=== PATIENT | female | born 1955 | race Caucasian/White ===

== ENCOUNTER → 2016-11-27 | Outpatient (CLI) | payer MEDICARE, BC ==
--- NOTE | 2016-11-27 10:28 | WWHP ---
DATE OF SERVICE: 11/27/2016 CHIEF COMPLAINT: The patient is here for her routine gynecologic exam and mammogram. HPI: This is a 61-year-old G1, P1 with an LMP of 2006. She states it has been about 6 years since her last pelvic exam. She states she does have occasional urinary incontinence. She has noticed when gets into a very deep sleep or if she dreams about urinating, she can have some nighttime incontinence. She has also noticed occasional incontinence during the day, sometimes when she coughs and occasionally she has the sensation of urgency just before leaking. PAST MEDICAL HISTORY: Seasonal allergies with chronic sinus problems, history of chronic hypertension that improved after weight loss and also history of sleep apnea, which does require a CPAP machine. MEDICATIONS: 1. Multivitamin daily. 2. Vitamin D3 one daily. 3. Vitamin B12 daily. Allergies to CODEINE which caused muscle spasms and visual changes. PAST SURGICAL HISTORY: Gastric bypass 2014, lap band surgery prior to gastric band surgery, which caused hiatal hernia problems, knee replacement surgery in the past, section, a benign chest wall tumor removed in 2000 and cholecystectomy. PAST OB HISTORY: One section. 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 SOCIAL HISTORY: She previously socially smoked cigarettes up until about age 32 when she quit. She has about 3 alcoholic drinks per year and denies drug use. She is single but has been with a sexual partner on and off for 30 years and this has been her only partner during that time. They do not live together. 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 FAMILY HISTORY: Grandmother had gastric cancer. Grandfather had throat cancer. Father and brother had SD's, grandson has diabetes. REVIEW OF SYSTEMS: She has lost about 80 pounds since her gastric bypass surgery in 2014. She denies respiratory, cardiac, or GI problems. PHYSICAL EXAM: Blood pressure 118/74, height 5 feet 0 inches, weight 185 pounds, temperature 97.3, pulse 72. This a well-developed, heavyset white female who is alert and oriented x3 in no acute distress. HEENT is within normal limits. NECK: Supple without mass or thyromegaly. CHEST AND LUNGS: Clear to auscultation. HEART: Regular rate and rhythm. Breasts are without mass or discharge. Axillary exam is negative for adenopathy. BACK: Negative for CVA tenderness. ABDOMEN: Soft, nontender, without palpable masses. PELVIC EXAM: Normal external genitalia with mild atrophy. Cervix and vagina appear normal with minimal atrophy. There is no evidence of prolapse. There is no evidence of cystocele with cough and Valsalva. There is no significant urethral mobility and no urinary leakage was demonstrated. The uterus is midposition, nongravid size and nontender. There are no palpable adnexal masses or tenderness. Rectovaginal exam is negative for mass or tenderness and is negative for occult blood. EXTREMITIES: Nontender. IMPRESSION: 1. A 61-year-old menopausal female with normal gynecologic exam. 2. Mild urinary incontinence, probable mixed incontinence without any significant physical findings at this time. PLAN: 1. Pap smear was performed. 2. Self breast examination was discussed. 3. Mammogram will be done today. 4. We have discussed Kegel exercises and I recommend that she do this on a regular basis with sets of 20 three or more times per day. I have also recommended timed voids to see if this helps with her leakage problems. If she continues to have problems, consider referral to a urologist for further evaluation. 5. She will return in one year.
--- NOTE | 2016-11-28 09:03 | MM ---
Reason for exam: screening (asymptomatic). Last mammogram was performed 2 years and 1 month ago. History: Patient is postmenopausal. Physical Findings: A clinical breast exam by your physician is recommended on an annual basis and results should be correlated with mammographic findings. MG 3D Screening Mammo W/Cad Bilateral CC and MLO view(s) were taken. Prior study comparison: October 12, 2014, bilateral MG screening mammo w CAD. September 08, 2013, bilateral digital screening mammo w/CAD. There are scattered fibroglandular densities. There is no discrete abnormality. No significant changes when compared with prior studies. ASSESSMENT: Negative, BI-RAD 1 RECOMMENDATION: Routine screening mammogram of both breasts in 1 year.
== END | disposition home or self-care (01) ==
LOC: WWCWWP 08:29
PROVIDERS: ATTEND Obstetrics & Gynecology
DX: Z12.31 Encounter for screening mammogram for malignant neoplasm of breast (principal)
CPT/HCPCS: 77063; G0202

== ENCOUNTER → 2017-12-25 | Outpatient (CLI) | payer MEDICARE ==
--- NOTE | 2017-12-25 10:46 | WWHP ---
[facility] - HISTORY AND PHYSICAL DATE OF SERVICE: 12/25/2017. CHIEF COMPLAINT: The patient is here for her routine gynecologic exam and mammogram. HPI: This is a 62-year-old G1, P1 with an LMP of 2006. The patient is without gynecologic complaints. PAST MEDICAL HISTORY: Seasonal allergies with chronic sinus problems, history of chronic hypertension, improved with weight loss and history of sleep apnea which does require a CPAP machine. MEDICATIONS: 1. Multivitamin daily. 2. Vitamin D3 daily. 3. Vitamin B12 daily. 4. She does take prescription medication for gastric reflux and she does not know the name of this, but takes it once daily. ALLERGIES: Allergies to CODEINE. PAST SURGICAL HISTORY: Gastric bypass 2014, lap band surgery prior to the gastric bypass surgery which caused hiatal hernia problems, knee replacement surgery in the past, in the past, benign chest wall tumor removed in 2000 and previous cholecystectomy. 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 SOCIAL HISTORY: She quit smoking at age 32 and has about 2 alcohol containing drinks per year. She denies drug use. She has been with her sexual partner on and off for about 30 years and this has been her only partner during that time. They do not live together. 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 FAMILY HISTORY: Grandmother had gastric cancer. Grandfather had throat cancer. Father and brother had LA and grandson had diabetes. REVIEW OF SYSTEMS: She has gained about 15 pounds over the last year and this was after losing 80 pounds following her gastric bypass surgery in 2014. She denies respiratory, cardiac or GI problems. PHYSICAL EXAM: Blood pressure 126/86, height 5 feet 0 inches, weight 200 pounds, BMI 39, temperature 96.3, pulse 71. This is a well-developed, heavyset white female, who is alert and oriented x3, in no acute distress. HEENT is within normal limits. NECK: Supple without mass or thyromegaly. CHEST AND LUNGS: Clear to auscultation. HEART: Regular rate and rhythm. Breasts are without mass or discharge. Axillary exam is negative for adenopathy. BACK: Negative for CVA tenderness. ABDOMEN: Soft, nontender, without palpable masses. PELVIC EXAM: External genitalia reveals mild atrophy without lesions. Cervix and vagina reveals mild atrophy without lesions. There is no evidence of prolapse. The uterus is mid position, nongravid size and nontender. There are no palpable adnexal masses or tenderness. Rectovaginal exam is negative for mass or tenderness and is negative for occult blood. EXTREMITIES: Nontender. IMPRESSION: A 62-year-old menopausal female with normal gynecologic exam. PLAN: 1. Pap smear was deferred since she had a normal one last year. 2. Self breast examination was discussed. 3. Mammogram will be done today. 4. Osteoporosis prevention was discussed. I have recommended bone density screening. She would like to do this next year at the time of her annual exam. 5. She will return in one year. MMODL / IJN: [id number] /
--- NOTE | 2017-12-26 13:12 | MM ---
Reason for exam: screening (asymptomatic). Last mammogram was performed 1 year and 1 month ago. History: Patient is postmenopausal. Physical Findings: A clinical breast exam by your physician is recommended on an annual basis and results should be correlated with mammographic findings. MG 3D Screening Mammo W/Cad Bilateral CC and MLO view(s) were taken. Prior study comparison: November 27, 2016, bilateral MG 3d screening mammo w/cad. October 12, 2014, bilateral MG screening mammo w CAD. There are scattered fibroglandular densities. Finding: There are typically benign round calcifications in both breasts. Asymmetric breast tissue right axilla, stable. There is no discrete abnormality. ASSESSMENT: Benign, BI-RAD 2 RECOMMENDATION: Routine screening mammogram of both breasts in 1 year.
== END | disposition home or self-care (01) ==
LOC: WWCWWP 09:08
PROVIDERS: ATTEND Obstetrics & Gynecology
DX: Z12.31 Encounter for screening mammogram for malignant neoplasm of breast (principal)
CPT/HCPCS: 77063; 77067

== ENCOUNTER 2019-05-05 08:25 | Inpatient (IN) | payer MEDICARE ==
[2019-05-05] MEDS ORDERED: HEPARIN SODIUM,PORCINE 5,000 UNIT/ML 1 ML VIAL IV STA (08:40)
[2019-05-05] MEDS ORDERED: ASPIRIN 81 MG PO STA (08:40)
[2019-05-05] MEDS ORDERED: NITROGLYCERIN SL TABS 0.4 MG TAB SUBLINGUAL STA (08:40)
[2019-05-05] MEDS ORDERED: ATORVASTATIN 80 MG TAB PO STA (08:41)
--- NOTE | 2019-05-05 08:45 | ED ---
Chest Pain HPI - General Chief Complaint: Chest Pain Stated Complaint: Chest Pain Time Seen by Provider: 05/05/19 08:30 Source: patient Mode of arrival: wheelchair - History of Present Illness Initial Comments: This is a 64-year-old female with no personal history of heart disease a former smoker many years ago states she has sudden onset around 8 AM this morning of severe retrosternal chest discomfort with some numbness to her left arm. She states it was 8/10 in severity associated with some nausea no vomiting slight shortness of breath no palpitations no dizziness lightheadedness fevers chills or other symptoms reported. MD Complaint: chest pain - Related Data Home Medications Medication Instructions Recorded Confirmed Omeprazole 20 mg PO DAILY 05/05/19 05/05/19 Allergies Allergy/AdvReac Type Severity Reaction Status Date / Time codeine Allergy went into Verified 05/05/19 09:00 corticate position, unable to see colors Review of Systems ROS Statement: Those systems with pertinent positive or pertinent negative responses have been documented in the HPI. ROS Other: All systems not noted in ROS Statement are negative. EKG Findings - EKG Results: EKG: interpreted by GUSTABO, sinus rhythm (Sinus rhythm with evidence of hyperacute T waves and ST elevation in leads V2 V3 V4. The rate was 85. Interval 148 QRS duration 84 QT since QTC 380/452 evidence of LVH. No old EKG available at this time for comparison.) Past Medical History Past Medical History: Osteoarthritis (OA), Sleep Apnea/CPAP/BIPAP Additional Past Medical History / Comment(s): HX DIVERTICULITIS, HIATAL HERNIA, History of Any Multi-Drug Resistant Organisms: None Reported Past Surgical History: Section, Cholecystectomy, Joint Replacement Additional Past Surgical History / Comment(s): LAP BAND, LEFT KNEE Past Anesthesia/Blood Transfusion Reactions: No Reported Reaction Past Psychological History: No Psychological Hx Reported Smoking Status: Former smoker Past Alcohol Use History: None Reported Past Drug Use History: None Reported - Past Family History Mother Family Medical History: No Reported History General Exam - General Exam Comments Initial Comments: This is a well-developed well-nourished awake alert oriented 3 female General appearance: alert, anxious, in distress Head exam: Present: atraumatic, normocephalic, normal inspection Eye exam: Present: normal appearance, PERRL, EOMI. Absent: scleral icterus, conjunctival injection, periorbital swelling ENT exam: Present: normal exam, mucous membranes moist Neck exam: Present: normal inspection. Absent: tenderness, meningismus, lymphadenopathy Respiratory exam: Present: normal lung sounds bilaterally. Absent: respiratory distress, wheezes, rales, rhonchi, stridor Cardiovascular Exam: Present: regular rate, normal rhythm, normal heart sounds. Absent: systolic murmur, diastolic murmur, rubs, gallop, clicks GI/Abdominal exam: Present: soft, normal bowel sounds. Absent: distended, tenderness, guarding, rebound, rigid Extremities exam: Present: normal inspection, full ROM, normal capillary refill. Absent: tenderness, pedal edema, joint swelling, calf tenderness Back exam: Present: normal inspection Neurological exam: Present: alert, oriented X3, CN II-XII intact Psychiatric exam: Present: normal affect, normal mood Skin exam: Present: warm, dry, intact, normal color. Absent: rash Course Vital Signs 05/05/19 05/05/19 08:31 08:48 Temperature 98.0 F Pulse Rate 102 H 76 Respiratory 20 18 Rate Blood Pressure 155/71 149/84 O2 Sat by Pulse 100 99 Oximetry - Reevaluation(s) Reevaluation #1: 05/05/19 08:50 A STEMI alert was immediately called due to the findings on the EKG. Patient was prepped and taken to the [facility]. Dr. Sanchez will be performing the cardiac cath. Chest Pain MDM - MDM Patient did receive the initial treatment to prep her for [facility]. Her pain was still 8/10 severity. I did discuss the case with Dr. Brasher. Patient was admitted to the [facility]. Critical Care Time Critical Care Time: Yes Critical Care Time: 31 minutes of critical care time which includes initial presentation with history physical. Labs and x-rays ordered x-ray was halted this patient was unaware the [facility]. This also included discussion with staff as well as with Dr. Brasher. Reviewing the old charting that was available. Documentation the above and some initial orders Disposition Clinical Impression: ST elevation myocardial infarction (STEMI), Chest pain, Acute coronary syndrome Disposition: ADMITTED IP TO THIS [facility] Condition: Critical Referrals: Derian Brasher MD [Primary Care Provider] - 1-2 days
[2019-05-05 08:59] LABS: Basophils % (A) 1 %; Eosinophils # (A) 0.1 k/uL (0-0.7); Eosinophils % (A) 2 %; HCT 40.7 % (34.0-46.0); HGB 14.1 gm/dL (11.4-16.0); Lymphocytes # (A) 1.9 k/uL (1.0-4.8); Lymphocytes % (A) 32 %; MCH 31.5 pg (25.0-35.0); MCHC 34.7 g/dL (31.0-37.0); MCV 90.6 fL (80.0-100.0); Mean Platelet Volume 7.6; Monocytes # (A) 0.4 k/uL (0-1.0); Monocytes % (A) 6 %; Neutrophils # (A) 3.2 k/uL (1.3-7.7); Neutrophils % (A) 55 %; Platelet Count 248 k/uL (150-450); RBC 4.49 m/uL (3.80-5.40); RDW 14.1 % (11.5-15.5); WBC 5.9 k/uL (3.8-10.6)
[2019-05-05 09:04] LABS: ALT 21 U/L (9-52); AST 24 U/L (14-36); African American GFR (CKD) >90 (>60 ml/min/1.73 sqM); Albumin 4.7 g/dL (3.5-5.0); Alkaline Phosphatase 75 U/L (38-126); Anion Gap 11 mmol/L; Blood Urea Nitrogen 15 mg/dL (7-17); Calcium 9.2 mg/dL (8.4-10.2); Carbon Dioxide 23 mmol/L (22-30); Chloride 110 mmol/L (98-107); Glucose 105 mg/dL (74-99); Partial Thromboplastin Time 26.2 sec (22.0-30.0); Potassium 3.7 mmol/L (3.5-5.1); Sodium 144 mmol/L (137-145); Total Bilirubin 0.8 mg/dL (0.2-1.3); Total Protein 8.4 g/dL (6.3-8.2)
--- NOTE | 2019-05-05 09:06 | P.CRDCN ---
History of Present Illness Consult date: 05/05/19 Requesting physician: Derian Brasher Reason for Consult (text): Anterior STEMI Chief complaint: Chest pressure History of present illness: This is a pleasant 64-year-old female with history of hypertension, she also has history of prior gastric sleeve procedure, nondiabetic, no hyperlipidemia, prior history of smoking. Presented to the emergency room this morning with symptoms of midsternal chest discomfort which she states started around 8 AM while she was at work. Initial EKG performed in the emergency room showed a normal sinus rhythm with ST elevation in the anterior leads suggesting acute anterior wall ST elevation myocardial infarction. Patient was given aspirin, bolus of IV heparin as well as Lipitor, taken directly to the cardiac catheterization lab. The procedure itself was explained to the patient in detail. Blood pressure 155/70, heart rate 102, respirations 20, 100% on room air. She was afebrile. No laboratory data available. At the time of my examination, patient states that most of the symptoms had resolved Past Medical History Past Medical History: Osteoarthritis (OA), Sleep Apnea/CPAP/BIPAP Additional Past Medical History / Comment(s): HX DIVERTICULITIS, HIATAL HERNIA, History of Any Multi-Drug Resistant Organisms: None Reported Past Surgical History: Section, Cholecystectomy, Joint Replacement Additional Past Surgical History / Comment(s): LAP BAND, LEFT KNEE Past Anesthesia/Blood Transfusion Reactions: No Reported Reaction Past Psychological History: No Psychological Hx Reported Smoking Status: Former smoker Past Alcohol Use History: None Reported Past Drug Use History: None Reported - Past Family History Mother Family Medical History: No Reported History Medications and Allergies Home Medications Medication Instructions Recorded Confirmed Type L.acidoph,Paracasei, B.lactis 1 tab PO DAILY 08/29/15 10/07/16 History [Probiotic] Losartan Potassium 100 mg PO QAM 08/29/15 10/07/16 History Cyclobenzaprine [Flexeril] 5 mg PO TID #30 tablet 10/07/16 Rx Calcium Carbonate [Calcium] 600 mg PO DAILY 10/08/16 10/08/16 History Cholecalciferol [Vitamin D3] 2,000 unit PO DAILY 10/08/16 10/08/16 History Cyanocobalamin [Vitamin B-12] 500 mcg PO DAILY 10/08/16 10/08/16 History Multivitamins, Thera [Multivitamin 1 tab PO DAILY 10/08/16 10/08/16 History (formulary)] Allergies Allergy/AdvReac Type Severity Reaction Status Date / Time codeine Allergy went into Verified 05/05/19 09:00 corticate position, unable to see colors Physical Exam Vitals: Vital Signs Temp Pulse Resp BP Pulse Ox 05/05/19 08:48 76 18 149/84 99 05/05/19 08:31 98.0 F 102 H 20 155/71 100 Intake and Output 05/04/19 05/05/19 05/05/19 22:59 06:59 14:59 Other: Weight 92.986 kg PHYSICAL EXAMINATION: GENERAL: 64-year-old female, in no acute distress at the time of my examination HEENT: Head is atraumatic, normocephalic. Pupils equal, round. Sclera anicteric. Conjunctiva are clear. Mucous membranes of the mouth are moist. Neck is supple. There is no elevated jugular venous pressure. HEART EXAMINATION: [Heart S1, S2 normal. No murmur or gallop heard.] CHEST EXAMINATION:[ Lungs are clear to auscultation and precussion. No chest wall tenderness is noted on palpation or with deep breathing.] ABDOMEN: [ Soft, nontender. Bowel sounds are heard. No organomegaly noted]. EXTREMITIES:[ 2+ peripheral pulses with no evidence of peripheral edema and no calf tenderness noted]. NEUROLOGIC [patient is awake, alert and oriented ?-3.] . Results 05/05/19 08:43 CBC 05/05/19 Range/Units 08:43 WBC 5.9 (3.8-10.6) k/uL RBC 4.49 (3.80-5.40) m/uL Hgb 14.1 (11.4-16.0) gm/dL Hct 40.7 (34.0-46.0) % Plt Count 248 (150-450) k/uL Intake and Output 05/04/19 05/05/19 05/05/19 22:59 06:59 14:59 Other: Weight 92.986 kg Patient Weight 05/06/19 06:59 Weight 92.986 kg 05/05/19 08:43 EKG Interpretations (text) EKG shows anterior ST elevation myocardial infarction Assessment and Plan Plan: Assessment and plan #[address] elevation MO #2 hypertension #3 history of gastric sleeve surgery Plan Patient was given aspirin, bolus of IV heparin, Lipitor, taken directly to the cardiac catheterization lab. Further recommendations will be based on the findings and the patient's clinical course. DNP note has been reviewed, I agree with a documented findings and plan of care. Patient was seen and examined.
[2019-05-05] MEDS ORDERED: MIDAZOLAM (PF) 2 MG/2 ML VIAL IV ONE (09:07)
[2019-05-05] MEDS ORDERED: SODIUM CHLORIDE 0.9% 1,000 ML IV ONE (09:08)
[2019-05-05] MEDS ORDERED: LIDOCAINE 1% INJ 10MG/ML (20 ML MDV) SQ ONE (09:11)
[2019-05-05] MEDS ORDERED: fentaNYL (PF) 50 MCG/ML 2 ML AMP IV ONE (09:11)
[2019-05-05 09:15] LABS: Creatine Kinase 87 U/L (30-135)
[2019-05-05] MEDS ORDERED: BIVALIRUDIN 250 MG in SODIUM CHLORIDE 0.9% 50 ML IV ONE (09:23)
[2019-05-05] MEDS ORDERED: BIVALIRUDIN BOLUS 250 MG/50 ML IV ONE (09:23)
[2019-05-05] MEDS ORDERED: CLOPIDOGREL 75 MG TAB PO ONE (09:26)
[2019-05-05 09:28] LABS: Troponin I <0.012 ng/mL (0.000-0.034)
[2019-05-05] MEDS: NITROGLYCERIN 1000MCG/10ML SYRINGE INTRACORON ONE ×2 (09:36→09:46)
[2019-05-05] MEDS ORDERED: IOPAMIDOL-370 125ML BTL INJ ONE (09:47)
[2019-05-05] MEDS ORDERED: IOPAMIDOL-370 100ML BTL INJ ONE (09:48)
[2019-05-05] MEDS ORDERED: NITROGLYCERIN SL TABS 0.4 MG TAB SUBLINGUAL PRN (09:53)
[2019-05-05] MEDS ORDERED: ZOLPIDEM 5 MG TAB PO PRN (09:53)
[2019-05-05] MEDS ORDERED: MAG HYDROX/AL HYDROX/SIMETH 30 ML CUP PO PRN (09:53)
[2019-05-05] MEDS ORDERED: RX INFO: IV CONTRAST WAS GIVEN 1 EACH MISC MISCELLANE PRN (09:53)
[2019-05-05] MEDS ORDERED: ATROPINE SULFATE 0.1 MG/ML 10ML SYRINGE IV PRN (09:53)
[2019-05-05] MEDS ORDERED: SODIUM CHLORIDE 0.9% 1,000 ML IV SCH (10:00)
[2019-05-05 10:34] LABS: Glucose,Whole Blood 99 mg/dL (75-99)
[2019-05-05 11:06] VITALS: BMI 40.6
--- NOTE | 2019-05-05 11:07 | CC ---
CARDIAC CATHETERIZATION REPORT CARDIAC CATHETERIZATION AND PERCUTANEOUS CORONARY INTERVENTION: DATE OF SERVICE: May 05, 2019 PERFORMING PHYSICIAN: Spenser Mensah MD. PROCEDURE PERFORMED: 1. Selective right and left coronary angiogram. 2. Successful stenting of the distal LAD using 2.0 x 30 mm Brain drug-eluting stent with an excellent angiographic result and reduction of stenosis from 100% to 0%. 3. Successful stenting of the mid LAD using 2.25 x 18 mm Xience MARTHA with excellent angiographic results and reduction of stenosis from 100% to 0%. INDICATION: This is a 64-year-old female patient with hypertension and dyslipidemia who presented to the emergency room with chest discomfort and was found to be in acute anterior ST- elevation myocardial infarction. An emergent heart catheterization was advised. APPROACH: Right common femoral artery. COMPLICATION: None. LEVEL OF SEDATION: Moderate with sedation length of 39 minutes. Door to balloon was 78 minutes. PROCEDURE DESCRIPTION: After obtaining an informed consent, the patient was brought to the cardiac lab[facility]. The right common femoral artery was cannulated using micropuncture technique, the micropuncture wire passed easily then I placed a 6-Frisian sheath in the right common femoral artery. After that, I did selective right and left coronary angiogram. Selective right coronary angiogram was performed using JR4 catheter and selective left coronary angiogram was performed using JL3.5 guide. After that I did intervene on the LAD, please see a separate paragraph for that. SELECTIVE CORONARY ANGIOGRAM: 1. Right coronary artery is a large caliber vessel, dominant vessel. The RCA appeared to be angiographically normal. It distally bifurcates into PDA and PLV branches both appear to be angiographically normal. 2. The left main is a large caliber vessel and seems to be angiographically normal. It bifurcates into left circumflex and left anterior descending artery. 3. The left circumflex is a large caliber vessel. It is a nondominant vessel. The circumflex in the proximal portion appeared to be normal and gives rise into a large OM branch which seems to be normal and the circumflex distally appeared to be angiographically normal. 4. The LAD: The proximal LAD gives rise into a large diagonal branch which seems to be angiographically normal. The mid LAD is 100% occluded on the long segment. PCI OF THE LAD: Anticoagulation was initiated using Angiomax. Subsequently I did engage the left main using JL3.5 guide. A run-through wire was used to wire the LAD and crossed the acute total occlusion. I did after that balloon angioplasty using 2.0 x 15 mm balloon before I deployed in the distal LAD 2.0 x 30 mm [place] drug-eluting stent where the stent was positioned under fluoroscopy guidance and deployed under 12 atmospheres for 20 seconds. In the mid LAD, I deployed 2.25 x 18 mm Xience MARTHA where the stent again was positioned under fluoroscopy guidance and deployed under 12 atmospheres for 20 seconds. The area of overlap between the 2 stents was dilated using the stent balloon. The final angiogram showed good results. The procedure was completed without any complication. CONCLUSION: 1. Acute anterior ST-elevation myocardial infarction. 2. Acute total occlusion of the mid LAD on the long segment extending from the mid to distal. 3. Successful stenting of both the mid and distal LAD using 2 drug-eluting stents with excellent angiographic results and reduction of stenosis from 100% to 0%. POSTPROCEDURE MANAGEMENT: 1. Dual antiplatelet therapy. 2. Risk factor modifications. 3. Follow up with the patient. MMODL / IJN: [id number] /
[2019-05-05] MEDS ORDERED: hydrALAZINE HCL 20 MG/ML 1 ML VIAL IVP PRN (12:59)
--- NOTE | 2019-05-05 18:25 | P.HPIM ---
History of Present Illness H&P Date: 05/05/19 Chief Complaint: Acute STEMI, acute chest pain, hypertension, hyperglycemia, hyperlipidemia 64-year-old female mildly overweight 1 of my office patient of known for a few years with past medical history of hypertension hyperglycemia hyperlipidemia with. 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 Patient was giving aspirin heparin sta rted on Lipitor and was directly to the matlab developer was seen by Dr. Mensah angiogram was performed showed acute stenosis of the LAD patient ended up having 2 stent placement and angioplasty successfully a was admitted to the ICU afterward for the above problem. Review of Systems CONSTITUTIONAL: Well-developed no acute respiratory distress. EYES: No icterus sclerae, no conjunctivitis. EARS, NOSE, MOUTH, THROAT, and FACE: No sore throat, lymphadenopathy, carotid bruits or deformity. RESPIRATORY: Shortness of breath no cough or wheezes. CARDIOVASCULAR: Positive chest pain, PND, orthopnea and angina. GASTROINTESTINAL: No Abd pain, Nausea or vomiting, no Diarrhea or constipation, No GI Bleed, no distention or masses. GENITOURINARY: Negative for Hematuria or UTI, no kidney stones. INTEGUMENT/BREAST: Negative for any muscular injury with mild osteoarthritis.. HEMATOLOGIC/LYMPHATIC: Negative for bleed or purpura. MUSCULOSKELTAL: Negative for Myalgia or arthralgia. NEURLOGICAL: No LOC, Sz or syncope, blurred vision dizziness or abnormality.. BEHAVIORAL/PSYCH: Negative. ENDOCRINE: Negative. Past Medical History Past Medical History: Osteoarthritis (OA), Sleep Apnea/CPAP/BIPAP Additional Past Medical History / Comment(s): HX DIVERTICULITIS, HIATAL HERNIA, History of Any Multi-Drug Resistant Organisms: None Reported Past Surgical History: Section, Cholecystectomy, Joint Replacement Additional Past Surgical History / Comment(s): LAP BAND, LEFT KNEE Past Anesthesia/Blood Transfusion Reactions: No Reported Reaction Past Psychological History: No Psychological Hx Reported Smoking Status: Former smoker Past Alcohol Use History: None Reported Past Drug Use History: None Reported - Past Family History Mother Family Medical History: No Reported History Medications and Allergies Home Medications Medication Instructions Recorded Confirmed Type Omeprazole 20 mg PO DAILY 05/05/19 05/05/19 History Allergies Allergy/AdvReac Type Severity Reaction Status Date / Time codeine Allergy went into Verified 05/05/19 09:00 corticate position, unable to see colors Physical Exam Vitals: Vital Signs Temp Pulse Resp BP BP BP Pulse Ox 05/05/19 11:15 72 12 95 05/05/19 11:00 70 14 97 05/05/19 10:45 80 19 97 05/05/19 10:30 64 10 L 139/86 98 05/05/19 10:16 97.6 F 75 11 L 139/80 97 05/05/19 10:15 97.6 F 10 L 151/61 150/60 98 05/05/19 08:48 76 18 149/84 99 05/05/19 08:31 98.0 F 102 H 20 155/71 100 Intake and Output 05/05/19 05/05/19 05/05/19 06:59 14:59 22:59 Intake Total 523.5 225 Output Total 850 0 Balance -326.5 225 Intake: IV 523.5 225 Sodium Chloride 0.9% 1, 375 225 000 ml @ 75 mls/hr IV . [id number] [facility] Rx#:[id number] pressure bag 15 Output: Urine 850 0 Other: Voiding Method Bedpan Weight 92.986 kg ABP, PAP, CO, CI - Last 8 Hours Arterial Blood Pressure 157/66 Arterial Blood Pressure 157/66 Arterial Blood Pressure 169/71 Arterial Blood Pressure 158/64 General Appearance: Alert, cooperative, no distress, appears stated age. On the overweight Neck HEENT: Supple, no lymphadenopathy, no thyroid enlargement, no carotid bruits. Lungs: Clear to auscultation without crackles or wheezes no rhonchi, no deformity. Chest Wall: Chest wall normal expansion with deep inspiration no tenderness and no deformity was found on exam, no costochondral pain or discomfort. Heart: Regular rate and rhythm, S1, S2 positive this 3 , no murmur, rub or gallop. Back: Symmetric, no curvature, ROM normal, no CVA tenderness. Abdomen: Soft, non-tender, bowel sounds active all four quadrants, no masses, no organomegaly. Extremities: Extremities normal, atraumatic, no cyanosis or edema. Pulses: 2+ and symmetric. Skin: Skin color, texture, tugor normal, no rashes or lesions. Neurologic: Alert oriented x3 cranial nerves II through XII intact, no motor deficit, no abnormal balance or gait. Results CBC & Chem 7: 05/05/19 08:43 05/05/19 08:43 Labs: Abnormal Lab Results - Last 24 Hours (Table) 05/05/19 Range/Units 08:43 Chloride 110 H (98-107) mmol/L Glucose 105 H (74-99) mg/dL Total Protein 8.4 H (6.3-8.2) g/dL Thrombosis Risk Factor Assmnt - DVT/VTE Prophylaxis DVT/VTE Prophylaxis: Pharmacologic Prophylaxis ordered, Mechanical Prophylaxis ordered - Choose All That Apply Each Factor Represents 1 point: Medical pt on bed rest, Obesity (BMI >25) Each Risk Factor Represents 2 Points: Age 61-74 years Other congenital or acquired thrombophilia - If yes, enter type in comment: No Thrombosis Risk Factor Assessment Total Risk Factor Score: 4 Thrombosis Risk Factor Assessment Level: Moderate Risk Assessment and Plan Plan: 1 acute STEMI: Patient went to the matlab developer had angioplasty and stent placement into area of the LAD will continue secondary prevention for now, CK with troponin will be watch continue anticoagulation for now continue to watch for any arrhythmia. 2 hypertension: Patient be started on metoprolol and lisinopril has not been taking any medication lately. 3 Hyperlipidemia: Patient be started on high dose of atorvastatin 80 mg daily per [employer] protocol. 4 severe GERD: Has been on omeprazole 20 mg a day. 5 hyperglycemia: Continue diet control can benefit from being on smaller dose of metformin 500 mg twice a day if needed. 6 GI prophylaxis: Continue PPI. 7 DVT prophylaxis: Patient will be on anticoagulation and knee-high JAROCHO hose. CODE STATUS: Full code. Admit patient to inpatient status for more than 2 nights.
[2019-05-05] MEDS: METOPROLOL TARTRATE 25 MG TAB PO SCH (21:05)
[2019-05-06 05:25] LABS: Basophils % (A) 0 %; Eosinophils # (A) 0.1 k/uL (0-0.7); Eosinophils % (A) 2 %; HCT 38.2 % (34.0-46.0); HGB 12.7 gm/dL (11.4-16.0); Lymphocytes # (A) 1.4 k/uL (1.0-4.8); Lymphocytes % (A) 20 %; MCH 30.7 pg (25.0-35.0); MCHC 33.4 g/dL (31.0-37.0); MCV 92.1 fL (80.0-100.0); Mean Platelet Volume 7.5; Monocytes # (A) 0.4 k/uL (0-1.0); Monocytes % (A) 5 %; Neutrophils # (A) 5.2 k/uL (1.3-7.7); Neutrophils % (A) 71 %; Platelet Count 221 k/uL (150-450); RBC 4.14 m/uL (3.80-5.40); RDW 14.2 % (11.5-15.5); WBC 7.2 k/uL (3.8-10.6)
[2019-05-06 05:37] LABS: African American GFR (CKD) >90 (>60 ml/min/1.73 sqM); Anion Gap 7 mmol/L; Blood Urea Nitrogen 14 mg/dL (7-17); Calcium 8.6 mg/dL (8.4-10.2); Carbon Dioxide 21 mmol/L (22-30); Chloride 114 mmol/L (98-107); Glucose 93 mg/dL (74-99); Potassium 3.8 mmol/L (3.5-5.1); Sodium 142 mmol/L (137-145)
[2019-05-06] MEDS ORDERED: Potassium Replacement Protocol 1 EACH MISC MISCELLANE PRN (06:48)
[2019-05-06] MEDS ORDERED: POTASSIUM CHLORIDE ER 20 MEQ TAB.ER PO SCH (07:00)
[2019-05-06] MEDS: METOPROLOL TARTRATE 25 MG TAB PO SCH ×2 (09:18→21:50)
[2019-05-06] MEDS: LISINOPRIL 2.5 MG TAB PO SCH (09:18)
[2019-05-06] MEDS: CLOPIDOGREL 75 MG TAB PO SCH (09:18)
[2019-05-06] MEDS: ASPIRIN 325 MG TAB PO SCH (09:18)
--- NOTE | 2019-05-06 13:32 | P.PN ---
Subjective Progress Note Date: 05/06/19 Principal diagnosis: Acute STEMI, acute chest pain, hypertension, hyperglycemia, hyperlipidemia 64-year-old female mildly overweight 1 of my office patient of known for a few years with past medical history of hypertension hyperglycemia hyperlipidemia with. 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 Patient was giving aspirin heparin st arted on Lipitor and was directly to the veterinary laboratory diagnostician was seen by Dr. Mensah angiogram was performed showed acute stenosis of the LAD patient ended up having 2 stent placement and angioplasty successfully a was admitted to the ICU afterward for the above problem. 05/06: Patient is doing very well no chest pain decreased shortness of breath, continue complaining of increased heartburn but able to tolerate her medication well mild lightheadedness with some of her Tim and beta carl. She'll be clear for discharge home hopefully tomorrow. Objective - Vital Signs Vital signs: Vital Signs Temp 98.4 F 05/06/19 08:00 Pulse 64 05/06/19 11:00 Resp 21 05/06/19 11:00 BP 120/78 05/06/19 11:00 Pulse Ox 94 L 05/06/19 11:00 Intake & Output 05/05/19 05/06/19 05/06/19 18:59 06:59 18:59 Intake Total 898.5 330 50 Output Total 1150 400 Balance -251.5 -70 50 Weight 92.986 kg 94.3 kg 94.3 kg Intake: IV 898.5 90 50 Sodium Chloride 0.9% 1, 750 90 50 000 ml @ 75 mls/hr IV . [id number] [facility] Rx#:[id number] pressure bag 15 Oral 240 Output: Urine 1050 400 Stool 100 Other: Voiding Method Bedpan Bedside Commode Bedside Commode # Voids 1 1 # Bowel Movements 1 1 ABP, PAP, CO, CI - Last Documented Arterial Blood Pressure 168/73 - Constitutional Constitutional Comment(s): Review of Systems CONSTITUTIONAL: Well-developed no acute respiratory distress. EYES: No icterus sclerae, no conjunctivitis. EARS, NOSE, MOUTH, THROAT, and FACE: No sore throat, lymphadenopathy, carotid bruits or deformity. RESPIRATORY: Shortness of breath no cough or wheezes. CARDIOVASCULAR: Positive chest pain, PND, orthopnea and angina. GASTROINTESTINAL: No Abd pain, Nausea or vomiting, no Diarrhea or constipation, No GI Bleed, no distention or masses. GENITOURINARY: Negative for Hematuria or UTI, no kidney stones. INTEGUMENT/BREAST: Negative for any muscular injury with mild osteoarthritis.. HEMATOLOGIC/LYMPHATIC: Negative for bleed or purpura. MUSCULOSKELTAL: Negative for Myalgia or arthralgia. NEURLOGICAL: No LOC, Sz or syncope, blurred vision dizziness or abnormality.. BEHAVIORAL/PSYCH: Negative. ENDOCRINE: Negative. Physical Exam General Appearance: Alert, cooperative, no distress, appears stated age. On the overweight Neck HEENT: Supple, no lymphadenopathy, no thyroid enlargement, no carotid bruits. Lungs: Clear to auscultation without crackles or wheezes no rhonchi, no deformity. Chest Wall: Chest wall normal expansion with deep inspiration no tenderness and no deformity was found on exam, no costochondral pain or discomfort. Heart: Regular rate and rhythm, S1, S2 positive this 3 , no murmur, rub or gall op. Back: Symmetric, no curvature, ROM normal, no CVA tenderness. Abdomen: Soft, non-tender, bowel sounds active all four quadrants, no masses, no organomegaly. Extremities: Extremities normal, atraumatic, no cyanosis or edema. Pulses: 2+ and symmetric. Skin: Skin color, texture, tugor normal, no rashes or lesions. Neurologic: Alert oriented x3 cranial nerves II through XII intact, no motor deficit, no abnormal balance or gait. - Labs CBC & Chem 7: 05/06/19 05:09 05/06/19 05:09 Labs: Abnormal Lab Results - Last 24 Hours (Table) 05/06/19 Range/Units 05:09 Chloride 114 H (98-107) mmol/L Carbon Dioxide 21 L (22-30) mmol/L Assessment and Plan Plan: 1 acute STEMI: Patient went to the veterinary laboratory diagnostician had angioplasty and stent placement into area of the LAD will continue secondary prevention for now, CK with troponin will be watch continue anticoagulation for now continue to watch for any arrhythmia. 2 hypertension: Patient be started on metoprolol and lisinopril has not been taking any medication lately. 3 Hyperlipidemia: Patient be started on high dose of atorvastatin 80 mg daily per [place] [employer] protocol. 4 severe GERD: Has been on omeprazole 20 mg a day. 5 hyperglycemia: Continue diet control can benefit from being on smaller dose of metformin 500 mg twice a day if needed. 6 GI prophylaxis: Continue PPI. Patient is very stable and titrate activity today finalize medication and prepare for home tomorrow.
[2019-05-06] MEDS: PANTOPRAZOLE 40 MG TABLET PO SCH (13:38)
--- NOTE | 2019-05-06 17:06 | P.PN ---
Subjective Progress Note Date: 05/06/19 This is a 64-year-old female who is admitted yesterday with chest pain and evidence of anterior wall myocardial infarction. Patient had stent placement of the LAD. Patient is feeling better. No chest pains. No groin pain. The groin is soft. No arrhythmias since yesterday. Lungs are clear and heart is regular. We'll increase her activity gradually. Transferred to telemetry unit tomorrow Objective - Vital Signs Vital signs: Vital Signs Temp 98.2 F 05/06/19 12:00 Pulse 70 05/06/19 17:00 Resp 12 05/06/19 17:00 BP 146/79 05/06/19 17:00 Pulse Ox 95 05/06/19 17:00 Intake & Output 05/05/19 05/06/19 05/06/19 18:59 06:59 18:59 Intake Total 898.5 330 90 Output Total 1150 400 Balance -251.5 -70 90 Weight 92.986 kg 94.3 kg 94.3 kg Intake: IV 898.5 90 90 Sodium Chloride 0.9% 1, 750 90 90 000 ml @ 75 mls/hr IV . [id number] [facility] Rx#:[id number] pressure bag 15 Oral 240 Output: Urine 1050 400 Stool 100 Other: Voiding Method Bedpan Bedside Commode Bedside Commode # Voids 1 1 # Bowel Movements 1 1 ABP, PAP, CO, CI - Last Documented Arterial Blood Pressure 168/73 - Exam GENERAL EXAM: Patient is alert and oriented and doesn't appear to be in any acute distress HEENT: Normocephalic. Normal reaction of pupils, equal size, normal range of extraocular motion. No erythema or exudates in the throat. NECK: No masses, no nuchal rigidity. CHEST: No chest wall deformity. LUNGS: Equal air entry with no crackles or wheeze. HEART: S1 and S2 normal with no audible mumurs or gallops. Regular rhythm, femorals equal on both sides.. ABDOMEN: No hepatosplenomegaly, normal bowel sounds, no guarding or rigidity. SKIN: No rashes CENTRAL NERVOUS SYSTEM: No focal deficits. EXTREMITIES: No cyanosis, clubbing or edema. PUNCTURE SITE: Soft without any hematoma - Labs CBC & Chem 7: 05/06/19 05:09 05/06/19 05:09 Labs: Abnormal Lab Results - Last 24 Hours (Table) 05/06/19 Range/Units 05:09 Chloride 114 H (98-107) mmol/L Carbon Dioxide 21 L (22-30) mmol/L Assessment and Plan (1) ST elevation myocardial infarction (STEMI) Current Visit: Yes Status: Acute Code(s): I21.3 - ST ELEVATION (STEMI) MYOCARDIAL INFARCTION OF [facility] SITE SNOMED Code(s): 40685679 Plan: Patient is clinically stable. Increase activity as tolerated. Get an echocardiogram. Transfer to telemetry unit.
[2019-05-06] MEDS ORDERED: ATORVASTATIN 80 MG TAB PO SCH (21:00)
[2019-05-07] MEDS: PANTOPRAZOLE 40 MG TABLET PO SCH (06:56)
[2019-05-07] MEDS: LISINOPRIL 2.5 MG TAB PO SCH (08:57)
[2019-05-07] MEDS: CLOPIDOGREL 75 MG TAB PO SCH (08:57)
[2019-05-07] MEDS: ASPIRIN 325 MG TAB PO SCH (08:57)
[2019-05-07] MEDS: METOPROLOL TARTRATE 25 MG TAB PO SCH (08:57)
--- NOTE | 2019-05-07 09:20 | ECHOF ---
Referral Reason:Chest pain and cardiomyopathy MEASUREMENTS -------- HEIGHT: 152.4 cm WEIGHT: 93.9 kg BP: 104/50 IVSd: 1.2 cm (0.6 - 1.1) LVIDd: 3.2 cm (3.9 - 5.3) LVPWd: 1.3 cm (0.6 - 1.1) IVSs: 1.6 cm LVIDs: 1.9 cm LVPWs: 1.8 cm LAESV Index (A-L): 23.54 ml/m Ao Diam: 3.3 cm (2.0 - 3.7) AV Cusp: 1.7 cm (1.5 - 2.6) LA Diam: 2.2 cm (2.7 - 3.8) MV EXCURSION: 8.677 mm (> 18.000) MV EF SLOPE: 21 mm/s (70 - 150) EPSS: 0.9 cm MV E Rolando: 1.06 m/s MV DecT: 134 ms MV A Rolando: 1.28 m/s MV E/A Ratio: 0.83 AV maxP.81 mmHg AV meanP.32 mmHg AR PHT: 244 ms RAP: 5.00 mmHg RVSP: 34.31 mmHg FINDINGS -------- Sinus rhythm. This was a technically good study. The left ventricular size is normal. There is mild concentric left ventricular hypertrophy. Overa ll left ventricular systolic function is low-normal with, an EF between 50 - 55 %. Apical anterior LV wall motion is hypokinetic. Apical septum LV wall motion is hypokinetic. The right ventricle is normal in size. Normal LA size by volume 22+/-6 ml/m2. The right atrial size is normal. Interatrial and interventricular septum intact. There is mild aortic valve sclerosis. There is mild aortic regurgitation. Peak/mean gradient acro ss the Aortic Valve is 15.81mmHg / 9.32mmHg. Moderate mitral annular calcification present. Mild mitral regurgitation is present. Mild tricuspid regurgitation present. There is no evidence of pulmonary hypertension. The right v entricular systolic pressure, as measured by Doppler, is 34.31mmHg. There is no pulmonic regurgitation present. The aortic root size is normal. IVC Not well visulized. There is no pericardial effusion. CONCLUSIONS -------- 1. Sinus rhythm. 2. This was a technically good study. 3. The left ventricular size is normal. 4. There is mild concentric left ventricular hypertrophy. 5. Overall left ventricular systolic function is low-normal with, an EF between 50 - 55 %. 6. Apical anterior LV wall motion is hypokinetic. 7. Apical septum LV wall motion is hypokinetic. 8. Normal LA size by volume 22+/-6 ml/m2. 9. There is mild aortic valve sclerosis. 10. There is mild aortic regurgitation. 11. Peak/mean gradient across the Aortic Valve is 15.81mmHg / 9.32mmHg. 12. Moderate mitral annular calcification present. 13. Mild mitral regurgitation is present. 14. Mild tricuspid regurgitation present. 15. There is no evidence of pulmonary hypertension. 16. There is no pulmonic regurgitation present. 17. The aortic root size is normal. 18. IVC Not well visulized. 19. There is no pericardial effusion. LANDSCAPE ARCHITECT: Negar Loyola RDCS
--- NOTE | 2019-05-07 09:26 | P.PN ---
Subjective Progress Note Date: 05/07/19 This is a 64-year-old female who is admitted yesterday with chest pain and evidence of anterior wall myocardial infarction. Patient had stent placement of the LAD. Patient is feeling better. No chest pains. No groin pain. The groin is soft. No arrhythmias since yesterday. Lungs are clear and heart is regular. We'll increase her activity gradually. Transferred to telemetry unit tomorrow. 05/07/2019: This patient is admitted to the hospital with anterior wall myocardial infarction. Had stent placement of the mid LAD and distal LAD. Appears mildly nauseated but feeling better than yesterday. Vital signs are stable. Echocardiogram showed an ejection fraction about 50% with hypokinesis of the anteroapical segments. No significant valvular abnormalities noted. Mild gradient across the aortic valve. Heart is regular. Lungs are clear. Patient to be transferred to stepdown unit. Possible discharge tomorrow Objective - Vital Signs Vital signs: Vital Signs Temp 98.2 F 05/06/19 12:00 Pulse 79 05/07/19 08:00 Resp 21 05/07/19 08:00 BP 136/65 05/07/19 08:00 Pulse Ox 94 L 05/07/19 08:00 Intake & Output 05/06/19 05/07/19 05/07/19 18:59 06:59 18:59 Intake Total 90 40 Output Total 200 200 Balance 90 -160 -200 Weight 94.3 kg Intake: IV 90 40 Sodium Chloride 0.9% 1, 90 40 000 ml @ 75 mls/hr IV . [id number] [facility] Rx#:[id number] Output: Urine 200 200 Other: Voiding Method Bedside Commode # Voids 1 1 1 # Bowel Movements 1 1 ABP, PAP, CO, CI - Last Documented Arterial Blood Pressure 168/73 - Exam GENERAL EXAM: Patient is alert and oriented and doesn't appear to be in any acute distress HEENT: Normocephalic. Normal reaction of pupils, equal size, normal range of extraocular motion. No erythema or exudates in the throat. NECK: No masses, no nuchal rigidity. CHEST: No chest wall deformity. LUNGS: Equal air entry with no crackles or wheeze. HEART: S1 and S2 normal with no audible mumurs or gallops. Regular rhythm, femorals equal on both sides.. ABDOMEN: No hepatosplenomegaly, normal bowel sounds, no guarding or rigidity. SKIN: No rashes CENTRAL NERVOUS SYSTEM: No focal deficits. EXTREMITIES: No cyanosis, clubbing or edema. PUNCTURE SITE: Soft without any hematoma - Labs CBC & Chem 7: 05/06/19 05:09 05/06/19 05:09 Assessment and Plan (1) ST elevation myocardial infarction (STEMI) Current Visit: Yes Status: Acute Code(s): I21.3 - ST ELEVATION (STEMI) MYOCARDIAL INFARCTION OF [facility] SITE SNOMED Code(s): 01117826 Plan: Patient is clinically stable. No arrhythmias noted. Echo showed an ejection fraction of 50%. Increase activity. Possible discharge in 24 hours.
[2019-05-07 12:04] VITALS: BP 124/57
--- NOTE | 2019-05-07 12:58 | P.DS ---
Providers Date of admission: 05/05/19 09:17 Attending physician: Derian Brasher Consults: 05/05/19 09:53 Consult Physician Routine Consulting Provider: [facility] Consult Reason/Comments: Post Interventional patient Do you want consulting provider notified?: Already Contacted Primary care physician: Derian Brasher [facility] Course: Principal diagnosis: Acute STEMI, acute chest pain, hypertension, hyperglycemia, hyperlipidemia 64-year-old female mildly overweight 1 of my office patient of known for a few years with past medical history of hypertension hyperglycemia hyperlipidemia with. 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 Patient was giving aspirin heparin started on Lipitor and was directly to the medical laboratory technicians was seen by Dr. Mensah angiogram was performed showed acute stenosis of the LAD patient ended up having 2 stent placement and angioplasty successfully a was admitted to the ICU afterward for the above problem. 05/06: Patient is doing very well no chest pain decreased shortness of breath, continue complaining of increased heartburn but able to tolerate her medication well mild lightheadedness with some of her Tim and beta carl. She'll be clear for discharge home hopefully tomorrow. 05/07: Patient is doing very well very stable no arrhythmia and no major abnormality very stable hemodynamically. Patient be discharged today. Review of Systems CONSTITUTIONAL: Well-developed no acute respiratory distress. EYES: No icterus sclerae, no conjunctivitis. EARS, NOSE, MOUTH, THROAT, and FACE: No sore throat, lymphadenopathy, carotid bruits or deformity. RESPIRATORY: Shortness of breath no cough or wheezes. CARDIOVASCULAR: Positive chest pain, PND, orthopnea and angina. GASTROINTESTINAL: No Abd pain, Nausea or vomiting, no Diarrhea or constipation, No GI Bleed, no distention or masses. GENITOURINARY: Negative for Hematuria or UTI, no kidney stones. INTEGUMENT/BREAST: Negative for any muscular injury with mild osteoarthritis.. HEMATOLOGIC/LYMPHATIC: Negative for bleed or purpura. MUSCULOSKELTAL: Negative for Myalgia or arthralgia. NEURLOGICAL: No LOC, Sz or syncope, blurred vision dizziness or abnormality.. BEHAVIORAL/PSYCH: Negative. ENDOCRINE: Negative. Physical Exam General Appearance: Alert, cooperative, no distress, appears stated age. On the overweight Neck HEENT: Supple, no lymphadenopathy, no thyroid enlargement, no carotid bruits. Lungs: Clear to auscultation without crackles or wheezes no rhonchi, no deformity. Chest Wall: Chest wall normal expansion with deep inspiration no tenderness and no deformity was found on exam, no costochondral pain or discomfort. Heart: Regular rate and rhythm, S1, S2 positive this 3 , no murmur, rub or gallop. Back: Symmetric, no curvature, ROM normal, no CVA tenderness. Abdomen: Soft, non-tender, bowel sounds active all four quadrants, no masses, no organomegaly. Extremities: Extremities normal, atraumatic, no cyanosis or edema. Pulses: 2+ and symmetric. Skin: Skin color, texture, tugor normal, no rashes or lesions. Neurologic: Alert oriented x3 cranial nerves II through XII intact, no motor deficit, no abnormal balance or gait. Assessment and Plan Plan: 1 acute STEMI: Patient went to the medical laboratory technicians had angioplasty and stent placement into area of the LAD will continue secondary prevention for now, CK with troponin will be watch continue anticoagulation for now continue to watch for any arrhythmia. 2 hypertension: Patient be started on metoprolol and lisinopril has not been ta tricia any medication lately. 3 Hyperlipidemia: Patient be started on high dose of atorvastatin 80 mg daily per [employer] protocol. 4 severe GERD: Has been on omeprazole 20 mg a day. 5 hyperglycemia: Continue diet control can benefit from being on smaller dose of metformin 500 mg twice a day if needed. Patient has done very well no further symptoms secondary prevention and me dication was done patient be discharged home today to follow up in the office showed previous time and he will be seeing cardiology in the next 3-5 days. Patient Condition at Discharge: Critical Plan - Discharge Summary Discharge Rx Participant: Yes New Discharge Prescriptions: New Aspirin 325 mg PO DAILY tab Atorvastatin [Lipitor] 80 mg PO HS #30 tab Metoprolol Tartrate [Lopressor] 25 mg PO BID #60 tab Mag Hydrox/Al Hydrox/Simeth [Maalox] 30 ml PO Q4HR PRN cup PRN Reason: Heartburn Nitroglycerin Sl Tabs [Nitrostat] 0.4 mg SUBLINGUAL Q5M PRN #25 tab PRN Reason: Chest Pain Clopidogrel [Plavix] 75 mg PO DAILY #30 tab Pantoprazole [Protonix] 40 mg PO AC-BRKFST #30 tablet. Lisinopril [Zestril] 2.5 mg PO DAILY #30 tab Discontinued Omeprazole 20 mg PO DAILY Discharge Medication List Aspirin 325 mg PO DAILY tab 05/07/19 [Rx] Atorvastatin [Lipitor] 80 mg PO HS #30 tab 05/07/19 [Rx] Clopidogrel [Plavix] 75 mg PO DAILY #30 tab 05/07/19 [Rx] Lisinopril [Zestril] 2.5 mg PO DAILY #30 tab 05/07/19 [Rx] Mag Hydrox/Al Hydrox/Simeth [Maalox] 30 ml PO Q4HR PRN cup 05/07/19 [Rx] Metoprolol Tartrate [Lopressor] 25 mg PO BID #60 tab 05/07/19 [Rx] Nitroglycerin Sl Tabs [Nitrostat] 0.4 mg SUBLINGUAL Q5M PRN #25 tab 05/07/19 [Rx] Pantoprazole [Protonix] 40 mg PO AC-BRKFST #30 tablet. 05/07/19 [Rx] Follow up Appointment(s)/Referral(s): Spenser Mensah MD [STAFF PHYSICIAN] - 1 Week Derian Brasher MD [Primary Care Provider] - 1-2 days Discharge Disposition: HOME SELF-CARE
[2019-05-07 13:16] VITALS: PULSE 73; RESP 23; TEMP 98.6
== END 2019-05-07 15:03 | disposition home or self-care (01) | DRG 247 ==
LOC: EC 08:25 → 2SICU 09:17
PROVIDERS: ADMIT Internal Medicine Geriatric Medicine; ATTEND Internal Medicine Geriatric Medicine
PROC: 027035Z Dilation of Coronary Artery, One Artery with Two Drug-eluting Intraluminal Devices, Percutaneous Approach (ICD-10-PCS; principal; 2019-05-05 10:20)
PROC: B2111ZZ Fluoroscopy of Multiple Coronary Arteries using Low Osmolar Contrast (ICD-10-PCS; 2019-05-05 10:20)
DX: I21.09 ST elevation (STEMI) myocardial infarction involving other coronary artery of anterior wall (principal); Z68.41 Body mass index [BMI] 40.0-44.9, adult; E66.3 Overweight; I10 Essential (primary) hypertension; I25.10 Atherosclerotic heart disease of native coronary artery without angina pectoris; E78.5 Hyperlipidemia, unspecified; R73.9 Hyperglycemia, unspecified; K21.9 Gastro-esophageal reflux disease without esophagitis; G47.30 Sleep apnea, unspecified; M19.90 Unspecified osteoarthritis, unspecified site; K44.9 Diaphragmatic hernia without obstruction or gangrene; Z79.899 Other long term (current) drug therapy; Z90.49 Acquired absence of other specified parts of digestive tract; Z87.19 Personal history of other diseases of the digestive system; Z87.891 Personal history of nicotine dependence; Z98.891 History of uterine scar from previous surgery; Z96.652 Presence of left artificial knee joint; Z98.84 Bariatric surgery status; Z88.5 Allergy status to narcotic agent; Z99.89 Dependence on other enabling machines and devices
CPT/HCPCS: 36415; 80048; 80053; 82550; 82553; 84484; 85025; 85610; 85730; 93005; 93306; 93454; 96374; 99291; C1874

== ENCOUNTER → 2021-01-02 | Outpatient (CLI) | payer MEDICARE, OTHER ==
--- NOTE | 2021-01-02 17:08 | BD ---
EXAMINATION TYPE: Axial Bone Density DATE OF EXAM: 01/02/2021 COMPARISON: NONE CLINICAL HISTORY: Postmenopausal screening Height: 4 FT 10 IN Weight: 237 FRAX RISK QUESTIONS: Alcohol (3 or more units per day): NO Family History (Parent hip fracture): NO Glucocorticoids (More than 3mos): NO (Ex: prednisone, prednisolone, methylprednisolone, dexamethasone, and hydrocortisone). History of Fracture in Adulthood: NO Secondary Osteoporosis: 1. Type 1 Diabetes: NO 2. Hyperthyroidism: NO 3. Menopause before 45: NO 4. Malnutrition: NO 5. Chronic liver disease: NO Rheumatoid Arthritis: YES Current Tobacco Use: NO RISK FACTORS HISTORY OF: Family History of Osteoporosis: NO Active: YES Diet low in dairy products/other sources of calcium: NO Postmenopausal woman: AGE 47-50 Take estrogen and/or progesterone medications: NONE Lost more than 2 inches in height since high school: YES MEDICATIONS: Additional Medications: HEART MEDS ,BLOOD PRESSURE , BABY ASPIRIN, CHOLESTEROL MEDS, Additional History: EXAM MEASUREMENTS: Bone mineral densitometry was performed using the [employer] System. Bone mineral density as measured about the Lumbar spine is: ----- L1-L4(G/cm2): 1.240 T Score Values are as follows: ----- L2: 0.8 ----- L3: 0.4 ----- L4: 0.0 ----- L1-L4: 0.5 BASELINE Bone mineral density about the R hip (g/cm2): 0.788 Bone mineral density about the L hip (g/cm2): 0.770 T Score values are as follows: -----R Neck: -1.8 -----L Neck: -1.9 -----R Total: -0.5 -----L Total: -1.2 BASELINE IMPRESSION: Osteopenia (T Score between -2.5 and -1). There is slightly increased risk of fracture and the patient may be considered for treatment. Re-Screen 2-5 years. NOTE: T-SCORE=SD OF THE YOUNG ADULT MEAN.
--- NOTE | 2021-01-04 09:37 | MM ---
Reason for exam: screening (asymptomatic). Last mammogram was performed 3 years ago. History: Patient is postmenopausal. Physical Findings: A clinical breast exam by your physician is recommended on an annual basis and results should be correlated with mammographic findings. MG 3D Screening Mammo W/Cad Bilateral CC and MLO view(s) were taken. Prior study comparison: December 25, 2017, bilateral MG 3d screening mammo w/cad. November 27, 2016, bilateral MG 3d screening mammo w/cad. There are scattered fibroglandular densities. Stable posterior upper outer quadrant right global asymmetry. No significant changes when compared with prior studies. ASSESSMENT: Negative, BI-RAD 1 RECOMMENDATION: Routine screening mammogram of both breasts in 1 year.
== END | disposition home or self-care (01) ==
LOC: RADMAMWWP 13:47
PROVIDERS: ATTEND Internal Medicine Geriatric Medicine
DX: Z12.31 Encounter for screening mammogram for malignant neoplasm of breast (principal); M85.80 Other specified disorders of bone density and structure, unspecified site; M81.0 Age-related osteoporosis without current pathological fracture
CPT/HCPCS: 77063; 77067; 77080

== ENCOUNTER 2021-05-06 15:33 | Emergency (ER) | payer MEDICARE, OTHER ==
[2021-05-06 15:41] VITALS: BP 154/77; PULSE 91; RESP 18; TEMP 97.9
[2021-05-06] MEDS ORDERED: OXYMETAZOLINE 0.05% NASL SPRAY 1 SPRAY BOTTLE NASAL STA (16:14)
[2021-05-06] MEDS ORDERED: TRANEXAMIC ACID 1,000 MG/10 ML VIAL IRRIGATION ONE (16:59)
--- NOTE | 2021-05-06 18:21 | ED ---
ENT HPI - General Chief complaint: ENT Stated complaint: Bloody nose Time Seen by Provider: 05/06/21 16:01 Source: patient, RN notes reviewed Mode of arrival: ambulatory Limitations: no limitations - History of Present Illness Initial comments: Patient is a 66-year-old female that presents emergency, complaining of a left- sided nosebleed. She notes that she does take blood thinners and is concerned. Her son notes that he is on blood thinners in his had blood the nose is in the past with a headache cauterize it. She was in no apparent distress or pain while sitting up in bed during exam and review. She denied any other symptoms or complaints. She was a well-appearing well-hydrated 66-year-old female. She denied chest pain first breath headache nausea vomiting diarrhea constipation fever fatigue chills. - Related Data Previous Rx's Medication Instructions Recorded Aspirin 325 mg PO DAILY tab 05/07/19 Atorvastatin [Lipitor] 80 mg PO HS #30 tab 05/07/19 Clopidogrel [Plavix] 75 mg PO DAILY #30 tab 05/07/19 Mag Hydrox/Al Hydrox/Simeth 30 ml PO Q4HR PRN cup 05/07/19 [Maalox] Metoprolol Tartrate [Lopressor] 25 mg PO BID #60 tab 05/07/19 Nitroglycerin Sl Tabs [Nitrostat] 0.4 mg SUBLINGUAL Q5M PRN #25 tab 05/07/19 Pantoprazole [Protonix] 40 mg PO AC-BRKFST #30 tablet. 05/07/19 lisinopriL [Zestril] 2.5 mg PO DAILY #30 tab 05/07/19 Allergies Allergy/AdvReac Type Severity Reaction Status Date / Time codeine Allergy went into Verified 05/06/21 15:40 corticate position, unable to see colors Review of Systems ROS Statement: Those systems with pertinent positive or pertinent negative responses have been documented in the HPI. ROS Other: All systems not noted in ROS Statement are negative. Past Medical History Past Medical History: Osteoarthritis (OA), Sleep Apnea/CPAP/BIPAP Additional Past Medical History / Comment(s): HX DIVERTICULITIS, HIATAL HERNIA, History of Any Multi-Drug Resistant Organisms: None Reported Past Surgical History: Section, Cholecystectomy, Joint Replacement Additional Past Surgical History / Comment(s): LAP BAND, LEFT KNEE Past Anesthesia/Blood Transfusion Reactions: No Reported Reaction Past Psychological History: No Psychological Hx Reported Smoking Status: Former smoker Past Alcohol Use History: None Reported Past Drug Use History: None Reported - Past Family History Mother Family Medical History: No Reported History General Exam Limitations: no limitations General appearance: alert, in no apparent distress, obese Head exam: Present: atraumatic, normocephalic, normal inspection Eye exam: Present: normal appearance, PERRL, EOMI. Absent: scleral icterus, conjunctival injection, periorbital swelling ENT exam: Present: normal exam, mucous membranes moist, other (Blood inside the left nasal cavity. No septal hematoma.) Neck exam: Present: normal inspection Respiratory exam: Present: normal lung sounds bilaterally. Absent: respiratory distress, wheezes, rales, rhonchi, stridor Cardiovascular Exam: Present: regular rate, normal rhythm, normal heart sounds. Absent: systolic murmur, diastolic murmur, rubs, gallop, clicks Extremities exam: Present: normal inspection, full ROM, normal capillary refill. Absent: tenderness, pedal edema, joint swelling, calf tenderness Neurological exam: Present: alert, oriented X3 Psychiatric exam: Present: normal affect, normal mood Skin exam: Present: warm, dry, intact, normal color. Absent: rash Course Vital Signs 05/06/21 15:35 Temperature 97.9 F Pulse Rate 91 Respiratory 18 Rate Blood Pressure 154/77 O2 Sat by Pulse 98 Oximetry Medical Decision Making - Medical Decision Making 66-year-old female with left-sided nosebleed. Oxymetazoline sprayed ordered and attempted. Patient noted that she was still having bloody nose. Tranexamic acid 500 mg soaked on a sponge was inserted in the bilateral nostrils. Upon reevaluation states that she does was better and does not feel the blood she did not fill. Patient discharge home with follow up primary care Case discussed with Dr. Moon Disposition Clinical Impression: Epistaxis Disposition: HOME SELF-CARE Condition: Stable Additional Instructions: Please return to the Emergency Department if symptoms worsen or any other concerns. Follow-up with primary care in the next show days. Do not blow your nose for the next several hours. Ifbleeding and can use the oxymetazoline spray. Is patient prescribed a controlled substance at d/c from ED?: No Referrals: Derian Brasher MD [Primary Care Provider] - 1-2 days Time of Disposition: 18:20
== END 2021-05-06 18:25 | disposition home or self-care (01) ==
LOC: EC 15:33
DX: R04.0 Epistaxis (principal); G47.30 Sleep apnea, unspecified; M19.90 Unspecified osteoarthritis, unspecified site; Z87.891 Personal history of nicotine dependence; Z79.82 Long term (current) use of aspirin
CPT/HCPCS: 99283

== ENCOUNTER → 2022-11-05 | Outpatient (CLI) | payer MEDICARE ==
[2022-11-05 18:17] LABS: HCT 40.9 % (37.2-46.3); HGB 13.1 g/dL (12.0-15.0); MCH 30.3 pg (27.0-32.0); MCV 94.7 fL (80.0-97.0); Mean Platelet Volume 10.2 fL (9.5-12.2); NRBC Per 100 WBC 0 /100 WBCS (0.0-0.0); Platelet Count 220 X 10*3/uL (140-440); RBC 4.32 X 10*6/uL (4.10-5.20); RDW 13.5 % (11.5-14.5); WBC 6.88 X 10*3/uL (4.50-10.00)
[2022-11-05 18:37] LABS: African American GFR (CKD) 80.5 (60.0-200.0); Anion Gap 11.4 mmol/L (10.00-18.00); Blood Urea Nitrogen 13.9 mg/dL (9.0-27.0); Carbon Dioxide 22.2 mmol/L (20.0-27.5); Non-African American GFR(CKD) 69.4 (60.0-200.0); Potassium 4.1 mmol/L (3.5-5.5)
== END | disposition home or self-care (01) ==
LOC: LABPAT 11:41
PROVIDERS: ATTEND Internal Medicine Interventional Cardiology
DX: Z01.812 Encounter for preprocedural laboratory examination (principal); I25.10 Atherosclerotic heart disease of native coronary artery without angina pectoris
CPT/HCPCS: 36415; 80051; 82565; 84520; 85027

== ENCOUNTER 2022-12-04 09:07 | Day surgery (SDC) | payer MEDICARE ==
[2022-11-30 15:18] VITALS: BMI 49.1
[~2022-12-04 09:07] MED LIST: ALPRAZolam 0.25 MG TAB PO PRN; ALPRAZolam 0.5 MG TAB PO PRN; ASPIRIN 325 MG TAB PO ONE; ATORVASTATIN 80 MG TAB PO ONE; HEPARIN SODIUM,PORCINE 10,000 UNIT in SODIUM CHLORIDE 0.9% 1,000 ML IRRIGATION PRN; HEPARIN SODIUM,PORCINE 2,500 UNIT in SODIUM CHLORIDE 0.9% 250 ML IRRIGATION PRN; NITROGLYCERIN SL TABS 0.4 MG TAB SUBLINGUAL PRN; SODIUM CHLORIDE 0.9% 1,000 ML in EMPTY BAG 1 BAG IV SCH
[2022-12-04] MEDS ORDERED: SODIUM CHLORIDE 0.9% 1,000 ML IV ONE (09:19)
[2022-12-04 09:38] VITALS: RESP 16; TEMP 97.3
[2022-12-04] MEDS ORDERED: HEPARIN SODIUM 1,000 UN/ML (10ML VL) ONE (10:02)
[2022-12-04] MEDS ORDERED: VERAPAMIL 2.5 MG/ML 2 ML AMP ONE (10:02)
[2022-12-04] MEDS ORDERED: MIDAZOLAM 2 MG/2 ML VIAL IV ONE (10:26)
[2022-12-04] MEDS ORDERED: LIDOCAINE 1% INJ 10MG/ML (5 ML VIAL-PF) SQ ONE (10:32)
[2022-12-04] MEDS ORDERED: VERAPAMIL SYRINGE (5 MG/10 ML) INTRAARTER ONE (10:33)
[2022-12-04] MEDS ORDERED: HEPARIN SODIUM 1,000 UN/ML (10ML VL) IV ONE (10:45)
[2022-12-04] MEDS ORDERED: IOPAMIDOL-370 125ML BTL INJ ONE (10:49)
[2022-12-04] MEDS ORDERED: RX INFO: IV CONTRAST WAS GIVEN 1 EACH MISC MISCELLANE PRN (10:52)
--- NOTE | 2022-12-04 10:57 | P.PCN ---
Date of Procedure: 12/04/22 Operative Findings: CARDIAC CATHETERIZATION PERFORMING PHYSICIAN: Spenser Mensah MD, RPVI PROCEDURE PERFORMED: 1. Selective right and left coronary angiogram INDICATION: Chest discomfort in the 67-year-old female patient was known to have CAD and prior stenting of the LAD. She underwent myocardial perfusion imaging stress test and that showed an anterior ischemia COMPLICATION: None APPROACH: Right radial artery LEVEL OF SEDATION: Moderate with a sedation length of 20 minutes PROCEDURE DESCRIPTION: After obtaining an informed consent, the patient was brought to cardiac manager cath lab. Local anesthesia was performed using lidocaine subcutaneously. The right radial artery was cannulated using Seldinger technique, the guidewire passed easily, following that we advanced a 5-Gibraltarian sheath dilator assembly, the wire and dilator were removed and sheath was flushed. Following that, 2 mg of verapamil along with 5000 unit heparin were given. Selective right and left coronary angiogram using a 6-Gibraltarian JR4 and JL 3.5 catheters. The procedure was completed there was no complication. SELECTIVE CORONARY ANGIOGRAM: The right coronary artery: Large caliber vessel and a dominant vessel. Its angiographically normal Left main: Angiographically normal. Bifurcates into LCx and LAD The left circumflex: Large caliber vessel and nondominant vessel. Its angiographically normal. Gives rises into into an OM which appears to be angiographically normal The left anterior descending artery: Large caliber vessel. The LAD proximally is normal and gives rises into a large diagonal branch which appeared to be angiographically normal did the mid LAD stented and the stent is patent. The distal LAD appears to be angiographically normal CONCLUSION: 1. Patent stent in the mid left anterior descending artery POSTPROCEDURE MANAGEMENT: Medical treatment and follow-up with the patient
[2022-12-04] MEDS ORDERED: SODIUM CHLORIDE 0.9% 1,000 ML IV SCH (11:00)
[2022-12-04] MEDS ORDERED: ACETAMINOPHEN TAB 500 MG TAB PO ONE (11:29)
[2022-12-04 13:30] VITALS: BP 131/68; PULSE 67
== END 2022-12-04 15:15 | disposition home or self-care (01) ==
LOC: CATHCVL 09:07
PROVIDERS: ATTEND Internal Medicine Interventional Cardiology
DX: I25.10 Atherosclerotic heart disease of native coronary artery without angina pectoris (principal); Z95.5 Presence of coronary angioplasty implant and graft; Z79.899 Other long term (current) drug therapy; Z79.02 Long term (current) use of antithrombotics/antiplatelets; I10 Essential (primary) hypertension; E78.5 Hyperlipidemia, unspecified; I35.1 Nonrheumatic aortic (valve) insufficiency; R04.0 Epistaxis; I77.819 Aortic ectasia, unspecified site; E66.3 Overweight
CPT/HCPCS: 93454; C1769; C1894; J2250; J2001; J1644; Q9967

== ENCOUNTER 2023-02-10 01:08 | Observation (INO) | payer MEDICARE ==
[2023-02-10] MEDS ORDERED: ASPIRIN 81 MG PO STA (01:29)
[2023-02-10] MEDS ORDERED: NITROGLYCERIN SL TABS 0.4 MG TAB SUBLINGUAL STA (01:29)
--- NOTE | 2023-02-10 02:18 | XR ---
EXAMINATION TYPE: XR chest 2V DATE OF EXAM: 02/10/2023 COMPARISON: NONE HISTORY: Chest TECHNIQUE: 2 views FINDINGS: There is coarse interstitial density in the lower lung santacruz. There is some mild atelectas is. Heart size is normal. Thoracic aorta is intact. There is mild thoracic dextroscoliosis. There are chest leads. There is a slight thoracic kyphotic deformity with anterior wedging of mid thoracic osmar tebra. IMPRESSION: Fibrotic changes and subsegmental atelectasis at the lung bases. No heart failure seen.
[2023-02-10 02:19] LABS: Basophils # (A) 0.1 k/uL (0-0.2); Basophils % (A) 1 %; Eosinophils # (A) 0.2 k/uL (0-0.7); Eosinophils % (A) 3 %; HCT 39.9 % (34.0-46.0); Lymphocytes # (A) 1.9 k/uL (1.0-4.8); Lymphocytes % (A) 30 %; MCH 31.5 pg (25.0-35.0); MCHC 35.1 g/dL (31.0-37.0); MCV 89.7 fL (80.0-100.0); Monocytes # (A) 0.3 k/uL (0-1.0); Monocytes % (A) 5 %; Neutrophils # (A) 3.7 k/uL (1.3-7.7); Neutrophils % (A) 58 %; Platelet Count 226 k/uL (150-450); RBC 4.45 m/uL (3.80-5.40); RDW 14.3 % (11.5-15.5); WBC 6.3 k/uL (3.8-10.6)
[2023-02-10 02:24] LABS: Albumin 4.1 g/dL (3.5-5.0); Calcium 8.4 mg/dL (8.4-10.2); Potassium 3.7 mmol/L (3.5-5.1); Total Bilirubin 0.7 mg/dL (0.2-1.3)
--- NOTE | 2023-02-10 02:41 | ED ---
General Adult HPI - General Chief complaint: Chest Pain Stated complaint: Cheat Pain,SOB Time Seen by Provider: 02/10/23 01:16 Source: patient, RN notes reviewed, old records reviewed Mode of arrival: wheelchair - History of Present Illness Initial comments: Patient is a 68 year old female with past medical history remarkable for CAD with recent cardiac stenting 2 months ago, CHF noncompliant with diuretics, who presents to the emergency department complaining of chest pain. States it was similar to chest pain she expenses when she had her OK. Described it as sudden onset while watching TV at approximately 11 PM last night. I evaluated the patient at approximately 1:16 AM. Patient states that it was left-sided in nature with some radiation towards her left neck. States she had some diaphoresis with it as well as mild nausea. Pain is improved at this time approximate 7 out of 10 versus 10 out of 10 earlier. She did not take her nitroglycerin tablets. She eventually decided to come emergency department for evaluation. States she feels much improved. Does endorse worsening orthopnea and she is now sleeping in a recliner at home, as well as some mild worsening lower extremity pitting edema. Denies any nonproductive cough. She endorses chronic exertional dyspnea. His noncompliant with diuretics at home. Presents for further evaluation at this time. Patient follows with Dr. Mensah. - Related Data Home Medications Medication Instructions Recorded Confirmed Losartan [Cozaar] 12.5 mg PO DAILY 11/13/22 12/04/22 Metoprolol Tartrate [Lopressor] 50 mg PO BID 11/13/22 12/04/22 Pantoprazole [Protonix] 40 mg PO DAILY 11/13/22 12/04/22 Rosuvastatin [Crestor] 20 mg PO DAILY 11/13/22 12/04/22 Previous Rx's Medication Instructions Recorded Clopidogrel [Plavix] 75 mg PO DAILY #30 tab 05/07/19 Nitroglycerin Sl Tabs [Nitrostat] 0.4 mg SUBLINGUAL Q5M PRN #25 tab 05/07/19 Allergies Allergy/AdvReac Type Severity Reaction Status Date / Time codeine Allergy went into Verified 02/10/23 01:21 corticate position, unable to see colors Review of Systems ROS Statement: Those systems with pertinent positive or pertinent negative responses have been documented in the HPI. Review of Systems: CONST: Denies fever EYES: Denies blurry vision ENT: Denies nasal congestion C/V: Endorses chest pain RESP: Endorses chronic shortness of breath GI: Denies abdominal pain : Denies dysuria SKIN: Denies rash. MSK: Denies joint pain. NEURO: Denies headache ROS Other: All systems not noted in ROS Statement are negative. Past Medical History Past Medical History: GERD/Reflux, Hearing Disorder / Deafness, Hypertension, Myocardial Infarction ([place]), Osteoarthritis ([place]), Sleep Apnea/CPAP/BIPAP Additional Past Medical History / Comment(s): SEE DR MENSAH'S H&P. RECENT FLU - END OF OCT 2022. HX DIVERTICULITIS, HIATAL HERNIA,USES CPAP SOMETIMES, HARD OF HEARING. 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 Past Anesthesia/Blood Transfusion Reactions: No Reported Reaction Date of Last Stent Placement:: 2018 Past Psychological History: No Psychological Hx Reported Smoking Status: Former smoker Past Alcohol Use History: None Reported Past Drug Use History: None Reported - Past Family History Mother Family Medical History: No Reported History General Exam - General Exam Comments Initial Comments: General: Appears in no acute distress. HEAD: Normal with no signs of head trauma. EYES: PERRLA, EOMI, conjunctiva normal, no discharge. ENT: Hearing grossly intact, normal oropharynx. RESPIRATORY: Clear breath sounds bilaterally. No wheezes, rales, or rhonchi. C/V: Regular rate and rhythm. S1 and S2 auscultated, bilateral symmetrical pitting edema, peripheral pulses 2+ and intact throughout ABD: Abd is soft, nontender, nondistended EXT: Normal range of motion, no obvious deformity SKIN: No rashes or lesions observed on exposed skin. NEURO: Alert and oriented 4. Course Vital Signs 02/10/23 02/10/23 02/10/23 01:18 01:19 01:20 Temperature 97.7 F Pulse Rate 105 H 107 H 103 H Respiratory 22 19 16 Rate Blood Pressure 186/68 O2 Sat by Pulse 96 91 L Oximetry 02/10/23 02/10/23 02/10/23 01:30 01:40 02:00 Temperature Pulse Rate 101 H 105 H 107 H Respiratory 12 11 L 20 Rate Blood Pressure 115/105 133/87 O2 Sat by Pulse 97 95 Oximetry 02/10/23 02/10/23 02:10 02:20 Temperature Pulse Rate 96 93 Respiratory 23 20 Rate Blood Pressure 144/74 144/74 O2 Sat by Pulse 96 95 Oximetry Medical Decision Making - Medical Decision Making Was pt. sent in by a medical professional or institution (, YESSI, PROGRAM OR PROJECT ADMINISTRATOR, urgent care, hospital, or jail...) When possible be specific @ -No Did you speak to anyone other than the patient for history (EMS, parent, family, police, friend...)? What history was obtained from this source @ -No Did you review nursing and triage notes (agree or disagree)? Why? @ -I reviewed and agree with nursing and triage notes Were old charts reviewed (outside hosp., previous admission, EMS record, old E KG, old radiological studies, urgent care reports/EKG's, jail records)? Report findings @ -old charts and tracings were reviewed from November 2022 when patient had a cardiac cath. Differential Diagnosis (chest pain, altered mental status, abdominal pain women, abdominal pain men, vaginal bleeding, weakness, fever, dyspnea, syncope, headache, dizziness, GI bleed, back pain, seizure, CVA, palpatations, mental health, musculoskeletal)? @ -Differential Chest Pain: Stable Angina, Unstable Angina, STEMI, NSTEMI Aortic Dissection, Pneumothorax, Musculoskeletal, Esophageal Spasm GERD, Cholecystitis, Pancreatitis, Zoster, this is not meant to be an all-inclusive list. EKG interpreted by me (3pts min.). @ -As above X-rays interpreted by me (1pt min.). @ -Chest x-ray reveals no obvious congestive heart failure. Possible mild pulmonary vascular congestion versus fibrotic changes. CT interpreted by me (1pt min.). @ -None done U/S interpreted by me (1pt. min.). @ -None done What testing was considered but not performed or refused? (CT, X-rays, U/S, labs)? Why? @ -None What meds were considered but not given or refused? Why? @ -None Did you discuss the management of the patient with other professionals (professionals i.e. Dr., PA, PROGRAM OR PROJECT ADMINISTRATOR, lab, RT, psych nurse, social media content specialist, supervisor molding, teacher, correctional officer sergeant, case hardener)? Give summary @ -Discussed with CALE reich of [facility] who accepted the admission. Was smoking cessation discussed for >3mins.? @ -No Was critical care preformed (if so, how long)? @ -No Were there social determinants of health that impacted care today? How? (Homelessness, low income, unemployed, alcoholism, drug addiction, transp ortation, low edu. Level, literacy, decrease access to med. care, group home, rehab)? @ -No Was there de-escalation of care discussed even if they declined (Discuss DNR or withdrawal of care, Hospice)? DNR status @ -No What co-morbidities impacted this encounter? (DM, HTN, Smoking, COPD, CAD, Cancer, CVA, ARF, Chemo, Hep., AIDS, mental health diagnosis, sleep apnea, morbid obesity)? @ -CAD with recent cardiac stent in the last 3 months Was patient admitted / discharged? Hospital course, mention meds given and route, prescriptions, significant lab abnormalities, going to OR and other pe rtinent info. @ -Based on the patient's presentation and physical exam, I'm concerned for acute cardiopulmonary etiology for her current symptoms. We will obtain cardiac labs as well as screening BNP. She was in agreement this plan. She does have a history of CHF and is not compliant with her diuretic and seems to be having some mild symptoms are more chronic. The chest pain could be attributed to acute ACS as well. She'll be given 324 mg of aspirin. We will attempt sub lingual nitro tablets. She was in agreement with this plan. Vital signs are within acceptable limits. Patient's pain completely resolved after one nitroglycerin tablet. EKG shows no signs of acute ischemia. Chest x-ray shows possible very mild CHF versus fibrotic changes. Labs are remarkable for an undetectable troponin. BNP is within normal limits. On reevaluation, patient remains pain-free. She was placed on Nitropaste. We discussed her workup. Heart score is 4-5, moderate. Recommend cardiac observation she was in agreement this plan. Cardiology consulted. I spoke with the admitting team, CALE reich of [facility] who covers for Dr. Brasher. They accepted the admission. Patient admitted in stable condition. Undiagnosed new problem with uncertain prognosis? @ -No Drug Therapy requiring intensive monitoring for toxicity (Heparin, Nitro, Insulin, Cardizem)? @ -No Were any procedures done? @ -No Diagnosis/symptom? @ -Chest pain Acute, or Chronic, or Acute on Chronic? @ -Acute Uncomplicated (without systemic symptoms) or Complicated (systemic symptoms)? @ -Uncomplicated Side effects of treatment? @ -No Exacerbation, Progression, or Severe Exacerbation? @ -No Poses a threat to life or bodily function? How? (Chest pain, [place], [place], pneumonia, PE, COPD, DKA, ARF, appy, cholecystitis, CVA, Diverticulitis, Homicidal, Suicidal, threat to staff... and all critical care pts) @ -Potentially, depending on etiology could result in significant morbidity and mortality. - Lab Data Result diagrams: 02/10/23 01:59 02/10/23 01:59 Lab Results 02/10/23 02/10/23 02/10/23 Range/Units 01:59 01:59 01:59 WBC 6.3 (3.8-10.6) k/uL RBC 4.45 (3.80-5.40) m/uL Hgb 14.0 (11.4-16.0) gm/dL Hct 39.9 (34.0-46.0) % MCV 89.7 (80.0-100.0) fL MCH 31.5 (25.0-35.0) pg MCHC 35.1 (31.0-37.0) g/dL RDW 14.3 (11.5-15.5) % Plt Count 226 (150-450) k/uL MPV 8.0 Neutrophils % 58 % Lymphocytes % 30 % Monocytes % 5 % Eosinophils % 3 % Basophils % 1 % Neutrophils # 3.7 (1.3-7.7) k/uL Lymphocytes # 1.9 (1.0-4.8) k/uL Monocytes # 0.3 (0-1.0) k/uL Eosinophils # 0.2 (0-0.7) k/uL Basophils # 0.1 (0-0.2) k/uL PT 11.8 (9.0-12.0) sec INR 1.1 (<1.2) APTT 24.5 (22.0-30.0) sec Sodium 143 (137-145) mmol/L Potassium 3.7 (3.5-5.1) mmol/L Chloride 110 H (98-107) mmol/L Carbon Dioxide 26 (22-30) mmol/L Anion Gap 7 mmol/L BUN 14 (7-17) mg/dL Creatinine 0.96 (0.52-1.04) mg/dL Est GFR (CKD-EPI)AfAm 71 (>60 ml/min/1.73 sqM) Est GFR (CKD-EPI)NonAf 62 (>60 ml/min/1.73 sqM) Glucose 131 H (74-99) mg/dL Calcium 8.4 (8.4-10.2) mg/dL Magnesium 2.0 (1.6-2.3) mg/dL Total Bilirubin 0.7 (0.2-1.3) mg/dL AST 48 H (14-36) U/L ALT 46 H (4-34) U/L Alkaline Phosphatase 62 (38-126) U/L Troponin I (0.000-0.034) ng/mL NT-Pro-B Natriuret Pep pg/mL Total Protein 8.0 (6.3-8.2) g/dL Albumin 4.1 (3.5-5.0) g/dL 02/10/23 02/10/23 Range/Units 01:59 01:59 WBC (3.8-10.6) k/uL RBC (3.80-5.40) m/uL Hgb (11.4-16.0) gm/dL Hct (34.0-46.0) % MCV (80.0-100.0) fL MCH (25.0-35.0) pg MCHC (31.0-37.0) g/dL RDW (11.5-15.5) % Plt Count (150-450) k/uL MPV Neutrophils % % Lymphocytes % % Monocytes % % Eosinophils % % Basophils % % Neutrophils # (1.3-7.7) k/uL Lymphocytes # (1.0-4.8) k/uL Monocytes # (0-1.0) k/uL Eosinophils # (0-0.7) k/uL Basophils # (0-0.2) k/uL PT (9.0-12.0) sec INR (<1.2) APTT (22.0-30.0) sec Sodium (137-145) mmol/L Potassium (3.5-5.1) mmol/L Chloride (98-107) mmol/L Carbon Dioxide (22-30) mmol/L Anion Gap mmol/L BUN (7-17) mg/dL Creatinine (0.52-1.04) mg/dL Est GFR (CKD-EPI)AfAm (>60 ml/min/1.73 sqM) Est GFR (CKD-EPI)NonAf (>60 ml/min/1.73 sqM) Glucose (74-99) mg/dL Calcium (8.4-10.2) mg/dL Magnesium (1.6-2.3) mg/dL Total Bilirubin (0.2-1.3) mg/dL AST (14-36) U/L ALT (4-34) U/L Alkaline Phosphatase (38-126) U/L Troponin I <0.012 (0.000-0.034) ng/mL NT-Pro-B Natriuret Pep 139 pg/mL Total Protein (6.3-8.2) g/dL Albumin (3.5-5.0) g/dL - EKG Data -: EKG Interpreted by Me EKG Comments: 12-lead Electrocardiogram Interpretation Note EKG was reviewed and interpreted by myself. 12-lead ECG performed at 0116 is interpreted by me as revealing sinus tachycardia at a rate of 103 beats per minute. [place] is normal. [place] interval is 162 ms, QRS duration is 94 ms, QTc is 406 ms. There were no ST or T wave abnormalities to suggest myocardial ischemia or injury. R wave progression across the precordium was satisfactory. By my interpretation this EKG is non-diagnostic for acute ischemia. No recent EKG for comparison. There are tracings from 12/04/2022 that appear similar. No acute change. Disposition Clinical Impression: Chest pain Disposition: ADMITTED IP TO THIS HOSP Condition: Stable Referrals: Derian Brasher MD [Primary Care Provider] - 1-2 days Time of Disposition: 03:15
[2023-02-10 02:45] LABS: INR 1.1 (<1.2); Partial Thromboplastin Time 24.5 sec (22.0-30.0); Prothrombin Time 11.8 sec (9.0-12.0)
[2023-02-10] MEDS ORDERED: NALOXONE 0.4 MG/ML 1 ML VIAL IV PRN (03:21)
[2023-02-10] MEDS ORDERED: NITROGLYCERIN OINT 1 INCH/GM PACKET TOPICAL STA (03:21)
[2023-02-10 03:43] VITALS: RESP 18
[2023-02-10] MEDS ORDERED: HEPARIN SODIUM,PORCINE/PF 5,000 UNIT/0.5 ML SYRINGE SQ SCH (08:00)
[2023-02-10 08:29] VITALS: BP 99/55; PULSE 91; TEMP 97.9
--- NOTE | 2023-02-10 10:44 | P.CRDCN ---
History of Present Illness Consult date: 02/10/23 Chief complaint: Chest pain History of present illness: The patient is a pleasant 68-year-old female patient with a past medical history significant for CAD with prior stenting of the LAD was performed in 2018 and heart catheterization in November 2022 showing patent stent in the LAD as well as hypertension and dyslipidemia presented to the hospital complaining of chest discomfort. She was in her usual state of health when she was sitting at home watching TV and she started experiencing discomfort in the middle of the chest. The discomfort was abdominal kind of discomfort was no radiation and no associated symptoms. It did not radiate to her arms or neck or shoulders or back. Lasted for about 15 minutes and disappeared after that. She decided to come to the hospital where she underwent further investigation including cardiac enzymes came in to be unremarkable and EKG showing sinus mechanism was no significant ST or T-wave abnormalities with currently she is chest pain-free. Her vitals are stable. The rest of the workup came in to be unremarkable. On examination she has a stable vital signs with regular rhythm and clear breathing sounds bilaterally and no carotid bruit or lower extremity edema Assessment Episode of chest discomfort which has resolved CAD with prior stenting of the LAD Multiple risk factors including hypertension and dyslipidemia Plan Acute coronary event was ruled out Recent heart catheterization showed patent stent in the LAD Getting the patient up and around and if she is asymptomatic she potentially can be discharged home. I will follow-up with the patient Past Medical History Past Medical History: GERD/Reflux, Hearing Disorder / Deafness, Hypertension, Myocardial Infarction ([place]), Osteoarthritis (OA), Sleep Apnea/CPAP/BIPAP Additional Past Medical History / Comment(s): SEE DR ALVARENGA'S H&P. RECENT FLU - END OF OCT 2022. HX DIVERTICULITIS, HIATAL HERNIA,USES CPAP SOMETIMES, HARD OF HEARING. 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 Past Anesthesia/Blood Transfusion Reactions: No Reported Reaction Date of Last Stent Placement:: 2018 Past Psychological History: No Psychological Hx Reported Smoking Status: Former smoker Past Alcohol Use History: None Reported Additional Past Alcohol Use History / Comment(s): Light smoker as teen only. Past Drug Use History: None Reported - Past Family History Mother Family Medical History: No Reported History Medications and Allergies Home Medications Medication Instructions Recorded Confirmed Type Clopidogrel [Plavix] 75 mg PO DAILY #30 tab 05/07/19 12/04/22 Rx Nitroglycerin Sl Tabs [Nitrostat] 0.4 mg SUBLINGUAL Q5M PRN #25 tab 05/07/19 11/30/22 Rx Losartan [Cozaar] 12.5 mg PO DAILY 11/13/22 12/04/22 History Metoprolol Tartrate [Lopressor] 50 mg PO BID 11/13/22 12/04/22 History Pantoprazole [Protonix] 40 mg PO DAILY 11/13/22 12/04/22 History Rosuvastatin [Crestor] 20 mg PO DAILY 11/13/22 12/04/22 History Allergies Allergy/AdvReac Type Severity Reaction Status Date / Time codeine Allergy went into Verified 02/10/23 01:21 corticate position, unable to see colors Physical Exam Vitals: Vital Signs Temp Pulse Pulse Resp BP BP Pulse Ox 02/10/23 10:29 96 02/10/23 07:00 97.9 F 91 18 99/55 100 02/10/23 04:43 97.4 F L 76 107/65 96 02/10/23 03:58 75 18 106/63 96 02/10/23 03:40 80 18 94 L 02/10/23 02:20 93 20 144/74 95 02/10/23 02:10 96 23 144/74 96 02/10/23 02:00 107 H 20 133/87 95 02/10/23 01:40 105 H 11 L 115/105 02/10/23 01:30 101 H 12 97 02/10/23 01:20 103 H 16 02/10/23 01:19 97.7 F 107 H 19 186/68 91 L 02/10/23 01:18 105 H 22 96 Intake and Output 02/09/23 02/10/23 02/10/23 22:59 06:59 14:59 Other: # Voids 0 Weight 113.398 kg Results 02/10/23 01:59 02/10/23 01:59 Cardiac Enzymes 02/10/23 02/10/23 02/10/23 Range/Units 01:59 01:59 05:43 AST 48 H (14-36) U/L Troponin I <0.012 <0.012 (0.000-0.034) ng/mL Coagulation 02/10/23 Range/Units 01:59 PT 11.8 (9.0-12.0) sec APTT 24.5 (22.0-30.0) sec CBC 02/10/23 Range/Units 01:59 WBC 6.3 (3.8-10.6) k/uL RBC 4.45 (3.80-5.40) m/uL Hgb 14.0 (11.4-16.0) gm/dL Hct 39.9 (34.0-46.0) % Plt Count 226 (150-450) k/uL Comprehensive Metabolic Panel 02/10/23 Range/Units 01:59 Sodium 143 (137-145) mmol/L Potassium 3.7 (3.5-5.1) mmol/L Chloride 110 H (98-107) mmol/L Carbon Dioxide 26 (22-30) mmol/L BUN 14 (7-17) mg/dL Creatinine 0.96 (0.52-1.04) mg/dL Glucose 131 H (74-99) mg/dL Calcium 8.4 (8.4-10.2) mg/dL AST 48 H (14-36) U/L ALT 46 H (4-34) U/L Alkaline Phosphatase 62 (38-126) U/L Total Protein 8.0 (6.3-8.2) g/dL Albumin 4.1 (3.5-5.0) g/dL Current Medications Generic Name Dose Route Start Last Admin Trade Name Freq PRN Reason Stop Dose Admin Heparin Sodium (Porcine) 5,000 unit 02/10/23 08:00 Heparin Sodium,Porcine/Pf 5,000 Unit/0.5 Ml Syringe SQ Q8HR HANSA Naloxone HCl 0.2 mg 02/10/23 03:21 Naloxone 0.4 Mg/Ml 1 Ml Vial IV Q2M PRN Opioid Reversal Intake and Output 02/09/23 02/10/23 02/10/23 22:59 06:59 14:59 Other: # Voids 0 Weight 113.398 kg 02/10/23 01:59 02/10/23 01:59
--- NOTE | 2023-02-10 13:09 | P.HPIM ---
History of Present Illness H&P Date: 02/10/23 History of present illness; Patient is a 68 year old female with past medical history significant for coronary artery disease with recent cardiac stenting 2 months ago, CHF noncompliant with diuretics, who presented to the emergency department complaining of chest pain. Patient was apparently watching TV when she started having this chest pain, she said it was similar to her previous episodes of chest pain when she had the [place]. Patient states that it was left- sided in nature with some radiation towards her left neck. States she had some diaphoresis with it as well as mild nausea. Patient was worked up in the ER, initial lab work was normal, initial EKG done did not show any acute segment changes. Patient was admitted for further evaluation and treatment REVIEW OF SYSTEMS: CONSTITUTIONAL: No fever, no malaise, no fatigue. HEENT: No recent visual problems or hearing problems. Denied any sore throat. CARDIOVASCULAR: As mentioned in HPI PULMONARY: No shortness of breath, no cough, no hemoptysis. GASTROINTESTINAL: No diarrhea, no nausea, no vomiting, no abdominal pain. NEUROLOGICAL: No headaches, no weakness, no numbness. HEMATOLOGICAL: Denies any bleeding or petechiae. GENITOURINARY: Denies any burning micturition, frequency, or urgency. MUSCULOSKELETAL/RHEUMATOLOGICAL: Denies any joint pain, swelling, or any muscle pain. ENDOCRINE: Denies any polyuria or polydipsia. The rest of the 14-point review of systems is negative. PHYSICAL EXAMINATION: GENERAL: The patient is alert and oriented x3, not in any acute distress. Well developed, well nourished. HEENT: Pupils are round and equally reacting to light. EOMI. No scleral icterus. No conjunctival pallor. Normocephalic, atraumatic. No pharyngeal erythema. No thyromegaly. CARDIOVASCULAR: S1 and S2 present. No murmurs, rubs, or gallops. PULMONARY: Chest is clear to auscultation, no wheezing or crackles. ABDOMEN: Soft, nontender, nondistended, normoactive bowel sounds. No palpable or ganomegaly. MUSCULOSKELETAL: No joint swelling or deformity. EXTREMITIES: No cyanosis, clubbing, or pedal edema. NEUROLOGICAL: Gross neurological examination did not reveal any focal deficits. SKIN: No rashes. Assessment and plan Chest pain History of coronary artery disease with recent stent in LAD Plan; Monitor vital signs Monitor CBC Monitor CMP Trend troponin resume home meds Consult cardiology DVT prophylaxis: Past Medical History Past Medical History: GERD/Reflux, Hearing Disorder / Deafness, Hypertension, Myocardial Infarction ([place]), Osteoarthritis ([place]), Sleep Apnea/CPAP/BIPAP Additional Past Medical History / Comment(s): SEE DR ALVARENGA'S H&P. RECENT FLU - END OF OCT 2022. HX DIVERTICULITIS, HIATAL HERNIA,USES CPAP SOMETIMES, HARD OF HEARING. 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 Past Anesthesia/Blood Transfusion Reactions: No Reported Reaction Date of Last Stent Placement:: 2018 Past Psychological History: No Psychological Hx Reported Smoking Status: Former smoker Past Alcohol Use History: None Reported Additional Past Alcohol Use History / Comment(s): Light smoker as teen only. Past Drug Use History: None Reported - Past Family History Mother Family Medical History: No Reported History Medications and Allergies Home Medications Medication Instructions Recorded Confirmed Type Clopidogrel [Plavix] 75 mg PO DAILY #30 tab 05/07/19 02/10/23 Rx Losartan [Cozaar] 12.5 mg PO DAILY 11/13/22 02/10/23 History Pantoprazole [Protonix] 40 mg PO DAILY 11/13/22 02/10/23 History Rosuvastatin [Crestor] 20 mg PO DAILY 11/13/22 02/10/23 History Nitroglycerin Sl Tabs [Nitrostat] 0.4 mg SL Q5M PRN 02/10/23 02/10/23 History Allergies Allergy/AdvReac Type Severity Reaction Status Date / Time codeine Allergy went into Verified 02/10/23 01:21 corticate position, unable to see colors Physical Exam Vitals: Vital Signs Temp Pulse Pulse Resp BP BP Pulse Ox 02/10/23 10:29 96 02/10/23 07:00 97.9 F 91 18 99/55 100 02/10/23 04:43 97.4 F L 76 107/65 96 02/10/23 03:58 75 18 106/63 96 02/10/23 03:40 80 18 94 L 02/10/23 02:20 93 20 144/74 95 02/10/23 02:10 96 23 144/74 96 02/10/23 02:00 107 H 20 133/87 95 02/10/23 01:40 105 H 11 L 115/105 02/10/23 01:30 101 H 12 97 02/10/23 01:20 103 H 16 02/10/23 01:19 97.7 F 107 H 19 186/68 91 L 02/10/23 01:18 105 H 22 96 Intake and Output 02/09/23 02/10/23 02/10/23 22:59 06:59 14:59 Other: # Voids 0 Weight 113.398 kg Results CBC & Chem 7: 02/10/23 01:59 02/10/23 01:59 Labs: Abnormal Lab Results - Last 24 Hours (Table) 02/10/23 Range/Units 01:59 Chloride 110 H (98-107) mmol/L Glucose 131 H (74-99) mg/dL AST 48 H (14-36) U/L ALT 46 H (4-34) U/L Thrombosis Risk Factor Assmnt - Choose All That Apply Each Factor Represents 1 point: Obesity (BMI >25) Each Risk Factor Represents 2 Points: Age 61-74 years Thrombosis Risk Factor Assessment Total Risk Factor Score: 3 Thrombosis Risk Factor Assessment Level: Moderate Risk
--- NOTE | 2023-02-10 13:11 | P.DS ---
Providers Date of admission: 02/10/23 03:23 Attending physician: Lukasz Guillaume Consults: 02/10/23 03:21 Consult Physician Routine Consulting Provider: [facility] Consult Reason/Comments: chest pain, history of recent CAD and stent Do you want consulting provider notified?: Yes Primary care physician: [facility] Course: Discharge diagnoses; Chest pain History of coronary artery disease with recent stent in [facility] Hospital course; Patient is a 68 year old female with past medical history significant for coronary artery disease with recent cardiac stenting 2 months ago, CHF noncompliant with diuretics, who presented to the emergency department complaining of chest pain. Patient was apparently watching TV when she started having this chest pain, she said it was similar to her previous episodes of chest pain when she had the SC. Patient states that it was left-sided in nature with some radiation towards her left neck. States she had some alfonzo phoresis with it as well as mild nausea. Patient was worked up in the ER, initial lab work was normal, initial EKG done did not show any acute segment changes. Patient was admitted for further evaluation and treatment Cardiology evaluated the patient, recommended chest pain is not cardiac in nature, troponins were flat. Patient was cleared by cardiology for discharge PHYSICAL EXAMINATION: GENERAL: The patient is alert and oriented x3, not in any acute distress. Well developed, well nourished. HEENT: Pupils are round and equally reacting to light. EOMI. No scleral icterus. No conjunctival pallor. Normocephalic, atraumatic. No pharyngeal erythema. No thyromegaly. CARDIOVASCULAR: S1 and S2 present. No murmurs, rubs, or gallops. PULMONARY: Chest is clear to auscultation, no wheezing or crackles. ABDOMEN: Soft, nontender, nondistended, normoactive bowel sounds. No palpable organomegaly. MUSCULOSKELETAL: No joint swelling or deformity. EXTREMITIES: No cyanosis, clubbing, or pedal edema. NEUROLOGICAL: Gross neurological examination did not reveal any focal deficits. SKIN: No rashes. Patient Condition at Discharge: Stable Plan - Discharge Summary New Discharge Prescriptions: Continue Clopidogrel [Plavix] 75 mg PO DAILY #30 tab Pantoprazole [Protonix] 40 mg PO DAILY Rosuvastatin [Crestor] 20 mg PO DAILY Losartan [Cozaar] 12.5 mg PO DAILY No Action Nitroglycerin Sl Tabs [Nitrostat] 0.4 mg SL Q5M PRN PRN Reason: Chest Pain Discharge Medication List Clopidogrel [Plavix] 75 mg PO DAILY #30 tab 05/07/19 [Rx] Losartan [Cozaar] 12.5 mg PO DAILY 11/13/22 [History] Pantoprazole [Protonix] 40 mg PO DAILY 11/13/22 [History] Rosuvastatin [Crestor] 20 mg PO DAILY 11/13/22 [History] Nitroglycerin Sl Tabs [Nitrostat] 0.4 mg SL Q5M PRN 02/10/23 [History] Follow up Appointment(s)/Referral(s): Spenser Mensah MD [STAFF PHYSICIAN] - 1 Week Derian Brasher MD [Primary Care Provider] - 1-2 days Patient Instructions/Handouts: Chest Pain (DC) Discharge Disposition: HOME SELF-CARE
== END 2023-02-10 11:50 | disposition home or self-care (01) ==
LOC: EC 01:08 → 6NMEDSUR 03:23
PROVIDERS: ADMIT Hospitalist; ATTEND Hospitalist
DX: R07.9 Chest pain, unspecified (principal); I25.10 Atherosclerotic heart disease of native coronary artery without angina pectoris; Z95.5 Presence of coronary angioplasty implant and graft; I11.0 Hypertensive heart disease with heart failure; I50.9 Heart failure, unspecified; E78.5 Hyperlipidemia, unspecified; T50.2X6A Underdosing of carbonic-anhydrase inhibitors, benzothiadiazides and other diuretics, initial encounter; K21.9 Gastro-esophageal reflux disease without esophagitis; H91.90 Unspecified hearing loss, unspecified ear; I25.2 Old myocardial infarction; M19.90 Unspecified osteoarthritis, unspecified site; G47.30 Sleep apnea, unspecified; Z87.19 Personal history of other diseases of the digestive system; Z98.84 Bariatric surgery status; Z98.891 History of uterine scar from previous surgery; Z90.49 Acquired absence of other specified parts of digestive tract; Z96.652 Presence of left artificial knee joint; Z87.891 Personal history of nicotine dependence; Z98.890 Other specified postprocedural states; Z79.02 Long term (current) use of antithrombotics/antiplatelets; Z79.899 Other long term (current) drug therapy; Z88.5 Allergy status to narcotic agent
CPT/HCPCS: 99285; 36415; 94760; 93005; 83880; 80053; 83735; 84484; 85025; 85610; 85730; 71046; G0378

== ENCOUNTER 2023-07-26 15:52 | Inpatient (IN) | payer MEDICARE, OTHER ==
--- NOTE | 2023-07-26 16:29 | ED ---
General Adult HPI - General Chief complaint: Arrhythmia/Palpitations Stated complaint: high heart rate Time Seen by Provider: 07/26/23 16:00 Source: patient, RN notes reviewed, old records reviewed Mode of arrival: ambulatory Limitations: no limitations - History of Present Illness Initial comments: This is a [age] female who was sent in by Dr. Mensah. Patient has coronary artery disease and has had a heart attack 4 years ago with stent placement. Patient states she's not been feeling well and last few months and spent on and off with shortness of breath. Patient states when she saw scapula he thought her heart rate was too bad so he sent her into the emergency department. Dr. Mensah called me prior to the patient's arrival I immediately. Patient was in an atrial tachycardia and that he wanted the patient placed on Cardizem. Patient denies a ny chest pain. - Related Data Home Medications Medication Instructions Recorded Confirmed Pantoprazole [Protonix] 40 mg PO DAILY 11/13/22 07/26/23 Rosuvastatin [Crestor] 20 mg PO DAILY 11/13/22 07/26/23 Nitroglycerin Sl Tabs [Nitrostat] 0.4 mg SL Q5M PRN 02/10/23 07/26/23 Furosemide [Lasix] 20 mg PO DIRECTED 07/26/23 07/26/23 Metoprolol Succinate [Metoprolol 25 mg PO DAILY 07/26/23 07/26/23 Succinate ER] dilTIAZem HCL [dilTIAZem HCL 24Hr 120 mg PO DIRECTED 07/26/23 07/26/23 ER (Xr)] Previous Rx's Medication Instructions Recorded Clopidogrel [Plavix] 75 mg PO DAILY #30 tab 05/07/19 Allergies Allergy/AdvReac Type Severity Reaction Status Date / Time codeine Allergy went into Verified 07/26/23 15:57 corticate position, unable to see colors Review of Systems ROS Statement: Those systems with pertinent positive or pertinent negative responses have been documented in the HPI. ROS Other: All systems not noted in ROS Statement are negative. Past Medical History Past Medical History: Atrial Fibrillation, GERD/Reflux, Hearing Disorder / Deafness, Hypertension, Myocardial Infarction ([place]), Osteoarthritis (OA), Sleep Apnea/CPAP/BIPAP Additional Past Medical History / Comment(s): SEE DR MENSAH'S H&P. RECENT FLU - END OF OCT 2022. HX DIVERTICULITIS, HIATAL HERNIA,USES CPAP SOMETIMES, HARD OF HEARING. 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 Past Anesthesia/Blood Transfusion Reactions: No Reported Reaction Date of Last Stent Placement:: 2018 Past Psychological History: No Psychological Hx Reported Smoking Status: Former smoker Past Alcohol Use History: None Reported Past Drug Use History: None Reported - Past Family History Mother Family Medical History: No Reported History General Exam - General Exam Comments Initial Comments: GENERAL: Patient is well-developed and well-nourished. Patient is nontoxic and well- hydrated and is in mild distress. ENT: Neck is soft and supple. No significant lymphadenopathy is noted. Oropharynx is clear. Moist mucous membranes. Neck has full range of motion without eliciting any pain. EYES: The sclera were anicteric and conjunctiva were pink and moist. Extraocular movements were intact and pupils were equal round and reactive to light. Eyel ids were unremarkable. PULMONARY: Unlabored respirations. Good breath sounds bilaterally. No audible rales rhonchi or wheezing was noted. CARDIOVASCULAR: Recent heart rate is 150 bpm ABDOMEN: Soft and nontender with normal bowel sounds. SKIN: Skin is clear with no lesions or rashes and otherwise unremarkable. NEUROLOGIC: Patient is alert and oriented x3. Cranial nerves II through XII are grossly intact. Motor and sensory are also intact. Normal speech, volume and content. Symmetrical smile. MUSCULOSKELETAL: Normal extremities with adequate strength and full range of motion. LYMPHATICS: No significant lymphadenopathy is noted PSYCHIATRIC: Normal psychiatric evaluation. 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 EKG shows atrial tachycardia at 153 bpm MT interval 218 QRS is 98 QT interval 310 QTC is 397. Patient's EKG shows no ST segment elevation or depression. Was pt. sent in by a medical professional or institution (, [facility], [facility], urgent care, hospital, or penitentiary...) When possible be specific @ -Dr. Mensah sent the patient in Did you speak to anyone other than the patient for history (EMS, parent, family, police, friend...)? What history was obtained from this source @ -I spoke with Dr. Mensah about the patient's condition prior to arrival Did you review nursing and triage notes (agree or disagree)? Why? @ -[I reviewed and agree with nursing and triage notes] Were old charts reviewed (outside hosp., previous admission, EMS record, old EKG, old radiological studies, urgent care reports/EKG's, penitentiary records)? Report findings @ -I reviewed prior labs prior charts prior radiological studies in this patient Differential Diagnosis (chest pain, altered mental status, abdominal pain women, abdominal pain men, vaginal bleeding, weakness, fever, dyspnea, syncope, headache, dizziness, GI bleed, back pain, seizure, CVA, palpatations, mental health, musculoskeletal)? @ -Differential Palpitations Ventricular arrhythmias, atrial arrhythmias, myocardial infarction, anemia, thyrotoxicosis, electrolyte imbalance, hypokalemia, pulmonary embolism, pulmonary disease, drugs, alcohol, anxiety, stress.... This is not meant to be an all-inclusive list. EKG interpreted by me (3pts min.). @ -[As above] X-rays interpreted by me (1pt min.). @ -Chest x-ray showed no acute abnormality probable left lower lobe atelectasis CT interpreted by me (1pt min.). @ -[None done] U/S interpreted by me (1pt. min.). @ -[None done] What testing was considered but not performed or refused? (CT, X-rays, U/S, labs)? Why? @ -[None] What meds were considered but not given or refused? Why? @ -[None] Did you discuss the management of the patient with other professionals (professionals i.e. , [facility], [facility], lab, RT, psych nurse, social work nurse, general accounting manager, teacher, worldwide chief creative officer, clinical case manager)? Give summary @ -I spoke with the [facility] see agreed to admit the patient Was smoking cessation discussed for >3mins.? @ -[No] Was critical care preformed (if so, how long)? @ -35 Minutes Were there social determinants of health that impacted care today? How? (Homelessness, low income, unemployed, alcoholism, drug addiction, transportation, low edu. Level, literacy, decrease access to med. care, long-term, rehab)? @ -[No] Was there de-escalation of care discussed even if they declined (Discuss DNR or withdrawal of care, Hospice)? DNR status @ -[No] What co-morbidities impacted this encounter? (DM, HTN, Smoking, COPD, CAD, Cancer, CVA, ARF, Chemo, Hep., AIDS, mental health diagnosis, sleep apnea, morbid obesity)? @ -[None] Was patient admitted / discharged? Hospital course, mention meds given and route, prescriptions, significant lab abnormalities, going to OR and other pertinent info. @ -Patient came in with a heart rate of 150 beats a minute and I started the patient Cardizem after Cardizem bolus. Patient had a Cardizem bumped up to 7.5 I spoke with [facility] see agreed to admit the patient to the patient I consult cardiology Undiagnosed new problem with uncertain prognosis? @ -[No] Drug Therapy requiring intensive monitoring for toxicity (Heparin, Nitro, Insulin, Cardizem)? @ -[No] Were any procedures done? @ -[No] Diagnosis/symptom? @ -Atrial tachycardia Acute, or Chronic, or Acute on Chronic? @ -Acute Uncomplicated (without systemic symptoms) or Complicated (systemic symptoms)? @ -Complicated Side effects of treatment? @ -[No] Exacerbation, Progression, or Severe Exacerbation? @ -[No] Poses a threat to life or bodily function? How? (Chest pain, USA, ID, pneumonia, PE, COPD, DKA, ARF, appy, cholecystitis, CVA, Diverticulitis, Homicidal, Suicidal, threat to staff... and all critical care pts) @ -Yes this can lead to poor perfusion and end organ dysfunction - Lab Data Result diagrams: 07/26/23 16:22 07/26/23 16:22 Lab Results 07/26/23 07/26/23 07/26/23 Range/Units 16:22 16:22 16:22 WBC 6.5 (3.8-10.6) k/uL RBC 4.02 (3.80-5.40) m/uL Hgb 12.2 (11.4-16.0) gm/dL Hct 37.3 (34.0-46.0) % MCV 92.6 (80.0-100.0) fL MCH 30.4 (25.0-35.0) pg MCHC 32.9 (31.0-37.0) g/dL RDW 14.9 (11.5-15.5) % Plt Count 228 (150-450) k/uL MPV 8.2 Neutrophils % 67 % Lymphocytes % 22 % Monocytes % 7 % Eosinophils % 2 % Basophils % 0 % Neutrophils # 4.4 (1.3-7.7) k/uL Lymphocytes # 1.4 (1.0-4.8) k/uL Monocytes # 0.4 (0-1.0) k/uL Eosinophils # 0.1 (0-0.7) k/uL Basophils # 0.0 (0-0.2) k/uL PT 12.1 H (9.0-12.0) sec INR 1.2 H (<1.2) APTT 24.6 (22.0-30.0) sec Sodium 144 (137-145) mmol/L Potassium 4.0 (3.5-5.1) mmol/L Chloride 109 H (98-107) mmol/L Carbon Dioxide 27 (22-30) mmol/L Anion Gap 8 mmol/L BUN 13 (7-17) mg/dL Creatinine 0.89 (0.52-1.04) mg/dL Est GFR (CKD-EPI)AfAm 78 (>60 ml/min/1.73 sqM) Est GFR (CKD-EPI)NonAf 68 (>60 ml/min/1.73 sqM) Glucose 124 H (74-99) mg/dL Calcium 8.5 (8.4-10.2) mg/dL Magnesium 2.0 (1.6-2.3) mg/dL Total Bilirubin 0.6 (0.2-1.3) mg/dL AST 71 H (14-36) U/L ALT 50 H (4-34) U/L Alkaline Phosphatase 62 (38-126) U/L Troponin I (0.000-0.034) ng/mL NT-Pro-B Natriuret Pep 952 pg/mL Total Protein 7.9 (6.3-8.2) g/dL Albumin 4.0 (3.5-5.0) g/dL TSH (0.465-4.680) mIU/L 07/26/23 07/26/23 Range/Units 16:22 16:31 WBC (3.8-10.6) k/uL RBC (3.80-5.40) m/uL Hgb (11.4-16.0) gm/dL Hct (34.0-46.0) % MCV (80.0-100.0) fL MCH (25.0-35.0) pg MCHC (31.0-37.0) g/dL RDW (11.5-15.5) % Plt Count (150-450) k/uL MPV Neutrophils % % Lymphocytes % % Monocytes % % Eosinophils % % Basophils % % Neutrophils # (1.3-7.7) k/uL Lymphocytes # (1.0-4.8) k/uL Monocytes # (0-1.0) k/uL Eosinophils # (0-0.7) k/uL Basophils # (0-0.2) k/uL PT (9.0-12.0) sec INR (<1.2) APTT (22.0-30.0) sec Sodium (137-145) mmol/L Potassium (3.5-5.1) mmol/L Chloride (98-107) mmol/L Carbon Dioxide (22-30) mmol/L Anion Gap mmol/L BUN (7-17) mg/dL Creatinine (0.52-1.04) mg/dL Est GFR (CKD-EPI)AfAm (>60 ml/min/1.73 sqM) Est GFR (CKD-EPI)NonAf (>60 ml/min/1.73 sqM) Glucose (74-99) mg/dL Calcium (8.4-10.2) mg/dL Magnesium (1.6-2.3) mg/dL Total Bilirubin (0.2-1.3) mg/dL AST (14-36) U/L ALT (4-34) U/L Alkaline Phosphatase (38-126) U/L Troponin I <0.012 (0.000-0.034) ng/mL NT-Pro-B Natriuret Pep pg/mL Total Protein (6.3-8.2) g/dL Albumin (3.5-5.0) g/dL TSH 1.030 (0.465-4.680) mIU/L Disposition Clinical Impression: Atrial tachycardia Disposition: ADMITTED IP TO THIS HOSP Referrals: Derian Brasher MD [Primary Care Provider] - 1-2 days Time of Disposition: 18:40
[2023-07-26] MEDS ORDERED: DILTIAZEM DRIP BOLUS FROM BAG 1 MG SOLN IV ONE (16:38)
[2023-07-26 16:54] LABS: Basophils % (A) 0 %; Eosinophils # (A) 0.1 k/uL (0-0.7); Eosinophils % (A) 2 %; HCT 37.3 % (34.0-46.0); HGB 12.2 gm/dL (11.4-16.0); Lymphocytes # (A) 1.4 k/uL (1.0-4.8); Lymphocytes % (A) 22 %; MCH 30.4 pg (25.0-35.0); MCHC 32.9 g/dL (31.0-37.0); MCV 92.6 fL (80.0-100.0); Mean Platelet Volume 8.2; Monocytes # (A) 0.4 k/uL (0-1.0); Monocytes % (A) 7 %; Neutrophils # (A) 4.4 k/uL (1.3-7.7); Neutrophils % (A) 67 %; Platelet Count 228 k/uL (150-450); RBC 4.02 m/uL (3.80-5.40); RDW 14.9 % (11.5-15.5); WBC 6.5 k/uL (3.8-10.6)
[2023-07-26] MEDS: DILTIAZEM 125 MG in SODIUM CHLORIDE 0.9% 100 ML IV SCH (17:00)
[2023-07-26 17:04] LABS: ALT 50 U/L (4-34); AST 71 U/L (14-36); African American GFR (CKD) 78 (>60 ml/min/1.73 sqM); Alkaline Phosphatase 62 U/L (38-126); Anion Gap 8 mmol/L; Blood Urea Nitrogen 13 mg/dL (7-17); Calcium 8.5 mg/dL (8.4-10.2); Carbon Dioxide 27 mmol/L (22-30); Chloride 109 mmol/L (98-107); Glucose 124 mg/dL (74-99); INR 1.2 (<1.2); Non-African American GFR(CKD) 68 (>60 ml/min/1.73 sqM); Partial Thromboplastin Time 24.6 sec (22.0-30.0); Prothrombin Time 12.1 sec (9.0-12.0); Sodium 144 mmol/L (137-145); Total Bilirubin 0.6 mg/dL (0.2-1.3); Total Protein 7.9 g/dL (6.3-8.2)
[2023-07-26 17:14] LABS: NT-Pro-B-Type Natriuretic Pept 952 pg/mL
--- NOTE | 2023-07-26 17:14 | XR ---
EXAMINATION TYPE: XR chest 2V DATE OF EXAM: 07/26/2023 COMPARISON: 02/10/2023 INDICATION: Difficulty breathing and heart palpitation and tachycardia TECHNIQUE: Single frontal view of the chest is obtained. FINDINGS: The heart size is normal. The pulmonary vasculature is normal. Subtle infiltrate at the right base. Correlate for atelectasis or pneumonia. Some mild atelectatic pl ate atelectasis may be at the left mid lung and left base. IMPRESSION: 1. Suggestion of a right lower lobe infiltrate. Correlate for atelectasis. Pneumonia could be conside red. 2. Mild platelike atelectasis may be at the left base.
[2023-07-26] MEDS ORDERED: SODIUM CHLORIDE 0.9% 1,000 ML IV ONE (18:40)
[2023-07-27] MEDS: ACETAMINOPHEN TAB 500 MG TAB PO PRN ×2 (03:56→19:58)
[2023-07-27] MEDS: DILTIAZEM 125 MG in SODIUM CHLORIDE 0.9% 100 ML IV SCH (04:45)
[2023-07-27] MEDS: PANTOPRAZOLE 40 MG TABLET PO SCH (06:29)
[2023-07-27] MEDS ORDERED: NITROGLYCERIN SL TABS 0.4 MG TAB SUBLINGUAL PRN (08:57)
[2023-07-27] MEDS ORDERED: NALOXONE 0.4 MG/ML 1 ML VIAL IV PRN (08:58)
[2023-07-27] MEDS ORDERED: ONDANSETRON 4 MG/2 ML VIAL IVP PRN (08:58)
[2023-07-27] MEDS ORDERED: CLOPIDOGREL 75 MG TAB PO SCH (09:00)
[2023-07-27] MEDS: METOPROLOL SUCCINATE (ER) 25 MG TAB.ER.24H PO SCH (09:00)
[2023-07-27] MEDS: ATORVASTATIN 40 MG TAB PO SCH (09:01)
--- NOTE | 2023-07-27 10:34 | P.CRDCN ---
History of Present Illness History of present illness: HISTORY OF PRESENTING ILLNESS Patient is a pleasant 68-year-old female with history of CAD status post stenting of the LAD in 2019 as well as more recent heart catheterization November 2022 with patent LAD stent, hypertension, hyperlipidemia, sleep apnea noncompliant with CPAP, obesity who presents secondary to the palpitations. She was seen in cardiology office with Dr. Mensah yesterday and noted to be tachycardic with heart rates of 150 and therefore transferred to ER. She was found to be in SVT and after giving Cardizem noted to be atrial flutter with 2-1 conduction. She was started on Cardizem drip and uptitrated to 10 with heart rates better controlled 90s to low 100s. She admits she feels much better after heart rates better controlled. She admits this has been going on intermittently over the last few months. She denies any history of stroke or TIA. She has been on Plavix since her stenting as she previously had issues with nosebleeds, aspirin. She is noncompliant with her CPAP. She denies any chest pain or pressure. REVIEW OF SYSTEMS At the time of my exam: CONSTITUTIONAL: Denies fever or chills. CARDIOVASCULAR: Denies chest pain, shortness of breath, orthopnea, PND +palpitations. RESPIRATORY: Denies cough. GASTROINTESTINAL: Denies abdominal pain, diarrhea, constipation, nausea or vomiting. MUSCULOSKELETAL: Denies myalgias. NEUROLOGIC: Denies numbness, tingling or weakness. ENDOCRINE: Denies fatigue, weight change, polydipsia or polyurina. GENITOURINARY: Denies burning, hematuria or urgency with micturation. HEMATOLOGIC: Denies history of anemia or bleeding. PHYSICAL EXAMINATION Vital signs reviewed. CONSTITUTIONAL: No apparent distress. HEENT: Head is normocephalic. Pupils are equal, round. Sclerae anicteric. Mucous membranes of the mouth are moist. No JVD. No carotid bruit. CHEST EXAMINATION: Lungs are clear to auscultation. No chest wall tenderness is noted on palpation or with deep breathing. HEART EXAMINATION: Irregular rate and rhythm. S1, S2 heard. No murmurs, gallops or rub. ABDOMEN: Soft, nontender. Positive bowel sounds. EXTREMITIES: 2+ peripheral pulses, no lower extremity edema and no calf tenderness. NEUROLOGIC EXAMINATION: Patient is awake, alert and oriented x3. ASSESSMENT 1. Typical atrial flutter with RVR 2. CAD with prior history PCI LAD 2018 3. Hypertension 4. Sleep apnea noncompliant with CPAP 5. Previous history of nosebleeds on aspirin PLAN Patient's heart rates better controlled however still in atrial flutter and still feels some degree of palpitations and fatigue. Therefore discussed rhythm control and we will make arrangements for ELISHA/cardioversion. We will increase Cardizem from 120 up to 180 daily with the metoprolol. Call in anticoagulation with Eliquis 5mg bid. Patient cardioverted and in normal sinus rhythm, patient may be discharged home later today on increased dose of Cardizem and Eliquis. Stop Plavix going home. Past Medical History Past Medical History: Atrial Fibrillation, GERD/Reflux, Hearing Disorder / Deafness, Hypertension, Myocardial Infarction ([place]), Osteoarthritis (OA), Sleep Apnea/CPAP/BIPAP Additional Past Medical History / Comment(s): SEE DR MENSAH'S H&P. RECENT FLU - END OF OCT 2022. HX DIVERTICULITIS, HIATAL HERNIA,USES CPAP SOMETIMES, HARD OF HEARING. 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 Past Anesthesia/Blood Transfusion Reactions: No Reported Reaction Date of Last Stent Placement:: 2021 Past Psychological History: No Psychological Hx Reported Smoking Status: Former smoker Past Alcohol Use History: None Reported Additional Past Alcohol Use History / Comment(s): Light smoker as teen only. Past Drug Use History: None Reported - Past Family History Mother Family Medical History: No Reported History Medications and Allergies Home Medications Medication Instructions Recorded Confirmed Type Clopidogrel [Plavix] 75 mg PO DAILY #30 tab 05/07/19 07/26/23 Rx Pantoprazole [Protonix] 40 mg PO DAILY 11/13/22 07/26/23 History Rosuvastatin [Crestor] 20 mg PO DAILY 11/13/22 07/26/23 History Nitroglycerin Sl Tabs [Nitrostat] 0.4 mg SL Q5M PRN 02/10/23 07/26/23 History Furosemide [Lasix] 20 mg PO DIRECTED 07/26/23 07/26/23 History Metoprolol Succinate [Metoprolol 25 mg PO DAILY 07/26/23 07/26/23 History Succinate ER] dilTIAZem HCL [dilTIAZem HCL 24Hr 120 mg PO DIRECTED 07/26/23 07/26/23 History ER (Xr)] Allergies Allergy/AdvReac Type Severity Reaction Status Date / Time codeine Allergy went into Verified 07/26/23 15:57 corticate position, unable to see colors Physical Exam Vitals: Vital Signs Temp Pulse Pulse Resp BP BP Pulse Ox 07/27/23 09:15 95 07/27/23 08:00 98.3 F 100 20 100/56 97 07/27/23 04:00 97.7 F 99 18 136/78 98 07/27/23 02:00 105 H 18 07/27/23 00:00 98.1 F 105 H 18 102/66 98 07/26/23 21:36 98.4 F 130 H 19 125/78 96 07/26/23 20:38 152 H 16 127/56 98 07/26/23 19:12 149 H 16 126/85 99 07/26/23 18:00 150 H 20 140/83 95 07/26/23 17:04 150 H 20 121/73 98 07/26/23 16:45 152 H 07/26/23 15:57 152 H 20 110/88 98 07/26/23 15:53 97.8 F 155 H 20 154/73 95 Intake and Output 07/26/23 07/27/23 07/27/23 22:59 06:59 14:59 Intake Total 27.00 80.5 Balance 27.00 80.5 Intake: Intake, IV Titration 27.00 80.5 Amount Diltiazem 125 mg In 27.00 80.5 Sodium Chloride 0.9% 100 ml @ 5 MG/HR 5 mls/hr IV .Q24H [facility] Rx#:[id number] Other: Voiding Method External Catheter # Voids 2 1 Weight 118.388 kg Results 07/26/23 16:22 07/26/23 16:22 Cardiac Enzymes 07/26/23 07/26/23 Range/Units 16:22 16:22 AST 71 H (14-36) U/L Troponin I <0.012 (0.000-0.034) ng/mL Coagulation 07/26/23 Range/Units 16:22 PT 12.1 H (9.0-12.0) sec APTT 24.6 (22.0-30.0) sec CBC 07/26/23 Range/Units 16:22 WBC 6.5 (3.8-10.6) k/uL RBC 4.02 (3.80-5.40) m/uL Hgb 12.2 (11.4-16.0) gm/dL Hct 37.3 (34.0-46.0) % Plt Count 228 (150-450) k/uL Comprehensive Metabolic Panel 07/26/23 Range/Units 16:22 Sodium 144 (137-145) mmol/L Potassium 4.0 (3.5-5.1) mmol/L Chloride 109 H (98-107) mmol/L Carbon Dioxide 27 (22-30) mmol/L BUN 13 (7-17) mg/dL Creatinine 0.89 (0.52-1.04) mg/dL Glucose 124 H (74-99) mg/dL Calcium 8.5 (8.4-10.2) mg/dL AST 71 H (14-36) U/L ALT 50 H (4-34) U/L Alkaline Phosphatase 62 (38-126) U/L Total Protein 7.9 (6.3-8.2) g/dL Albumin 4.0 (3.5-5.0) g/dL Current Medications Generic Name Dose Route Start Last Admin Trade Name Freq PRN Reason Stop Dose Admin Acetaminophen 500 mg 07/27/23 03:47 07/27/23 03:56 Acetaminophen Tab 500 Mg Tab PO 500 mg Q6HR PRN Administration Fever and/ or Pain Apixaban 5 mg 07/27/23 10:45 Apixaban 5 Mg Tab PO BID [facility] Protocol Atorvastatin Calcium 40 mg 07/27/23 09:00 07/27/23 09:01 Atorvastatin 40 Mg Tab PO 40 mg DAILY HANSA Administration Diltiazem HCl 125 mg/ Sodium 125 mls @ 5 mls/hr 07/26/23 16:45 07/27/23 04:45 Chloride IV 10 mg/hr .Q24H HANSA 10 mls/hr Administration 5 MG/HR Metoprolol Succinate 25 mg 07/27/23 09:00 07/27/23 09:00 Metoprolol Succinate (Er) 25 Mg Tab.Er.24h PO 25 mg DAILY HANSA Administration Naloxone HCl 0.2 mg 07/27/23 08:58 Naloxone 0.4 Mg/Ml 1 Ml Vial IV Q2M PRN Opioid Reversal Nitroglycerin 0.4 mg 07/27/23 08:57 Nitroglycerin Sl Tabs 0.4 Mg Tab SUBLINGUAL Q5M PRN Chest Pain Ondansetron HCl 4 mg 07/27/23 08:58 Ondansetron 4 Mg/2 Ml Vial IVP Q8HR PRN Nausea And Vomiting Pantoprazole Sodium 40 mg 07/27/23 07:30 07/27/23 06:29 Pantoprazole 40 Mg Tablet PO 40 mg [id number] HANSA Administration Intake and Output 07/26/23 07/27/23 07/27/23 22:59 06:59 14:59 Intake Total 27.00 80.5 Balance 27.00 80.5 Intake: Intake, IV Titration 27.00 80.5 Amount Diltiazem 125 mg In 27.00 80.5 Sodium Chloride 0.9% 100 ml @ 5 MG/HR 5 mls/hr IV .Q24H [facility] Rx#:[id number] Other: Voiding Method External Catheter # Voids 2 1 Weight 118.388 kg 07/26/23 16:22 07/26/23 16:22
[2023-07-27] MEDS: DILTIAZEM CD 180 MG CAP.ER.24H PO SCH (10:50)
[2023-07-27] MEDS: APIXABAN 5 MG TAB PO SCH ×2 (10:51→19:59)
--- NOTE | 2023-07-27 12:19 | P.HPIM ---
History of Present Illness H&P Date: 07/27/23 Chief Complaint: Tachycardia * 68-year-old lady with past medical history significant for coronary artery disease,, hypertension, sleep apnea present to the emergency department from outpatient office secondary to patient noted to have tachycardia. * Patient was noted to have atrial flutter with 2-1 conduction and was initiated on Cardizem drip * Consultation obtained from cardiology and patient admitted to medical floor * Patient states she remained asymptomatic denies dizziness, chest pain, shortness of breath. REVIEW OF SYSTEMS: CONSTITUTIONAL: No fever, no malaise, no fatigue. HEENT: No recent visual problems or hearing problems. Denied any sore throat. CARDIOVASCULAR: No chest pain, orthopnea, PND, no palpitations, no syncope. PULMONARY: No shortness of breath, no cough, no hemoptysis. GASTROINTESTINAL: No diarrhea, no nausea, no vomiting, no abdominal pain. NEUROLOGICAL: No headaches, no weakness, no numbness. HEMATOLOGICAL: Denies any bleeding or petechiae. GENITOURINARY: Denies any burning micturition, frequency, or urgency. MUSCULOSKELETAL/RHEUMATOLOGICAL: Denies any joint pain, swelling, or any muscle pain. ENDOCRINE: Denies any polyuria or polydipsia. The rest of the 14-point review of systems is negative. PHYSICAL EXAMINATION: GENERAL: The patient is alert and oriented x3, not in any acute distress. Well developed, well nourished. HEENT: Pupils are round and equally reacting to light. EOMI. No scleral icterus. No conjunctival pallor. Normocephalic, atraumatic. No pharyngeal erythema. No thyromegaly. CARDIOVASCULAR: Irregular rhythm, tachycardia PULMONARY: Chest is clear to auscultation, no wheezing or crackles. ABDOMEN: Soft, nontender, nondistended, normoactive bowel sounds. No palpable organomegaly. MUSCULOSKELETAL: No joint swelling or deformity. EXTREMITIES: No cyanosis, clubbing, or pedal edema. NEUROLOGICAL: Gross neurological examination did not reveal any focal deficits. SKIN: No rashes. Past Medical History Past Medical History: Atrial Fibrillation, GERD/Reflux, Hearing Disorder / Deafness, Hypertension, Myocardial Infarction (PR), Osteoarthritis (OA), Sleep Apnea/CPAP/BIPAP Additional Past Medical History / Comment(s): SEE DR ALVARENGA'S H&P. RECENT FLU - END OF OCT 2022. HX DIVERTICULITIS, HIATAL HERNIA,USES CPAP SOMETIMES, HARD OF HEARING. 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 Past Anesthesia/Blood Transfusion Reactions: No Reported Reaction Date of Last Stent Placement:: 2021 Past Psychological History: No Psychological Hx Reported Smoking Status: Former smoker Past Alcohol Use History: None Reported Additional Past Alcohol Use History / Comment(s): Light smoker as teen only. Past Drug Use History: None Reported - Past Family History Mother Family Medical History: No Reported History Medications and Allergies Home Medications Medication Instructions Recorded Confirmed Type Clopidogrel [Plavix] 75 mg PO DAILY #30 tab 05/07/19 07/26/23 Rx Pantoprazole [Protonix] 40 mg PO DAILY 11/13/22 07/26/23 History Rosuvastatin [Crestor] 20 mg PO DAILY 11/13/22 07/26/23 History Nitroglycerin Sl Tabs [Nitrostat] 0.4 mg SL Q5M PRN 02/10/23 07/26/23 History Furosemide [Lasix] 20 mg PO DIRECTED 07/26/23 07/26/23 History Metoprolol Succinate [Metoprolol 25 mg PO DAILY 07/26/23 07/26/23 History Succinate ER] dilTIAZem HCL [dilTIAZem HCL 24Hr 120 mg PO DIRECTED 07/26/23 07/26/23 History ER (Xr)] Apixaban [Eliquis] 5 mg PO DAILY #60 tablet 07/27/23 Rx Allergies Allergy/AdvReac Type Severity Reaction Status Date / Time codeine Allergy went into Verified 07/26/23 15:57 corticate position, unable to see colors Physical Exam Vitals: Vital Signs Temp Pulse Pulse Resp BP BP Pulse Ox 07/27/23 11:38 97.5 F L 98 20 114/74 98 07/27/23 09:15 95 07/27/23 08:00 98.3 F 100 20 100/56 97 07/27/23 04:00 97.7 F 99 18 136/78 98 07/27/23 02:00 105 H 18 07/27/23 00:00 98.1 F 105 H 18 102/66 98 07/26/23 21:36 98.4 F 130 H 19 125/78 96 07/26/23 20:38 152 H 16 127/56 98 07/26/23 19:12 149 H 16 126/85 99 07/26/23 18:00 150 H 20 140/83 95 07/26/23 17:04 150 H 20 121/73 98 07/26/23 16:45 152 H 07/26/23 15:57 152 H 20 110/88 98 07/26/23 15:53 97.8 F 155 H 20 154/73 95 Intake and Output 07/26/23 07/27/23 07/27/23 22:59 06:59 14:59 Intake Total 27.00 80.5 68.833 Balance 27.00 80.5 68.833 Intake: Intake, IV Titration 27.00 80.5 68.833 Amount Diltiazem 125 mg In 27.00 80.5 68.833 Sodium Chloride 0.9% 100 ml @ 5 MG/HR 5 mls/hr IV .Q24H [facility] Rx#:[id number] Other: Voiding Method External Catheter Toilet # Voids 2 1 Weight 118.388 kg Results CBC & Chem 7: 07/26/23 16:22 07/26/23 16:22 Labs: Abnormal Lab Results - Last 24 Hours (Table) 07/26/23 07/26/23 Range/Units 16:22 16:22 PT 12.1 H (9.0-12.0) sec INR 1.2 H (<1.2) Chloride 109 H (98-107) mmol/L Glucose 124 H (74-99) mg/dL AST 71 H (14-36) U/L ALT 50 H (4-34) U/L Assessment and Plan Assessment: Assessment and plan New onset atrial flutter with rapid monitor response History of coronary artery disease History of sleep apnea with obesity Hypertension * Consult obtained from cardiology, patient started on Eliquis, scheduled for ELISHA cardioversion * Patient started on IV Cardizem drip with plan to transition to oral Cardizem * Home medications reviewed and reconciled * Optimize electrolytes potassium and magnesium basic metabolic panel reviewed * CODE STATUS is full code
[2023-07-27] MEDS ORDERED: IV FLUID CONTINUATION 1,000 ML IV ONE ×2 (12:52)
[2023-07-27] MEDS ORDERED: BENZOCAINE SPRAY 1 CAN TOPICAL ONE (13:17)
[2023-07-27] MEDS ORDERED: PROPOFOL 10 MG/ML 20 ML VIAL IV ONE (13:20)
[2023-07-27] MEDS ORDERED: LIDOCAINE 2% INJ 20 MG/ML (2 ML VIAL) ONE (13:20)
[2023-07-27] MEDS ORDERED: SODIUM CHLORIDE 0.9% 1,000 ML IV ONE (14:04)
--- NOTE | 2023-07-27 20:06 | P.TEE ---
Description of Procedure(s): Procedure performed: Transesophageal Echocardiogram with color flow doppler, pulsed wave doppler and continuous wave doppler, synchronized cardioversion Moderate conscious sedation: Moderate conscious sedation was supplied by anesthesia, see separate report. Complications: none Indications: Atrial flutter with RVR PROCEDURE: After the risks, benefits and alternatives of the above mentioned procedure was explained in detail with the patient, informed consent was obtained. Patient was brought to the lab in a fasting state. Patient was given sedation by anesthesia, see separate report. The throat was sprayed with Hurricane to anesthetize the throat. A lubricated Omni probe was then introduced into the esophagus and stomach and multiple views were obtained. 2D echo with color flow doppler, pulsed wave doppler and continuous wave doppler was utilized. Agitated saline bubbles were injected to assess for any intra- atrial shunt. The probe was then removed. There was no thrombus noted and therefore patient underwent synchronized cardioversion x 1 with 200J with resultant sinus rhythm. Patient tolerated the procedure well. Patient was transferred to the post procedure area in stable and satisfactory condition. FINDINGS: 1. The aortic valve is tricuspid with trace aortic insufficiency. 2. The mitral valve appears be normal with trace to mild mitral regurgitation. 3. Tricuspid valve with mild tricuspid regurgitation. 4. The interatrial septum is intact. No evidence of PFO. 5. Left atrial appendage is free of clot. 6. Left ventricular ejection fraction 55%
[2023-07-28] MEDS: PANTOPRAZOLE 40 MG TABLET PO SCH (06:17)
[2023-07-28 08:29] VITALS: RESP 20
[2023-07-28] MEDS: ATORVASTATIN 40 MG TAB PO SCH (08:32)
[2023-07-28] MEDS: DILTIAZEM CD 180 MG CAP.ER.24H PO SCH (08:32)
[2023-07-28] MEDS: METOPROLOL SUCCINATE (ER) 25 MG TAB.ER.24H PO SCH (08:32)
[2023-07-28] MEDS: APIXABAN 5 MG TAB PO SCH (08:32)
--- NOTE | 2023-07-28 09:27 | P.PN ---
Subjective HISTORY OF PRESENTING ILLNESS Patient is a pleasant 68-year-old female with history of CAD status post stenting of the LAD in 2018 as well as more recent heart catheterization November 2022 with patent LAD stent, hypertension, hyperlipidemia, sleep apnea noncompliant with CPAP, obesity who presents secondary to the palpitations. She was seen in cardiology office with Dr. Mensah yesterday and noted to be tachycardic with heart rates of 150 and therefore transferred to ER. She was found to be in SVT and after giving Cardizem noted to be atrial flutter with 2-1 conduction. She was started on Cardizem drip and uptitrated to 10 with heart rates better controlled 90s to low 100s. She admits she feels much better after heart rates better controlled. She admits this has been going on intermittently over the last few months. She denies any history of stroke or TIA. She has been on Plavix since her stenting as she previously had issues with nosebleeds, aspirin. She is noncompliant with her CPAP. She denies any chest pain or pressure. 07/28 Patient seen and examined. Patient underwent ELISHA cardioversion yesterday and back in sinus rhythm. Denies any significant complaints. Shortness breath has improved. Tolerating Eliquis. PHYSICAL EXAMINATION Vital signs reviewed. CONSTITUTIONAL: No apparent distress. HEENT: Head is normocephalic. Pupils are equal, round. Sclerae anicteric. Mucous membranes of the mouth are moist. No JVD. No carotid bruit. CHEST EXAMINATION: Lungs are clear to auscultation. No chest wall tenderness is noted on palpation or with deep breathing. HEART EXAMINATION: Irregular rate and rhythm. S1, S2 heard. No murmurs, gallops or rub. ABDOMEN: Soft, nontender. Positive bowel sounds. EXTREMITIES: 2+ peripheral pulses, no lower extremity edema and no calf tenderness. NEUROLOGIC EXAMINATION: Patient is awake, alert and oriented x3. ASSESSMENT 1. Typical atrial flutter with RVR, s/p CV 2. CAD with prior history PCI LAD 2018 3. Hypertension 4. Sleep apnea noncompliant with CPAP 5. Previous history of nosebleeds on aspirin PLAN Continue increased Cardizem 180 daily with the metoprolol. Continue Eliquis 5mg bid. Stop Plavix going home. Sinus rhythm and appears stable for discharge home with outpatient follow-up in 1 week. Objective - Vital Signs Vital signs: Vital Signs Temp 97.8 F 07/28/23 08:28 Pulse 73 07/28/23 08:28 Resp 20 07/28/23 08:28 BP 125/62 07/28/23 08:28 Pulse Ox 94 L 07/28/23 08:28 FiO2 Intake & Output 07/27/23 07/28/23 07/28/23 18:59 06:59 18:59 Intake Total 458.833 780 Balance 458.833 780 Intake: IV 150 Intake, IV Titration 308.833 240 Amount Diltiazem 125 mg In 68.833 Sodium Chloride 0.9% 100 ml @ 5 MG/HR 5 mls/hr IV .Q24H [facility] Rx#:[id number] Sodium Chloride 0.9% 1, 240 000 ml @ 0 mls/hr IV .[facility] Rx#:[id number] Sodium Chloride 0.9% 1, 240 000 ml @ 75 mls/hr IV . [id number] [facility] Rx#:[id number] Oral 540 Other: Voiding Method Toilet Toilet # Voids 2 2 - Labs CBC & Chem 7: 07/26/23 16:22 07/26/23 16:22
--- NOTE | 2023-07-28 11:32 | P.DS ---
Providers Date of admission: 07/26/23 18:42 Expected date of discharge: 07/28/23 Attending physician: Lukasz Guillaume Consults: 07/26/23 18:40 Consult Physician Urgent Consulting Provider: [facility] Consult Reason/Comments: Atrial tachycardia Do you want consulting provider notified?: Yes Primary care physician: [facility] Course: * 68-year-old lady with past medical history significant for coronary artery disease,, hypertension, sleep apnea present to the emergency department from outpatient office secondary to patient noted to have tachycardia. * Patient was noted to have atrial flutter with 2-1 conduction and was initiated on Cardizem drip * Consultation obtained from cardiology and patient admitted to medical floor * Patient states she remained asymptomatic denies dizziness, chest pain, shortness of breath. * Patient was admitted to medical floor and seen by cardiology. Cardizem drip was weaned off and patient was transitioned to oral Cardizem. IV heparin was discontinued and patient started on Eliquis PHYSICAL EXAMINATION: GENERAL: The patient is alert and oriented x3, not in any acute distress. Well developed, well nourished. HEENT: Pupils are round and equally reacting to light. EOMI. No scleral icterus. No conjunctival pallor. Normocephalic, atraumatic. No pharyngeal erythema. No thyromegaly. CARDIOVASCULAR: S1 and S2 present. No murmurs, rubs, or gallops. PULMONARY: Chest is clear to auscultation, no wheezing or crackles. ABDOMEN: Soft, nontender, nondistended, normoactive bowel sounds. No palpable or ganomegaly. MUSCULOSKELETAL: No joint swelling or deformity. EXTREMITIES: No cyanosis, clubbing, or pedal edema. NEUROLOGICAL: Gross neurological examination did not reveal any focal deficits. SKIN: No rashes. Assessment: Assessment and plan New onset atrial flutter with rapid monitor response History of coronary artery disease History of sleep apnea with obesity Hypertension Consult obtained from cardiology, patient started on Eliquis, status post ELISHA cardioversion Discharge on oral Cardizem 180 mg daily, Eliquis prescription provided 5 mg twice a day Plavix discontinued upon discharge Outpatient follow-up with cardiology discharge within normal sinus rhythm Patient Condition at Discharge: Fair Plan - Discharge Summary New Discharge Prescriptions: New Apixaban [Eliquis] 5 mg PO DAILY #60 tablet Diltiazem Cd [Cardizem CD] 180 mg PO DAILY 30 Days #30 cap Continue Clopidogrel [Plavix] 75 mg PO DAILY #30 tab Pantoprazole [Protonix] 40 mg PO DAILY Rosuvastatin [Crestor] 20 mg PO DAILY Metoprolol Succinate [Metoprolol Succinate ER] 25 mg PO DAILY Nitroglycerin Sl Tabs [Nitrostat] 0.4 mg SL Q5M PRN PRN Reason: Chest Pain Furosemide [Lasix] 20 mg PO DIRECTED Discontinued dilTIAZem HCL [dilTIAZem HCL 24Hr ER (Xr)] 120 mg PO DIRECTED Discharge Medication List Clopidogrel [Plavix] 75 mg PO DAILY #30 tab 05/07/19 [Rx] Pantoprazole [Protonix] 40 mg PO DAILY 11/13/22 [History] Rosuvastatin [Crestor] 20 mg PO DAILY 11/13/22 [History] Nitroglycerin Sl Tabs [Nitrostat] 0.4 mg SL Q5M PRN 02/10/23 [History] Furosemide [Lasix] 20 mg PO DIRECTED 07/26/23 [History] Metoprolol Succinate [Metoprolol Succinate ER] 25 mg PO DAILY 07/26/23 [History] Apixaban [Eliquis] 5 mg PO DAILY #60 tablet 07/27/23 [Rx] Diltiazem Cd [Cardizem CD] 180 mg PO DAILY 30 Days #30 cap 07/28/23 [Rx] Follow up Appointment(s)/Referral(s): Derian Brasher MD [Primary Care Provider] - 1-2 days
[2023-07-28 11:45] VITALS: BP 107/61; PULSE 80; TEMP 98
[2023-07-28 12:09] LABS: Basophils % (A) 0 %; Eosinophils # (A) 0.1 k/uL (0-0.7); Eosinophils % (A) 2 %; HCT 33.9 % (34.0-46.0); HGB 11.4 gm/dL (11.4-16.0); Lymphocytes # (A) 1.3 k/uL (1.0-4.8); Lymphocytes % (A) 21 %; MCH 30.6 pg (25.0-35.0); MCHC 33.6 g/dL (31.0-37.0); MCV 91.1 fL (80.0-100.0); Monocytes # (A) 0.4 k/uL (0-1.0); Monocytes % (A) 7 %; Neutrophils # (A) 4.3 k/uL (1.3-7.7); Neutrophils % (A) 68 %; Platelet Count 205 k/uL (150-450); RBC 3.72 m/uL (3.80-5.40); RDW 15.3 % (11.5-15.5); WBC 6.3 k/uL (3.8-10.6)
[2023-07-28 13:05] LABS: African American GFR (CKD) >90 (>60 ml/min/1.73 sqM); Anion Gap 9 mmol/L; Blood Urea Nitrogen 14 mg/dL (7-17); Calcium 8.6 mg/dL (8.4-10.2); Carbon Dioxide 20 mmol/L (22-30); Chloride 114 mmol/L (98-107); Glucose 107 mg/dL (74-99); Magnesium 2.1 mg/dL (1.6-2.3); Non-African American GFR(CKD) >90 (>60 ml/min/1.73 sqM); Potassium 4.6 mmol/L (3.5-5.1); Sodium 143 mmol/L (137-145)
== END 2023-07-28 15:50 | disposition home or self-care (01) | DRG 309 ==
LOC: EC 15:52 → 3SCARD 18:42
PROVIDERS: ADMIT Hospitalist; ATTEND Hospitalist
PROC: B246ZZ4 Ultrasonography of Right and Left Heart, Transesophageal (ICD-10-PCS; 2023-07-27)
PROC: 5A2204Z Restoration of Cardiac Rhythm, Single (ICD-10-PCS; principal; 2023-07-27 14:00)
DX: I48.3 Typical atrial flutter (principal); Z68.43 Body mass index [BMI] 50.0-59.9, adult; I25.10 Atherosclerotic heart disease of native coronary artery without angina pectoris; I47.1 Supraventricular tachycardia; E66.9 Obesity, unspecified; I25.2 Old myocardial infarction; I10 Essential (primary) hypertension; E78.5 Hyperlipidemia, unspecified; H91.90 Unspecified hearing loss, unspecified ear; G47.30 Sleep apnea, unspecified; M19.90 Unspecified osteoarthritis, unspecified site; F41.9 Anxiety disorder, unspecified; I48.91 Unspecified atrial fibrillation; Z79.01 Long term (current) use of anticoagulants; Z79.02 Long term (current) use of antithrombotics/antiplatelets; Z91.199 Patient's noncompliance with other medical treatment and regimen due to unspecified reason; Z79.899 Other long term (current) drug therapy; Z95.5 Presence of coronary angioplasty implant and graft; Z96.652 Presence of left artificial knee joint; Z88.5 Allergy status to narcotic agent; Z98.84 Bariatric surgery status; Z90.49 Acquired absence of other specified parts of digestive tract
CPT/HCPCS: 36415; 71046; 80048; 80053; 83735; 83880; 84443; 84484; 85025; 85610; 85730; 92960; 93005; 93312; 93320; 93325; 94760; 96361; 96365; 99291

== ENCOUNTER → 2023-08-06 | Outpatient (CLI) | payer MEDICARE, OTHER ==
--- NOTE | 2023-08-06 12:40 | US ---
EXAMINATION TYPE: US abdomen complete DATE OF EXAM: 08/06/2023 COMPARISON: NONE CLINICAL INDICATION: Female, 68 years old with history of R10.9 UNSPECIFIED ABDOMINAL PAIN; Abdomen p ain TECHNIQUE: Multiple sonographic images of the abdomen are obtained. FINDINGS: EXAM MEASUREMENTS: Liver Length: 19.2 cm CBD: 0.5 cm Spleen: 16.1 cm Right Kidney: 9.9 x 5.3 x 5.7 cm Left Kidney: 11.1 x 5.2 x 5.5 cm Difficult and limited study due to patient body habitus Pancreas: obscured by overlying midline bowel gas Liver: limited visualization, scanned intercostally, attenuating, increased echogenicity Gallbladder: surgically absent Evidence for sonographic Jeffrey's sign: no CBD: visualized portions wnl, limited by overlying bowel gas Spleen: enlarged Right Kidney: wnl Left Kidney: wnl Upper IVC: wnl Abd Aorta: mid portion appears wnl, proximal and distal portions obscured by overlying midline bowel gas IMPRESSION: 1 hepatomegaly. 2. Visualized abdomen is otherwise unremarkable. There is limitation due to bowel gas.
== END | disposition home or self-care (01) ==
LOC: RADUSWWP 07:34
PROVIDERS: ATTEND Internal Medicine Geriatric Medicine
DX: R16.0 Hepatomegaly, not elsewhere classified (principal); R14.3 Flatulence
CPT/HCPCS: 76700

== ENCOUNTER 2024-02-07 15:37 | Inpatient (IN) | payer MEDICARE, OTHER ==
--- NOTE | 2024-02-07 16:22 | ED ---
General Adult HPI - General Chief complaint: Arrhythmia/Palpitations Stated complaint: SOB-sent by Dr Oakley Seen by Provider: 02/07/24 15:37 Source: patient, RN notes reviewed, old records reviewed Mode of arrival: wheelchair Limitations: no limitations - History of Present Illness Initial comments: 69-year-old female presents for evaluation of tachycardia and dyspnea. Patient is anticoagulated on Eliquis. She was sent from the rail transit operator office, Dr. Sanchez for tacky dysrhythmia and concern for CHF. Patient has had similar episode in the past requiring cardioversion. She denies central chest pain but does report exertional dyspnea. She denies any recent medication changes. Denies fever. Denies abdominal pain nausea vomiting. - Related Data Home Medications Medication Instructions Recorded Confirmed Pantoprazole [Protonix] 40 mg PO DAILY 11/13/22 07/26/23 Rosuvastatin [Crestor] 20 mg PO DAILY 11/13/22 07/26/23 Nitroglycerin Sl Tabs [Nitrostat] 0.4 mg SL Q5M PRN 02/10/23 07/26/23 Furosemide [Lasix] 20 mg PO DIRECTED 07/26/23 07/26/23 Metoprolol Succinate [Metoprolol 25 mg PO DAILY 07/26/23 07/26/23 Succinate ER] Previous Rx's Medication Instructions Recorded Apixaban [Eliquis] 5 mg PO BID 30 Days #60 tab 07/28/23 Diltiazem Cd [Cardizem CD] 180 mg PO DAILY 30 Days #30 cap 07/28/23 Allergies Allergy/AdvReac Type Severity Reaction Status Date / Time codeine Allergy went into Verified 02/07/24 17:42 corticate position, unable to see colors Review of Systems ROS Statement: Those systems with pertinent positive or pertinent negative responses have been documented in the HPI. ROS Other: All systems not noted in ROS Statement are negative. Past Medical History Past Medical History: Atrial Fibrillation, GERD/Reflux, Hearing Disorder / Deafness, Hypertension, Myocardial Infarction ([place]), Osteoarthritis ([place]), Sleep Apnea/CPAP/BIPAP Additional Past Medical History / Comment(s): SEE DR MENSAH'S H&P. RECENT FLU - END OF OCT 2022. HX DIVERTICULITIS, HIATAL HERNIA,USES CPAP SOMETIMES, HARD OF HEARING. 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 Past Anesthesia/Blood Transfusion Reactions: No Reported Reaction Date of Last Stent Placement:: 2021 Past Psychological History: No Psychological Hx Reported Smoking Status: Former smoker Past Alcohol Use History: None Reported Past Drug Use History: None Reported - Past Family History Mother Family Medical History: No Reported History General Exam General appearance: alert Head exam: Present: atraumatic, normocephalic Eye exam: Present: normal appearance, PERRL ENT exam: Present: normal exam Neck exam: Present: normal inspection. Absent: tenderness, meningismus Respiratory exam: Present: respiratory distress (Mild tachypnea), rales, decreased breath sounds Cardiovascular Exam: Present: normal rhythm, tachycardia GI/Abdominal exam: Present: soft. Absent: distended, tenderness Extremities exam: Present: pedal edema, calf tenderness Neurological exam: Present: alert, oriented X3, CN II-XII intact. Absent: motor sensory deficit Psychiatric exam: Present: normal affect, normal mood Skin exam: Present: warm, dry, intact. Absent: cyanosis, diaphoretic Course Vital Signs 02/07/24 02/07/24 02/07/24 15:50 16:00 16:54 Temperature 97.7 F Pulse Rate 139 H 129 H Pulse Rate [ 140 H Prompt Care Rn ] Respiratory 20 22 Rate Blood Pressure 124/79 142/74 O2 Sat by Pulse 97 96 Oximetry Medical Decision Making - Medical Decision Making Was pt. sent in by a medical professional or institution (, PA, ELECTRIC TRACK SWITCH MAINTAINER, urgent care, hospital, or assisted...) When possible be specific @Sent over from Dr. Mensah's office Did you speak to anyone other than the patient for history (EMS, parent, family, police, friend...)? What history was obtained from this source @ -No Did you review nursing and triage notes (agree or disagree)? Why? @ -I reviewed and agree with nursing and triage notes Were old charts reviewed (outside hosp., previous admission, EMS record, old EKG, old radiological studies, urgent care reports/EKG's, assisted records)? Report findings @ -No old charts were reviewed Differential Diagnosis (chest pain, altered mental status, abdominal pain women, abdominal pain men, vaginal bleeding, weakness, fever, dyspnea, syncope, headache, dizziness, GI bleed, back pain, seizure, CVA, palpatations, mental health, musculoskeletal)? @Differential Palpitations Ventricular arrhythmias, atrial arrhythmias, myocardial infarction, anemia, thyrotoxicosis, electrolyte imbalance, hypokalemia, pulmonary embolism, pulmonary disease, drugs, alcohol, anxiety, stress.... This is not meant to be an all-inclusive list. EKG interpreted by me (3pts min.). @ -Narrow complex tachycardia without definitive P wave, regular, rate of 139, QRS duration 100, QTc [address] segment elevation. X-rays interpreted by me (1pt min.). @ -Chest x-ray with increased pulmonary vascular congestion CT interpreted by me (1pt min.). @ -None done U/S interpreted by me (1pt. min.). @ -None done What testing was considered but not performed or refused? (CT, X-rays, U/S, labs)? Why? @ -None What meds were considered but not given or refused? Why? @ -None Did you discuss the management of the patient with other professionals (professionals i.e. , PA, ELECTRIC TRACK SWITCH MAINTAINER, lab, RT, psych nurse, web content & social media manager, tube cutter, teacher, accounting officer, correctional case manager)? Give summary @ -Sent in by Dr. Mensah, Case discussed with Dr. Brasher Was smoking cessation discussed for >3mins.? @ -No Was critical care preformed (if so, how long)? @Yes, 35 minutes Were there social determinants of health that impacted care today? How? (Homele ssness, low income, unemployed, alcoholism, drug addiction, transportation, low edu. Level, literacy, decrease access to med. care, usp, rehab)? @ -No Was there de-escalation of care discussed even if they declined (Discuss DNR or withdrawal of care, Hospice)? DNR status @ -No What co-morbidities impacted this encounter? (DM, HTN, Smoking, COPD, CAD, Cancer, CVA, ARF, Chemo, Hep., AIDS, mental health diagnosis, sleep apnea, morbid obesity)? @ -Atrial fibrillation Was patient admitted / discharged? Hospital course, mention meds given and route, prescriptions, significant lab abnormalities, going to OR and other pertinent info. @69-year-old female presenting with dyspnea, tachycardia. Patient is in a narrow complex tachycardia possible atrial flutter with 2 :1 conduction. Chest x-ray concerning for CHF. Patient was started on Cardizem at the request of Dr. Sanchez who had sent the patient from his office. She has required cardioversion with similar tacky dysrhythmia in the past. She is also given Lasix in the emergency department. Admitted to Dr. Brasher Undiagnosed new problem with uncertain prognosis? @ -No Drug Therapy requiring intensive monitoring for toxicity (Heparin, Nitro, Insulin, Cardizem)? @ -No Were any procedures done? @ -No Diagnosis/symptom? @ -Atrial flutter, CHF Acute, or Chronic, or Acute on Chronic? @ -Acute Uncomplicated (without systemic symptoms) or Complicated (systemic symptoms)? @ -Default Side effects of treatment? @ -No Exacerbation, Progression, or Severe Exacerbation? @ -No Poses a threat to life or bodily function? How? (Chest pain, [place], [place], pneumonia, PE, COPD, DKA, ARF, appy, cholecystitis, CVA, Diverticulitis, Homicidal, Suici cordelia, threat to staff... and all critical care pts) @ -[Yes, CHF, hypoxia, respiratory failure, tachydysrhythmia - Lab Data Result diagrams: 02/07/24 16:35 02/07/24 16:35 Lab Results 02/07/24 02/07/24 02/07/24 Range/Units 16:35 16:35 16:35 WBC 7.6 (3.8-10.6) k/uL RBC 3.48 L (3.80-5.40) m/uL Hgb 8.5 L (11.4-16.0) gm/dL Hct 28.1 L (34.0-46.0) % MCV 80.8 (80.0-100.0) fL MCH 24.5 L (25.0-35.0) pg MCHC 30.4 L (31.0-37.0) g/dL RDW 16.6 H (11.5-15.5) % Plt Count 276 (150-450) k/uL MPV 8.0 Neutrophils % 69 % Lymphocytes % 19 % Monocytes % 8 % Eosinophils % 1 % Basophils % 0 % Neutrophils # 5.2 (1.3-7.7) k/uL Lymphocytes # 1.4 (1.0-4.8) k/uL Monocytes # 0.6 (0-1.0) k/uL Eosinophils # 0.1 (0-0.7) k/uL Basophils # 0.0 (0-0.2) k/uL Hypochromasia Marked Poikilocytosis Moderate Anisocytosis Slight Microcytosis Slight PT 13.9 H (10.0-12.5) sec INR 1.3 H (<1.2) APTT 25.6 (22.0-30.0) sec Sodium 143 (137-145) mmol/L Potassium 3.6 (3.5-5.1) mmol/L Chloride 108 H (98-107) mmol/L Carbon Dioxide 25 (22-30) mmol/L Anion Gap 10 mmol/L BUN 15 (7-17) mg/dL Creatinine 0.81 (0.52-1.04) mg/dL Est GFR (CKD-EPI)AfAm 88 (>60 ml/min/1.73 sqM) Est GFR (CKD-EPI)NonAf 76 (>60 ml/min/1.73 sqM) Glucose 113 H (74-99) mg/dL Calcium 8.2 L (8.4-10.2) mg/dL Magnesium 1.9 (1.6-2.3) mg/dL Total Bilirubin 0.6 (0.2-1.3) mg/dL AST 50 H (14-36) U/L ALT 29 (4-34) U/L Alkaline Phosphatase 74 (38-126) U/L Troponin I (0.000-0.034) ng/mL NT-Pro-B Natriuret Pep 950 pg/mL Total Protein 7.8 (6.3-8.2) g/dL Albumin 3.9 (3.5-5.0) g/dL 02/07/24 Range/Units 16:35 WBC (3.8-10.6) k/uL RBC (3.80-5.40) m/uL Hgb (11.4-16.0) gm/dL Hct (34.0-46.0) % MCV (80.0-100.0) fL MCH (25.0-35.0) pg MCHC (31.0-37.0) g/dL RDW (11.5-15.5) % Plt Count (150-450) k/uL MPV Neutrophils % % Lymphocytes % % Monocytes % % Eosinophils % % Basophils % % Neutrophils # (1.3-7.7) k/uL Lymphocytes # (1.0-4.8) k/uL Monocytes # (0-1.0) k/uL Eosinophils # (0-0.7) k/uL Basophils # (0-0.2) k/uL Hypochromasia Poikilocytosis Anisocytosis Microcytosis PT (10.0-12.5) sec INR (<1.2) APTT (22.0-30.0) sec Sodium (137-145) mmol/L Potassium (3.5-5.1) mmol/L Chloride (98-107) mmol/L Carbon Dioxide (22-30) mmol/L Anion Gap mmol/L BUN (7-17) mg/dL Creatinine (0.52-1.04) mg/dL Est GFR (CKD-EPI)AfAm (>60 ml/min/1.73 sqM) Est GFR (CKD-EPI)NonAf (>60 ml/min/1.73 sqM) Glucose (74-99) mg/dL Calcium (8.4-10.2) mg/dL Magnesium (1.6-2.3) mg/dL Total Bilirubin (0.2-1.3) mg/dL AST (14-36) U/L ALT (4-34) U/L Alkaline Phosphatase (38-126) U/L Troponin I <0.012 (0.000-0.034) ng/mL NT-Pro-B Natriuret Pep pg/mL Total Protein (6.3-8.2) g/dL Albumin (3.5-5.0) g/dL Critical Care Time Critical Care Time: Yes Total Critical Care Time: 35 Disposition Clinical Impression: Atrial tachycardia, CHF (congestive heart failure) Disposition: ADMITTED IP TO THIS [facility] Condition: Stable Is patient prescribed a controlled substance at d/c from ED?: No Referrals: Derian Brasher MD [Primary Care Provider] - 1-2 days Time of Disposition: 17:47
[2024-02-07] MEDS: DILTIAZEM DRIP BOLUS FROM BAG 1 MG SOLN IV ONE (16:36)
[2024-02-07] MEDS: DILTIAZEM 125 MG in SODIUM CHLORIDE 0.9% 100 ML IV SCH (16:36)
[2024-02-07 16:49] LABS: Anisocytosis Slight; Basophils % (A) 0 %; Eosinophils # (A) 0.1 k/uL (0-0.7); Eosinophils % (A) 1 %; HCT 28.1 % (34.0-46.0); HGB 8.5 gm/dL (11.4-16.0); Hypochromasia Marked; Lymphocytes # (A) 1.4 k/uL (1.0-4.8); Lymphocytes % (A) 19 %; MCH 24.5 pg (25.0-35.0); MCHC 30.4 g/dL (31.0-37.0); MCV 80.8 fL (80.0-100.0); Microcytosis Slight; Monocytes # (A) 0.6 k/uL (0-1.0); Monocytes % (A) 8 %; Neutrophils # (A) 5.2 k/uL (1.3-7.7); Neutrophils % (A) 69 %; Platelet Count 276 k/uL (150-450); Poikilocytosis Moderate; RBC 3.48 m/uL (3.80-5.40); RDW 16.6 % (11.5-15.5); WBC 7.6 k/uL (3.8-10.6)
[2024-02-07 16:59] LABS: INR 1.3 (<1.2); Partial Thromboplastin Time 25.6 sec (22.0-30.0); Prothrombin Time 13.9 sec (10.0-12.5)
[2024-02-07 17:05] LABS: ALT 29 U/L (4-34); AST 50 U/L (14-36); African American GFR (CKD) 88 (>60 ml/min/1.73 sqM); Albumin 3.9 g/dL (3.5-5.0); Alkaline Phosphatase 74 U/L (38-126); Anion Gap 10 mmol/L; Blood Urea Nitrogen 15 mg/dL (7-17); Calcium 8.2 mg/dL (8.4-10.2); Carbon Dioxide 25 mmol/L (22-30); Chloride 108 mmol/L (98-107); Glucose 113 mg/dL (74-99); Magnesium 1.9 mg/dL (1.6-2.3); Non-African American GFR(CKD) 76 (>60 ml/min/1.73 sqM); Potassium 3.6 mmol/L (3.5-5.1); Sodium 143 mmol/L (137-145); Total Bilirubin 0.6 mg/dL (0.2-1.3); Total Protein 7.8 g/dL (6.3-8.2)
--- NOTE | 2024-02-07 17:07 | XR ---
EXAMINATION TYPE: XR chest 2V DATE OF EXAM: 02/07/2024 COMPARISON: 07/26/2023 HISTORY: Dysrhythmia TECHNIQUE: Frontal and lateral views of the chest are obtained. FINDINGS: There is mild pulmonary vascular congestion and mild interstitial edema. There are small bilateral pl eural effusions. Findings are most consistent with CHF. There is no pneumothorax. Heart size is diffi cult to assess given the technique. The osseous structures are intact. IMPRESSION: Acute cardiac pulmonary disease most consistent with CHF.
[2024-02-07 17:12] LABS: NT-Pro-B-Type Natriuretic Pept 950 pg/mL
[2024-02-07] MEDS: FUROSEMIDE 10 MG/ML 4 ML VIAL IV STA (17:29)
[2024-02-07] MEDS ORDERED: NALOXONE 0.4 MG/ML 1 ML VIAL IV PRN (17:40)
[2024-02-07] MEDS ORDERED: ACETAMINOPHEN TAB 325 MG TAB PO PRN (17:40)
[2024-02-07] MEDS: APIXABAN 5 MG TAB PO SCH (20:54)
[2024-02-07] MEDS: FUROSEMIDE 10 MG/ML 4 ML VIAL IV SCH (22:19)
[2024-02-07] MEDS ORDERED: NITROGLYCERIN SL TABS 0.4 MG TAB SUBLINGUAL PRN (23:17)
[2024-02-08 08:13] LABS: Anisocytosis Slight; HCT 30.5 % (34.0-46.0); HGB 9.3 gm/dL (11.4-16.0); Hypochromasia Marked; MCH 25.2 pg (25.0-35.0); MCHC 30.5 g/dL (31.0-37.0); MCV 82.8 fL (80.0-100.0); Mean Platelet Volume 8.4; Platelet Count 270 k/uL (150-450); Poikilocytosis Moderate; RBC 3.68 m/uL (3.80-5.40); RDW 16.8 % (11.5-15.5); WBC 6.6 k/uL (3.8-10.6)
[2024-02-08 08:28] LABS: ALT 29 U/L (4-34); AST 45 U/L (14-36); African American GFR (CKD) 88 (>60 ml/min/1.73 sqM); Albumin 4.2 g/dL (3.5-5.0); Alkaline Phosphatase 84 U/L (38-126); Anion Gap 11 mmol/L; Blood Urea Nitrogen 15 mg/dL (7-17); Calcium 8.6 mg/dL (8.4-10.2); Carbon Dioxide 27 mmol/L (22-30); Chloride 106 mmol/L (98-107); Glucose 117 mg/dL (74-99); Non-African American GFR(CKD) 76 (>60 ml/min/1.73 sqM); Potassium 3.3 mmol/L (3.5-5.1); Sodium 144 mmol/L (137-145); Total Bilirubin 0.7 mg/dL (0.2-1.3); Total Protein 8.6 g/dL (6.3-8.2)
--- NOTE | 2024-02-08 10:02 | P.HPIM ---
History of Present Illness H&P Date: 02/07/24 HISTORY OF PRESENT ILLNESS: 69-year-old morbidly obese female known to my office patient for long time with history of CAD post PCI and stent placement of the LAD back in 2019 who had recurrent chest pain late last year had another heart cath in 2022 shows patent stent of the LAD at the time. Also patient has hypertension, hyperlipidemia, hyperglycemia, chronic kidney disease, chronic edema, who also had bariatric surgery post gastric sleeve and known history of obstructive sleep apnea. Patient was seen in the office recently for worsening dyspnea and shortness of breath found to have mild tachycardia upon with responded to previous echocardiogram showing significant pulmonary hypertension and mild abnormal arrhythmia with irregularity with pulse rate was running in the 80s and 19 times irregular. Patient has been treated for A-fib still on anticoagulation with Eliquis as well metoprolol. She was hospitalized last time in July 2023 for A-fib with RVR had transesophageal echocardiogram and going for cardioversion. Patient was seen cardiology today and found to have significant tachycardia with pulse rate running in the 120s to 140 beats per minutes causing patient to be quite symptomatic with worsening dyspnea and shortness of breath. The EKG apparently at the time shows A-fib/a flutter with 2-1. Patient was sent to the emergency department to be started on Cardizem drip she will be seeing cardiology as an inpatient and probably going for cardioversion. The patient might require to have ablation therapy as well. She was seen in the emergency department and again found to be quite tachycardic at the time her EKG shows sinus tachycardia with no P waves almost look like a flutter at this time with pulse rate of 140 beats per minutes. Laboratory value showed mild anemia worsening than before with hemoglobin of 8.5 kidney function is stable glucose 113 mildly abnormal liver function test proBNP was 950 with troponin less than 0.012. So after starting patient on Cardizem drip she will be admitted to the hospital. REVIEW OF SYSTEMS: CONSTITUTIONAL: Morbidly obese in mild respiratory distress. EYES: No icterus sclerae, no conjunctivitis. EARS, NOSE, MOUTH, THROAT, and FACE: No sore throat, lymphadenopathy, carotid bruits or deformity. RESPIRATORY: Mild shortness of breath cough and wheezes. CARDIOVASCULAR: Positive PND orthopnea palpitation but no angina. GASTROINTESTINAL: No Abd pain, Nausea or vomiting, no Diarrhea or constipation, No GI Bleed, no distention or masses. GENITOURINARY: Negative for Hematuria or UTI, no kidney stones. INTEGUMENT/BREAST: Positive chronic edema and generalized arthralgia. HEMATOLOGIC/LYMPHATIC: Negative for bleed or purpura. MUSCULOSKELTAL: Negative for Myalgia or arthralgia. NEURLOGICAL: No LOC, Sz or syncope, blurred vision dizziness or abnormality.. BEHAVIORAL/PSYCH: Negative. ENDOCRINE: Negative. PHYSICAL EXAMINATION: General Appearance: Alert, cooperative, mild distress. Neck HEENT: Supple, no lymphadenopathy, no thyroid enlargement, no carotid bruits. Lungs: Clear to auscultation without crackles positive mild rhonchi with slight expiratory wheezes. Chest Wall: Normal expansion expansion with deep inspiration no tenderness and no deformity was found on exam, no costochondral pain or discomfort. Heart: Irregular rate and rhythm, S1, S2 positive tachycardia positive S3 with systolic murmur. Back: Symmetric, no curvature, ROM normal, no CVA tenderness. Abdomen: Soft, non-tender, bowel sounds active all four quadrants, no masses, no organomegaly. Extremities: Extremities normal, atraumatic, positive chronic stasis dermatitis with 1+ edema. Pulses: 2+ and symmetric. Skin: Skin color, texture, tugor normal, no rashes or lesions. Neurologic: Alert oriented x3 cranial nerves II through XII intact, no motor deficit, no abnormal balance or gait. ASSESSMENT AND PLAN: _A-fib/a flutter with tachycardia: Patient will be admitted to the hospital continue Cardizem drip try to bring the pulse rate down patient will be seeing cardiology and probably going for cardioversion. She is to remain on anticoagulation at this point. _Atherosclerotic heart disease post angioplasty and stent placement of the LAD with 3 years ago that was still patent.Still doing good on medical management remain on rosuvastatin, metoprolol, Eliquis and furosemide. _Chronic anemia: With hemoglobin today of 8.5 was 11.4 [place] the time before was 10. Had a chronic anemia probably worsening with anticoagulation and with her hiatal hernia she is remain on proton pump inhibitor, will watch for any gastrointestinal bleed, _Obstructive sleep apnea: Remain on CPAP on regular basis. _History of hyperlipidemia: Continue rosuvastatin 20 mg a day. _Congestive heart failure: Mostly diastolic dysfunction, will continue diuretics. _Valvular heart disease: Mostly mitral regurgitation which is mild along with trace of aortic insufficiency and again still on medical management no intervention required. _Large hiatal hernia post gastric sleeve: Remain on pantoprazole 40 mg daily. _Morbid obesity: Post lap band and gastric sleeve eventually with body mass index still above 4th percentile. _Anticoagulation: Still on Eliquis 5 mg twice a day. _Hypertension: Remain on diltiazem CD1 80 mg daily and metoprolol succinate 25 mg a day. _History of Alex: Aggravated with morbid obesity and borderline diabetes, with marginal liver function testing finding consistent with ALEX on ultrasound and liver function test. Continue weight loss program continue to watch liver enzymes on more regular basis. _Hyperglycemia: With last A1c was around 6.0 not on any medication currently. _GI prophylaxis: Remain on pantoprazole. _DVT prophylaxis: Remain on Eliquis 5 mg twice a day. CODE STATUS: Full code. Admit patient to the inpatient service for more than 2 night stay. Past Medical History Past Medical History: Atrial Fibrillation, GERD/Reflux, Hearing Disorder / Deafness, Hypertension, Myocardial Infarction ([place]), Osteoarthritis ([place]), Sleep Apnea/CPAP/BIPAP Additional Past Medical History / Comment(s): SEE DR ALVARENGA'S H&P. RECENT FLU - END OF OCT 2022. HX DIVERTICULITIS, HIATAL HERNIA,USES CPAP SOMETIMES, HARD OF HEARING. 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 Past Anesthesia/Blood Transfusion Reactions: No Reported Reaction Date of Last Stent Placement:: 2021 Past Psychological History: No Psychological Hx Reported Smoking Status: Former smoker Past Alcohol Use History: None Reported Past Drug Use History: None Reported - Past Family History Mother Family Medical History: No Reported History Medications and Allergies Home Medications Medication Instructions Recorded Confirmed Type Pantoprazole [Protonix] 40 mg PO DAILY 11/13/22 02/07/24 History Rosuvastatin [Crestor] 20 mg PO DAILY 11/13/22 02/07/24 History Nitroglycerin Sl Tabs [Nitrostat] 0.4 mg SL Q5M PRN 03/26/23 03/22/24 History Furosemide [Lasix] 20 mg PO DAILY 07/26/23 02/07/24 History Metoprolol Succinate [Metoprolol 25 mg PO DAILY 07/26/23 02/07/24 History Succinate ER] Apixaban [Eliquis] 5 mg PO BID 30 Days #60 tab 07/28/23 02/07/24 Rx Diltiazem Cd [Cardizem CD] 180 mg PO DAILY 30 Days #30 cap 07/28/23 02/07/24 Rx Baclofen [Lioresal] 10 mg PO DAILY 02/07/24 02/07/24 History Allergies Allergy/AdvReac Type Severity Reaction Status Date / Time codeine Allergy went into Verified 02/07/24 17:42 corticate position, unable to see colors Physical Exam Vitals: Vital Signs Temp Pulse Pulse Resp BP Pulse Ox 02/07/24 20:55 138 H 18 103/67 97 02/07/24 19:41 140 H 18 121/75 97 02/07/24 18:47 138 H 20 135/84 97 02/07/24 16:54 129 H 22 142/74 96 02/07/24 16:00 140 H 02/07/24 15:50 97.7 F 139 H 20 124/79 97 Intake and Output 02/07/24 02/07/24 02/08/24 14:59 22:59 06:59 Other: Weight 122.924 kg Results CBC & Chem 7: 02/07/24 16:35 02/07/24 16:35 Labs: Abnormal Lab Results - Last 24 Hours (Table) 02/07/24 02/07/24 02/07/24 Range/Units 16:35 16:35 16:35 RBC 3.48 L (3.80-5.40) m/uL Hgb 8.5 L (11.4-16.0) gm/dL Hct 28.1 L (34.0-46.0) % MCH 24.5 L (25.0-35.0) pg MCHC 30.4 L (31.0-37.0) g/dL RDW 16.6 H (11.5-15.5) % PT 13.9 H (10.0-12.5) sec INR 1.3 H (<1.2) Chloride 108 H (98-107) mmol/L Glucose 113 H (74-99) mg/dL Calcium 8.2 L (8.4-10.2) mg/dL AST 50 H (14-36) U/L
[2024-02-08] MEDS: PANTOPRAZOLE 40 MG TABLET PO SCH (10:37)
[2024-02-08] MEDS: BACLOFEN 10 MG TAB PO SCH (10:37)
[2024-02-08] MEDS: ATORVASTATIN 40 MG TAB PO SCH (10:37)
[2024-02-08] MEDS: METOPROLOL SUCCINATE (ER) 25 MG TAB.ER.24H PO SCH (11:34)
--- NOTE | 2024-02-08 12:20 | P.PN ---
Subjective Progress Note Date: 02/08/24 HISTORY OF PRESENT ILLNESS: 69-year-old morbidly obese female known to my office patient for long time with history of CAD post PCI and stent placement of the LAD back in 2019 who had recurrent chest pain late last year had another heart cath in 2022 shows patent stent of the LAD at the time. Also patient has hypertension, hyperlipidemia, hyperglycemia, chronic kidney disease, chronic edema, who also had bariatric surgery post gastric sleeve and known history of obstructive sleep apnea. Patient was seen in the office recently for worsening dyspnea and shortness of breath found to have mild tachycardia upon with responded to previous echocardiogram showing significant pulmonary hypertension and mild abnormal arrhythmia with irregularity with pulse rate was running in the 80s and 19 times irregular. Patient has been treated for A-fib still on anticoagulation with Eliquis as well metoprolol. She was hospitalized last time in July 2023 for A-fib with RVR had transesophageal echocardiogram and going for cardioversion. Patient was seen cardiology today and found to have significant tachycardia with pulse rate running in the 120s to 140 beats per minutes causing patient to be quite symptomatic with worsening dyspnea and shortness of breath. The EKG apparently at the time shows A-fib/a flutter with 2-1. Patient was sent to the emergency department to be started on Cardizem drip she will be seeing cardiology as an inpatient and probably going for cardioversion. The patient might require to have ablation therapy as well. She was seen in the emergency department and again found to be quite tachycardic at the time her EKG shows sinus tachycardia with no P waves almost look like a flutter at this time with pulse rate of 140 beats per minutes. Laboratory value showed mild anemia worsening than before with hemoglobin of 8.5 kidney function is stable glucose 113 mildly abnormal liver function test proBNP was 950 with troponin less than 0.012. So after starting patient on Cardizem drip she will be admitted to the hospital. 02/08/2024: Patient was admitted last night kept in the ER on hold for admission pulse rate continue to be high Cardizem orally was hold initially was started back again today with a pulse rate being up titrate Cardizem drip up to 10 mg an hour. Cardiology be seen patient again this morning she is remain on anticoagulation is decided to do cardioversion today she might need to go for transesophageal echocardiogram the patient is still mildly dyspneic and symptomatic otherwise feeling good. REVIEW OF SYSTEMS: CONSTITUTIONAL: Morbidly obese in mild respiratory distress. EYES: No icterus sclerae, no conjunctivitis. EARS, NOSE, MOUTH, THROAT, and FACE: No sore throat, lymphadenopathy, carotid bruits or deformity. RESPIRATORY: Mild shortness of breath cough and wheezes. CARDIOVASCULAR: Positive PND orthopnea palpitation but no angina. GASTROINTESTINAL: No Abd pain, Nausea or vomiting, no Diarrhea or constipation, No GI Bleed, no distention or masses. GENITOURINARY: Negative for Hematuria or UTI, no kidney stones. INTEGUMENT/BREAST: Positive chronic edema and generalized arthralgia. HEMATOLOGIC/LYMPHATIC: Negative for bleed or purpura. MUSCULOSKELTAL: Negative for Myalgia or arthralgia. NEURLOGICAL: No LOC, Sz or syncope, blurred vision dizziness or abnormality.. BEHAVIORAL/PSYCH: Negative. ENDOCRINE: Negative. PHYSICAL EXAMINATION: General Appearance: Alert, cooperative, mild distress. Neck HEENT: Supple, no lymphadenopathy, no thyroid enlargement, no carotid bruits. Lungs: Clear to auscultation without crackles positive mild rhonchi with slight expiratory wheezes. Chest Wall: Normal expansion expansion with deep inspiration no tenderness and no deformity was found on exam, no costochondral pain or discomfort. Heart: Irregular rate and rhythm, S1, S2 positive tachycardia positive S3 with systolic murmur. Back: Symmetric, no curvature, ROM normal, no CVA tenderness. Abdomen: Soft, non-tender, bowel sounds active all four quadrants, no masses, no organomegaly. Extremities: Extremities normal, atraumatic, positive chronic stasis dermatitis with 1+ edema. Pulses: 2+ and symmetric. Skin: Skin color, texture, tugor normal, no rashes or lesions. Neurologic: Alert oriented x3 cranial nerves II through XII intact, no motor deficit, no abnormal balance or gait. ASSESSMENT AND PLAN: _A-fib/a flutter with tachycardia: Patient will be admitted to the hospital continue Cardizem drip try to bring the pulse rate down patient will be seeing cardiology and probably going for cardioversion. She is to remain on anticoagulation at this point. _Atherosclerotic heart disease post angioplasty and stent placement of the LAD with 3 years ago that was still patent.Still doing good on medical management remain on rosuvastatin, metoprolol, Eliquis and furosemide. _Chronic anemia: With hemoglobin today of 8.5 was 11.4 [place] the time before was 10. Had a chronic anemia probably worsening with anticoagulation and with her hiatal hernia she is remain on proton pump inhibitor, will watch for any gastrointestinal bleed, _Obstructive sleep apnea: She claims she is not using her CPAP more than half the time and that probably one of the aggravation for A-fib a flutter with tachycardia. _History of hyperlipidemia: Continue rosuvastatin 20 mg a day. _Congestive heart failure: Mostly diastolic dysfunction, will continue diuretics. _Valvular heart disease: Mostly mitral regurgitation which is mild along with trace of aortic insufficiency and again still on medical management no intervention required. _Large hiatal hernia post gastric sleeve: Remain on pantoprazole 40 mg daily. _Morbid obesity: Post lap band and gastric sleeve eventually with body mass index still above 4th percentile. _Anticoagulation: Still on Eliquis 5 mg twice a day. _Hypertension: Remain on diltiazem CD1 80 mg daily and metoprolol succinate 25 mg a day. _History of Alex: Aggravated with morbid obesity and borderline diabetes, with marginal liver function testing finding consistent with ALEX on ultrasound and liver function test. Continue weight loss program continue to watch liver enzymes on more regular basis. _Hyperglycemia: With last A1c was around 6.0 not on any medication currently. Objective - Vital Signs Vital signs: Vital Signs Temp 97.7 F 02/07/24 15:50 Pulse 138 H 02/08/24 08:00 Resp 18 02/08/24 08:00 BP 122/77 02/08/24 07:30 Pulse Ox 96 02/08/24 08:00 FiO2 Intake & Output 02/07/24 02/08/24 02/08/24 18:59 06:59 18:59 Weight 122.924 kg - Labs CBC & Chem 7: 02/08/24 07:42 02/08/24 07:42 Labs: Abnormal Lab Results - Last 24 Hours (Table) 02/07/24 02/07/24 02/07/24 Range/Units 16:35 16:35 16:35 RBC 3.48 L (3.80-5.40) m/uL Hgb 8.5 L (11.4-16.0) gm/dL Hct 28.1 L (34.0-46.0) % MCH 24.5 L (25.0-35.0) pg MCHC 30.4 L (31.0-37.0) g/dL RDW 16.6 H (11.5-15.5) % PT 13.9 H (10.0-12.5) sec INR 1.3 H (<1.2) Potassium (3.5-5.1) mmol/L Chloride 108 H (98-107) mmol/L Glucose 113 H (74-99) mg/dL Calcium 8.2 L (8.4-10.2) mg/dL AST 50 H (14-36) U/L Total Protein (6.3-8.2) g/dL 02/08/24 02/08/24 Range/Units 07:42 07:42 RBC 3.68 L (3.80-5.40) m/uL Hgb 9.3 L (11.4-16.0) gm/dL Hct 30.5 L (34.0-46.0) % MCH (25.0-35.0) pg MCHC 30.5 L (31.0-37.0) g/dL RDW 16.8 H (11.5-15.5) % PT (10.0-12.5) sec INR (<1.2) Potassium 3.3 L (3.5-5.1) mmol/L Chloride (98-107) mmol/L Glucose 117 H (74-99) mg/dL Calcium (8.4-10.2) mg/dL AST 45 H (14-36) U/L Total Protein 8.6 H (6.3-8.2) g/dL
--- NOTE | 2024-02-08 12:46 | P.CRDCN ---
History of Present Illness History of present illness: HISTORY OF PRESENT ILLNESS: This is a 69-year-old female with a past medical history significant for hypertension, hyperlipidemia, coronary artery disease with previous stenting of the LAD in 2019, valvular heart disease, paroxysmal atrial fibrillation/flutter, and dilated thoracic aorta. Patient follows in the office with Dr. Mensah. We have been asked to see the patient in consultation for narrow complex tachycardia, CHF. Patient examined at the bedside. Patient was seen in the office yesterday by Dr. Mensah. Patient has been complaining of shortness of breath with exertion for the past few months which has become severe enough over the past few days to interfere with her daily activities. She apparently has gained 20 pounds since she was last seen in the office at the end of 2022. Patient reports she has been compliant with her medications and has not missed any doses of her Eliquis and also with a low-sodium diet. An EKG was performed in the cardiology office revealing atrial tachycardia versus AVNRT with a heart rate of 140. The patient was directed to come to the emergency room for further evaluation. The patient was started on IV Cardizem. She remains in atrial flutter with a heart rate in the 140s. DIAGNOSTICS: - EKG reveals atrial flutter with RVR - Chest xray acute cardiac pulmonary disease most consistent with CHF - Laboratory data: WBC 6.6. Hemoglobin 9.3. Platelet count 270. Sodium 144. Potassium 3.3. BUN 15. Creatinine 0.81. Troponin negative x 1. proBNP 950. - Current home cardiac medications include Eliquis 5 mg twice a day, metoprolol succinate 25 mg daily, Cardizem CD 180 mg daily, Lasix 20 mg daily, rosuvastatin 40 mg daily. - Most recent echocardiogram obtained in July 2022 revealing ejection fraction 55%, mild MR, mild TR -Patient underwent ELISHA and cardioversion on 07/27/[address] Mcintosh. ELISHA revealed aortic valve is tricuspid with trace aortic insufficiency, mitral valve appears to be normal with trace to mild mitral regurgitation, tricuspid valve with mild tricuspid regurgitation, the intra-atrial septum is intact. No evidence of PFO. Left atrial appendage is free of clot. Left ventricular ejection fraction 55% - Cardiac catheterization history: November 2022 revealing patent stent in the mid LAD REVIEW OF SYSTEMS: At the time of my exam: CONSTITUTIONAL: Denies fever or chills. HEENT: Denies blurred vision, vision changes, or eye pain. Denies hemoptysis CARDIOVASCULAR: Denies chest pain. Denies orthopnea. Denies PND. Denies palpitations RESPIRATORY: Denies shortness of breath. GASTROINTESTINAL: Denies abdominal pain. Denies nausea or vomiting. HEMATOLOGIC: Denies bleeding disorders. GENITOURINARY: Denies any blood in urine. SKIN: Denies pruitis. Denies rash. PHYSICAL EXAM: VITAL SIGNS: Reviewed. GENERAL: Well-developed in no acute distress. HEENT: Head is normocephalic. Pupils are equal, round. Sclerae anicteric. Mucous membranes of the mouth are moist. Neck supple. No JVD or thyromegaly LUNGS: Respirations even and unlabored. Lungs essentially clear to auscultation bilaterally, diminished. HEART: Tachycardic regular rate and rhythm. S1 and S2 heard. Systolic murmur noted ABDOMEN: Soft. Nondistended. Nontender. EXTREMITIES: Normal range of motion. No clubbing or cyanosis. Peripheral pulses intact. Trace bilateral lower extremity edema NEUROLOGIC: Awake and alert. Oriented x 3. ASSESSMENT: Typical atrial flutter with RVR Acute on chronic heart failure with preserved EF Coronary artery disease with previous stenting of the LAD Valvular heart disease Hypertension Hyperlipidemia Paroxysmal atrial fibrillation/flutter, on Eliquis outpatient History of SVT History of ELISHA/cardioversion, 07/2023 Morbid obesity: BMI 52.9 Sleep apnea, with history of noncompliance with CPAP PLAN: 2D echo has been ordered. Await results. Continue anticoagulation with Eliquis Resume home cardiac medications Continue IV Lasix 40 mg every 12 hours Daily weights, accurate intake and output, and monitoring of kidney function Continue IV Cardizem Patient to undergo cardioversion today with Dr. Mcintosh. Patient reports she has been taking her Eliquis as scheduled and has not missed any doses. Patient will not require ELISHA. Further recommendations pending patient course Nurse practitioner note has been reviewed by physician. Signing provider agrees with the documented findings, assessment, and plan of care documented by [employer] as a scribe. Past Medical History Past Medical History: Atrial Fibrillation, GERD/Reflux, Hearing Disorder / Deafness, Hypertension, Myocardial Infarction (AL), Osteoarthritis (OA), Sleep Apnea/CPAP/BIPAP Additional Past Medical History / Comment(s): SEE DR MENSAH'S H&P. RECENT FLU - END OF OCT 2022. HX DIVERTICULITIS, HIATAL HERNIA,USES CPAP SOMETIMES, HARD OF HEARING. 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 Past Anesthesia/Blood Transfusion Reactions: No Reported Reaction Date of Last Stent Placement:: 2021 Past Psychological History: No Psychological Hx Reported Smoking Status: Former smoker Past Alcohol Use History: None Reported Past Drug Use History: None Reported - Past Family History Mother Family Medical History: No Reported History Medications and Allergies Home Medications Medication Instructions Recorded Confirmed Type Pantoprazole [Protonix] 40 mg PO DAILY 11/13/22 02/07/24 History Rosuvastatin [Crestor] 20 mg PO DAILY 11/13/22 02/07/24 History Nitroglycerin Sl Tabs [Nitrostat] 0.4 mg SL Q5M PRN 02/10/23 02/07/24 History Furosemide [Lasix] 20 mg PO DAILY 07/26/23 02/07/24 History Metoprolol Succinate [Metoprolol 25 mg PO DAILY 07/26/23 02/07/24 History Succinate ER] Apixaban [Eliquis] 5 mg PO BID 30 Days #60 tab 07/28/23 02/07/24 Rx Diltiazem Cd [Cardizem CD] 180 mg PO DAILY 30 Days #30 cap 07/28/23 02/07/24 Rx Baclofen [Lioresal] 10 mg PO DAILY 02/07/24 02/07/24 History Allergies Allergy/AdvReac Type Severity Reaction Status Date / Time codeine Allergy went into Verified 02/07/24 17:42 corticate position, unable to see colors Physical Exam Vitals: Vital Signs Temp Pulse Pulse Resp BP Pulse Ox 02/08/24 08:00 138 H 18 96 02/08/24 07:30 142 H 122/77 02/08/24 07:16 138 H 18 122/77 96 02/08/24 06:00 140 H 22 124/79 96 02/08/24 04:00 137 H 21 119/73 94 L 02/08/24 03:00 138 H 20 120/77 96 02/08/24 02:00 138 H 20 122/71 96 02/08/24 00:00 140 H 20 123/86 96 02/07/24 23:00 140 H 20 118/76 93 L 02/07/24 20:55 138 H 18 103/67 97 02/07/24 19:41 140 H 18 121/75 97 02/07/24 18:47 138 H 20 135/84 97 02/07/24 16:54 129 H 22 142/74 96 02/07/24 16:00 140 H 02/07/24 15:50 97.7 F 139 H 20 124/79 97 Intake and Output 02/07/24 02/08/24 02/08/24 22:59 06:59 14:59 Other: Weight 122.924 kg Results 02/08/24 07:42 02/08/24 07:42 Cardiac Enzymes 02/07/24 02/07/24 02/08/24 Range/Units 16:35 16:35 07:42 AST 50 H 45 H (14-36) U/L Troponin I <0.012 (0.000-0.034) ng/mL Coagulation 02/07/24 Range/Units 16:35 PT 13.9 H (10.0-12.5) sec APTT 25.6 (22.0-30.0) sec CBC 02/07/24 02/08/24 Range/Units 16:35 07:42 WBC 7.6 6.6 (3.8-10.6) k/uL RBC 3.48 L 3.68 L (3.80-5.40) m/uL Hgb 8.5 L 9.3 L (11.4-16.0) gm/dL Hct 28.1 L 30.5 L (34.0-46.0) % Plt Count 276 270 (150-450) k/uL Comprehensive Metabolic Panel 02/07/24 02/08/24 Range/Units 16:35 07:42 Sodium 143 144 (137-145) mmol/L Potassium 3.6 3.3 L (3.5-5.1) mmol/L Chloride 108 H 106 (98-107) mmol/L Carbon Dioxide 25 27 (22-30) mmol/L BUN 15 15 (7-17) mg/dL Creatinine 0.81 0.81 (0.52-1.04) mg/dL Glucose 113 H 117 H (74-99) mg/dL Calcium 8.2 L 8.6 (8.4-10.2) mg/dL AST 50 H 45 H (14-36) U/L ALT 29 29 (4-34) U/L Alkaline Phosphatase 74 84 (38-126) U/L Total Protein 7.8 8.6 H (6.3-8.2) g/dL Albumin 3.9 4.2 (3.5-5.0) g/dL Current Medications Generic Name Dose Route Start Last Admin Trade Name Freq PRN Reason Stop Dose Admin Acetaminophen 650 mg 02/07/24 17:40 Acetaminophen Tab 325 Mg Tab PO Q6HR PRN Mild Pain or Fever > 100.5 Apixaban 5 mg 02/07/24 21:00 02/07/24 20:54 Apixaban 5 Mg Tab PO 5 mg BID HANSA Administration Protocol Atorvastatin Calcium 40 mg 02/08/24 09:00 Atorvastatin 40 Mg Tab PO DAILY HANSA Baclofen 10 mg 02/08/24 09:00 Baclofen 10 Mg Tab PO DAILY HANSA Furosemide 40 mg 02/07/24 21:00 02/07/24 22:19 Furosemide 10 Mg/Ml 4 Ml Vial IV Not Given Q12HR [facility] Diltiazem HCl 125 mg/ Sodium 125 mls @ 5 mls/hr 02/07/24 16:15 02/07/24 16:36 Chloride IV 5 mg/hr .Q24H HANSA 5 mls/hr Administration 5 MG/HR Metoprolol Succinate 25 mg 02/08/24 09:00 Metoprolol Succinate (Er) 25 Mg Tab.Er.24h PO DAILY HANSA Naloxone HCl 0.2 mg 02/07/24 17:40 Naloxone 0.4 Mg/Ml 1 Ml Vial IV Q2M PRN Opioid Reversal Nitroglycerin 0.4 mg 02/07/24 23:17 Nitroglycerin Sl Tabs 0.4 Mg Tab SUBLINGUAL Q5M PRN Chest Pain Pantoprazole Sodium 40 mg 02/08/24 09:00 Pantoprazole 40 Mg Tablet PO DAILY HANSA Intake and Output 02/07/24 02/08/24 02/08/24 22:59 06:59 14:59 Other: Weight 122.924 kg 02/08/24 07:42 02/08/24 07:42
[2024-02-08] MEDS: SODIUM CHLORIDE 0.9% 1,000 ML IV SCH (13:53)
[2024-02-08] MEDS ORDERED: LIDOCAINE 1% INJ 10MG/ML (20 ML MDV) ONE (14:18)
[2024-02-08] MEDS ORDERED: PROPOFOL 10 MG/ML 20 ML VIAL IV ONE (14:18)
[2024-02-08] MEDS: SODIUM CHLORIDE 0.9% 1,000 ML IV ONE (14:20)
[2024-02-08 14:22] LABS: % Iron Saturation 4.01 (12.00-45.00); Ferritin 9.5 ng/mL (10.0-291.0); Iron 22 UG/DL (50-170); Total Iron Binding Capacity 549 UG/DL (228-460)
--- NOTE | 2024-02-08 14:28 | P.PCN ---
Description of Procedure: Procedure performed: Synchronized cardioversion Moderate conscious sedation: Moderate conscious sedation was supplied by anesthesia, see separate report. Complications: none Indications: Atrial flutter History: Patient has had heart failure symptoms with atrial flutter with 2-1 conduction and heart rates 140s. She has not missed any doses of her anticoagulation in the last 30 days. Therefore recommended to undergo cardioversion. PROCEDURE: After the risks, benefits and alternatives of the above mentioned procedure was explained in detail with the patient, informed consent was obtained. Procedure was performed in the ER. Patient was given sedation by anesthesia, see separate report. Patient underwent synchronized cardioversion x 1 with 200J with resultant sinus rhythm. Patient tolerated the procedure well. Patient was transferred to the post procedure area in stable and satisfactory condition.
[2024-02-08 16:45] VITALS: RESP 16; TEMP 97.8
[2024-02-09 04:11] VITALS: BP 104/47
[2024-02-09] MEDS: DILTIAZEM CD 180 MG CAP.ER.24H PO SCH (08:14)
[2024-02-09] MEDS ORDERED: FUROSEMIDE 20 MG TAB PO SCH (09:00)
--- NOTE | 2024-02-09 09:53 | P.DS ---
Providers Date of admission: 02/07/24 17:40 Attending physician: Derian Brasher Consults: 02/07/24 17:40 Consult Physician Routine Consulting Provider: Spenser Mensah Consult Reason/Comments: Narrow complex tachycardia, CHF Do you want consulting provider notified?: Already Contacted Primary care physician: Derian Brasher [facility] Course: HISTORY OF PRESENT ILLNESS: 69-year-old morbidly obese female known to my office patient for long time with history of CAD post PCI and stent placement of the LAD back in 2019 who had recurrent chest pain late last year had another heart cath in 2022 shows patent stent of the LAD at the time. Also patient has hypertension, hyperlipidemia, hyperglycemia, chronic kidney disease, chronic edema, who also had bariatric surgery post gastric sleeve and known history of obstructive sleep apnea. Patient was seen in the office recently for worsening dyspnea and shortness of breath found to have mild tachycardia upon with responded to previous echoc ardiogram showing significant pulmonary hypertension and mild abnormal arrhythmia with irregularity with pulse rate was running in the 80s and 19 times irregular. Patient has been treated for A-fib still on anticoagulation with Eliquis as well metoprolol. She was hospitalized last time in July 2023 for A-fib with RVR had transesophageal echocardiogram and going for cardioversion. Patient was seen cardiology today and found to have significant tachycardia with pulse rate running in the 120s to 140 beats per minutes causing patient to be quite symptomatic with worsening dyspnea and shortness of breath. The EKG apparently at the time shows A-fib/a flutter with 2-1. Patient was sent to the emergency department to be started on Cardizem drip she will be seeing cardiology as an inpatient and probably going for cardioversion. The patient might require to have ablation therapy as well. She was seen in the emergency department and again found to be quite tachycardic at the time her EKG shows sinus tachycardia with no P waves almost look like a flutter at this time with pulse rate of 140 beats per minutes. Laboratory value showed mild anemia worsening than before with hemoglobin of 8.5 kidney function is stable glucose 113 mildly abnormal liver function test proBNP was 950 with troponin less than 0.012. So after starting patient on Cardizem drip she will be admitted to the hospital. 02/08/2024: Patient was admitted last night kept in the ER on hold for admission pulse rate continue to be high Cardizem orally was hold initially was started back again today with a pulse rate being up titrate Cardizem drip up to 10 mg an hour. Cardiology be seen patient again this morning she is remain on anticoagulation is decided to do cardioversion today she might need to go for transesophageal echocardiogram the patient is still mildly dyspneic and symptomatic otherwise feeling good. 02/05/2024: Patient was cardioverted yesterday successfully and has been remain on sinus rhythm since. Long talk about the necessity of using CPAP and more regular basis, patient will be back on her meds for shortness of breath is much better today preferred to go home to follow-up with cardiology and our service as an outpatient next 48 hours. REVIEW OF SYSTEMS: CONSTITUTIONAL: Morbidly obese in mild respiratory distress. EYES: No icterus sclerae, no conjunctivitis. EARS, NOSE, MOUTH, THROAT, and FACE: No sore throat, lymphadenopathy, carotid bruits or deformity. RESPIRATORY: Mild shortness of breath cough and wheezes. CARDIOVASCULAR: Positive PND orthopnea palpitation but no angina. GASTROINTESTINAL: No Abd pain, Nausea or vomiting, no Diarrhea or constipation, No GI Bleed, no distention or masses. GENITOURINARY: Negative for Hematuria or UTI, no kidney stones. INTEGUMENT/BREAST: Positive chronic edema and generalized arthralgia. HEMATOLOGIC/LYMPHATIC: Negative for bleed or purpura. MUSCULOSKELTAL: Negative for Myalgia or arthralgia. NEURLOGICAL: No LOC, Sz or syncope, blurred vision dizziness or abnormality.. BEHAVIORAL/PSYCH: Negative. ENDOCRINE: Negative. PHYSICAL EXAMINATION: General Appearance: Alert, cooperative, mild distress. Neck HEENT: Supple, no lymphadenopathy, no thyroid enlargement, no carotid bruits. Lungs: Clear to auscultation without crackles positive mild rhonchi with slight expiratory wheezes. Chest Wall: Normal expansion expansion with deep inspiration no tenderness and no deformity was found on exam, no costochondral pain or discomfort. Heart: Irregular rate and rhythm, S1, S2 positive tachycardia positive S3 with systolic murmur. Back: Symmetric, no curvature, ROM normal, no CVA tenderness. Abdomen: Soft, non-tender, bowel sounds active all four quadrants, no masses, no organomegaly. Extremities: Extremities normal, atraumatic, positive chronic stasis dermatitis with 1+ edema. Pulses: 2+ and symmetric. Skin: Skin color, texture, tugor normal, no rashes or lesions. Neurologic: Alert oriented x3 cranial nerves II through XII intact, no motor deficit, no abnormal balance or gait. ASSESSMENT AND PLAN: _A-fib/a flutter with tachycardia: Had cardioversion yesterday successfully still on anticoagulation doing well. _Severe dyspnea and shortness of breath: Secondary to COPD/diastolic heart failure and A-fib/a flutter with noncompliance to CPAP can explain all the symptoms. _Atherosclerotic heart disease post angioplasty and stent placement of the LAD with 3 years ago that was still patent.Still doing good on medical management remain on rosuvastatin, metoprolol, Eliquis and furosemide. _Chronic anemia: With hemoglobin today of 8.5 was 11.4 [place] the time before was 10. Had a chronic anemia probably worsening with anticoagulation and with her hiatal hernia she is remain on proton pump inhibitor, will watch for any gastrointestinal bleed, _Obstructive sleep apnea: She claims she is not using her CPAP more than half the time and that probably one of the aggravation for A-fib a flutter with tachycardia. _History of hyperlipidemia: Continue rosuvastatin 20 mg a day. _Congestive heart failure: Mostly diastolic dysfunction, will continue diuretics. _Valvular heart disease: Mostly mitral regurgitation which is mild along with trace of aortic insufficiency and again still on medical management no intervention required. _Large hiatal hernia post gastric sleeve: Remain on pantoprazole 40 mg daily. _Morbid obesity: Post lap band and gastric sleeve eventually with body mass index still above 4th percentile. _Anticoagulation: Still on Eliquis 5 mg twice a day. _Hypertension: Remain on diltiazem CD1 80 mg daily and metoprolol succinate 25 mg a day. _History of Alex: Aggravated with morbid obesity and borderline diabetes, with marginal liver function testing finding consistent with AELX on ultrasound and liver function test. Continue weight loss program continue to watch liver enzymes on more regular basis. _Hyperglycemia: With last A1c was around 6.0 not on any medication currently. Planning: Since patient is doing much better after cardioversion she will be discharged home today to follow as an outpatient next 48 hours. Hospital course: Patient was admitted with severe shortness of breath dyspnea found to be in A-fib and a flutter with recurrent tachycardia. Was on Cardizem drip initially and Cardizem orally her pulse rate finally dropped down and responded well to cardioversion. She is doing better so far long talk about the necessity of using CPAP and more regular basis patient be discharged home today to follow as an outpatient by cardiology and our service in the next 48 hours. Patient Condition at Discharge: Stable Plan - Discharge Summary Discharge Rx Participant: No New Discharge Prescriptions: Continue Pantoprazole [Protonix] 40 mg PO DAILY Rosuvastatin [Crestor] 20 mg PO DAILY Metoprolol Succinate [Metoprolol Succinate ER] 25 mg PO DAILY Apixaban [Eliquis] 5 mg PO BID 30 Days #60 tab Nitroglycerin Sl Tabs [Nitrostat] 0.4 mg SL Q5M PRN PRN Reason: Chest Pain Furosemide [Lasix] 20 mg PO DAILY Diltiazem Cd [Cardizem CD] 180 mg PO DAILY 30 Days #30 cap Baclofen [Lioresal] 10 mg PO DAILY Discharge Medication List Pantoprazole [Protonix] 40 mg PO DAILY 11/13/22 [History] Rosuvastatin [Crestor] 20 mg PO DAILY 11/13/22 [History] Nitroglycerin Sl Tabs [Nitrostat] 0.4 mg SL Q5M PRN 02/10/23 [History] Furosemide [Lasix] 20 mg PO DAILY 07/26/23 [History] Metoprolol Succinate [Metoprolol Succinate ER] 25 mg PO DAILY 07/26/23 [History] Apixaban [Eliquis] 5 mg PO BID 30 Days #60 tab 07/28/23 [Rx] Diltiazem Cd [Cardizem CD] 180 mg PO DAILY 30 Days #30 cap 07/28/23 [Rx] Baclofen [Lioresal] 10 mg PO DAILY 02/07/24 [History] Follow up Appointment(s)/Referral(s): Spenser Mensah MD [STAFF PHYSICIAN] - 1 Week Derian Brasher MD [Primary Care Provider] - 1-2 days Discharge Disposition: HOME SELF-CARE
[2024-02-09 11:10] VITALS: PULSE 95
--- NOTE | 2024-02-09 12:10 | P.PN ---
Subjective Progress Note Date: 02/09/24 HISTORY OF PRESENT ILLNESS: 69-year-old morbidly obese female known to my office patient for long time with history of CAD post PCI and stent placement of the LAD back in 2019 who had recurrent chest pain late last year had another heart cath in 2022 shows patent stent of the LAD at the time. Also patient has hypertension, hyperlipidemia, hyperglycemia, chronic kidney disease, chronic edema, who also had bariatric surgery post gastric sleeve and known history of obstructive sleep apnea. Patient was seen in the office recently for worsening dyspnea and shortness of breath found to have mild tachycardia upon with responded to previous echocardiogram showing significant pulmonary hypertension and mild abnormal arrhythmia with irregularity with pulse rate was running in the 80s and 19 times irregular. Patient has been treated for A-fib still on anticoagulation with Eliquis as well metoprolol. She was hospitalized last time in July 2023 for A-fib with RVR had transesophageal echocardiogram and going for cardioversion. Patient was seen cardiology today and found to have significant tachycardia with pulse rate running in the 120s to 140 beats per minutes causing patient to be quite symptomatic with worsening dyspnea and shortness of breath. The EKG apparently at the time shows A-fib/a flutter with 2-1. Patient was sent to the emergency department to be started on Cardizem drip she will be seeing cardiology as an inpatient and probably going for cardioversion. The patient might require to have ablation therapy as well. She was seen in the emergency department and again found to be quite tachycardic at the time her EKG shows sinus tachycardia with no P waves almost look like a flutter at this time with pulse rate of 140 beats per minutes. Laboratory value showed mild anemia worsening than before with hemoglobin of 8.5 kidney function is stable glucose 113 mildly abnormal liver function test proBNP was 950 with troponin less than 0.012. So after starting patient on Cardizem drip she will be admitted to the hospital. 02/08/2024: Patient was admitted last night kept in the ER on hold for admission pulse rate continue to be high Cardizem orally was hold initially was started back again today with a pulse rate being up titrate Cardizem drip up to 10 mg an hour. Cardiology be seen patient again this morning she is remain on anticoagulation is decided to do cardioversion today she might need to go for transesophageal echocardiogram the patient is still mildly dyspneic and symptomatic otherwise feeling good. 02/05/2024: Patient was cardioverted yesterday successfully and has been remain on sinus rhythm since. Long talk about the necessity of using CPAP and more regular basis, patient will be back on her meds for shortness of breath is much better today preferred to go home to follow-up with cardiology and our service as an outpatient next 48 hours. REVIEW OF SYSTEMS: CONSTITUTIONAL: Morbidly obese in mild respiratory distress. EYES: No icterus sclerae, no conjunctivitis. EARS, NOSE, MOUTH, THROAT, and FACE: No sore throat, lymphadenopathy, carotid bruits or deformity. RESPIRATORY: Mild shortness of breath cough and wheezes. CARDIOVASCULAR: Positive PND orthopnea palpitation but no angina. GASTROINTESTINAL: No Abd pain, Nausea or vomiting, no Diarrhea or constipation, No GI Bleed, no distention or masses. GENITOURINARY: Negative for Hematuria or UTI, no kidney stones. INTEGUMENT/BREAST: Positive chronic edema and generalized arthralgia. HEMATOLOGIC/LYMPHATIC: Negative for bleed or purpura. MUSCULOSKELTAL: Negative for Myalgia or arthralgia. NEURLOGICAL: No LOC, Sz or syncope, blurred vision dizziness or abnormality.. BEHAVIORAL/PSYCH: Negative. ENDOCRINE: Negative. PHYSICAL EXAMINATION: General Appearance: Alert, cooperative, mild distress. Neck HEENT: Supple, no lymphadenopathy, no thyroid enlargement, no carotid bruits. Lungs: Clear to auscultation without crackles positive mild rhonchi with slight expiratory wheezes. Chest Wall: Normal expansion expansion with deep inspiration no tenderness and no deformity was found on exam, no costochondral pain or discomfort. Heart: Irregular rate and rhythm, S1, S2 positive tachycardia positive S3 with systolic murmur. Back: Symmetric, no curvature, ROM normal, no CVA tenderness. Abdomen: Soft, non-tender, bowel sounds active all four quadrants, no masses, no organomegaly. Extremities: Extremities normal, atraumatic, positive chronic stasis dermatitis with 1+ edema. Pulses: 2+ and symmetric. Skin: Skin color, texture, tugor normal, no rashes or lesions. Neurologic: Alert oriented x3 cranial nerves II through XII intact, no motor deficit, no abnormal balance or gait. ASSESSMENT AND PLAN: _A-fib/a flutter with tachycardia: Had cardioversion yesterday successfully still on anticoagulation doing well. _Severe dyspnea and shortness of breath: Secondary to COPD/diastolic heart failure and A-fib/a flutter with noncompliance to CPAP can explain all the symptoms. _Atherosclerotic heart disease post angioplasty and stent placement of the LAD with 3 years ago that was still patent.Still doing good on medical management remain on rosuvastatin, metoprolol, Eliquis and furosemide. _Chronic anemia: With hemoglobin today of 8.5 was 11.4 [place] the time before was 10. Had a chronic anemia probably worsening with anticoagulation and with her hiatal hernia she is remain on proton pump inhibitor, will watch for any gastrointestinal bleed, _Obstructive sleep apnea: She claims she is not using her CPAP more than half the time and that probably one of the aggravation for A-fib a flutter with tachycardia. _History of hyperlipidemia: Continue rosuvastatin 20 mg a day. _Congestive heart failure: Mostly diastolic dysfunction, will continue diuretics. _Valvular heart disease: Mostly mitral regurgitation which is mild along with trace of aortic insufficiency and again still on medical management no intervention required. _Large hiatal hernia post gastric sleeve: Remain on pantoprazole 40 mg daily. _Morbid obesity: Post lap band and gastric sleeve eventually with body mass index still above 4th percentile. _Anticoagulation: Still on Eliquis 5 mg twice a day. _Hypertension: Remain on diltiazem CD1 80 mg daily and metoprolol succinate 25 mg a day. _History of Alex: Aggravated with morbid obesity and borderline diabetes, with marginal liver function testing finding consistent with ALEX on ultrasound and liver function test. Continue weight loss program continue to watch liver enzymes on more regular basis. _Hyperglycemia: With last A1c was around 6.0 not on any medication currently. Planning: Since patient is doing much better after cardioversion she will be discharged home today to follow as an outpatient next 48 hours. Objective - Vital Signs Vital signs: Vital Signs Temp 97.8 F 02/08/24 15:30 Pulse 88 02/09/24 03:52 Resp 16 02/09/24 03:52 BP 104/47 02/09/24 03:52 Pulse Ox 96 02/09/24 03:52 FiO2 Intake & Output 02/08/24 02/09/24 02/09/24 18:59 06:59 18:59 Intake Total 581.166 221 Output Total 3200 Balance 581.166 -2979 Weight 118 kg 116.9 kg Intake: IV 100 Intake, IV Titration 121.166 Amount Diltiazem 125 mg In 121.166 Sodium Chloride 0.9% 100 ml @ 5 MG/HR 5 mls/hr IV .Q24H [facility] Rx#:[id number] Oral 360 221 Output: Urine 3200 Other: # Voids 1 - Labs CBC & Chem 7: 02/08/24 07:42 02/08/24 07:42 Labs: Abnormal Lab Results - Last 24 Hours (Table) 02/08/24 02/08/24 Range/Units 07:42 07:42 RBC 3.68 L (3.80-5.40) m/uL Hgb 9.3 L (11.4-16.0) gm/dL Hct 30.5 L (34.0-46.0) % MCHC 30.5 L (31.0-37.0) g/dL RDW 16.8 H (11.5-15.5) % Potassium 3.3 L (3.5-5.1) mmol/L Glucose 117 H (74-99) mg/dL Iron 22 L (50-170) UG/DL TIBC 549 H (228-460) UG/DL % Saturation 4.01 L (12.00-45.00) Transferrin 392.0 H (204.0-354.0) mg/dL Ferritin 9.5 L (10.0-291.0) ng/mL AST 45 H (14-36) U/L Total Protein 8.6 H (6.3-8.2) g/dL
--- NOTE | 2024-02-09 13:05 | P.PN ---
Subjective Progress Note Date: 02/09/24 HISTORY OF PRESENT ILLNESS: This is a 69-year-old female with a past medical history significant for hy pertension, hyperlipidemia, coronary artery disease with previous stenting of the LAD in 2019, valvular heart disease, paroxysmal atrial fibrillation/flutter, and dilated thoracic aorta. Patient follows in the office with Dr. Mensah. We have been asked to see the patient in consultation for narrow complex tachycardia, CHF. Patient examined at the bedside. Patient was seen in the office yesterday by Dr. Mensah. Patient has been complaining of shortness of breath with exertion for the past few months which has become severe enough over the past few days to interfere with her daily activities. She apparently has gained 20 pounds since she was last seen in the office at the end of 2022. Patient reports she has been compliant with her medications and has not missed any doses of her Eliquis and also with a low-sodium diet. An EKG was performed in the cardiology office revealing atrial tachycardia versus AVNRT with a heart rate of 140. The patient was directed to come to the emergency room for further evaluation. The patient was started on IV Cardizem. She remains in atrial flutter with a heart rate in the 140s. DIAGNOSTICS: - EKG reveals atrial flutter with RVR - Chest xray acute cardiac pulmonary disease most consistent with CHF - Laboratory data: WBC 6.6. Hemoglobin 9.3. Platelet count 270. Sodium 144. Potassium 3.3. BUN 15. Creatinine 0.81. Troponin negative x 1. proBNP 950. - Current home cardiac medications include Eliquis 5 mg twice a day, metoprolol succinate 25 mg daily, Cardizem CD 180 mg daily, Lasix 20 mg daily, rosuvastatin 40 mg daily. - Most recent echocardiogram obtained in July 2022 revealing ejection fraction 55%, mild MR, mild TR -Patient underwent ELISHA and cardioversion on 07/27/[address] Mcintosh. ELISHA revealed aortic valve is tricuspid with trace aortic insufficiency, mitral valve appears to be normal with trace to mild mitral regurgitation, tricuspid valve with mild tricuspid regurgitation, the intra-atrial septum is intact. No ev idence of PFO. Left atrial appendage is free of clot. Left ventricular ejection fraction 55% - Cardiac catheterization history: November 2022 revealing patent stent in the mid LAD 02/09/24 S/P cardioversion yetsterday, she remains in sinus rhythm. No chest pain or pressure. No shortness of breath. She is feeling better overall. ECHO taken, report pending. PHYSICAL EXAM: VITAL SIGNS: Reviewed. GENERAL: Well-developed in no acute distress. HEENT: Head is normocephalic. Pupils are equal, round. Sclerae anicteric. Mucous membranes of the mouth are moist. Neck supple. No JVD or thyromegaly LUNGS: Respirations even and unlabored. Lungs essentially clear to auscultation bilaterally, diminished. HEART: Tachycardic regular rate and rhythm. S1 and S2 heard. Systolic murmur noted ABDOMEN: Soft. Nondistended. Nontender. EXTREMITIES: Normal range of motion. No clubbing or cyanosis. Peripheral pulses intact. +1 bilateral lower extremity edema NEUROLOGIC: Awake and alert. Oriented x 3. ASSESSMENT: Typical atrial flutter with RVR Acute on chronic heart failure with preserved EF Coronary artery disease with previous stenting of the LAD Valvular heart disease Hypertension Hyperlipidemia Paroxysmal atrial fibrillation/flutter, on Eliquis outpatient History of SVT History of ELISHA/cardioversion, 07/2023 Morbid obesity: BMI 52.9 Sleep apnea, with history of noncompliance with CPAP PLAN: 2D echo taken, report pending. Continue anticoagulation with Eliquis. Continue with current regimen, but increase lasix to 40mg daily. OK to discharge home from cardiology standpoint. Follow up in clinic in [address] Mensah. Nurse practitioner note has been reviewed by physician. Signing provider agrees with the documented findings, assessment, and plan of care documented by PRODUCTION ENGINE REPAIRER as a scribe. Objective - Vital Signs Vital signs: Vital Signs Temp 97.8 F 02/08/24 15:30 Pulse 95 02/09/24 08:05 Resp 16 02/09/24 03:52 BP 104/47 02/09/24 03:52 Pulse Ox 96 02/09/24 03:52 FiO2 Intake & Output 02/08/24 02/09/24 02/09/24 18:59 06:59 18:59 Intake Total 581.166 221 Output Total 3200 400 Balance 221.913 -2731 -400 Weight 118 kg 116.9 kg Intake: IV 100 Intake, IV Titration 121.166 Amount Diltiazem 125 mg In 121.166 Sodium Chloride 0.9% 100 ml @ 5 MG/HR 5 mls/hr IV .Q24H [facility] Rx#:[id number] Oral 360 221 Output: Urine 3200 400 Other: # Voids 1 - Labs CBC & Chem 7: 02/08/24 07:42 02/08/24 07:42 Labs: Abnormal Lab Results - Last 24 Hours (Table) 02/08/24 Range/Units 07:42 Iron 22 L (50-170) UG/DL TIBC 549 H (228-460) UG/DL % Saturation 4.01 L (12.00-45.00) Transferrin 392.0 H (204.0-354.0) mg/dL Ferritin 9.5 L (10.0-291.0) ng/mL
--- NOTE | 2024-02-09 15:02 | CA ---
Transthoracic Echo Report Name: Rae Ortega Age: 69 Gender: F : 1955 Exam Date: 02/09/2024 10:09 Exam Location: [facility] Ht (in): 60 Wt (lb): 271 Ordering Physician: Roe Patel MD Attending/Referring Phys: Passenger Screener Nikky Locke RDCS Procedure CPT: Indications: chf Cardiac Hx: Technical Quality: Contrast 1: Definity Total Dose (mL): 2 Contrast 2: Total Dose (mL): MEASUREMENTS (Male / Female) Normal Values 2D ECHO LV Diastolic Diameter PLAX 5.1 cm 4.2 - 5.9 / 3.9 - 5.3 cm LV Systolic Diameter PLAX 3.8 cm IVS Diastolic Thickness 1.2 cm 0.6 - 1.0 / 0.6 - 0.9 cm LVPW Diastolic Thickness 1.4 cm 0.6 - 1.0 / 0.6 - 0.9 cm LV Relative Wall Thickness 0.5 Aortic Root Diameter 3.7 cm LA Systolic Diameter LX 3.5 cm 3.0 - 4.0 / 2.7 - 3.8 cm DOPPLER AV Peak Velocity 191.4 cm/s AV Peak Gradient 14.6 mmHg AV Mean Velocity 141.6 cm/s AV Mean Gradient 8.7 mmHg AV Velocity Time Integral 37.9 cm LVOT Peak Velocity 128.6 cm/s LVOT Peak Gradient 6.6 mmHg LVOT Velocity Time Integral 24.9 cm Mitral E Point Velocity 143.3 cm/s Mitral A Point Velocity 102.8 cm/s Mitral E to A Ratio 1.4 MV Deceleration Time 258.5 ms MV E' Velocity 11.1 cm/s Mitral E to MV E' Ratio 13.0 TR Peak Velocity 288.9 cm/s TR Peak Gradient 33.4 mmHg PV Peak Velocity 126.6 cm/s PV Peak Gradient 6.4 mmHg FINDINGS Left Ventricle Left ventricular ejection fraction is estimated at 50-55%. No obvious regional wall motion abnormalities. Right Ventricle Right ventricular systolic pressure estimated at 38.41mmhg. Right Atrium Normal right atrial size. Left Atrium Left atrial size at the upper limits of normal. Mitral Valve Trace mitral regurgitation. Aortic Valve Trace aortic regurgitation. Tricuspid Valve Mild tricuspid regurgitation. Pulmonic Valve Pulmonic valve not well visualized. Pericardium No pericardial effusion. Aorta Normal size aortic root. CONCLUSIONS Previous echo recorded on 05/07/2019. Left ventricular ejection fraction 50-55% RVSP 38 Trace mitral regurgitation Mild tricuspid regurgitation Previewed by: Dr. Manas Mcintosh DO (Electronically Signed) Final Date: 09 February 2024 15:01
== END 2024-02-09 15:41 | disposition home or self-care (01) | DRG 308 ==
LOC: EC 15:37 → 3SCARD 17:40
PROVIDERS: ADMIT Internal Medicine Geriatric Medicine; ATTEND Internal Medicine Geriatric Medicine
PROC: 5A2204Z Restoration of Cardiac Rhythm, Single (ICD-10-PCS; principal; 2024-02-08 11:59)
DX: I48.3 Typical atrial flutter (principal); I50.33 Acute on chronic diastolic (congestive) heart failure; I13.0 Hypertensive heart and chronic kidney disease with heart failure and stage 1 through stage 4 chronic kidney disease, or unspecified chronic kidney disease; Z68.43 Body mass index [BMI] 50.0-59.9, adult; I27.20 Pulmonary hypertension, unspecified; D63.1 Anemia in chronic kidney disease; K75.81 Nonalcoholic steatohepatitis (NASH); E66.01 Morbid (severe) obesity due to excess calories; I48.0 Paroxysmal atrial fibrillation; J44.9 Chronic obstructive pulmonary disease, unspecified; N18.9 Chronic kidney disease, unspecified; I08.1 Rheumatic disorders of both mitral and tricuspid valves; R73.03 Prediabetes; E78.5 Hyperlipidemia, unspecified; I25.10 Atherosclerotic heart disease of native coronary artery without angina pectoris; E87.6 Hypokalemia; F41.9 Anxiety disorder, unspecified; G47.33 Obstructive sleep apnea (adult) (pediatric); H91.90 Unspecified hearing loss, unspecified ear; I25.2 Old myocardial infarction; K44.9 Diaphragmatic hernia without obstruction or gangrene; R73.9 Hyperglycemia, unspecified; K21.9 Gastro-esophageal reflux disease without esophagitis; M19.90 Unspecified osteoarthritis, unspecified site; Z91.199 Patient's noncompliance with other medical treatment and regimen due to unspecified reason; Z79.01 Long term (current) use of anticoagulants; Z79.899 Other long term (current) drug therapy; Z95.5 Presence of coronary angioplasty implant and graft; Z96.652 Presence of left artificial knee joint; Z87.891 Personal history of nicotine dependence; Z98.84 Bariatric surgery status; Z88.5 Allergy status to narcotic agent
CPT/HCPCS: 36415; 71046; 80053; 82607; 82728; 82746; 83540; 83550; 83735; 83880; 84484; 85025; 85027; 85610; 85730; 92960; 93005; 93306; 96365; 96366; 96375; 96376; 99291

== ENCOUNTER 2024-06-01 13:15 | Inpatient (IN) | payer MEDICARE ==
--- NOTE | 2024-06-01 13:55 | ED ---
SOB HPI - General Source: patient, RN notes reviewed, old records reviewed Mode of arrival: wheelchair Limitations: no limitations <Darrell Trent - Last Filed: 06/01/24 13:54> - General Source: patient, RN notes reviewed Limitations: no limitations <Jad Donovan - Last Filed: 06/01/24 19:24> - General Chief Complaint: Shortness of Breath Stated Complaint: SOB - History of Present Illness Initial Comments: QN 69 female to ER with shortness of breath history of smoking, patient has persistent shortness of breath here in the emergency room without fever no chest pain (Darrell Trent) Patient is a 69-year-old female presenting to the emergency department with concerns with dyspnea. Symptoms have progressed over the past few days. Rare cough. Nonproductive. No fever. No chest pain. Patient has some leg edema which is chronic and unchanged. No calf pain (Jad Donovan) - Related Data Home Medications Medication Instructions Recorded Confirmed Pantoprazole [Protonix] 40 mg PO DAILY@0611/13/22 06/01/24 Rosuvastatin [Crestor] 20 mg PO DAILY@0911/13/22 06/01/24 Nitroglycerin Sl Tabs [Nitrostat] 0.4 mg SL Q5M PRN 02/10/23 06/01/24 Albuterol Inhaler [Ventolin Hfa 2 puff INHALATION RT-Q4H PRN 06/01/24 06/01/24 Inhaler] Apixaban [Eliquis] 5 mg PO BID@0900,2100 06/01/24 06/01/24 Diltiazem Cd [Cardizem CD] 180 mg PO DAILY@0900 06/01/24 06/01/24 Ferrous Sulfate [Feosol] 325 mg PO DAILY 06/01/24 06/01/24 Furosemide [Lasix] 40 mg PO DAILY@0630 06/01/24 06/01/24 Metoprolol Succinate (ER) [Toprol 100 mg PO DAILY@0900 06/01/24 06/01/24 XL] Multivitamins, Thera [Multivitamin 1 tab PO DAILY 06/01/24 06/01/24 (formulary)] Simethicone [Gas-X] 125 - 250 mg PO PC-TID PRN 06/01/24 06/01/24 Allergies Allergy/AdvReac Type Severity Reaction Status Date / Time codeine Allergy went into Verified 06/01/24 17:29 corticate position, unable to see colors Review of Systems ROS Other: All systems not noted in ROS Statement are negative. <Darrell Trent - Last Filed: 06/01/24 13:54> ROS Other: All systems not noted in ROS Statement are negative. Constitutional: Denies: fever Eyes: Denies: eye pain ENT: Denies: throat pain Respiratory: Reports: as per HPI, dyspnea Cardiovascular: Reports: dyspnea on exertion, edema Gastrointestinal: Reports: abdominal pain <Jad Donovan - Last Filed: 06/01/24 19:24> ROS Statement: Those systems with pertinent positive or pertinent negative responses have been documented in the HPI. Past Medical History Past Medical History: Atrial Fibrillation, GERD/Reflux, Hearing Disorder / Deafness, Hypertension, Myocardial Infarction (MD), Osteoarthritis (OA), Sleep Apnea/CPAP/BIPAP Additional Past Medical History / Comment(s): SEE DR ALVARENGA'S H&P. RECENT FLU - END OF OCT 2022. HX DIVERTICULITIS, HIATAL HERNIA,USES CPAP SOMETIMES, HARD OF HEARING. 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 Cardioversion. Past Anesthesia/Blood Transfusion Reactions: No Reported Reaction Date of Last Stent Placement:: 2021 Past Psychological History: No Psychological Hx Reported Smoking Status: Former smoker Past Alcohol Use History: None Reported Past Drug Use History: None Reported - Past Family History Mother Family Medical History: No Reported History <Darrell Trent - Last Filed: 06/01/24 13:54> General Exam Limitations: no limitations General appearance: alert, in no apparent distress, obese Head exam: Present: atraumatic, normocephalic, normal inspection Eye exam: Present: normal appearance, PERRL, EOMI. Absent: scleral icterus, conjunctival injection, periorbital swelling ENT exam: Present: normal exam, mucous membranes moist Neck exam: Present: normal inspection. Absent: tenderness, meningismus, lymphadenopathy Respiratory exam: Present: normal lung sounds bilaterally. Absent: respiratory distress, wheezes, rales, rhonchi, stridor Cardiovascular Exam: Present: regular rate, normal rhythm, normal heart sounds. Absent: systolic murmur, diastolic murmur, rubs, gallop, clicks GI/Abdominal exam: Present: soft, normal bowel sounds. Absent: distended, tenderness, guarding, rebound, rigid Extremities exam: Present: normal inspection, full ROM, normal capillary refill. Absent: tenderness, pedal edema, joint swelling, calf tenderness Back exam: Present: normal inspection Neurological exam: Present: alert, oriented X3, CN II-XII intact Psychiatric exam: Present: normal affect, normal mood Skin exam: Present: warm, dry, intact, normal color. Absent: rash <Darrell Trent - Last Filed: 06/01/24 13:54> Limitations: no limitations General appearance: alert Head exam: Present: atraumatic, normocephalic Eye exam: Present: normal appearance Neck exam: Present: normal inspection Respiratory exam: Present: normal lung sounds bilaterally Cardiovascular Exam: Present: regular rate, normal rhythm GI/Abdominal exam: Present: soft, tenderness (Moderate tenderness lower abdomen, suprapubic) Extremities exam: Present: pedal edema. Absent: calf tenderness Back exam: Present: normal inspection Neurological exam: Present: alert Psychiatric exam: Present: normal affect, normal mood Skin exam: Present: normal color <Jad Donovan - Last Filed: 06/01/24 19:24> Course <Darrell Trent - Last Filed: 06/01/24 13:54> Vital Signs 06/01/24 13:39 Temperature 97.6 F Pulse Rate 89 Respiratory 24 Rate Blood Pressure 121/77 O2 Sat by Pulse 98 Oximetry - Reevaluation(s) Reevaluation #1: 06/01/24 13:54 QN completed by myself Dr. Trent (Darrell Trent) Medical Decision Making - Lab Data Result diagrams: 06/01/24 17:10 06/01/24 17:10 <Jad Donovan - Last Filed: 06/01/24 19:24> - Medical Decision Making EKG interpreted by myself shows sinus rhythm with a rate of 86. Normal intervals. Normal axis. Normal QRS. Nonspecific ST-T. Was pt. sent in by a medical professional or institution (YESSI Carrion, WHEEL INSPECTOR, urgent care, hospital, or long term...) When possible be specific @ -No Did you speak to anyone other than the patient for history (EMS, parent, family, police, friend...)? What history was obtained from this source @ -Patient does have friend present who helps provide additional history of symptoms. Did you review nursing and triage notes (agree or disagree)? Why? @ -I reviewed and agree with nursing and triage notes Were old charts reviewed (outside hosp., previous admission, EMS record, old EKG, old radiological studies, urgent care reports/EKG's, long term records)? Report findings @ -No old charts were reviewed Differential Diagnosis (chest pain, altered mental status, abdominal pain women, abdominal pain men, vaginal bleeding, weakness, fever, dyspnea, syncope, he adache, dizziness, GI bleed, back pain, seizure, CVA, palpatations, mental health, musculoskeletal)? @ -Differential Dyspnea: Coronary syndrome, arrhythmia, tamponade, asthma, COPD, pulmonary embolism, pneumonia, pneumothorax, pulmonary effusion, anaphylaxis, diabetic ketoacidosis, flailed chest, pulmonary contusion, diaphragmatic rupture, anemia, neuromuscular, this is not meant to be an all-inclusive list. EKG interpreted by me (3pts min.). @ -As above X-rays interpreted by me (1pt min.). @ -Chest x-ray shows possible infiltrate or CHF CT interpreted by me (1pt min.). @ -None done U/S interpreted by me (1pt. min.). @ -None done What testing was considered but not performed or refused? (CT, X-rays, U/S, labs)? Why? @ -CT scans ordered however patient has refused at this time. Will be consider this family blood transfusion. Patient states she feels too short of breath at this time What meds were considered but not given or refused? Why? @ -None Did you discuss the management of the patient with other professionals (professionals i.e. YESSI Carrion, WHEEL INSPECTOR, lab, RT, psych nurse, social work professor, contract analyst, teacher, public health service officer, case monitor)? Give summary @ -Case discussed with Dr. Fajardo who agrees with transfusion and will admit his patient. He would like patient admitted to the ICU. Case also discussed with Dr. Yoo who will consult for critical care. Both are aware of CT scan pending Was smoking cessation discussed for >3mins.? @ -No Was critical care preformed (if so, how long)? @ -32 minutes critical care time Were there social determinants of health that impacted care today? How? (Homelessness, low income, unemployed, alcoholism, drug addiction, transportation, low edu. Level, literacy, decrease access to med. care, care home, rehab)? @ -No Was there de-escalation of care discussed even if they declined (Discuss DNR or withdrawal of care, Hospice)? DNR status @ -No What co-morbidities impacted this encounter? (DM, HTN, Smoking, COPD, CAD, Cancer, CVA, ARF, Chemo, Hep., AIDS, mental health diagnosis, sleep apnea, morbid obesity)? @ -None Was patient admitted / discharged? Hospital course, mention meds given and route, prescriptions, significant lab abnormalities, going to OR and other pertinent info. @ -Patient presents with dyspnea and has anemia, Hemoccult positive. Patient will be admitted with blood transfusion. Consult will be placed for GI. Undiagnosed new problem with uncertain prognosis? @ -No Drug Therapy requiring intensive monitoring for toxicity (Heparin, Nitro, Insulin, Cardizem)? @ -Blood transfusion Were any procedures done? @ -No Diagnosis/symptom? @ -Anemia, dyspnea Acute, or Chronic, or Acute on Chronic? @ -Acute, acute Uncomplicated (without systemic symptoms) or Complicated (systemic symptoms)? @ -Complicated with inability to get CT scans done at this time Side effects of treatment? @ -No Exacerbation, Progression, or Severe Exacerbation? @ -No Poses a threat to life or bodily function? How? (Chest pain, USA, MD, pneumonia, PE, COPD, DKA, ARF, appy, cholecystitis, CVA, Diverticulitis, Homicidal, Suicidal, threat to staff... and all critical care pts) @ -Threat to all organ functions by hypoperfusion (Jad Doonvan) - Lab Data Lab Results 06/01/24 06/01/24 06/01/24 Range/Units 17:10 17:10 17:10 WBC 9.9 (3.8-10.6) k/uL RBC 2.19 L (3.80-5.40) m/uL Hgb 4.8 L* (11.4-16.0) gm/dL Hct 17.5 L* (34.0-46.0) % MCV 80.1 (80.0-100.0) fL MCH 22.0 L (25.0-35.0) pg MCHC 27.4 L (31.0-37.0) g/dL RDW 19.6 H (11.5-15.5) % Plt Count 362 (150-450) k/uL MPV 9.2 Neutrophils % 79 % Lymphocytes % 13 % Monocytes % 5 % Eosinophils % 0 % Basophils % 0 % Neutrophils # 7.9 H (1.3-7.7) k/uL Lymphocytes # 1.3 (1.0-4.8) k/uL Monocytes # 0.5 (0-1.0) k/uL Eosinophils # 0.0 (0-0.7) k/uL Basophils # 0.0 (0-0.2) k/uL Hypochromasia Marked Poikilocytosis Moderate Anisocytosis Slight Microcytosis Slight PT 14.0 H (10.0-12.5) sec INR 1.3 H (<1.2) APTT 23.7 (22.0-30.0) sec D-Dimer 1.04 H (<0.60) mg/L FEU Sodium 141 (137-145) mmol/L Potassium 4.1 (3.5-5.1) mmol/L Chloride 108 H (98-107) mmol/L Carbon Dioxide 24 (22-30) mmol/L Anion Gap 9 mmol/L BUN 27 H (7-17) mg/dL Creatinine 0.92 (0.52-1.04) mg/dL Est GFR (CKD-EPI)AfAm 75 (>60 ml/min/1.73 sqM) Est GFR (CKD-EPI)NonAf 65 (>60 ml/min/1.73 sqM) Glucose 148 H (74-99) mg/dL Plasma Lactic Acid Angel (0.7-2.0) mmol/L Calcium 8.5 (8.4-10.2) mg/dL Magnesium 2.2 (1.6-2.3) mg/dL Total Bilirubin 0.7 (0.2-1.3) mg/dL AST 39 H (14-36) U/L ALT 22 (4-34) U/L Alkaline Phosphatase 62 (38-126) U/L Troponin I (0.000-0.034) ng/mL NT-Pro-B Natriuret Pep 613 pg/mL Total Protein 7.2 (6.3-8.2) g/dL Albumin 3.6 (3.5-5.0) g/dL Stool Occult Blood (Negative) Blood Type Blood Type Confirm Blood Type Recheck Bld Type Recheck Status Antibody Screen Crossmatch Spec Expiration Date 06/01/24 06/01/24 06/01/24 Range/Units 17:10 17:10 17:50 WBC (3.8-10.6) k/uL RBC (3.80-5.40) m/uL Hgb (11.4-16.0) gm/dL Hct (34.0-46.0) % MCV (80.0-100.0) fL MCH (25.0-35.0) pg MCHC (31.0-37.0) g/dL RDW (11.5-15.5) % Plt Count (150-450) k/uL MPV Neutrophils % % Lymphocytes % % Monocytes % % Eosinophils % % Basophils % % Neutrophils # (1.3-7.7) k/uL Lymphocytes # (1.0-4.8) k/uL Monocytes # (0-1.0) k/uL Eosinophils # (0-0.7) k/uL Basophils # (0-0.2) k/uL Hypochromasia Poikilocytosis Anisocytosis Microcytosis PT (10.0-12.5) sec INR (<1.2) APTT (22.0-30.0) sec D-Dimer (<0.60) mg/L FEU Sodium (137-145) mmol/L Potassium (3.5-5.1) mmol/L Chloride (98-107) mmol/L Carbon Dioxide (22-30) mmol/L Anion Gap mmol/L BUN (7-17) mg/dL Creatinine (0.52-1.04) mg/dL Est GFR (CKD-EPI)AfAm (>60 ml/min/1.73 sqM) Est GFR (CKD-EPI)NonAf (>60 ml/min/1.73 sqM) Glucose (74-99) mg/dL Plasma Lactic Acid Angel 2.3 H* (0.7-2.0) mmol/L Calcium (8.4-10.2) mg/dL Magnesium (1.6-2.3) mg/dL Total Bilirubin (0.2-1.3) mg/dL AST (14-36) U/L ALT (4-34) U/L Alkaline Phosphatase (38-126) U/L Troponin I <0.012 (0.000-0.034) ng/mL NT-Pro-B Natriuret Pep pg/mL Total Protein (6.3-8.2) g/dL Albumin (3.5-5.0) g/dL Stool Occult Blood (Negative) Blood Type A Negative Blood Type Confirm Blood Type Recheck No Previous Record Bld Type Recheck Status CABO Indicated Antibody Screen NEGATIVE Crossmatch See Detail Spec Expiration Date 06/04/2024 - 234906/01/24 06/01/24 Range/Units 17:56 18:00 WBC (3.8-10.6) k/uL RBC (3.80-5.40) m/uL Hgb (11.4-16.0) gm/dL Hct (34.0-46.0) % MCV (80.0-100.0) fL MCH (25.0-35.0) pg MCHC (31.0-37.0) g/dL RDW (11.5-15.5) % Plt Count (150-450) k/uL MPV Neutrophils % % Lymphocytes % % Monocytes % % Eosinophils % % Basophils % % Neutrophils # (1.3-7.7) k/uL Lymphocytes # (1.0-4.8) k/uL Monocytes # (0-1.0) k/uL Eosinophils # (0-0.7) k/uL Basophils # (0-0.2) k/uL Hypochromasia Poikilocytosis Anisocytosis Microcytosis PT (10.0-12.5) sec INR (<1.2) APTT (22.0-30.0) sec D-Dimer (<0.60) mg/L FEU Sodium (137-145) mmol/L Potassium (3.5-5.1) mmol/L Chloride (98-107) mmol/L Carbon Dioxide (22-30) mmol/L Anion Gap mmol/L BUN (7-17) mg/dL Creatinine (0.52-1.04) mg/dL Est GFR (CKD-EPI)AfAm (>60 ml/min/1.73 sqM) Est GFR (CKD-EPI)NonAf (>60 ml/min/1.73 sqM) Glucose (74-99) mg/dL Plasma Lactic Acid Angel (0.7-2.0) mmol/L Calcium (8.4-10.2) mg/dL Magnesium (1.6-2.3) mg/dL Total Bilirubin (0.2-1.3) mg/dL AST (14-36) U/L ALT (4-34) U/L Alkaline Phosphatase (38-126) U/L Troponin I (0.000-0.034) ng/mL NT-Pro-B Natriuret Pep pg/mL Total Protein (6.3-8.2) g/dL Albumin (3.5-5.0) g/dL Stool Occult Blood Positive H (Negative) Blood Type Blood Type Confirm A Negative Blood Type Recheck Bld Type Recheck Status Antibody Screen Crossmatch Spec Expiration Date Critical Care Time Critical Care Time: Yes <Jad Donovan - Last Filed: 06/01/24 19:24> Disposition <Darrell Trent - Last Filed: 06/01/24 13:54> Is patient prescribed a controlled substance at d/c from ED?: No Time of Disposition: 19:24 <Jad Donovan - Last Filed: 06/01/24 19:24> Clinical Impression: Anemia, Dyspnea Disposition: ADMITTED IP TO THIS HOSP Condition: Serious Referrals: Derian Brasher MD [Primary Care Provider] - 1-2 days
--- NOTE | 2024-06-01 16:35 | XR ---
EXAMINATION TYPE: XR chest 2V DATE OF EXAM: 06/01/2024 COMPARISON: 02/07/2024 HISTORY: 69 year-old female shortness of breath TECHNIQUE: PA and lateral views FINDINGS: Dextro convex scoliosis along the upper thoracic spine. Heart is enlarged. Increasing small left pleu ral effusion with patchy left greater than right bibasilar opacity. IMPRESSION: Cardiomegaly with small left pleural effusion and patchy bibasilar opacities, left greater than right . Consider sequela of CHF versus underlying infiltrate.
[2024-06-01 17:25] LABS: Anisocytosis Slight; Basophils % (A) 0 %; Eosinophils % (A) 0 %; Hypochromasia Marked; Lymphocytes # (A) 1.3 k/uL (1.0-4.8); Lymphocytes % (A) 13 %; MCHC 27.4 g/dL (31.0-37.0); MCV 80.1 fL (80.0-100.0); Mean Platelet Volume 9.2; Microcytosis Slight; Monocytes # (A) 0.5 k/uL (0-1.0); Monocytes % (A) 5 %; Neutrophils # (A) 7.9 k/uL (1.3-7.7); Neutrophils % (A) 79 %; Platelet Count 362 k/uL (150-450); Poikilocytosis Moderate; RBC 2.19 m/uL (3.80-5.40); RDW 19.6 % (11.5-15.5); WBC 9.9 k/uL (3.8-10.6)
[2024-06-01 17:36] LABS: HCT 17.5 % (34.0-46.0); HGB 4.8 gm/dL (11.4-16.0)
[2024-06-01 17:41] LABS: ALT 22 U/L (4-34); AST 39 U/L (14-36); African American GFR (CKD) 75 (>60 ml/min/1.73 sqM); Albumin 3.6 g/dL (3.5-5.0); Alkaline Phosphatase 62 U/L (38-126); Anion Gap 9 mmol/L; Blood Urea Nitrogen 27 mg/dL (7-17); Calcium 8.5 mg/dL (8.4-10.2); Carbon Dioxide 24 mmol/L (22-30); Chloride 108 mmol/L (98-107); Glucose 148 mg/dL (74-99); Magnesium 2.2 mg/dL (1.6-2.3); Non-African American GFR(CKD) 65 (>60 ml/min/1.73 sqM); Potassium 4.1 mmol/L (3.5-5.1); Sodium 141 mmol/L (137-145); Total Bilirubin 0.7 mg/dL (0.2-1.3); Total Protein 7.2 g/dL (6.3-8.2)
[2024-06-01 17:47] LABS: INR 1.3 (<1.2); Partial Thromboplastin Time 23.7 sec (22.0-30.0)
[2024-06-01 17:49] LABS: NT-Pro-B-Type Natriuretic Pept 613 pg/mL
[2024-06-01] MEDS: PANTOPRAZOLE 40 MG/10 ML VIAL IVP STA (18:32)
[2024-06-01] MEDS ORDERED: ACETAMINOPHEN TAB 325 MG TAB PO PRN (19:25)
[2024-06-01] MEDS ORDERED: NALOXONE 0.4 MG/ML 1 ML VIAL IV PRN (19:25)
[2024-06-01] MEDS ORDERED: IPRATROPIUM-ALBUTEROL 3 ML NEB INHALATION PRN (19:25)
[2024-06-01] MEDS ORDERED: ALBUTEROL NEBULIZED 2.5 MG/3 ML INHALATION PRN (19:27)
[2024-06-01] MEDS: FUROSEMIDE 10 MG/ML 4 ML VIAL IV STA (22:07)
--- NOTE | 2024-06-01 22:11 | P.HPIM ---
History of Present Illness H&P Date: 06/01/24 HISTORY OF PRESENT ILLNESS: 69-year-old morbidly obese female one of my office patient for many years with active medical history of CAD post PCI and stent placement of the LAD, history of A-fib with RVR, history of PAD, COPD, morbid obesity, hypertension, hyperlipidemia, hyperglycemia, chronic edema, chronic kidney disease, obstructive sleep apnea. Using her CPAP on a regular basis also known to have history of bariatric surgery post gastric sleeve without significant weight loss. She was hospitalized last 8 weeks ago for severe dyspnea and shortness of breath found to have severe A-fib with RVR ended up having cardioversion to give her pulse rate down and had felt slightly bit better for shortness of time only. Continue to feel with worsening shortness of breath with minimal exertion since she left the hospital last time was seen cardiology, pulmonary and then our office. She presented to the hospital today at [facility] accompanied with her sister for severe worsening shortness of breath last few days not able to sleep or lay down flat in bed spending most of her time in recliner with severe dyspnea was seen and evaluated at the time her pulse ox Was running between 93 and 97, blood pressure was slightly below normal temperature. Surprisingly found to have hemoglobin of 4.8 dropped down in the last few weeks almost 5 g with hematocrit 17.5 platelet count 362 with normal white blood cell. Patient is on anticoagulation for A-fib with RVR first lactic acid was 2.3 and repeat lactic acid down to 1.8 troponin was negative Hemoccult was positive creatinine was 0.92 GFR 65 blood sugar was 148 proBNP was 613 only. Initiate protocol for blood transfusion and admission to the ICU with gastroenterology or general surgery backup for gastrointestinal bleed. Anticoagulation will be held and patient be seen pulmonary and cardiology as well. REVIEW OF SYSTEMS: CONSTITUTIONAL: Morbidly obese in mild respiratory distress. EYES: No icterus sclerae, no conjunctivitis. EARS, NOSE, MOUTH, THROAT, and FACE: No sore throat, lymphadenopathy, carotid bruits or deformity. RESPIRATORY: Mild shortness of breath cough and wheezes. CARDIOVASCULAR: Positive PND orthopnea palpitation but no angina. GASTROINTESTINAL: Slight abdominal bloating sensation with change in bowel habits black stool. GENITOURINARY: Negative for Hematuria or UTI, no kidney stones. Decreased urine output. INTEGUMENT/BREAST: Positive chronic edema and generalized arthralgia. HEMATOLOGIC/LYMPHATIC: Significant anemia and gastrointestinal bleed. MUSCULOSKELTAL: Negative for Myalgia or arthralgia. NEURLOGICAL: No LOC, Sz or syncope, blurred vision dizziness or abnormality.. BEHAVIORAL/PSYCH: Negative. ENDOCRINE: Negative. PHYSICAL EXAMINATION: General Appearance: Alert, obese cooperative mild distress. Neck HEENT: Supple, no lymphadenopathy, no thyroid enlargement, no carotid bruits. Lungs: Clear to auscultation without crackles positive mild rhonchi with slight expiratory wheezes. Chest Wall: Normal expansion expansion with deep inspiration no tenderness and no deformity was found on exam, no costochondral pain or discomfort. Heart: Irregular rate and rhythm, S1, S2 positive tachycardia positive S3 with systolic murmur. Back: Symmetric, no curvature, ROM normal, no CVA tenderness. Abdomen: Soft, positive bowel sound positive slight discomfort and irritation in the midepigastric and lower abdominal region area no rebound or rigidity. Extremities: Extremities normal, atraumatic, positive chronic stasis dermatitis with 1+ edema. Pulses: 2+ and symmetric. Skin: Skin color, texture, tugor normal, no rashes or lesions. Neurologic: Alert oriented x3 cranial nerves II through XII intact, no motor deficit, no abnormal balance or gait. ASSESSMENT AND PLAN: _Severe active gastrointestinal bleed with tarry stool and hemoglobin down to 4.8, 2 unit of blood transfusion be done repeat CBC following transfusion and continue to repeat in the morning, GI prophylaxis and off anticoagulation for now. _Acute blood loss anemia: With hemoglobin down to 4.8 transfusion will be initiated referral for gastroenterology and general surgery. _Active gastritis pantoprazole 40 mg IV twice a day be done patient probably will need to go for an EGD in the next 24 hours. _Severe dyspnea and shortness of breath: Most likely secondary to active severe anemia and gastrointestinal bleed, treat underlying disease continue oxygen continue supportive care. _Subacute on chronic respiratory failure: Mostly secondary to A-fib, cardiomyopathy, chronic asthma and atherosclerotic heart disease. _Atherosclerotic heart disease post angioplasty and stent placement of the LAD with 3 years ago that was still patent.Still doing good on medical management remain on rosuvastatin, metoprolol, furosemide will hold Eliquis. _A-fib/a flutter with tachycardia: Was hospitalized recently and had cardioversion remain on medical management responding well to Metoprolol and diltiazem. _Obstructive sleep apnea: Remain on CPAP on regular basis. _History of hyperlipidemia: Continue rosuvastatin 20 mg a day. _Congestive heart failure: Mostly diastolic dysfunction, will continue diuretics. _Valvular heart disease: Mostly mitral regurgitation which is mild along with trace of aortic insufficiency and again still on medical management no intervention required. _Large hiatal hernia post gastric sleeve: Remain on pantoprazole 40 mg daily. _Morbid obesity: Post lap band and gastric sleeve eventually with body mass index still above 4th percentile. _Anticoagulation: Was to continue Eliquis which will be held for now till the bleed stopped successfully. _Hypertension: Remain on diltiazem CD 180 mg daily and metoprolol succinate 25 mg a day. _History of chronic fatty liver: Aggravated with morbid obesity and borderline diabetes, with marginal liver function testing finding consistent with ALEX on ultrasound and liver function test. Continue weight loss program continue to watch liver enzymes on more regular basis. Eventually will benefit from adding SGLT2 product. _GI prophylaxis: Remain on pantoprazole. _DVT prophylaxis: Off Eliquis till the bleeding stopped. CODE STATUS: Full code. Admit patient to the inpatient service for more than 2 night stay. Past Medical History Past Medical History: Atrial Fibrillation, GERD/Reflux, Hearing Disorder / Deafness, Hypertension, Myocardial Infarction ([place]), Osteoarthritis (OA), Sleep Apnea/CPAP/BIPAP Additional Past Medical History / Comment(s): SEE DR ALVARENGA'S H&P. RECENT FLU - END OF OCT 2022. HX DIVERTICULITIS, HIATAL HERNIA,USES CPAP SOMETIMES, HARD OF HEARING. 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 Cardioversion. Past Anesthesia/Blood Transfusion Reactions: No Reported Reaction Date of Last Stent Placement:: 2021 Past Psychological History: No Psychological Hx Reported Smoking Status: Former smoker Past Alcohol Use History: None Reported Past Drug Use History: None Reported - Past Family History Mother Family Medical History: No Reported History Medications and Allergies Home Medications Medication Instructions Recorded Confirmed Type Pantoprazole [Protonix] 40 mg PO DAILY@0630 11/13/22 06/01/24 History Rosuvastatin [Crestor] 20 mg PO DAILY@0900 11/13/22 06/01/24 History Nitroglycerin Sl Tabs [Nitrostat] 0.4 mg SL Q5M PRN 02/10/23 06/01/24 History Albuterol Inhaler [Ventolin Hfa 2 puff INHALATION RT-Q4H PRN 06/01/24 06/01/24 History Inhaler] Apixaban [Eliquis] 5 mg PO BID@0900,2100 06/01/24 06/01/24 History Diltiazem Cd [Cardizem CD] 180 mg PO DAILY@0900 06/01/24 06/01/24 History Ferrous Sulfate [Feosol] 325 mg PO DAILY 06/01/24 06/01/24 History Furosemide [Lasix] 40 mg PO DAILY@0630 06/01/24 06/01/24 History Metoprolol Succinate (ER) [Toprol 100 mg PO DAILY@0900 06/01/24 06/01/24 History XL] Multivitamins, Thera [Multivitamin 1 tab PO DAILY 06/01/24 06/01/24 History (formulary)] Simethicone [Gas-X] 125 - 250 mg PO PC-TID PRN 06/01/24 06/01/24 History Allergies Allergy/AdvReac Type Severity Reaction Status Date / Time codeine Allergy went into Verified 06/01/24 17:29 corticate position, unable to see colors Physical Exam Vitals: Vital Signs Temp Pulse Resp BP Pulse Ox 06/01/24 21:42 76 18 110/52 97 06/01/24 20:45 97.3 F L 81 14 102/59 97 06/01/24 20:22 98.9 F 80 18 112/67 06/01/24 20:02 98.6 F 82 18 92/46 96 06/01/24 19:52 98.3 F 80 18 108/66 93 L 06/01/24 19:21 75 18 107/65 99 06/01/24 13:39 97.6 F 89 24 121/77 98 Intake and Output 06/01/24 06/01/24 06/01/24 06:59 14:59 22:59 Intake Total 310 Balance 310 Intake: Blood Product 310 Rc As-1 Unit 310 [id number] Other: Weight 117.934 kg Results CBC & Chem 7: 06/01/24 17:10 06/01/24 17:10 Labs: Abnormal Lab Results - Last 24 Hours (Table) 06/01/24 06/01/24 06/01/24 Range/Units 17:10 17:10 17:10 RBC 2.19 L (3.80-5.40) m/uL Hgb 4.8 L* (11.4-16.0) gm/dL Hct 17.5 L* (34.0-46.0) % MCH 22.0 L (25.0-35.0) pg MCHC 27.4 L (31.0-37.0) g/dL RDW 19.6 H (11.5-15.5) % Neutrophils # 7.9 H (1.3-7.7) k/uL PT 14.0 H (10.0-12.5) sec INR 1.3 H (<1.2) D-Dimer 1.04 H (<0.60) mg/L FEU Chloride 108 H (98-107) mmol/L BUN 27 H (7-17) mg/dL Glucose 148 H (74-99) mg/dL Plasma Lactic Acid Angel (0.7-2.0) mmol/L AST 39 H (14-36) U/L Stool Occult Blood (Negative) Crossmatch 06/01/24 06/01/24 06/01/24 Range/Units 17:10 17:50 17:56 RBC (3.80-5.40) m/uL Hgb (11.4-16.0) gm/dL Hct (34.0-46.0) % MCH (25.0-35.0) pg MCHC (31.0-37.0) g/dL RDW (11.5-15.5) % Neutrophils # (1.3-7.7) k/uL PT (10.0-12.5) sec INR (<1.2) D-Dimer (<0.60) mg/L FEU Chloride (98-107) mmol/L BUN (7-17) mg/dL Glucose (74-99) mg/dL Plasma Lactic Acid Angel 2.3 H* (0.7-2.0) mmol/L AST (14-36) U/L Stool Occult Blood Positive H (Negative) Crossmatch See Detail
--- NOTE | 2024-06-02 03:21 | P.CNPUL ---
History of Present Illness Consult date: 06/02/24 Requesting physician: Jad Donovan Reason for consult: other (ICU management) Chief complaint: Exertional dyspnea, generalized weakness, near syncope History of present illness: Patient is a 69-year-old white female with past medical history significant for hypertension, hyperlipidemia, CAD with previous PCI/stents, atrial fibrillation with previous cardioversions and is chronically anticoagulated on Eliquis, heart failure, obstructive sleep apnea with home CPAP, morbid obesity, previous denny atric surgery, among other things. Patient was most recently hospitalized January,, she was in atrial flutter/atrial fibrillation with rapid ventricular rate. She did have a synchronized cardioversion. She takes Eliquis for anticoagulation. Over the last month she has noted dark tarry stools, however, she felt related to her iron supplementation. Denies NSAID use. Denies any david blood loss. No nausea or vomiting. No abdominal pain. More recently, over the last 2 weeks, she has noted significant worsening in exertional dyspnea. Even with minimal ambulation to the restroom. She is also had associated generalized weakness. She states she has been dizzy and has almost passed out several times. Denies falling or completely losing consciousness. On arrival to [facility] emergency department, yesterday afternoon, she was noted to be severely anemic with a hemoglobin of 4.8 g/dL. Her stool occult blood was positive. She is currently still in the emergency department, room 2. She is sitting up in the recliner in no acute distress. She cannot remember when she had her last EGD/colonoscopy. She does have a remote history of previous gastric sleeve. She is receiving her second unit of PRBCs. Blood pressure is stable with the last reading of 121/56 mmHg. Current heart rhythm appears to be normal sinus on bedside monitor with a rate of 86 bpm. She denies any chest pain, heart palpitations. She does endorse some increased lower extremity swelling. She states that she has been compliant with her home Lasix doses, however, stopped taking her Aldactone. She feels this was causing some muscle cramps. She is currently on room air, no apparent respiratory distress. She did receive a dose of Lasix earlier. Chest x-ray demonstrates cardiomegaly with small left pleural effusion patchy bibasilar opacities left greater than right. Most consistent with CHF. There is also significant scoliosis. She denies any infectious-like symptoms such as cough, sputum production, fever, chest pain. NT proBNP only 613. CBC that was drawn on arrival has a WBC count of 9.9, hemoglobin 4.8, hematocrit 17.5, platelets 362. BMP taken on arrival: Sodium 141, potassium 4.1, chloride 108, serum bicarb 24, BUN 27, creatinine 0.92, glucose 148. Lactic acid was 2.3 and down to 1.8. LFTs unremarkable. Afebrile. Hemodynamics currently stable. Review of Systems REVIEW OF SYSTEMS: CONSTITUTIONAL: Denies any recent significant weight loss or weight gain. EYES: Denies change in vision. EARS, NOSE, MOUTH, THROAT: Denies headaches, denies sore throat. CARDIOVASCULAR: Denies chest pain, palpitations or syncopal episodes. Does report some lightheadedness on standing, denies any syncopal events. Also endorses some worsening lower extremity swelling. Admits orthopnea. Denies any PND. RESPIRATORY: See HPI GASTROINTESTINAL: Denies change in appetite, abdominal pain, nausea and vomiting. Admits dark tarry/pasty stools GENITOURINARY: Denies hematuria, denies infections. MUSKULOSKELETAL: Denies pain, denies swelling. INTEGUMENTARY: Denies rash, denies eczema. NEUROLOGICAL: Denies recent memory loss, no recent seizure activity. PSYCHIATRIC: Denies anxiety, denies depression. HEMATOLOGIC/LYMPHATIC: Denies anemia, denies enlarged lymph node Past Medical History Past Medical History: Atrial Fibrillation, GERD/Reflux, Hearing Disorder / Deafness, Hypertension, Myocardial Infarction ([place]), Osteoarthritis (OA), Sleep Apnea/CPAP/BIPAP Additional Past Medical History / Comment(s): SEE DR ALVARENGA'S H&P. RECENT FLU - END OF OCT 2022. HX DIVERTICULITIS, HIATAL HERNIA,USES CPAP SOMETIMES, HARD OF HEARING. 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 Cardioversion. Past Anesthesia/Blood Transfusion Reactions: No Reported Reaction Date of Last Stent Placement:: 2021 Past Psychological History: No Psychological Hx Reported Smoking Status: Former smoker Past Alcohol Use History: None Reported Past Drug Use History: None Reported - Past Family History Mother Family Medical History: No Reported History Medications and Allergies Home Medications Medication Instructions Recorded Confirmed Type Pantoprazole [Protonix] 40 mg PO DAILY@0630 11/13/22 06/01/24 History Rosuvastatin [Crestor] 20 mg PO DAILY@0900 11/13/22 06/01/24 History Nitroglycerin Sl Tabs [Nitrostat] 0.4 mg SL Q5M PRN 02/10/23 06/01/24 History Albuterol Inhaler [Ventolin Hfa 2 puff INHALATION RT-Q4H PRN 06/01/24 06/01/24 History Inhaler] Apixaban [Eliquis] 5 mg PO BID@0900,2100 06/01/24 06/01/24 History Diltiazem Cd [Cardizem CD] 180 mg PO DAILY@0900 06/01/24 06/01/24 History Ferrous Sulfate [Feosol] 325 mg PO DAILY 06/01/24 06/01/24 History Furosemide [Lasix] 40 mg PO DAILY@0606/01/24 06/01/24 History Metoprolol Succinate (ER) [Toprol 100 mg PO DAILY@0906/01/24 06/01/24 History XL] Multivitamins, Thera [Multivitamin 1 tab PO DAILY 06/01/24 06/01/24 History (formulary)] Simethicone [Gas-X] 125 - 250 mg PO PC-TID PRN 06/01/24 06/01/24 History Allergies Allergy/AdvReac Type Severity Reaction Status Date / Time codeine Allergy went into Verified 06/01/24 17:29 corticate position, unable to see colors Physical Exam Vitals: Vital Signs Temp Pulse Resp BP Pulse Ox 06/02/24 02:31 74 18 112/50 94 L 06/02/24 00:46 97.9 F 74 18 121/56 96 06/01/24 23:36 98.2 F 74 18 125/53 96 06/01/24 23:16 98.3 F 75 18 125/46 94 L 06/01/24 23:10 78 18 125/53 94 L 06/01/24 23:06 98.8 F 82 20 125/53 06/01/24 21:42 76 18 110/52 97 06/01/24 20:45 97.3 F L 81 14 102/59 97 06/01/24 20:22 98.9 F 80 18 112/67 06/01/24 20:02 98.6 F 82 18 92/46 96 06/01/24 19:52 98.3 F 80 18 108/66 93 L 06/01/24 19:21 75 18 107/65 99 06/01/24 13:39 97.6 F 89 24 121/77 98 Intake and Output 06/01/24 06/01/24 06/02/24 14:59 22:59 06:59 Intake Total 310 310 Balance 310 310 Intake: Blood Product 310 310 Rc As-1 Unit 310 [id number] Rc As-1 Unit 310 [id number] Other: Weight 117.934 kg GENERAL EXAM: Alert, morbidly obese 69-year-old white female, sitting up in the recliner, comfortable in no apparent distress. HEAD: Normocephalic and atraumatic EYES: Normal reaction of pupils, equal size. NOSE: Clear with pink turbinates. THROAT: No erythema or exudates. NECK: No masses, no JVD. CHEST: No chest wall deformity. LUNGS: Equal air entry with no crackles, wheeze, rhonchi or dullness. No conversational dyspnea or accessory muscle use.. CVS: S1 and S2 normal with no audible murmur, regular rhythm. No extra heart sounds ABDOMEN: Obese abdomen, active bowel sounds, no hepatosplenomegaly, no guarding or rigidity. SPINE: Thoracic level scoliosis noted SKIN: No rashes. Generalized pallor. CENTRAL NERVOUS SYSTEM: No focal deficits, tone is normal in all 4 extremities. EXTREMITIES: There bilateral lower extremity 2-3+ pitting edema. Peripheral pulses are 2+ and intact. Results - Laboratory Findings CBC and BMP: 06/01/24 17:10 06/01/24 17:10 PT/INR, D-dimer PT 14.0 sec (10.0-12.5) H 06/01/24 17:10 INR 1.3 (<1.2) H 06/01/24 17:10 D-Dimer 1.04 mg/L FEU (<0.60) H 06/01/24 17:10 Abnormal lab findings: Abnormal Labs 06/01/24 06/01/24 06/01/24 17:10 17:10 17:10 RBC 2.19 L Hgb 4.8 L* Hct 17.5 L* MCH 22.0 L MCHC 27.4 L RDW 19.6 H Neutrophils # 7.9 H PT 14.0 H INR 1.3 H D-Dimer 1.04 H Chloride 108 H BUN 27 H Glucose 148 H Plasma Lactic Acid Angel AST 39 H Stool Occult Blood Crossmatch 06/01/24 06/01/24 06/01/24 17:10 17:50 17:56 RBC Hgb Hct MCH MCHC RDW Neutrophils # PT INR D-Dimer Chloride BUN Glucose Plasma Lactic Acid Angel 2.3 H* AST Stool Occult Blood Positive H Crossmatch See Detail - Diagnostic Findings Chest x-ray: image reviewed Assessment and Plan Assessment: Symptomatic anemia, rule/out GI bleed, hemoglobin was noted to be 4.8 g/dL on arrival. Stool occult blood positive. Patient is status post 1 unit PRBC transfusion and has 1 additional unit of PRBCs transfusing at the moment. Acute on chronic diastolic CHF exacerbation, most recent echocardiogram 02/07/2024 estimates a preserved left ventricular ejection fraction of 50 to 55%, along with, trace/mild mitral and tricuspid regurgitation. Acute dyspnea, likely multifactorial, secondary to a combination of above. Chest x-ray demonstrates cardiomegaly with small left pleural effusion patchy bibasilar opacities left greater than right. Most consistent with CHF. NT proBNP only 613. Patient denies any infectious-like symptoms. Elevated D-dimer, pulmonary embolism is felt to be unlikely at this time History of hypertension History of hyperlipidemia History of coronary artery disease with previous PCI/stents to LAD History of paroxysmal atrial flutter/atrial fibrillation with previous cardioversion. Chronically anticoagulated on Eliquis. Morbid obesity, with a BMI of 52.5 kg/m Obstructive sleep apnea with home CPAP machine Remote history of gastric sleeve Plan: Patient's medications, labs, chest x-ray reviewed Currently on room air Patient is receiving her second unit of PRBCs currently. Patient is a received a dose of Lasix tonight, and this will be followed by Lasix 40 mg daily. Recheck H&H Monitor for active bleeding Gastroenterology consultation for possible EGD/colonoscopy Eliquis is on hold Add Protonix 40 mg twice daily Previous recommendations noted for CT of the abdomen and pelvis, however, patient has refused further imaging. Patient is going to be admitted to the intensive care unit for monitoring of active bleeding. If hemoglobin improves post PRBC transfusions and patient remains hemodynamically stable, patient may be downgraded later today. We will continue to follow, and further recommendations are forthcoming. I have personally seen and examined the patient, performed the documentation and the assessment and plan as written. Number of minutes spent on the visit:20 Time with Patient: Greater than 30
[2024-06-02 04:17] LABS: Anisocytosis Slight; HCT 22.7 % (34.0-46.0); Hypochromasia Marked; MCH 24.7 pg (25.0-35.0); MCHC 29.7 g/dL (31.0-37.0); MCV 83.2 fL (80.0-100.0); Microcytosis Slight; Platelet Count 308 k/uL (150-450); Poikilocytosis Marked; RBC 2.73 m/uL (3.80-5.40); RDW 19.5 % (11.5-15.5); WBC 11.3 k/uL (3.8-10.6)
[2024-06-02 04:24] LABS: HGB 6.7 gm/dL (11.4-16.0)
[2024-06-02 05:28] LABS: ALT 21 U/L (4-34); AST 34 U/L (14-36); African American GFR (CKD) 69 (>60 ml/min/1.73 sqM); Albumin 3.5 g/dL (3.5-5.0); Alkaline Phosphatase 59 U/L (38-126); Anion Gap 11 mmol/L; Blood Urea Nitrogen 26 mg/dL (7-17); Calcium 8.5 mg/dL (8.4-10.2); Carbon Dioxide 24 mmol/L (22-30); Chloride 110 mmol/L (98-107); Glucose 149 mg/dL (74-99); Non-African American GFR(CKD) 60 (>60 ml/min/1.73 sqM); Sodium 145 mmol/L (137-145); Total Bilirubin 1.7 mg/dL (0.2-1.3)
[2024-06-02] MEDS: FUROSEMIDE 40 MG TAB PO SCH (06:30)
[2024-06-02 06:46] LABS: Anisocytosis Slight; Basophils # (A) 0.1 k/uL (0-0.2); Basophils % (A) 1 %; Eosinophils # (A) 0.1 k/uL (0-0.7); Eosinophils % (A) 1 %; HCT 22.1 % (34.0-46.0); Hypochromasia Marked; Lymphocytes # (A) 1.5 k/uL (1.0-4.8); Lymphocytes % (A) 14 %; MCH 25.5 pg (25.0-35.0); MCHC 30.3 g/dL (31.0-37.0); MCV 84.1 fL (80.0-100.0); Mean Platelet Volume 7.9; Microcytosis Slight; Monocytes # (A) 0.8 k/uL (0-1.0); Monocytes % (A) 8 %; Neutrophils # (A) 7.5 k/uL (1.3-7.7); Neutrophils % (A) 74 %; Platelet Count 285 k/uL (150-450); Poikilocytosis Marked; RBC 2.63 m/uL (3.80-5.40); RDW 19.7 % (11.5-15.5); WBC 10.2 k/uL (3.8-10.6)
[2024-06-02 07:16] LABS: HGB 6.7 gm/dL (11.4-16.0)
[2024-06-02] MEDS ORDERED: PANTOPRAZOLE 40 MG/10 ML VIAL IV SCH (09:00)
[2024-06-02] MEDS: ATORVASTATIN 40 MG TAB PO SCH (09:33)
[2024-06-02] MEDS: METOPROLOL SUCCINATE (ER) 100 MG TAB.ER.24H PO SCH (09:33)
[2024-06-02] MEDS: MULTIVITAMINS, THERA 1 EACH TAB PO SCH (09:33)
[2024-06-02] MEDS: DILTIAZEM CD 180 MG CAP.ER.24H PO SCH (09:33)
[2024-06-02] MEDS: FERROUS SULFATE 325 MG TAB PO SCH (09:33)
[2024-06-02] MEDS: PANTOPRAZOLE 40 MG/10 ML VIAL IV SCH (10:36)
--- NOTE | 2024-06-02 10:36 | P.CONS ---
History of Present Illness - Reason for Consult Consult date: 06/02/24 Possible GI hemorrhage Requesting physician: Jad Donovan - Chief Complaint Shortness of breath - History of Present Illness This a pleasant 69-year-old female with a past medical history including coronary artery disease status post stents, atrial fibrillation on Eliquis last taken 06/01/2020 4 in the morning, morbid obesity with a history of gastric sleeve, chronic kidney disease, and obstructive sleep apnea who presented to the emergency department with complaints of shortness of breath. She states that she has been having shortness of breath that has progressively gotten worse over the last week. Blood work on initial exam in the emergency department showed the patient with a hemoglobin of 4.8, she was given 2 units of blood with repeat hemoglobin is 6.7 today. Gastroenterology was consulted for possible GI hemorrhage. Patient denies any bright red blood in her stool, states that it has been dark but she does take iron. However she does state that she stopped taking her iron about a week ago. Last dose of Eliquis was yesterday morning which she takes for atrial fibrillation. She denies using any NSAIDs. Denies any history of GI bleed in the past. No peptic ulcer disease, does have a history of mild esophagitis. Underwent upper endoscopy with Dr. Mathias in 2014 with findings of antral gastritis and esophagitis. She states last colonoscopy was also done by Dr. Mathias, no report available she states that possibly 10 years ago. She denies any abdominal pain states she does have some nausea but no vomiting. Had a bowel movement today, which she states was dark but not black. Review of Systems REVIEW OF SYSTEMS: CARDIOPULMONARY: No chest pain. Positive shortness of breath. Gastrointestinal: Abdominal pain. Nausea with no vomiting. No hematemesis, coffee-ground emesis. No rectal bleeding, patient reports dark stool. GENITOURINARY: No dysuria or hematuria. MUSCULOSKELETAL: Reports normal range of motion., Joint pain. SKIN: No rashes. No jaundice. ENDOCRINE: No chills, fevers. No excessive weight gain or loss. No polydipsia or polyuria. PSYCHIATRIC: Unremarkable. NEUROLOGY: No change in mental status. Denies dizziness, headache. ENT: Vision unremarkable. CONSTITUTIONAL: No recent weight loss. No fever, chills, night sweats. Past Medical History Past Medical History: Atrial Fibrillation, GERD/Reflux, Hearing Disorder / Deafness, Hypertension, Myocardial Infarction ([place]), Osteoarthritis (OA), Sleep Apnea/CPAP/BIPAP Additional Past Medical History / Comment(s): SEE DR ALVARENGA'S H&P. RECENT FLU - END OF OCT 2022. HX DIVERTICULITIS, HIATAL HERNIA,USES CPAP SOMETIMES, HARD OF HEARING. 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 Cardioversion. Past Anesthesia/Blood Transfusion Reactions: No Reported Reaction Date of Last Stent Placement:: 2021 Past Psychological History: No Psychological Hx Reported Smoking Status: Former smoker Past Alcohol Use History: None Reported Past Drug Use History: None Reported - Past Family History Mother Family Medical History: No Reported History Medications and Allergies Home Medications Medication Instructions Recorded Confirmed Type Pantoprazole [Protonix] 40 mg PO DAILY@0611/13/22 06/01/24 History Rosuvastatin [Crestor] 20 mg PO DAILY@0911/13/22 06/01/24 History Nitroglycerin Sl Tabs [Nitrostat] 0.4 mg SL Q5M PRN 02/10/23 06/01/24 History Albuterol Inhaler [Ventolin Hfa 2 puff INHALATION RT-Q4H PRN 06/01/24 06/01/24 History Inhaler] Apixaban [Eliquis] 5 mg PO BID@0900,2100 06/01/24 06/01/24 History Diltiazem Cd [Cardizem CD] 180 mg PO DAILY@0906/01/24 06/01/24 History Ferrous Sulfate [Feosol] 325 mg PO DAILY 06/01/24 06/01/24 History Furosemide [Lasix] 40 mg PO DAILY@0606/01/24 06/01/24 History Metoprolol Succinate (ER) [Toprol 100 mg PO DAILY@0906/01/24 06/01/24 History XL] Multivitamins, Thera [Multivitamin 1 tab PO DAILY 06/01/24 06/01/24 History (formulary)] Simethicone [Gas-X] 125 - 250 mg PO PC-TID PRN 06/01/24 06/01/24 History Allergies Allergy/AdvReac Type Severity Reaction Status Date / Time codeine Allergy went into Verified 06/01/24 17:29 corticate position, unable to see colors Physical Exam Vitals: Vital Signs Temp Pulse Resp BP Pulse Ox 06/02/24 08:06 97.6 F 80 18 120/61 96 06/02/24 07:51 97.8 F 78 18 104/54 95 06/02/24 06:28 79 18 112/52 94 L 06/02/24 02:31 74 18 112/50 94 L 06/02/24 00:46 97.9 F 74 18 121/56 96 06/01/24 23:36 98.2 F 74 18 125/53 96 06/01/24 23:16 98.3 F 75 18 125/46 94 L 06/01/24 23:10 78 18 125/53 94 L 06/01/24 23:06 98.8 F 82 20 125/53 06/01/24 21:42 76 18 110/52 97 06/01/24 20:45 97.3 F L 81 14 102/59 97 06/01/24 20:22 98.9 F 80 18 112/67 06/01/24 20:02 98.6 F 82 18 92/46 96 06/01/24 19:52 98.3 F 80 18 108/66 93 L 06/01/24 19:21 75 18 107/65 99 06/01/24 13:39 97.6 F 89 24 121/77 98 Intake and Output 06/01/24 06/02/24 06/02/24 22:59 06:59 14:59 Intake Total 310 310 0 Balance 310 310 0 Intake: Blood Product 310 310 0 Rc As-1 Unit 310 [id number] Rc As-1 Unit 310 [id number] Rc As-1 Unit 0 [id number] General appearance: The patient is alert, oriented, appears in no acute distress. HET: Head is normocephalic and atraumatic. Conjunctiva pink. Sclera anicteric. Neck: Supple without lymphadenopathy. Trachea midline. Heart: Regular. Lungs: Equal expansion, normal respiratory effort. Abdomen: Soft, morbidly obese, epigastric tenderness, distended. Skin: No rashes. No jaundice. Extremities: Normal skin color and turgor. No pedal edema. Neurological: No focal deficits. Alert and oriented x3. Results CBC & Chem 7: 06/02/24 06:10 06/02/24 03:37 Labs: Abnormal Lab Results - Last 24 Hours (Table) 06/01/24 06/01/24 06/01/24 Range/Units 17:10 17:10 17:10 WBC (3.8-10.6) k/uL RBC 2.19 L (3.80-5.40) m/uL Hgb 4.8 L* (11.4-16.0) gm/dL Hct 17.5 L* (34.0-46.0) % MCH 22.0 L (25.0-35.0) pg MCHC 27.4 L (31.0-37.0) g/dL RDW 19.6 H (11.5-15.5) % Neutrophils # 7.9 H (1.3-7.7) k/uL PT 14.0 H (10.0-12.5) sec INR 1.3 H (<1.2) D-Dimer 1.04 H (<0.60) mg/L FEU Chloride 108 H (98-107) mmol/L BUN 27 H (7-17) mg/dL Glucose 148 H (74-99) mg/dL Plasma Lactic Acid Angel (0.7-2.0) mmol/L Total Bilirubin (0.2-1.3) mg/dL AST 39 H (14-36) U/L Stool Occult Blood (Negative) Crossmatch 06/01/24 06/01/24 06/01/24 Range/Units 17:10 17:50 17:56 WBC (3.8-10.6) k/uL RBC (3.80-5.40) m/uL Hgb (11.4-16.0) gm/dL Hct (34.0-46.0) % MCH (25.0-35.0) pg MCHC (31.0-37.0) g/dL RDW (11.5-15.5) % Neutrophils # (1.3-7.7) k/uL PT (10.0-12.5) sec INR (<1.2) D-Dimer (<0.60) mg/L FEU Chloride (98-107) mmol/L BUN (7-17) mg/dL Glucose (74-99) mg/dL Plasma Lactic Acid Angel 2.3 H* (0.7-2.0) mmol/L Total Bilirubin (0.2-1.3) mg/dL AST (14-36) U/L Stool Occult Blood Positive H (Negative) Crossmatch See Detail 06/02/24 06/02/24 06/02/24 Range/Units 03:37 03:37 06:10 WBC 11.3 H (3.8-10.6) k/uL RBC 2.73 L 2.63 L (3.80-5.40) m/uL Hgb 6.7 L* D 6.7 L* (11.4-16.0) gm/dL Hct 22.7 L 22.1 L (34.0-46.0) % MCH 24.7 L (25.0-35.0) pg MCHC 29.7 L 30.3 L (31.0-37.0) g/dL RDW 19.5 H 19.7 H (11.5-15.5) % Neutrophils # (1.3-7.7) k/uL PT (10.0-12.5) sec INR (<1.2) D-Dimer (<0.60) mg/L FEU Chloride 110 H (98-107) mmol/L BUN 26 H (7-17) mg/dL Glucose 149 H (74-99) mg/dL Plasma Lactic Acid Angel (0.7-2.0) mmol/L Total Bilirubin 1.7 H (0.2-1.3) mg/dL AST (14-36) U/L Stool Occult Blood (Negative) Crossmatch Assessment and Plan (1) Anemia Narrative/Plan: 69-year-old female presenting with shortness of breath found to have severe anemia with a hemoglobin of 4.8 platelet count 362,000 INR 1.3 anticoagulation for atrial fibrillation. No previous history of GI bleed does have a positive occult stool with concerns of possible source of anemia from GI tract. Anemia is normocytic normochromic anemia. Need to consider source from possible GI bleed. Discussed with patient and will proceed with upper and lower endoscopy, possible small bowel capsule endoscopy. Continue to monitor CBC, patient will receive 2 more units of blood. Current Visit: Yes Status: Acute Code(s): D64.9 - ANEMIA, UNSPECIFIED SNOMED Code(s): 172859514 (2) Coronary artery disease Current Visit: Yes Status: Acute Code(s): I25.10 - ATHSCL HEART DISEASE OF [place] CORONARY ARTERY W/O ANG PCTRS SNOMED Code(s): 80604191 (3) Chronic anticoagulation Narrative/Plan: Hold anticoagulation Current Visit: Yes Status: Acute Code(s): Z79.01 - PRINT BUYER (CURRENT) USE OF ANTICOAGULANTS SNOMED Code(s): 138534028 (4) Atrial fibrillation Current Visit: Yes Status: Acute Code(s): I48.91 - UNSPECIFIED ATRIAL FIBRILLATION SNOMED Code(s): 22143956 (5) Chronic kidney disease Current Visit: Yes Status: Acute Code(s): N18.9 - CHRONIC KIDNEY DISEASE, UNSPECIFIED SNOMED Code(s): 389298843 (6) Morbid obesity Current Visit: Yes Status: Acute Code(s): E66.01 - MORBID (SEVERE) OBESITY DUE TO EXCESS CALORIES SNOMED Code(s): 619007345 Plan: 1. Continue symptomatic and supportive care 2. Hold Eliquis 3. Patient can have clear liquid diet, n.p.o. after midnight 4. Daily CBC, transfuse for hemoglobin less than 7 5. Agree with blood transfusion 6. Protonix 40 mg twice daily 7. Plan for bowel prep this evening 8. Patient scheduled for EGD and colonoscopy with possible small bowel capsule endoscopy tomorrow 9. CT abdomen pelvis and CT chest currently pending Thank you for this consultation, we will continue to follow. Dr. Priyanka Lira I agree with the dictator's note, documented as a scribe by Mae Strauss.
--- NOTE | 2024-06-02 12:12 | P.PN ---
Subjective Progress Note Date: 06/02/24 HISTORY OF PRESENT ILLNESS: 69-year-old morbidly obese female one of my office patient for many years with active medical history of CAD post PCI and stent placement of the LAD, history of A-fib with RVR, history of PAD, COPD, morbid obesity, hypertension, hyperlipidemia, hyperglycemia, chronic edema, chronic kidney disease, obstructive sleep apnea. Using her CPAP on a regular basis also known to have history of bariatric surgery post gastric sleeve without significant weight loss. She was hospitalized last 8 weeks ago for severe dyspnea and shortness of breath found to have severe A-fib with RVR ended up having cardioversion to give her pulse rate down and had felt slightly bit better for shortness of time only. Continue to feel with worsening shortness of breath with minimal exertion since she left the hospital last time was seen cardiology, pulmonary and then our office. She presented to the hospital today at [facility] accompanied with her sister for severe worsening shortness of breath over the last few days not able to sleep or lay down flat in bed spending most of her time in recliner with severe dyspnea was seen and evaluated at the time her pulse ox Was running between 93 and 97, blood pressure was slightly below normal temperature. Surpri singly found to have hemoglobin of 4.8 dropped down in the last few weeks almost 5 g with hematocrit 17.5 platelet count 362 with normal white blood cell. Patient is on anticoagulation for A-fib with RVR first lactic acid was 2.3 and repeat lactic acid down to 1.8, troponin was negative, Hemoccult was positive, creatinine was 0.92, GFR 65, blood sugar was 148, proBNP was 613 only. Initiate protocol for blood transfusion and admission to the ICU with gastroenterology or general surgery backup for gastrointestinal bleed. Anticoagulation will be held and patient be seen pulmonary and cardiology as well. 06/02/24: Patient is receiving her third unit of PRBCs, currently waiting for bed to become available in the ICU. Following 2nd unit hemoglobin was 6.7, hematocrit was 22.1, platelet count was 285, white blood cell 10.2, BUN 26, creatinine 0.98, blood glucose 149. Repeat labs pending completion of 3rd and 4th units. CT abdomen and CTA chest pending. GI recommending EGD and colonoscopy tomorrow with possible small bowel capsule endoscopy, will be made NPO at ri dnight, okay for clears today. Pulmonary has evaluated the patient, recommendations pending GI evaluation. Vital signs are stable. Patient is feeling slightly better following blood transfusion, still with some shortness of breath. REVIEW OF SYSTEMS: CONSTITUTIONAL: Morbidly obese in mild respiratory distress with exertion. EYES: No icterus sclerae, no conjunctivitis. EARS, NOSE, MOUTH, THROAT, and FACE: No sore throat, lymphadenopathy, carotid bruits or deformity. RESPIRATORY: Mild shortness of breath. CARDIOVASCULAR: Positive PND, orthopnea, palpitation, but no angina. GASTROINTESTINAL: Slight abdominal bloating sensation with change in bowel habits black stool. GENITOURINARY: Negative for Hematuria or UTI, no kidney stones. Decreased urine output. INTEGUMENT/BREAST: Positive chronic edema and generalized arthralgia. HEMATOLOGIC/LYMPHATIC: Significant anemia and gastrointestinal bleed. MUSCULOSKELTAL: Negative for Myalgia or arthralgia. NEURLOGICAL: No LOC, Sz or syncope, blurred vision dizziness or abnormality.. BEHAVIORAL/PSYCH: Negative. ENDOCRINE: Negative. PHYSICAL EXAMINATION: General Appearance: Alert, obese cooperative mild distress. Neck HEENT: Supple, no lymphadenopathy, no thyroid enlargement, no carotid bruits. Lungs: Clear to auscultation without crackles, rhonchi, or wheezes. Chest Wall: Normal expansion with deep inspiration, no tenderness and no deformity was found on exam, no costochondral pain or discomfort. Heart: Irregular rate and rhythm, S1, S2 positive tachycardia positive S3 with systolic murmur. Back: Symmetric, no curvature, ROM normal, no CVA tenderness. Abdomen: Soft, positive bowel sounds, slight discomfort in the midepigastric and lower abdominal region area no rebound or rigidity. Extremities: Extremities normal, atraumatic, positive chronic stasis dermatitis with +2 edema. Pulses: 2+ and symmetric. Skin: Skin color, texture, tugor normal, no rashes or lesions. Neurologic: Alert oriented x3 cranial nerves II through XII intact, no motor deficit, no abnormal balance or gait. ASSESSMENT AND PLAN: _Severe active gastrointestinal bleed with tarry stool and hemoglobin down to 4.8, following 2 units of blood hemoglobin increased to 6.7, additional 2 units ordered with repeat CBC to follow. Pantoprazole 40mg IV twice a day was started for GI prophylaxis, anticoagulation for now. CT Abdomen/pelvis pending. _Acute blood loss anemia: On admission hemoglobin as 4.8, blood currently transfusing, initiated referral for gastroenterology. _Active gastritis: pantoprazole 40 mg IV twice a day be done patient probably will need to go for an EGD in the next 24 hours. _Severe dyspnea and shortness of breath: Most likely secondary to active severe anemia and gastrointestinal bleed, improved following transfusion of 2 units PRBC, treat underlying disease. Oxygen saturation 96% on room air. Pulmonary requested CTA chest for possible PE, pt was on Eliquis already. _Subacute on chronic respiratory failure: Mostly secondary to A-fib, cardiomyopathy, chronic asthma and atherosclerotic heart disease. _Atherosclerotic heart disease post angioplasty and stent placement of the LAD with 3 years ago that was still patent. Still doing good on medical management remain on rosuvastatin, metoprolol, furosemide. Holding Eliquis. _A-fib/a flutter with tachycardia: Was hospitalized recently and had cardioversion. Currently in sinus rhythm. Remain on medical management, responding well to Metoprolol and diltiazem. _Obstructive sleep apnea: Remain on CPAP on regular basis. _History of hyperlipidemia: Continue rosuvastatin 20 mg a day. _Congestive heart failure: Mostly diastolic dysfunction, will continue diuretics. Was given additional dose of furosemide 40mg IV after receiving 2 units of PRBC. _Valvular heart disease: Mostly mitral regurgitation which is mild along with trace of aortic insufficiency and again still on medical management no intervention required. _Large hiatal hernia post gastric sleeve: Remains on pantoprazole 40 mg daily, increased to 40mg IV twice a day while inpatient. _Morbid obesity: Post lap band and gastric sleeve eventually with body mass index still above 4th percentile. _Anticoagulation: Was to continue Eliquis which will be held for now untill the bleeding is stopped successfully. _Hypertension: Remain on diltiazem CD 180 mg daily and metoprolol succinate 25 mg a day. Blood pressure stable. _History of chronic fatty liver: Aggravated with morbid obesity and borderline d iabetes, with marginal liver function testing finding consistent with ALEX on ultrasound and liver function test. Continue weight loss program continue to watch liver enzymes on more regular basis. Eventually will benefit from adding SGLT2 product. Discussion: GI recommending EGD with colonoscopy with possible small bowel capsule endoscopy, will plan for this tomorrow, patient will complete bowel prep today and be made NPO at midnight. Will continue to check CBC every 8 hours, transfuse for hgb <7. The patient was seen and evaluated by Dr. Brasher. Plan, assessment and medications were all discussed, reviewed, and directed by Dr. Brasher with Elfego VILLARREAL acting as a scribe. Objective - Vital Signs Vital signs: Vital Signs Temp 97.8 F 06/02/24 08:26 Pulse 77 06/02/24 09:32 Resp 18 06/02/24 09:32 BP 128/58 06/02/24 09:32 Pulse Ox 96 06/02/24 09:32 FiO2 Intake & Output 06/01/24 06/02/24 06/02/24 18:59 06:59 18:59 Intake Total 620 0 Balance 620 0 Weight 117.934 kg Intake: Blood Product 620 0 Rc As-1 Unit 310 [id number] Rc As-1 Unit 310 [id number] Rc As-1 Unit 0 [id number] - Labs CBC & Chem 7: 06/02/24 06:10 06/02/24 03:37 Labs: Abnormal Lab Results - Last 24 Hours (Table) 06/01/24 06/01/24 06/01/24 Range/Units 17:10 17:10 17:10 WBC (3.8-10.6) k/uL RBC 2.19 L (3.80-5.40) m/uL Hgb 4.8 L* (11.4-16.0) gm/dL Hct 17.5 L* (34.0-46.0) % MCH 22.0 L (25.0-35.0) pg MCHC 27.4 L (31.0-37.0) g/dL RDW 19.6 H (11.5-15.5) % Neutrophils # 7.9 H (1.3-7.7) k/uL PT 14.0 H (10.0-12.5) sec INR 1.3 H (<1.2) D-Dimer 1.04 H (<0.60) mg/L FEU Chloride 108 H (98-107) mmol/L BUN 27 H (7-17) mg/dL Glucose 148 H (74-99) mg/dL Plasma Lactic Acid Angel (0.7-2.0) mmol/L Total Bilirubin (0.2-1.3) mg/dL AST 39 H (14-36) U/L Stool Occult Blood (Negative) Crossmatch 06/01/24 06/01/24 06/01/24 Range/Units 17:10 17:50 17:56 WBC (3.8-10.6) k/uL RBC (3.80-5.40) m/uL Hgb (11.4-16.0) gm/dL Hct (34.0-46.0) % MCH (25.0-35.0) pg MCHC (31.0-37.0) g/dL RDW (11.5-15.5) % Neutrophils # (1.3-7.7) k/uL PT (10.0-12.5) sec INR (<1.2) D-Dimer (<0.60) mg/L FEU Chloride (98-107) mmol/L BUN (7-17) mg/dL Glucose (74-99) mg/dL Plasma Lactic Acid Angel 2.3 H* (0.7-2.0) mmol/L Total Bilirubin (0.2-1.3) mg/dL AST (14-36) U/L Stool Occult Blood Positive H (Negative) Crossmatch See Detail 06/02/24 06/02/24 06/02/24 Range/Units 03:37 03:37 06:10 WBC 11.3 H (3.8-10.6) k/uL RBC 2.73 L 2.63 L (3.80-5.40) m/uL Hgb 6.7 L* D 6.7 L* (11.4-16.0) gm/dL Hct 22.7 L 22.1 L (34.0-46.0) % MCH 24.7 L (25.0-35.0) pg MCHC 29.7 L 30.3 L (31.0-37.0) g/dL RDW 19.5 H 19.7 H (11.5-15.5) % Neutrophils # (1.3-7.7) k/uL PT (10.0-12.5) sec INR (<1.2) D-Dimer (<0.60) mg/L FEU Chloride 110 H (98-107) mmol/L BUN 26 H (7-17) mg/dL Glucose 149 H (74-99) mg/dL Plasma Lactic Acid Angel (0.7-2.0) mmol/L Total Bilirubin 1.7 H (0.2-1.3) mg/dL AST (14-36) U/L Stool Occult Blood (Negative) Crossmatch
[2024-06-02] MEDS: PEG 3350 (236 GM/BTL) + LYTES 4,000 ML BOTTLE PO ONE (17:51)
--- NOTE | 2024-06-02 19:14 | CT ---
CTA CHEST EXAMINATION TYPE: CT angio chest DATE OF EXAM: 06/02/2024 INDICATION: Elevated d dimer. SOB CT DLP: Combined DLP of 3014.5 mGycm, Automated exposure control for dose reduction was used. CONTRAST: Patient injected with 100 ml mL of Isovue 370. COMPARISON: None TECHNIQUE: CT of the chest is performed on a spiral scan at 2 mm thick sections. Study is performed with intravenous contrast timed for evaluation for pulmonary embolism. This will limit additional po rtions of the evaluation. 3-D MIP images reconstructed by the technologist are reviewed on the compu ter in the coronal and sagittal planes. FINDINGS: No persistent filling defects are evident to suggest an acute pulmonary embolism. No mediastinal or hilar adenopathy enlarged by CT criteria is evident. The ascending aorta diameter at the level of the main pulmonary artery is 3.8 cm. The main pulmonary artery diameter at the bifurcation is 3.5 cm. The aorta is tortuous There is a small left pleural effusion. Minimal right pleural effusion present. There is consolidatio n in the left lower lobe. Correlate for atelectasis and pneumonia. Some mild groundglass opacity may be at the lung apices. Limited CT sections were through the upper abdomen. Small hiatal hernia is present. IMPRESSION: 1. No acute pulmonary embolism. 2. Small left minimal right pleural effusions. 3. Consolidation at the left base. Correlate for atelectasis pneumonia.
--- NOTE | 2024-06-02 19:24 | CT ---
EXAMINATION TYPE: CT abdomen pelvis w con CT DLP: 1830 mGycm, Automated exposure control for dose reduction was used. DATE OF EXAM: 06/02/2024 6:54 PM COMPARISON: None CLINICAL INDICATION:Female, 69 years old with history of abp; TECHNIQUE: Axial CT abdomen pelvis w con;Sagittal and coronal reformats were created on a separate w orkstation. Contrast used: 100 cc Isovue 370 (none if empty) Oral contrast used: (none if empty) FINDINGS: LOWER CHEST: Trace right and small left pleural effusion. Trachea atelectasis in the lung bases. Mild exercise. Mitral valve annular cusp patient's. Atherosclerosis of the coronary arteries. ABDOMEN LIVER: Unremarkable GALLBLADDER AND BILE DUCTS: Unremarkable. PANCREAS: Minimal fat stranding changes around the pancreatic head. No organizing fluid collections. SPLEEN: Unremarkable. ADRENAL GLANDS: Unremarkable. KIDNEYS AND URETERS: No evidence of hydronephrosis or renal calculus. The ureters are unremarkable. PELVIS BLADDER: Unremarkable REPRODUCTIVE: Unremarkable. ABDOMEN & PELVIS STOMACH AND BOWEL: No evidence of bowel obstruction. Small hiatal hernia. Scattered colonic diverticu la. Postsurgical change the gastric lumen. PERITONEUM/RETROPERITONEUM: No evidence of pneumoperitoneum or free fluid. VASCULATURE: No evidence of aortic aneurysm. MUSCULOSKELETAL: No acute osseous abnormalities LYMPH NODES: No gross evidence for lymphadenopathy. SOFT TISSUE/ABDOMINAL WALL: Unremarkable IMPRESSION: 1. Mild Fat stranding changes around the pancreas correlate serum lipase to exclude mild pigtail wit h. 2. Mild mild coronary artery atherosclerosis. 3. Cardiomegaly. 4. Nodular contour to liver quite for cirrhosis. 5. Small hiatal hernia. 6. Colonic diverticulosis. 7. Small left pleural effusion trace right.
[2024-06-02 23:09] LABS: Anisocytosis Slight; HCT 28.3 % (34.0-46.0); Hypochromasia Marked; MCH 25.8 pg (25.0-35.0); MCHC 31.1 g/dL (31.0-37.0); MCV 82.9 fL (80.0-100.0); Microcytosis Slight; Platelet Count 292 k/uL (150-450); Poikilocytosis Marked; RBC 3.42 m/uL (3.80-5.40); WBC 9.2 k/uL (3.8-10.6)
[2024-06-02 23:29] LABS: HGB 8.8 gm/dL (11.4-16.0)
[2024-06-03 08:05] LABS: Anisocytosis Slight; HCT 28.4 % (34.0-46.0); HGB 8.9 gm/dL (11.4-16.0); Hypochromasia Marked; MCH 25.8 pg (25.0-35.0); MCHC 31.4 g/dL (31.0-37.0); MCV 82.1 fL (80.0-100.0); Mean Platelet Volume 9.5; Microcytosis Slight; Platelet Count 274 k/uL (150-450); Poikilocytosis Marked; RBC 3.46 m/uL (3.80-5.40); RDW 18.9 % (11.5-15.5); WBC 8.7 k/uL (3.8-10.6)
[2024-06-03 08:22] LABS: African American GFR (CKD) 82 (>60 ml/min/1.73 sqM); Anion Gap 8 mmol/L; Blood Urea Nitrogen 17 mg/dL (7-17); Calcium 8.2 mg/dL (8.4-10.2); Carbon Dioxide 26 mmol/L (22-30); Chloride 107 mmol/L (98-107); Glucose 113 mg/dL (74-99); Non-African American GFR(CKD) 71 (>60 ml/min/1.73 sqM); Potassium 3.5 mmol/L (3.5-5.1); Sodium 141 mmol/L (137-145)
--- NOTE | 2024-06-03 12:05 | P.PN ---
Subjective Progress Note Date: 06/03/24 Principal diagnosis: Anemia. Patient is a 69-year-old white female with past medical history significant for hypertension, hyperlipidemia, CAD with previous PCI/stents, atrial fibrillation with previous cardioversions and is chronically anticoagulated on Eliquis, heart failure, obstructive sleep apnea with home CPAP, morbid obesity, previous bariatric surgery, among other things. Patient was most recently hospitalized January,, she was in atrial flutter/atrial fibrillation with rapid ventricular rate. She did have a synchronized cardioversion. She takes Eliquis for anticoagulation. Over the last month she has noted dark tarry stools, however, she felt related to her iron supplementation. Denies NSAID use. Denies any david blood loss. No nausea or vomiting. No abdominal pain. More recently, over the last 2 weeks, she has noted significant worsening in exerti onal dyspnea. Even with minimal ambulation to the restroom. She is also had associated generalized weakness. She states she has been dizzy and has almost passed out several times. Denies falling or completely losing consciousness. On arrival to [facility] emergency department, yesterday afternoon, she was noted to be severely anemic with a hemoglobin of 4.8 g/dL. Her stool occult blood was positive. She is currently still in the emergency department, room 2. She is sitting up in the recliner in no acute distress. She cannot remember when she had her last EGD/colonoscopy. She does have a remote history of previous gastric sleeve. She is receiving her second unit of PRBCs. Blood pressure is stable with the last reading of 121/56 mmHg. Current heart rhythm appears to be normal sinus on bedside monitor with a rate of 86 bpm. She denies any chest pain, heart palpitations. She does endorse some increased lower extremity swelling. She states that she has been compliant with her home Lasix doses, however, stopped taking her Aldactone. She feels this was causing some muscle cramps. She is currently on room air, no apparent respiratory distress. She did receive a dose of Lasix earlier. Chest x-ray demonstrates cardiomegaly with small left pleural effusion patchy bibasilar opacities left greater than right. Most consistent with CHF. There is also significant scoliosis. She denies any infectious-like symptoms such as cough, sputum production, fever, chest pain. NT proBNP only 613. CBC that was drawn on arrival has a WBC count of 9.9, hemoglobin 4.8, hematocrit 17.5, platelets 362. BMP taken on arrival: Sodium 141, potassium 4.1, chloride 108, serum bicarb 24, BUN 27, creatinine 0.92, glucose 148. Lactic acid was 2.3 and down to 1.8. LFTs unremarkable. Afebrile. Hemodynamics currently stable. Progress note dated June 03, 2024. 69-year-old female seen today in room 156. She was initially seen in the emergency department, with a GI bleed. The patient was found to be quite anemic, with a hemoglobin of 4.8. Currently, the patient is seen in room 156. The patient is currently on room air. She is not receiving any IV fluids. The patient is scheduled for an EGD and colonoscopy today. Since coming into the hospital, she has received a total of 4 units of packed red blood cells. Current labs include a white count 8.7, hemoglobin up to 8.9, hematocrit 28.4, with a normal platelet count. Sodium 141, potassium 3.5, chlorides 107, CO2 26, BUN 17, creatinine 0.85. Glucose 113, and calcium 8.2. CTA was negative for pulmonary embolism. There is a small left-sided pleural effusion. Objective - Vital Signs Vital signs: Vital Signs Temp 98.3 F 06/03/24 07:28 Pulse 82 06/03/24 08:00 Resp 16 06/03/24 07:28 BP 131/76 06/03/24 07:28 Pulse Ox 96 06/03/24 07:28 FiO2 Intake & Output 06/02/24 06/03/24 06/03/24 18:59 06:59 18:59 Intake Total 716 1920 Balance 716 1920 Weight 117.934 kg 119.93 kg Intake: Oral 120 1920 Blood Product 596 Rc As-1 Unit 310 [id number] Rc Pheresis 2 As3 Unit 286 [id number] Other: Voiding Method Toilet Toilet # Voids 5 # Bowel Movements 5 - Exam No acute distress, oriented 3. HEENT examination is grossly unremarkable. Mucous membranes are moist. No oral lesions. Neck supple. Full range of motion. No adenopathy thyromegaly or neck vein distention. Cardiovascular examination reveals regular rhythm rate. S1-S2 normal. No S3 or S4. No discernible murmur noted. Lungs reveal clear breath sounds. Breath sounds are equal bilaterally. No adventitious lung sounds including wheezes rhonchi or crackles. Abdomen soft bowel sounds are heard. No masses or tenderness. Extremities are intact. No cyanosis or clubbing. Mild edema. Skin is without rash or lesion. Neurologic examination is brief but nonfocal. - Labs CBC & Chem 7: 06/03/24 07:06 06/03/24 07:06 Labs: Abnormal Lab Results - Last 24 Hours (Table) 06/01/24 06/02/24 06/03/24 Range/Units 17:50 22:53 07:06 RBC 3.42 L 3.46 L (3.80-5.40) m/uL Hgb 8.8 L D 8.9 L (11.4-16.0) gm/dL Hct 28.3 L 28.4 L (34.0-46.0) % RDW 19.0 H 18.9 H (11.5-15.5) % Glucose (74-99) mg/dL Calcium (8.4-10.2) mg/dL Crossmatch See Detail 06/03/24 Range/Units 07:06 RBC (3.80-5.40) m/uL Hgb (11.4-16.0) gm/dL Hct (34.0-46.0) % RDW (11.5-15.5) % Glucose 113 H (74-99) mg/dL Calcium 8.2 L (8.4-10.2) mg/dL Crossmatch Assessment and Plan Assessment: Symptomatic anemia, rule/out GI bleed, hemoglobin was noted to be 4.8 g/dL on arrival. Acute on chronic diastolic CHF exacerbation. Acute dyspnea, likely multifactorial, secondary to a combination of above. Elevated D-dimer, pulmonary embolism was ruled out. History of hypertension. History of hyperlipidemia. History of coronary artery disease with previous PCI/stents to LAD. History of paroxysmal atrial flutter/atrial fibrillation with previous cardioversion. Morbid obesity, with a BMI of 52.5 kg/m. Obstructive sleep apnea with home CPAP machine. Remote history of gastric sleeve. Plan: Plan dated June 03, 2024. The patient is scheduled to have an EGD and colonoscopy today. Since being here in the hospital, she has received a total of 4 units of packed red blood cells. Overall prognosis remains guarded. We will continue to follow the patient, make recommendations along the way. Labs, x-rays, and all medications are reviewed. Currently, the patient is on room air. She is not receiving any IV fluids. Time with Patient: Less than 30
--- NOTE | 2024-06-03 13:01 | P.PN ---
Subjective Progress Note Date: 06/03/24 HISTORY OF PRESENT ILLNESS: 69-year-old morbidly obese female one of my office patient for many years with active medical history of CAD post PCI and stent placement of the LAD, history of A-fib with RVR, history of PAD, COPD, morbid obesity, hypertension, hyperlipidemia, hyperglycemia, chronic edema, chronic kidney disease, obstructive sleep apnea. Using her CPAP on a regular basis also known to have history of bariatric surgery post gastric sleeve without significant weight loss. She was hospitalized last 8 weeks ago for severe dyspnea and shortness of breath found to have severe A-fib with RVR ended up having cardioversion to give her pulse rate down and had felt slightly bit better for shortness of time only. Continue to feel with worsening shortness of breath with minimal exertion since she left the hospital last time was seen cardiology, pulmonary and then our office. She presented to the hospital today at [facility] accompanied with her sister for severe worsening shortness of breath over the last few days not able to sleep or lay down flat in bed spending most of her time in recliner with severe dyspnea was seen and evaluated at the time her pulse ox Was running between 93 and 97, blood pressure was slightly below normal temperature. Surpri singly found to have hemoglobin of 4.8 dropped down in the last few weeks almost 5 g with hematocrit 17.5 platelet count 362 with normal white blood cell. Patient is on anticoagulation for A-fib with RVR first lactic acid was 2.3 and repeat lactic acid down to 1.8, troponin was negative, Hemoccult was positive, creatinine was 0.92, GFR 65, blood sugar was 148, proBNP was 613 only. Initiate protocol for blood transfusion and admission to the ICU with gastroenterology or general surgery backup for gastrointestinal bleed. Anticoagulation will be held and patient be seen pulmonary and cardiology as well. 06/02/24: Patient is receiving her third unit of PRBCs, currently waiting for bed to become available in the ICU. Following 2nd unit hemoglobin was 6.7, hematocrit was 22.1, platelet count was 285, white blood cell 10.2, BUN 26, creatinine 0.98, blood glucose 149. Repeat labs pending completion of 3rd and 4th units. CT abdomen and CTA chest pending. GI recommending EGD and colonoscopy tomorrow with possible small bowel capsule endoscopy, will be made NPO at [facility], okay for clears today. Pulmonary has evaluated the patient, recommendations pending GI evaluation. Vital signs are stable. Patient is feeling slightly better following blood transfusion, still with some shortness of breath. 06/03/24: Patient has received a total of 4 units PRBCs, hemoglobin greatly improved following transfusion now up to 8.9 this morning, hematocrit 28.4, white blood cell 8.7, Platelets 274, potassium 3.5, BUN 17, creatinine 0.85. Vital signs continue to be stable, blood pressure 131/76, heart rate 82, oxygen saturation 96% on room air, afebrile. CTA was negative for acute pulmonary embolism, revealed small bilateral pleural effusions, consolidation at the left base. CT of the abdomen and pelvis findings include mild fat stranding changes around the pancreas, mild coronary artery atherosclerosis, cardiomegaly, small hiatal hernia, colonic diverticulosis, and small bilateral pleural effusions. Patient is looking and feeling much better today, denies having any more bloody stools, is currently undergoing bowel prep for planned EGD and colonoscopy later today with Dr. Lira. If all goes well will plan for discharge tomorrow. REVIEW OF SYSTEMS: CONSTITUTIONAL: Morbidly obese in mild respiratory distress with exertion. EYES: No icterus sclerae, no conjunctivitis. EARS, NOSE, MOUTH, THROAT, and FACE: No sore throat, lymphadenopathy, carotid bruits or deformity. RESPIRATORY: Mild shortness of breath. CARDIOVASCULAR: Positive PND, orthopnea, palpitation, but no angina. GASTROINTESTINAL: Slight abdominal bloating sensation with change in bowel habits black stool. GENITOURINARY: Negative for Hematuria or UTI, no kidney stones. Decreased urine output. INTEGUMENT/BREAST: Positive chronic edema and generalized arthralgia. HEMATOLOGIC/LYMPHATIC: Significant anemia and gastrointestinal bleed. MUSCULOSKELTAL: Negative for Myalgia or arthralgia. NEURLOGICAL: No LOC, Sz or syncope, blurred vision dizziness or abnormality.. BEHAVIORAL/PSYCH: Negative. ENDOCRINE: Negative. PHYSICAL EXAMINATION: General Appearance: Alert, obese, cooperative, no distress. Neck HEENT: Supple, no lymphadenopathy, no thyroid enlargement, no carotid bruits. Lungs: Clear to auscultation without crackles, rhonchi, or wheezes. Chest Wall: Normal expansion with deep inspiration, no tenderness and no deformity was found on exam, no costochondral pain or discomfort. Heart: Rregular rate and rhythm, S1, S2, positive S3 with systolic murmur. Back: Symmetric, no curvature, ROM normal, no CVA tenderness. Abdomen: Soft, positive bowel sounds, slight discomfort in the midepigastric and lower abdominal region area no rebound or rigidity. Extremities: Extremities normal, atraumatic, positive chronic stasis dermatitis with +2 edema. Pulses: 2+ and symmetric. Skin: Skin color, texture, turgor normal, no rashes or lesions. Neurologic: Alert oriented x3 cranial nerves II through XII intact, no motor deficit, no abnormal balance or gait. ASSESSMENT AND PLAN: _Severe active gastrointestinal bleed with tarry stool and hemoglobin down to 4.8, following 4 units of blood hemoglobin increased to 8.9. No longer having bloody stools. CT Abdomen/pelvis was completed, findings include mild fat stranding changes around the pancreas, mild coronary artery atherosclerosis, cardiomegaly, small hiatal hernia, colonic diverticulosis, and small bilateral pleural effusions. Continue pantoprazole 40mg IV twice a day for GI prophylaxis, anticoagulation on hold for now. Patient will be going for EGD and colonoscopy with Dr. Lira this afternoon. _Acute blood loss anemia: On admission hemoglobin as 4.8, blood currently transfusing, initiated referral for gastroenterology. After transfusing 4 units PRBCs hemoglobin increased to 8.9. _Active gastritis: pantoprazole 40 mg IV twice a day, EGD and colonoscopy today. _Severe dyspnea and shortness of breath: Most likely secondary to active severe anemia and gastrointestinal bleed, significantly improved following blood transfusion. Continue to treat underlying disease. Oxygen saturation 96% on room air. CTA was completed, negative for PE, revealed small bilateral pleural effusions. _Subacute on chronic respiratory failure: Mostly secondary to A-fib, cardiomyopathy, chronic asthma and atherosclerotic heart disease. _Atherosclerotic heart disease post angioplasty and stent placement of the LAD with 3 years ago that was still patent. Still doing good on medical management r emain on rosuvastatin, metoprolol, furosemide. Holding Eliquis. _A-fib/a flutter with tachycardia: Was hospitalized recently and had cardioversion. Currently in sinus rhythm. Remain on medical management, responding well to Metoprolol and diltiazem. _Obstructive sleep apnea: Remain on CPAP on regular basis. _History of hyperlipidemia: Continue rosuvastatin 20 mg a day. _Congestive heart failure: Mostly diastolic dysfunction, will continue diuretics. Was given additional dose of furosemide 40mg IV after receiving 2 units of PRBC in emergency department. _Valvular heart disease: Mostly mitral regurgitation which is mild along with trace of aortic insufficiency and again still on medical management no intervention required. _Large hiatal hernia post gastric sleeve: Remains on pantoprazole 40 mg daily, increased to 40mg IV twice a day while inpatient. _Morbid obesity: Post lap band and gastric sleeve eventually with body mass index still above 4th percentile. _Anticoagulation: Was to continue Eliquis which will be held for now untill the bleeding is stopped successfully. _Hypertension: Remain on diltiazem CD 180 mg daily and metoprolol succinate 25 mg a day. Blood pressure stable. _History of chronic fatty liver: Aggravated with morbid obesity and borderline diabetes, with marginal liver function testing finding consistent with ALEX on ultrasound and liver function test. Continue weight loss program continue to watch liver enzymes on more regular basis. Eventually will benefit from adding SGLT2 product. Discussion: Patient will undergo EGD with colonoscopy with possible small bowel capsule endoscopy today with Dr. Lira. Will check CBC in the morning, transfuse for hgb <7. No additional recommendations from pulmonary at this time. If all goes well anticipate discharge in the next 24 hours. The patient was seen and evaluated by Dr. Brasher. Plan, assessment and medications were all discussed, reviewed, and directed by Dr. Brasher with Elfego AYERS-Carlos A acting as a scribe. Objective - Vital Signs Vital signs: Vital Signs Temp 98.3 F 06/03/24 07:28 Pulse 82 06/03/24 08:00 Resp 16 06/03/24 07:28 BP 131/76 06/03/24 07:28 Pulse Ox 96 06/03/24 07:28 FiO2 Intake & Output 06/02/24 06/03/24 06/03/24 18:59 06:59 18:59 Intake Total 716 1920 Balance 716 1920 Weight 117.934 kg 119.93 kg Intake: Oral 120 1920 Blood Product 596 Rc As-1 Unit 310 [id number] Rc Pheresis 2 As3 Unit 286 [id number] Other: Voiding Method Toilet Toilet # Voids 5 # Bowel Movements 5 - Labs CBC & Chem 7: 06/03/24 07:06 06/03/24 07:06 Labs: Abnormal Lab Results - Last 24 Hours (Table) 06/01/24 06/02/24 06/03/24 Range/Units 17:50 22:53 07:06 RBC 3.42 L 3.46 L (3.80-5.40) m/uL Hgb 8.8 L D 8.9 L (11.4-16.0) gm/dL Hct 28.3 L 28.4 L (34.0-46.0) % RDW 19.0 H 18.9 H (11.5-15.5) % Glucose (74-99) mg/dL Calcium (8.4-10.2) mg/dL Crossmatch See Detail 06/03/24 Range/Units 07:06 RBC (3.80-5.40) m/uL Hgb (11.4-16.0) gm/dL Hct (34.0-46.0) % RDW (11.5-15.5) % Glucose 113 H (74-99) mg/dL Calcium 8.2 L (8.4-10.2) mg/dL Crossmatch
[2024-06-03] MEDS ORDERED: LIDOCAINE 1% INJ 10MG/ML (20 ML MDV) ONE (13:43)
[2024-06-03] MEDS ORDERED: KETAMINE HCL IN 0.9 % NACL 50 MG/5 ML SYRINGE ONE (13:43)
[2024-06-03] MEDS ORDERED: MIDAZOLAM 2 MG/2 ML VIAL ONE (13:43)
[2024-06-03] MEDS ORDERED: PROPOFOL 10 MG/ML 20 ML VIAL IV ONE (13:43)
[2024-06-03] MEDS ORDERED: GLYCOPYRROLATE 0.2 MG/ML 2 ML VIAL ONE (13:43)
--- NOTE | 2024-06-03 14:03 | P.PCN ---
Date of Procedure: 06/03/24 Procedure(s) Performed: Brief history: Patient is a pleasant 69-year-old white female scheduled for an elective upper endoscopy as well as colonoscopy as a part of evaluation of severe symptomatic anemia with a hemoglobin of 4.8 g/dL. She has been having intermittent darker stools. History of A-fib and has been on Eliquis which is on hold for 2 days. Procedure performed: Esophagogastroduodenoscopy with argon plasma coagulation. Colonoscopy with snare polypectomy Preoperative diagnosis: Severe symptomatic anemia Anesthesia: MAC Procedure: After informed consent was obtained from the patient was brought into the endoscopy unit and IV sedation was administered by anesthesia under continuous monitoring. Initially upper endoscopy was done. The Olympus GF 160 video endoscope was inserted inserted into the mouth and esophagus intubated without any difficulty and was gradually advanced into the stomach and duodenum and carefully examined. The bulb and second part of the duodenum appeared normal. The scope was then withdrawn into the stomach adequately insufflated with air and upon careful examination the antrum had linear telangiectasias consistent with gastric antral vascular ectasia s/p argon plasma coagulation. Evidence of gastric sleeve surgery noted. Mucosa of the gastric sleeve appeared normal. The scope was then withdrawn into the esophagus. Small hiatal hernia and 8 cm the GE junction was located at 40 cm to the incisors. It appeared regular with no erythema erosions or ulcerations. Rest of the esophagus appeared normal. Patient tolerated the procedure well. At this time the patient continued to remain sedation. Initial digital rectal examination was normal. Olympus CF 160 video colonoscope was then inserted into the rectum and gradually advanced to the cecum without any difficulty. Careful examination was performed as the scope was gradually being withdrawn. The prep was excellent. The cecum, had a 6 mm sessile polyp s/p cold snare polypectomy. Rest of the ascending colon, transverse colon, descending colon, sigmoid colon and rectum appeared normal. Retroflexion was performed in the rectum and no lesions were noted. Sigmoid diverticulosis. Patient tolerated the procedure well. Impression: 1. Upper endoscopy revealed multiple linear telangiectasias in the antrum consistent with gastric antral vascular ectasia (GAVE) with some oozing status post with 1 possible coagulation and small hiatal hernia 2. Colonoscopy revealed a 6 mm cecal polyp status post cold snare polypectomy and scattered sigmoid diverticulosis Recommendations: Findings of this examination were discussed with the patient as well as her family. She was advised to follow-up with the biopsy results. Start iron supplementation. Monitor CBC. Advance diet as tolerated. Recommend repeat colonoscopy in 5 years. Resume Eliquis tomorrow
[2024-06-03] MEDS: IV FLUID CONTINUATION 500 ML IV ONE (14:11)
[2024-06-04 01:15] VITALS: RESP 18; TEMP 98.1
[2024-06-04 07:49] VITALS: BP 102/61; PULSE 77
[2024-06-04 08:40] LABS: Basophils # (A) 0.04 X 10*3/uL (0.00-0.10); Basophils % (A) 0.4 %; Eosinophils # (A) 0.23 X 10*3/uL (0.04-0.35); Eosinophils % (A) 2.2 %; HCT 29.6 % (37.2-46.3); HGB 8.7 g/dL (12.0-15.0); Lymphocytes # (A) 1.12 X 10*3/uL (0.90-5.00); Lymphocytes % (A) 10.8 %; MCH 24.6 pg (27.0-32.0); MCHC 29.4 g/dL (32.0-37.0); MCV 83.6 FL (80.0-97.0); Monocytes # (A) 0.77 X 10*3/uL (0.20-1.00); Monocytes % (A) 7.4 %; NRBC Per 100 WBC 0.02 X 10*3/uL (0.00-0.01); Neutrophils # (A) 8.14 X 10*3/uL (1.80-7.70); Neutrophils % (A) 78.8 %; Platelet Count 293 X 10*3/uL (140-440); RBC 3.54 X 10*6/uL (4.10-5.20); RDW 19.5 % (11.5-14.5); WBC 10.34 X 10*3/uL (4.50-10.00)
[2024-06-04 08:57] LABS: ALT 37 U/L (8-44); AST 59 U/L (13-35); Albumin 3.5 g/dL (3.8-4.9); Albumin/Globulin Ratio 0.97 Ratio (1.60-3.17); Alkaline Phosphatase 67 U/L (41-126); BUN/Creat Ratio 14.42 Ratio (12.00-20.00); Blood Urea Nitrogen 17.3 mg/dL (9.0-27.0); Calcium 8.1 mg/dL (8.7-10.3); Carbon Dioxide 25.4 mmol/L (21.6-31.8); Chloride 103 mmol/L (96-109); Globulin 3.6 g/dL (1.6-3.3); Glucose 130 mg/dL (70-110); Potassium 3.5 mmol/L (3.5-5.5); Sodium 141 mmol/L (135-145); Total Bilirubin 0.7 mg/dL (0.3-1.2); Total Protein 7.1 g/dL (6.2-8.2)
--- NOTE | 2024-06-04 12:51 | P.PN ---
Subjective Progress Note Date: 06/04/24 Patient is a 69-year-old white female with past medical history significant for hypertension, hyperlipidemia, CAD with previous PCI/stents, atrial fibrillation with previous cardioversions and is chronically anticoagulated on Eliquis, heart failure, obstructive sleep apnea with home CPAP, morbid obesity, previous bariatric surgery, among other things. Patient was most recently hospitalized January,, she was in atrial flutter/atrial fibrillation with rapid ventricular rate. She did have a synchronized cardioversion. She takes Eliquis for anticoagulation. Over the last month she has noted dark tarry stools, however, she felt related to her iron supplementation. Denies NSAID use. Denies any david blood loss. No nausea or vomiting. No abdominal pain. More recently, over the last 2 weeks, she has noted significant worsening in exertional dyspnea. Even with minimal ambulation to the restroom. She is also had associated generalized weakness. She states she has been dizzy and has almost passed out several times. Denies falling or completely losing consciousness. On arrival to [facility] emergency department, yesterday afternoon, she was noted to be severely anemic with a hemoglobin of 4.8 g/dL. Her stool occult blood was positive. She is currently still in the emergency department, room 2. She is sitting up in the recliner in no acute distress. She cannot remember when she had her last EGD/colonoscopy. She does have a remote history of previous gastric sleeve. She is receiving her second unit of PRBCs. Blood pressure is stable with the last reading of 121/56 mmHg. Current heart rhythm appears to be normal sinus on bedside monitor with a rate of 86 bpm. She denies any chest pain, heart palpitations. She does endorse some increased lower extremity swelling. She states that she has been compliant with her home Lasix doses, however, stopped taking her Aldactone. She feels this was causing some muscle cramps. She is currently on room air, no apparent respiratory distress. She did receive a dose of Lasix earlier. Chest x-ray demonstrates cardiomegaly with small left pleural effusion patchy bibasilar opacities left greater than right. Most consistent with CHF. There is also significant scoliosis. She denies any infectious-like symptoms such as cough, sputum production, fever, chest pain. NT proBNP only 613. CBC that was drawn on arrival has a WBC count of 9.9, hemoglobin 4.8, hematocrit 17.5, platelets 362. BMP taken on arrival: Sodium 141, potassium 4.1, chloride 108, serum bicarb 24, BUN 27, creatinine 0.92, glucose 148. Lactic acid was 2.3 and down to 1.8. LFTs unremarkable. Afebrile. Hemodynamics currently stable. Progress note dated June 03, 2024. 69-year-old female seen today in room 156. She was initially seen in the emergency department, with a GI bleed. The patient was found to be quite anemic, with a hemoglobin of 4.8. Currently, the patient is seen in room 156. The patient is currently on room air. She is not receiving any IV fluids. The patient is scheduled for an EGD and colonoscopy today. Since coming into the hospital, she has received a total of 4 units of packed red blood cells. Current labs include a white count 8.7, hemoglobin up to 8.9, hematocrit 28.4, with a normal platelet count. Sodium 141, potassium 3.5, chlorides 107, CO2 26, BUN 17, creatinine 0.85. Glucose 113, and calcium 8.2. CTA was negative for pulmonary embolism. There is a small left-sided pleural effusion. The patient is seen today June 04, 2024 in follow-up on the regular medical floor. She is currently sitting up in a chair at the bedside. Awake and alert in no acute distress. She is feeling quite a bit better. She did undergo EGD colonoscopy yesterday and was found to have multiple linear telangiectasias in the antrum consistent with gastric antral vascular ectasia (GAVE) with some oozing status post coagulation. Small hiatal hernia. Colonoscopy revealed a 6 mm cecal polyp status post cold snare polypectomy and scattered sigmoid diverticulosis. She did not receive 4 units of packed red blood cells this admission. Current hemoglobin 8.7. Platelets 293. White count 10.3. Sodium 141. Potassium 3.5. Bicarb 25. BUN 17. Creatinine 1.2. Glucose 130. She is on ferrous sulfate. Protonix 40 mg IV twice daily. Objective - Vital Signs Vital signs: Vital Signs Temp 98.1 F 06/04/24 07:02 Pulse 77 06/04/24 07:02 Resp 18 06/04/24 07:02 BP 102/61 06/04/24 07:02 Pulse Ox 94 L 06/04/24 07:02 FiO2 Intake & Output 06/03/24 06/04/24 06/04/24 18:59 06:59 18:59 Intake Total 300 Balance 300 Weight 119.3 kg Intake: IV 300 Other: Voiding Method Toilet Toilet # Voids 2 # Bowel Movements 0 - Exam GENERAL EXAM: Alert, very pleasant 69-year-old female, up in a chair, on room air, comfortable in no apparent distress. HEAD: Normocephalic. EYES: Normal reaction of pupils, equal size. NOSE: Clear with pink turbinates. THROAT: No erythema or exudates. NECK: No masses, no JVD. CHEST: No chest wall deformity. LUNGS: Equal air entry with no crackles, wheeze, rhonchi or dullness. CVS: S1 and S2 normal with no audible murmur, regular rhythm. ABDOMEN: No hepatosplenomegaly, normal bowel sounds, no guarding or rigidity. SPINE: No scoliosis or deformity SKIN: No rashes CENTRAL NERVOUS SYSTEM: No focal deficits, tone is normal in all 4 extremities. EXTREMITIES: There is no peripheral edema. No clubbing, no cyanosis. Peripheral pulses are intact. - Labs CBC & Chem 7: 06/04/24 05:49 06/04/24 05:49 Labs: Abnormal Lab Results - Last 24 Hours (Table) 06/04/24 06/04/24 Range/Units 05:49 05:49 WBC 10.34 H (4.50-10.00) X 10*3/uL RBC 3.54 L (4.10-5.20) X 10*6/uL Hgb 8.7 L (12.0-15.0) g/dL Hct 29.6 L (37.2-46.3) % MCH 24.6 L (27.0-32.0) pg MCHC 29.4 L (32.0-37.0) g/dL RDW 19.5 H (11.5-14.5) % Neutrophils # 8.14 H (1.80-7.70) X 10*3/uL NRBC/100 WBC Diff 0.02 H (0.00-0.01) X 10*3/uL Anion Gap 12.60 H (4.00-12.00) mmol/L Est GFR (CKD-EPI) 50 L (>=60) Glucose 130 H (70-110) mg/dL Calcium 8.1 L (8.7-10.3) mg/dL AST 59 H (13-35) U/L Albumin 3.5 L (3.8-4.9) g/dL Globulin 3.6 H (1.6-3.3) g/dL Albumin/Globulin Ratio 0.97 L (1.60-3.17) Ratio Assessment and Plan Assessment: Symptomatic anemia, rule/out GI bleed, hemoglobin was noted to be 4.8 g/dL on arrival. Status post 4 units of packed red blood cells. Current hemoglobin 8.7. She did undergo EGD/colonoscopy 2023 and was found to have multiple linear telangiectasias in the antrum consistent with gastric antral vascular ect deisi (GAVE) with some oozing status post coagulation. Small hiatal hernia. 6 mm cecal polyp status post cold snare polypectomy and scattered sigmoid diverticulosis. Acute on chronic diastolic CHF exacerbation. Acute dyspnea, likely multifactorial, secondary to a combination of above. Elevated D-dimer, pulmonary embolism was ruled out. History of hypertension. History of hyperlipidemia. History of coronary artery disease with previous PCI/stents to LAD. History of paroxysmal atrial flutter/atrial fibrillation with previous cardioversion. Morbid obesity, with a BMI of 52.5 kg/m. Obstructive sleep apnea with home CPAP machine. Remote history of gastric sleeve. Plan: The patient was seen and evaluated EGD/colonoscopy results reviewed Medications and labs reviewed Stable and on room air Cleared for discharge from the pulmonary standpoint I have personally seen and examined the patient, performed the documentation and the assessment and plan as written. Number of minutes spent on the visit: 10.
--- NOTE | 2024-06-04 13:27 | P.PN ---
Subjective Progress Note Date: 06/04/24 HISTORY OF PRESENT ILLNESS: 69-year-old morbidly obese female one of my office patient for many years with active medical history of CAD post PCI and stent placement of the LAD, history of A-fib with RVR, history of PAD, COPD, morbid obesity, hypertension, hyperlipidemia, hyperglycemia, chronic edema, chronic kidney disease, obstructive sleep apnea. Using her CPAP on a regular basis also known to have history of bariatric surgery post gastric sleeve without significant weight loss. She was hospitalized last 8 weeks ago for severe dyspnea and shortness of breath found to have severe A-fib with RVR ended up having cardioversion to give her pulse rate down and had felt slightly bit better for shortness of time only. Continue to feel with worsening shortness of breath with minimal exertion since she left the hospital last time was seen cardiology, pulmonary and then our office. She presented to the hospital today at [facility] accompanied with her sister for severe worsening shortness of breath over the last few days not able to sleep or lay down flat in bed spending most of her time in recliner with severe dyspnea was seen and evaluated at the time her pulse ox Was running between 93 and 97, blood pressure was slightly below normal temperature. Surpri singly found to have hemoglobin of 4.8 dropped down in the last few weeks almost 5 g with hematocrit 17.5 platelet count 362 with normal white blood cell. Patient is on anticoagulation for A-fib with RVR first lactic acid was 2.3 and repeat lactic acid down to 1.8, troponin was negative, Hemoccult was positive, creatinine was 0.92, GFR 65, blood sugar was 148, proBNP was 613 only. Initiate protocol for blood transfusion and admission to the ICU with gastroenterology or general surgery backup for gastrointestinal bleed. Anticoagulation will be held and patient be seen pulmonary and cardiology as well. 06/02/24: Patient is receiving her third unit of PRBCs, currently waiting for bed to become available in the ICU. Following 2nd unit hemoglobin was 6.7, hematocrit was 22.1, platelet count was 285, white blood cell 10.2, BUN 26, creatinine 0.98, blood glucose 149. Repeat labs pending completion of 3rd and 4th units. CT abdomen and CTA chest pending. GI recommending EGD and colonoscopy tomorrow with possible small bowel capsule endoscopy, will be made NPO at mo dnight, okay for clears today. Pulmonary has evaluated the patient, recommendations pending GI evaluation. Vital signs are stable. Patient is feeling slightly better following blood transfusion, still with some shortness of breath. 06/03/24: Patient has received a total of 4 units PRBCs, hemoglobin greatly improved following transfusion now up to 8.9 this morning, hematocrit 28.4, white blood cell 8.7, Platelets 274, potassium 3.5, BUN 17, creatinine 0.85. Vital signs continue to be stable, blood pressure 131/76, heart rate 82, oxygen saturation 96% on room air, afebrile. CTA was negative for acute pulmonary embolism, revealed small bilateral pleural effusions, consolidation at the left base. CT of the abdomen and pelvis findings include mild fat stranding changes around the pancreas, mild coronary artery atherosclerosis, cardiomegaly, small hiatal hernia, colonic diverticulosis, and small bilateral pleural effusions. Patient is looking and feeling much better today, denies having any more bloody stools, is currently undergoing bowel prep for planned EGD and colonoscopy later today with Dr. Lira. If all goes well will plan for discharge tomorrow. 06/04/24: Patient doing very well this morning. Patient has had significant improvement in her shortness of breath, vital signs have been stable and patient remains on room air. Underwent EGD and colonoscopy yesterday with Dr. Lira, upper endoscopy revealed multiple linear telangiectasias in the antrum consistent with gastric antral vascular ectasia as well as a small hiatal hernia. Colonoscopy revealed 6 mm cecal polyp which was removed and sent out for biopsy. GI recommendations include iron supplementation, CBC monitoring, and repeat colonoscopy in 5 years, okay to resume Eliquis today. Labs from today are hemoglobin 8.7, hematocrit 29.6, white blood cells 10.34, platelets 293, potassium 3.5, BUN 17, creatinine 1.2. No further recommendations from pulmonary. Patient will be discharged to home today, we will increase her home dose of pantoprazole to 40mg twice a day for one month, then back to once a day. We will also check CBC every 2 weeks for at least the next two months. We will see her back in our office in the next 3-7 days. REVIEW OF SYSTEMS: CONSTITUTIONAL: Morbidly obese, no distress. EYES: No icterus sclerae, no conjunctivitis. EARS, NOSE, MOUTH, THROAT, and FACE: No sore throat, lymphadenopathy, carotid bruits or deformity. RESPIRATORY: No shortness of breath, no cough or wheezing. CARDIOVASCULAR: Positive PND, orthopnea, palpitation, but no angina. GASTROINTESTINAL: No abdominal pain, bloating, distension, nausea, vomiting, diarrhea, constipation. No longer having bloody stools. GENITOURINARY: Negative for Hematuria or UTI, no kidney stones. Decreased urine output. INTEGUMENT/BREAST: Positive chronic edema and generalized arthralgia. HEMATOLOGIC/LYMPHATIC: Significant anemia and gastrointestinal bleed this admission. MUSCULOSKELTAL: Negative for Myalgia or arthralgia. NEURLOGICAL: No LOC, Sz or syncope, blurred vision dizziness or abnormality.. BEHAVIORAL/PSYCH: Negative. ENDOCRINE: Negative. PHYSICAL EXAMINATION: General Appearance: Alert, obese, cooperative, no distress. Neck HEENT: Supple, no lymphadenopathy, no thyroid enlargement, no carotid bruits. Lungs: Clear to auscultation without crackles, rhonchi, or wheezes. Chest Wall: Normal expansion with deep inspiration, no tenderness and no deformity was found on exam, no costochondral pain or discomfort. Heart: Regular rate and rhythm, S1, S2, positive S3 with systolic murmur. Back: Symmetric, no curvature, ROM normal, no CVA tenderness. Abdomen: Soft, positive bowel sounds, no abdominal discomfort, no rebound or rigidity. Extremities: Extremities normal, atraumatic, positive chronic stasis dermatitis with +2 edema. Pulses: 2+ and symmetric. Skin: Skin color, texture, turgor normal, no rashes or lesions. Neurologic: Alert oriented x3 cranial nerves II through XII intact, no motor deficit, no abnormal balance or gait. ASSESSMENT AND PLAN: _Severe active gastrointestinal bleed with tarry stool and hemoglobin down to 4.8, following 4 units of blood hemoglobin increased to 8.9. Hemoglobin today is 8.7. No longer having bloody stools. CT Abdomen/pelvis was completed, findings include mild fat stranding changes around the pancreas, mild coronary artery atherosclerosis, cardiomegaly, small hiatal hernia, colonic diverticulosis, and small bilateral pleural effusions. EGD and colonoscopy completed yesterday, revealed gastric antral vascular ectasia and 6mm cecal polyp, repeat in 5 years. Patient will be discharged on pantoprazole 40mg twice a day for one month and then resume daily dosing. Patient was advised to watch her diet and to avoid NSAID products to prevent further bleeding. CBC will be closely monitored outpatient. _Acute blood loss anemia: On admission hemoglobin as 4.8, after transfusing 4 units PRBCs hemoglobin increased to 8.9. Today hgb is 8.7. Will continue daily iron supplementation. After discharge will check CBC every 2 weeks for at least the next two months. _Active gastritis: EGD and colonoscopy completed yesterday. Pantoprazole 40 mg p.o. twice a day. _Severe dyspnea and shortness of breath: Most likely secondary to active severe anemia and gastrointestinal bleed, significantly improved following blood transfusion. Continue to treat underlying disease. Oxygen saturation 96% on room air. CTA was completed, negative for PE, revealed small bilateral pleural effusions. _Subacute on chronic respiratory failure: Mostly secondary to A-fib, cardiomyopathy, chronic asthma and atherosclerotic heart disease. _Atherosclerotic heart disease post angioplasty and stent placement of the LAD with 3 years ago that was still patent. Still doing good on medical management remain on rosuvastatin, metoprolol, furosemide. Resumed eliquis today. _A-fib/a flutter with tachycardia: Was hospitalized recently and had cardioversion. Currently in sinus rhythm. Remain on medical management, responding well to Metoprolol and diltiazem. _Obstructive sleep apnea: Remain on CPAP on regular basis. _History of hyperlipidemia: Continue rosuvastatin 20 mg a day. _Congestive heart failure: Mostly diastolic dysfunction, will continue diuretics. _Valvular heart disease: Mostly mitral regurgitation which is mild along with trace of aortic insufficiency and again still on medical management no intervention required. _Large hiatal hernia post gastric sleeve: Remains on pantoprazole 40mg, increased to twice a day on discharge. _Morbid obesity: Post lap band and gastric sleeve eventually with body mass index still above 4th percentile. _Anticoagulation: Per GI okay to resume eliquis today, will be closely monitoring hemaglobin over the coming months. _Hypertension: Remain on diltiazem CD 180 mg daily and metoprolol succinate 25 mg a day. Blood pressure stable. _History of chronic fatty liver: Aggravated with morbid obesity and borderline diabetes, with marginal liver function testing finding consistent with ALEX on ultrasound and liver function test. Continue weight loss program continue to watch liver enzymes on more regular basis. Eventually will benefit from adding SGLT2 product. Discussion: Patient underwent EGD/Colonoscopy yesterday without issue, GI recommendations reviewed. Hemaglobin greatly improved from admission, with significant improvement in symptoms as well. No additional recommendations from pulmonary.Will discharge patient home today with close outpatient follow up in the next 3-7 days and monitoring of CBC. The patient was seen and evaluated by Dr. Brasher. Plan, assessment and medica tions were all discussed, reviewed, and directed by Dr. Brasher with Elfego Escudero [facility] acting as a scribe. Objective - Vital Signs Vital signs: Vital Signs Temp 98.1 F 06/04/24 07:02 Pulse 77 06/04/24 07:02 Resp 18 06/04/24 07:02 BP 102/61 06/04/24 07:02 Pulse Ox 94 L 06/04/24 07:02 FiO2 Intake & Output 06/03/24 06/04/24 06/04/24 18:59 06:59 18:59 Intake Total 300 Balance 300 Weight 119.3 kg Intake: IV 300 Other: Voiding Method Toilet Toilet # Voids 2 # Bowel Movements 0 - Labs CBC & Chem 7: 06/04/24 05:49 06/04/24 05:49 Labs: Abnormal Lab Results - Last 24 Hours (Table) 06/04/24 06/04/24 Range/Units 05:49 05:49 WBC 10.34 H (4.50-10.00) X 10*3/uL RBC 3.54 L (4.10-5.20) X 10*6/uL Hgb 8.7 L (12.0-15.0) g/dL Hct 29.6 L (37.2-46.3) % MCH 24.6 L (27.0-32.0) pg MCHC 29.4 L (32.0-37.0) g/dL RDW 19.5 H (11.5-14.5) % Neutrophils # 8.14 H (1.80-7.70) X 10*3/uL NRBC/100 WBC Diff 0.02 H (0.00-0.01) X 10*3/uL Anion Gap 12.60 H (4.00-12.00) mmol/L Est GFR (CKD-EPI) 50 L (>=60) Glucose 130 H (70-110) mg/dL Calcium 8.1 L (8.7-10.3) mg/dL AST 59 H (13-35) U/L Albumin 3.5 L (3.8-4.9) g/dL Globulin 3.6 H (1.6-3.3) g/dL Albumin/Globulin Ratio 0.97 L (1.60-3.17) Ratio
--- NOTE | 2024-06-04 14:13 | P.PN ---
Subjective Progress Note Date: 06/04/24 Principal diagnosis: Anemia, GI bleed Patient was seen and examined today as a follow-up. Yesterday she underwent upper endoscopy with findings of multiple telangiectasia the antrum consistent with gastric antral vascular ectasia with some active oozing status post argon plasma coagulation and small hiatal hernia.. Colonoscopy with findings of colon polyps status post polypectomy. Today patient states she has is feeling much better. She denies any shortness of breath, chest pain, dizziness, abdominal pain, nausea or vomiting. She is tolerating regular diet. Today hemoglobin stable at 8.7. Objective - Vital Signs Vital signs: Vital Signs Temp 98.1 F 06/04/24 07:02 Pulse 77 06/04/24 07:02 Resp 18 06/04/24 07:02 BP 102/61 06/04/24 07:02 Pulse Ox 94 L 06/04/24 07:02 FiO2 Intake & Output 06/03/24 06/04/24 06/04/24 18:59 06:59 18:59 Intake Total 300 Balance 300 Weight 119.3 kg Intake: IV 300 Other: Voiding Method Toilet Toilet # Voids 2 # Bowel Movements 0 - Exam General appearance: The patient is alert, oriented, appears in no acute distress. HET: Head is normocephalic and atraumatic. Conjunctiva pink. Sclera anicteric. Neck: Supple without lymphadenopathy. Abdomen: Soft, obese, nontender, nondistended. Extremities: Normal skin color and turgor. No pedal edema Skin: No rashes, no jaundice Neurological: No focal deficits. Alert and oriented. - Labs CBC & Chem 7: 06/04/24 05:49 06/04/24 05:49 Labs: Abnormal Lab Results - Last 24 Hours (Table) 06/04/24 06/04/24 Range/Units 05:49 05:49 WBC 10.34 H (4.50-10.00) X 10*3/uL RBC 3.54 L (4.10-5.20) X 10*6/uL Hgb 8.7 L (12.0-15.0) g/dL Hct 29.6 L (37.2-46.3) % MCH 24.6 L (27.0-32.0) pg MCHC 29.4 L (32.0-37.0) g/dL RDW 19.5 H (11.5-14.5) % Neutrophils # 8.14 H (1.80-7.70) X 10*3/uL NRBC/100 WBC Diff 0.02 H (0.00-0.01) X 10*3/uL Anion Gap 12.60 H (4.00-12.00) mmol/L Est GFR (CKD-EPI) 50 L (>=60) Glucose 130 H (70-110) mg/dL Calcium 8.1 L (8.7-10.3) mg/dL AST 59 H (13-35) U/L Albumin 3.5 L (3.8-4.9) g/dL Globulin 3.6 H (1.6-3.3) g/dL Albumin/Globulin Ratio 0.97 L (1.60-3.17) Ratio Assessment and Plan (1) Anemia Narrative/Plan: 69-year-old female presenting with shortness of breath found to have severe anemia with a hemoglobin of 4.8 platelet count 362,000 INR 1.3 anticoagulation for atrial fibrillation. No previous history of GI bleed does have a positive occult stool with concerns of possible source of anemia from GI tract. Anemia is normocytic normochromic anemia. Need to consider source from possible GI bleed. Discussed with patient and will proceed with upper and lower endoscopy, possible small bowel capsule endoscopy. Continue to monitor CBC, patient will receive 2 more units of blood. Patient status post upper and lower endoscopy. With upper endoscopy showing multiple telangiectasia consistent with gastric antral vascular ectasia with oozing status post argon plasma coagulation. Patient to resume Eliquis. Discussed that she is at risk for possible further episodes of bleeding in the future. Continue to monitor for GI bleed. Status: Acute Code(s): D64.9 - ANEMIA, UNSPECIFIED SNOMED Code(s): 493816273 (2) Coronary artery disease Status: Acute Code(s): I25.10 - ATHSCL HEART DISEASE OF [place] CORONARY ARTERY W/O ANG PCTRS SNOMED Code(s): 99061475 (3) Chronic anticoagulation Narrative/Plan: May resume anticoagulation. Follow-up with cardiology. Status: Acute Code(s): Z79.01 - FDC (CURRENT) USE OF ANTICOAGULANTS SNOMED Code(s): 602729770 (4) Atrial fibrillation Status: Acute Code(s): I48.91 - UNSPECIFIED ATRIAL FIBRILLATION SNOMED Code(s): 52237508 (5) Chronic kidney disease Status: Acute Code(s): N18.9 - CHRONIC KIDNEY DISEASE, UNSPECIFIED SNOMED Code(s): 482004621 (6) Morbid obesity Status: Acute Code(s): E66.01 - MORBID (SEVERE) OBESITY DUE TO EXCESS CALORIES SNOMED Code(s): 054524028 Plan: 1. Continue symptomatic and supportive care 2. May resume Eliquis 3. Diet as tolerated 4. Daily CBC, transfuse for hemoglobin less than 7 5. Continue with Protonix 40 mg daily 6. Patient is status post upper and lower endoscopy Thank you for this consultation, patient is cleared for discharge by gastro enterology. Follow-up in [address] Priyanka Lira I agree with the dictator's note, documented as a scribe by Mae Strauss.
== END 2024-06-04 13:25 | disposition home or self-care (01) | DRG 377 ==
LOC: EC 13:15 → 2SICU 19:27 → 1SOBS 06-02 08:28 → 5NMEDONC 06-03 16:43
PROVIDERS: ADMIT Internal Medicine Geriatric Medicine; ATTEND Internal Medicine Geriatric Medicine
PROC: 30233N1 Transfusion of Nonautologous Red Blood Cells into Peripheral Vein, Percutaneous Approach (ICD-10-PCS; 2024-06-01)
PROC: 0W3P8ZZ Control Bleeding in Gastrointestinal Tract, Via Natural or Artificial Opening Endoscopic (ICD-10-PCS; principal; 2024-06-03 14:35)
PROC: 0DBH8ZZ Excision of Cecum, Via Natural or Artificial Opening Endoscopic (ICD-10-PCS; 2024-06-03 14:35)
DX: K31.811 Angiodysplasia of stomach and duodenum with bleeding (principal); I50.33 Acute on chronic diastolic (congestive) heart failure; D62 Acute posthemorrhagic anemia; J96.10 Chronic respiratory failure, unspecified whether with hypoxia or hypercapnia; I42.9 Cardiomyopathy, unspecified; I48.92 Unspecified atrial flutter; I13.0 Hypertensive heart and chronic kidney disease with heart failure and stage 1 through stage 4 chronic kidney disease, or unspecified chronic kidney disease; Z68.43 Body mass index [BMI] 50.0-59.9, adult; R19.5 Other fecal abnormalities; N18.9 Chronic kidney disease, unspecified; K57.31 Diverticulosis of large intestine without perforation or abscess with bleeding; M41.9 Scoliosis, unspecified; K29.70 Gastritis, unspecified, without bleeding; I48.91 Unspecified atrial fibrillation; I25.10 Atherosclerotic heart disease of native coronary artery without angina pectoris; J44.89 Other specified chronic obstructive pulmonary disease; R00.0 Tachycardia, unspecified; E78.5 Hyperlipidemia, unspecified; Z79.899 Other long term (current) drug therapy; G47.33 Obstructive sleep apnea (adult) (pediatric); E66.01 Morbid (severe) obesity due to excess calories; H91.90 Unspecified hearing loss, unspecified ear; I25.2 Old myocardial infarction; I78.1 Nevus, non-neoplastic; K44.9 Diaphragmatic hernia without obstruction or gangrene; K63.5 Polyp of colon; K75.81 Nonalcoholic steatohepatitis (NASH); I08.1 Rheumatic disorders of both mitral and tricuspid valves; Z79.01 Long term (current) use of anticoagulants; Z87.891 Personal history of nicotine dependence; Z95.5 Presence of coronary angioplasty implant and graft; Z96.652 Presence of left artificial knee joint; Z98.84 Bariatric surgery status; Z88.5 Allergy status to narcotic agent
CPT/HCPCS: 36415; 36430; 43255; 45385; 71046; 71275; 74177; 80048; 80053; 82272; 83605; 83735; 83880; 84484; 85025; 85027; 85379; 85610; 85730; 86850; 86900; 86901; 86920; 93005; 96374; 96375; 96376; 99291

== ENCOUNTER → 2024-07-28 | Outpatient (CLI) | payer MEDICARE ==
[2024-07-28 13:42] VITALS: BP 109/79; PULSE 71; RESP 22; TEMP 97.9
--- NOTE | 2024-07-28 14:54 | P.SLEEP ---
History of Present Illness H&P Date: 07/28/24 This is a 69-year-old female patient was coming in for symptoms of excessive hypersomnia sleepiness. The patient was diagnosed having obstructive sleep apnea more than 20 years ago. At that time, the patient was offered a CPAP therapy that she used for many years. Approximately 8 years ago, her machine broke and the patient has been off treatment since. No documentation on her original polysomnography. No documentation on her CPAP pressure utilized to treat her disease. She states that she was using a nasal mask back then. The patient is coming in for further advice. She has classical manifestations of obstructive sleep apnea. He has snoring, sleep fragmentation, and she has nocturnal apneas as reported by family members. She wakes up tired and fatigued during the day. She sleeps between 9 PM and midnight and she gets up 5 AM in the morning. She has frequent nocturnal arousals pressure when she lays down in bed. As such, the patient has recently transitioned herself to sleep on a recliner. Her weight is up over the years. Noted over the past 10 years, the patient has gained at least 90 pounds. No sleep paralysis. No hallucinations. No cataplexy. She takes daytime naps. No head trauma. No nocturnal seizures. No nocturnal episodes of heartburn or palpitation. She has exertional dyspnea. She is limited in mobility and the patient walking around without a walker because of severe degenerative arthritis. She has undergone previous knee surgery. She is also known to have coronary artery disease and she has undergone previous cardiac catheterization and stenting. Her current Stanton score is at 8. Review of Systems Constitutional: Reports daytime sleepiness, Reports fatigue, Reports weight gain Eyes: right as per HPI, denies blurred vision, denies bulging eye, denies decreased vision, denies diplopia, denies discharge, denies dry eye, denies irritation, denies itching, denies pain, denies photophobia, denies loss of peripheral vision, denies loss of vision, denies tunnel vision/blind spots Ears: deny: decreased hearing, ear discharge, earache, tinnitus Ears, nose, mouth and throat: Reports as per HPI Cardiovascular: Reports decreased exercise tolerance Respiratory: Reports sleep apnea, Reports snoring Gastrointestinal: Reports as per HPI Genitourinary: Reports as per HPI Menstruation: Reports as per HPI Musculoskeletal: Reports as per HPI, Reports gait dysfunction, Reports muscle weakness Musculoskeletal: absent: ankle pain, ankle stiffness, ankle swelling, as per HPI, elbow pain, elbow stiffness, elbow swelling, foot pain, foot stiffness, foot swelling, hand pain, hand stiffness, hand swelling, hip pain, hip stiffness, hip swelling, knee pain, knee stiffness, knee swelling, shoulder pain, shoulder stiffness, shoulder swelling, wrist pain, wrist stiffness, wrist swelling Integumentary: Reports as per HPI Neurological: Reports as per HPI Psychiatric: Reports change in sleep habits, Reports hypersomnia, Reports sleep disturbances Endocrine: Reports as per HPI, Reports fatigue Hematologic/Lymphatic: Reports as per HPI Allergic/Immunologic: Reports as per HPI Past Medical History Past Medical History: Atrial Fibrillation, GERD/Reflux, Hearing Disorder / Deafness, Hyperlipidemia, Hypertension, Myocardial Infarction (OR), Osteoarthritis (OA), Sleep Apnea/CPAP/BIPAP Additional Past Medical History / Comment(s): SEE DR ALVARENGA'S H&P. RECENT FLU - END OF OCT 2022. HX DIVERTICULITIS, HIATAL HERNIA,USES CPAP SOMETIMES, HARD OF HEARING, HEADACHES. 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 Ca rdioversion, BILATERAL KNEE ARTHROSCOPY Past Anesthesia/Blood Transfusion Reactions: No Reported Reaction Date of Last Stent Placement:: 2021 Past Psychological History: No Psychological Hx Reported Smoking Status: Former smoker Past Alcohol Use History: None Reported, Rare Additional Past Alcohol Use History / Comment(s): Light smoker as teen only. Past Drug Use History: None Reported - Past Family History Father Family Medical History: Hypertension, Myocardial Infarction (OR) Additional Family Medical History / Comment(s): AT AGE 55 - MASSIVE HEART ATTACK, Mother Family Medical History: No Reported History Medications and Allergies Home Medications Medication Instructions Recorded Confirmed Type Rosuvastatin [Crestor] 20 mg PO DAILY@0900 11/13/22 07/28/24 History Nitroglycerin Sl Tabs [Nitrostat] 0.4 mg SL Q5M PRN 02/10/23 07/28/24 History Albuterol Inhaler [Ventolin Hfa 2 puff INHALATION RT-Q4H PRN 06/01/24 06/01/24 History Inhaler] Apixaban [Eliquis] 5 mg PO BID@0900,2100 06/01/24 07/28/24 History Diltiazem Cd [Cardizem CD] 180 mg PO DAILY@0900 06/01/24 07/28/24 History Ferrous Sulfate [Iron (65 MG 325 mg PO DAILY 06/01/24 07/28/24 History Elemental)] Furosemide [Lasix] 40 mg PO DAILY@0630 06/01/24 07/28/24 History Metoprolol Succinate (ER) [Toprol 100 mg PO DAILY@89906/01/24 07/28/24 History XL] Multivitamins, Thera [Multivitamin 1 tab PO DAILY 06/01/24 07/28/24 History (formulary)] Simethicone [Gas-X] 125 - 250 mg PO PC-TID PRN 06/01/24 07/28/24 History Pantoprazole [Protonix] 40 mg PO BID #120 tab 06/04/24 Rx Allergies Allergy/AdvReac Type Severity Reaction Status Date / Time codeine Allergy went into Verified 06/01/24 17:29 corticate position, unable to see colors Physical Exam Vitals: Vital Signs Temp Pulse Resp BP Pulse Ox 07/28/24 13:41 97.9 F 71 22 109/79 95 Intake and Output 07/27/24 07/28/24 07/28/24 22:59 06:59 14:59 Other: Weight 120.429 kg Patient is morbidly obese, calm and comfortable. Not in acute distress. The patient appeared well nourished and normally developed. Vital signs as documented. Head exam is unremarkable. No scleral icterus or corneal arcus noted. Neck is without jugular venous distension, thyromegaly, or carotid bruits. Carotid upstrokes are brisk bilaterally. The patient has a Mallampati class IV with significant crowding of the posterior pharynx. Lungs are clear to auscultation and percussion. Cardiac exam reveals the PMI to be normally sized and situated. Rhythm is regular. First and second heart sounds normal. No murmurs, rubs or gallops. Abdominal exam reveals normal bowel sounds, no masses, no organomegaly and no aortic enlargement. Extremities are nonedematous and both femoral and pedal pulses are normal. Examination of the skin revealed no evidence of significant rashes, suspicious appearing nevi or other concerning lesions. Neurologically, the patient is awake and alert and the patient does not have any focal neurological deficit. Cranial nerves are essentially intact. The patient has scars of previous knee surgeries and the patient is walking with the help of the walker. Assessment and Plan Plan: Obstructive sleep apnea not receiving any CPAP therapy at this point in time. The patient has typical ongoing manifestations of IVETT including sleep fragmentation, loud snoring, witnessed apneas and chronic hypersomnia sleepiness. She is unable to sleep in bed due to her sleep fragmentation and episodes of apneas and the patient is currently sleeping in a recliner. Her current Stanton score is at 8. Chronic hypersomnia secondary to above Morbid obesity with significant weight gain over the past 10 years. Current body mass index is 53.5 History of atrial tachycardia/fibrillation maintained on anticoagulation. Hypertension Hyperlipidemia Coronary artery disease with previous [place] requiring coronary intervention and stenting Plan Patient has symptomatic obstructive sleep apnea. Will need a polysomnography to confirm the diagnosis and we will proceed with treatment options accordingly. This study can be done in bed or on a recliner if the patient is unable to sleep in bed. Ultimately, the CPAP titration should be done in bed as the goal is to transition this patient back to sleeping in bed after undergoing successful CPAP therapy. Encourage weight loss. Treat morbidities. Maintain regular sleep schedule. Will continue to follow. Sleep Note - Sleep Data ESS Total: 8 - Sleep Note Sleep Note: Temperature: 97.9 F Pulse Rate: 71 Respiratory Rate: 22 Blood Pressure: 109/79 SpO2: 95 Height: 4 ft 11 in Weight: 120.429 kg BMI: Neck Circumference: 19.1
== END ==
LOC: 3 N SLEEP 12:58
PROVIDERS: ATTEND Internal Medicine Critical Care Medicine
CPT/HCPCS: 99211

== ENCOUNTER 2024-08-12 19:39 | Outpatient (CLI) | payer MEDICARE ==
--- NOTE | 2024-08-20 16:16 | P.PCN ---
Date of Procedure: 08/12/24 Operative Findings: Polysomnography report Date of service is 08/12/2024 History This is a 69-year-old female patient was coming in for symptoms of excessive hypersomnia sleepiness. The patient was diagnosed having obstructive sleep apnea more than 20 years ago. At that time, the patient was offered a CPAP therapy that she used for many years. Approximately 8 years ago, her machine broke and the patient has been off treatment since. No documentation on her original polysomnography. No documentation on her CPAP pressure utilized to treat her disease. She states that she was using a nasal mask back then. The patient is coming in for further advice. She has classical manifestations of obstructive sleep apnea. He has snoring, sleep fragmentation, and she has nocturnal apneas as reported by family members. She wakes up tired and fatigued during the day. She sleeps between 9 PM and midnight and she gets up 5 AM in the morning. She has frequent nocturnal arousals pressure when she lays down in bed. As such, the patient has recently transitioned herself to sleep on a recliner. Her weight is up over the years. Noted over the past 10 years, the patient has gained at least 90 pounds. No sleep paralysis. No hallucinations. No cataplexy. She takes daytime naps. No head trauma. No nocturnal seizures. No nocturnal episodes of heartburn or palpitation. She has exertional dyspnea. She is limited in mobility and the patient walking around without a walker because of severe degenerative arthritis. She has undergone previous knee surgery. She is also known to have coronary artery disease and she has undergone previous cardiac catheterization and stenting. Her current [place] score is at 8. Pertinent physical findings The patient's weight is 264 pounds with a body mass index of 53.3 Technical description The patient was studied using a standard complex polysomnography protocol that included recording of the Lead II EKG, Central, occipital and frontal EEG, right and left outer canthus EOG, submental EMG, right and left anterior tibialis EMG, respiratory airflow by thermocouple and or pressure/flow transducer, respiratory efforts by abdominal and thoracic PVDF belts, oxygen saturation by cable oximetry. Position by observation synchronized the PSG. Equipment used: [employer]. Sleep architecture The total recording duration was 436.5 minutes. The total sleep time was 369.5 minutes. The overall sleep efficiency was 84.7%. The wake after sleep onset time was 57 minutes. Latency to sleep was 9 minutes. Latency to REM sleep was 175 minutes. The sleep architecture was characterized by 21% stage REM, 2% stage I, 70.4% stage II and 0.6% stage III. The total arousal index was 13.8 Respiratory analysis The sleep study showed a total of 81 obstructive events of which 0 were obstructive apneas 0 mixed apneas and 81 were obstructive hypopneas. The resulting apnea-hypopnea index was 12.5. Noted the patient's disease was worse during REM. AHI during REM was as high as 37.2. Oxygenation analysis The patient's baseline pulse ox during sleep was 93%. Lowest oxygen saturation was 59% and the patient spent approximately 31 minutes of sleep time below pulse ox of 89%. Minimum pulse ox was during REM sleep and it was as low as 59% Sleep continuity summary The patient had a total of 85 arousals with an arousal index of 13.8. The respiratory arousal index was 1.3 Periodic limb movement activity The patient had a total of 81 periodic limb movements with an index of 13.2. There were only 6 periodic limb movement activity with arousals with an index of 1.0 Cardiac summary Average heart rate was 72 with a minimum heart rate of 69 and a maximum heart rate of 76 Assessment Obstructive sleep apnea with an AHI of 12.5 worse during REM sleep. The patient is not receiving any CPAP therapy at this point in time. She is unable to sleep in bed due to her sleep fragmentation and episodes of apneas and the patient is currently sleeping in a recliner. Her current [place] score is at 8. Chronic hypersomnia secondary to above Morbid obesity with significant weight gain over the past 10 years. Current body mass index is 53.5 History of atrial tachycardia/fibrillation maintained on anticoagulation. Hypertension Hyperlipidemia Coronary artery disease with previous [place] requiring coronary intervention and stenting Plan Proceed with CPAP titration for symptomatic obstructive sleep apnea. CPAP titration should be done in bed as the goal is to transition this patient back to sleeping in bed after undergoing successful CPAP therapy. Encourage weight loss. Treat morbidities. Maintain regular sleep schedule. Will continue to follow.
== END 2024-08-13 05:30 | disposition home or self-care (01) ==
LOC: 3 N SLEEP 19:39
PROVIDERS: ATTEND Internal Medicine Critical Care Medicine
CPT/HCPCS: 95810

== ENCOUNTER 2024-09-16 17:27 | Observation (INO) | payer MEDICARE ==
--- NOTE | 2024-09-16 17:56 | ED ---
SOB HPI - General Source: patient, RN/MD, RN notes reviewed Mode of arrival: ambulatory Limitations: no limitations <Kellee Casey - Last Filed: 09/16/24 17:55> <Luiz Moon - Last Filed: 09/16/24 20:30> - General Chief Complaint: Shortness of Breath Stated Complaint: MARITZA/fluid on legs Time Seen by Provider: 09/16/24 17:40 - History of Present Illness Initial Comments: Quick [id number] female presents emergency department chief complaint of shortness of breath and lower extremity edema that has been worsening over the past week. Patient does have a history of congestive heart failure and takes 20 mg of Lasix 2 times a day. She is endorsing mild chest pressure as well. (Kellee Casey) Dictation was produced using [employer] dictation software. please excuse any grammatical, word or spelling errors. Chief Complaint: 69-year-old female sent in from primary care physician's office for dyspnea History of Present Illness: Patient 69-year-old female she has been having wo rsening dyspnea for the past week. She has a history of CHF.. Patient went to primary care for office today for evaluation of her shortness of breath. She was evaluated and told to come to the ER for further care. Patient states that she has history of CHF. She has associated swelling in her legs. Worse when she lays flat. Denies any cough chest pain or runny nose. Denies any constitutional symptoms. The ROS documented in this emergency department record has been reviewed and confirmed by me. Those systems with pertinent positive or negative responses have been documented in the HPI. All other systems are other negative and/or noncontributory. (Luiz Moon) - Related Data Home Medications Medication Instructions Recorded Confirmed Rosuvastatin [Crestor] 20 mg PO DAILY 11/13/22 09/16/24 Nitroglycerin Sl Tabs [Nitrostat] 0.4 mg SL Q5M PRN 02/10/23 09/16/24 Albuterol Inhaler [Ventolin Hfa 2 puff INHALATION RT-Q4H PRN 06/01/24 09/16/24 Inhaler] Apixaban [Eliquis] 5 mg PO BID 06/01/24 09/16/24 Diltiazem Cd [Cardizem CD] 180 mg PO DAILY 06/01/24 09/16/24 Ferrous Sulfate [Iron (65 MG 325 mg PO Q48H 06/01/24 09/16/24 Elemental)] Furosemide [Lasix] 40 mg PO BID 06/01/24 09/16/24 Metoprolol Succinate (ER) [Toprol 100 mg PO DAILY 06/01/24 09/16/24 XL] Multivitamins, Thera [Multivitamin 1 tab PO DAILY 06/01/24 09/16/24 (formulary)] Ammonium Lactate Lotion 1 applic TOPICAL DAILY 09/16/24 09/16/24 [Lac-Hydrin 12% Lotion] Gabapentin [Neurontin] 100 mg PO BID 09/16/24 09/16/24 Potassium Chloride 10 meq PO DAILY@1400 09/16/24 09/16/24 Previous Rx's Medication Instructions Recorded Pantoprazole [Protonix] 40 mg PO BID #120 tab 06/04/24 Allergies Allergy/AdvReac Type Severity Reaction Status Date / Time codeine Allergy went into Verified 09/16/24 20:21 corticate position, unable to see colors Review of Systems ROS Other: All systems not noted in ROS Statement are negative. <Kellee Casey - Last Filed: 09/16/24 17:55> ROS Other: All systems not noted in ROS Statement are negative. <Luiz Moon - Last Filed: 09/16/24 20:30> ROS Statement: Those systems with pertinent positive or pertinent negative responses have been documented in the HPI. Past Medical History Past Medical History: Atrial Fibrillation, Heart Failure, GERD/Reflux, Hearing Disorder / Deafness, Hyperlipidemia, Hypertension, Myocardial Infarction ([place]), Osteoarthritis (OA), Sleep Apnea/CPAP/BIPAP Additional Past Medical History / Comment(s): SEE DR ALVARENGA'S H&P. RECENT FLU - END OF OCT 2022. HX DIVERTICULITIS, HIATAL HERNIA,USES CPAP SOMETIMES, HARD OF HEARING, HEADACHES. 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 Cardioversion, BILATERAL KNEE ARTHROSCOPY Past Anesthesia/Blood Transfusion Reactions: No Reported Reaction Date of Last Stent Placement:: 2021 Past Psychological History: No Psychological Hx Reported Smoking Status: Former smoker Past Alcohol Use History: None Reported, Rare Past Drug Use History: None Reported - Past Family History Father Family Medical History: Hypertension, Myocardial Infarction ([place]) Additional Family Medical History / Comment(s): AT AGE 55 - MASSIVE HEART ATTACK, Mother Family Medical History: No Reported History <Kellee Casey - Last Filed: 09/16/24 17:55> General Exam Limitations: no limitations <Kellee Casey - Last Filed: 09/16/24 17:55> <Luiz Moon - Last Filed: 09/16/24 20:30> - General Exam Comments Initial Comments: Visual Physical Exam Vital signs reviewed General: Well-appearing, nontoxic, no acute distress. Head: Normocephalic, atraumatic Eyes: PERRLA, EOMI ENT: Airway patent Chest: Nonlabored breathing Skin: No visual rash, normal skin tone Neuro: Alert and oriented 3 Musculoskeletal: No gross abnormalities (Kellee Casey) PHYSICAL EXAM: General Impression: Alert and oriented x3, not in acute distress HEENT: Normocephalic atraumatic, extra-ocular movements intact, pupils equal and reactive to light bilaterally, mucous membranes moist. Cardiovascular: Heart regular rate and rhythm Chest: Diffuse lung crackles Abdomen: abdomen soft, non-tender, non-distended, no organomegaly Musculoskeletal: Pulses present and equal in all extremities, 2+ pitting edema Motor: no focal deficits noted Neurological: CN II-XII grossly intact, no focal motor or sensory deficits noted Skin: Intact with no visualized rashes Psych: Normal affect and mood (Luiz Moon) Course Vital Signs 09/16/24 17:36 Temperature 98.1 F Pulse Rate 86 Respiratory 18 Rate Blood Pressure 135/67 O2 Sat by Pulse 94 L Oximetry Medical Decision Making <Kellee Casey - Last Filed: 09/16/24 17:55> - Lab Data Result diagrams: 09/16/24 19:03 09/16/24 19:03 <Luiz Moon - Last Filed: 09/16/24 20:30> - Medical Decision Making I completed the quick note portion of this chart signed Kellee Casey PA-C (Kellee Casey) My EKG interpretation: Ventricular rate 80, sinus rhythm,. Will 153, QRS 92, QTc 428. No RI prolongation, no QTC prolongation, no ST or T-wave changes noted. Overall, this EKG is unremarkable Was pt. sent in by a medical professional or institution (, [facility]ESSI, INTERVENTIONAL RADIOLOGY TECH, urgent care, hospital, or correction...) When possible be specific @ -No Did you speak to anyone other than the patient for history (EMS, parent, family, police, friend...)? What history was obtained from this source @ -No Did you review nursing and triage notes (agree or disagree)? Why? @ -I reviewed and agree with nursing and triage notes Were old charts reviewed (outside hosp., previous admission, EMS record, old EKG, old radiological studies, urgent care reports/EKG's, correction records)? Report findings @ -No old charts were reviewed Differential Diagnosis (chest pain, altered mental status, abdominal pain women, abdominal pain men, vaginal bleeding, musculoskeletal, weakness, fever, dyspnea, syncope, headache, dizziness, GI bleed, back pain, seizure, CVA, palpatations, mental health)? @ -Differential Dyspnea: Coronary syndrome, arrhythmia, tamponade, asthma, COPD, pulmonary embolism, pneumonia, pneumothorax, pulmonary effusion, anaphylaxis, diabetic ketoacidosis, flailed chest, pulmonary contusion, diaphragmatic rupture, anemia, neuromuscular, this is not meant to be an all-inclusive list. EKG interpreted by me (3pts min.). @ -See above X-rays interpreted by me (1pt min.). @ -X-ray shows heart failure CT interpreted by me (1pt min.). @ -None done U/S interpreted by me (1pt. min.). @ -None done What testing was considered but not performed or refused? (CT, X-rays, U/S, labs)? Why? @ -None What meds were considered but not given or refused? Why? @ -None Was smoking cessation discussed for >3mins.? @ -No Were there social determinants of health that impacted care today? How? (Homelessness, low income, unemployed, alcoholism, drug addiction, transportation, low edu. Level, literacy, decrease access to med. care, [facility], rehab)? @ -No Was there de-escalation of care discussed even if they declined (Discuss DNR or withdrawal of care, Hospice)? DNR status @ -No What co-morbidities impacted this encounter? (DM, HTN, Smoking, COPD, CAD, Cancer, CVA, ARF, Chemo, Hep., AIDS, mental health diagnosis, sleep apnea, morbid obesity)? @ -Heart failure, debility Was patient admitted / discharged? Hospital course, mention meds given and route, prescriptions, significant lab abnormalities, going to OR and other pertinent info. @ -69-year-old female sent in by primary care physician's office for heart failure. Vital signs upon arrival are within acceptable limits. Patient has a history of heart failure. Chart review was performed. Patient has an echocardiogram from January 2024 showing normal ejection fraction. Have crackles on lungs. She was seen by pulmonary in May 2024 diagnosed with acute on chr onic diastolic CHF exacerbation. Given Lasix. Laboratory evaluation obtained found to be within acceptable limits. X-ray shows heart failure. Patient be admitted with consultation to pulmonology and cardiology. Did you discuss the management of the patient with other professionals (professionals i.e. , PA, INTERVENTIONAL RADIOLOGY TECH, lab, RT, psych nurse, social contact worker, driver guard, teacher, compliance review officer, family independence case manager)? Give summary @ -Case discussed with hospitalist for admission Was critical care preformed (if so, how long)? @ -No Undiagnosed new problem with uncertain prognosis? @ -No Drug Therapy requiring intensive monitoring for toxicity (Heparin, Nitro, Insulin, Cardizem)? @ -No Were any procedures done? @ -No Diagnosis/symptom? Acute, or Chronic, or Acute on Chronic? Uncomplicated (without systemic symptoms) or Complicated (systemic symptoms)? @ -Dyspnea Side effects of treatment? @ -No Exacerbation, Progression, or Severe Exacerbation? @ -No Poses a threat to life or bodily function? How? (Chest pain, [place], [place], pneumonia, PE, COPD, DKA, ARF, appy, cholecystitis, CVA, Diverticulitis, Homicidal, Suicidal, threat to staff... and all critical care pts) @ -yes (Luiz Moon) - Lab Data Lab Results 09/16/24 09/16/24 09/16/24 Range/Units 19:03 19:03 19:03 WBC 9.0 (3.8-10.6) k/uL RBC 4.13 (3.80-5.40) m/uL Hgb 8.9 L (11.4-16.0) gm/dL Hct 30.4 L (34.0-46.0) % MCV 73.6 L (80.0-100.0) fL MCH 21.6 L (25.0-35.0) pg MCHC 29.3 L (31.0-37.0) g/dL RDW 18.9 H (11.5-15.5) % Plt Count 323 (150-450) k/uL MPV 8.2 Neutrophils % 75 % Lymphocytes % 16 % Monocytes % 5 % Eosinophils % 2 % Basophils % 0 % Neutrophils # 6.7 (1.3-7.7) k/uL Lymphocytes # 1.4 (1.0-4.8) k/uL Monocytes # 0.4 (0-1.0) k/uL Eosinophils # 0.1 (0-0.7) k/uL Basophils # 0.0 (0-0.2) k/uL Hypochromasia Marked Poikilocytosis Slight Anisocytosis Slight Microcytosis Moderate PT 13.5 H (10.0-12.5) sec INR 1.3 H (<1.2) APTT 26.5 (22.0-30.0) sec Sodium 143 (137-145) mmol/L Potassium 4.0 (3.5-5.1) mmol/L Chloride 107 (98-107) mmol/L Carbon Dioxide 25 (22-30) mmol/L Anion Gap 11 mmol/L BUN 17 (7-17) mg/dL Creatinine 0.92 (0.52-1.04) mg/dL Est GFR (CKD-EPI)AfAm 75 (>60 ml/min/1.73 sqM) Est GFR (CKD-EPI)NonAf 65 (>60 ml/min/1.73 sqM) Glucose 123 H (74-99) mg/dL Calcium 8.4 (8.4-10.2) mg/dL Magnesium 2.0 (1.6-2.3) mg/dL Total Bilirubin 0.6 (0.2-1.3) mg/dL AST 61 H (14-36) U/L ALT 37 H (4-34) U/L Alkaline Phosphatase 79 (38-126) U/L Troponin I (0.000-0.034) ng/mL NT-Pro-B Natriuret Pep 325 pg/mL Total Protein 9.2 H (6.3-8.2) g/dL Albumin 4.4 (3.5-5.0) g/dL 09/16/24 Range/Units 19:03 WBC (3.8-10.6) k/uL RBC (3.80-5.40) m/uL Hgb (11.4-16.0) gm/dL Hct (34.0-46.0) % MCV (80.0-100.0) fL MCH (25.0-35.0) pg MCHC (31.0-37.0) g/dL RDW (11.5-15.5) % Plt Count (150-450) k/uL MPV Neutrophils % % Lymphocytes % % Monocytes % % Eosinophils % % Basophils % % Neutrophils # (1.3-7.7) k/uL Lymphocytes # (1.0-4.8) k/uL Monocytes # (0-1.0) k/uL Eosinophils # (0-0.7) k/uL Basophils # (0-0.2) k/uL Hypochromasia Poikilocytosis Anisocytosis Microcytosis PT (10.0-12.5) sec INR (<1.2) APTT (22.0-30.0) sec Sodium (137-145) mmol/L Potassium (3.5-5.1) mmol/L Chloride (98-107) mmol/L Carbon Dioxide (22-30) mmol/L Anion Gap mmol/L BUN (7-17) mg/dL Creatinine (0.52-1.04) mg/dL Est GFR (CKD-EPI)AfAm (>60 ml/min/1.73 sqM) Est GFR (CKD-EPI)NonAf (>60 ml/min/1.73 sqM) Glucose (74-99) mg/dL Calcium (8.4-10.2) mg/dL Magnesium (1.6-2.3) mg/dL Total Bilirubin (0.2-1.3) mg/dL AST (14-36) U/L ALT (4-34) U/L Alkaline Phosphatase (38-126) U/L Troponin I <0.012 (0.000-0.034) ng/mL NT-Pro-B Natriuret Pep pg/mL Total Protein (6.3-8.2) g/dL Albumin (3.5-5.0) g/dL Disposition <Kellee Casey - Last Filed: 09/16/24 17:55> Decision Time: 20:30 <Luiz Moon - Last Filed: 09/16/24 20:30> Clinical Impression: Dyspnea Disposition: ADMITTED IP TO THIS HOSP Condition: Fair Referrals: Derian Brasher MD [Primary Care Provider] - 1-2 days
--- NOTE | 2024-09-16 19:18 | XR ---
EXAMINATION TYPE: XR chest 2V DATE OF EXAM: 09/16/2024 COMPARISON: 06/01/2024 INDICATION: Short of breath bilateral lower extremity edema weight gain history CHF TECHNIQUE: Frontal and lateral views of the chest are obtained. FINDINGS: The heart size is enlarged. The pulmonary vasculature is normal. Bibasilar infiltrates are present. Correlate for atelectasis or pneumonia. Atypical pulmonary edema i s within the differential. Small left pleural effusion is present.. IMPRESSION: 1. Clinical correlation recommended for congestive heart failure. Differential diagnosis includes bib asilar atelectasis and pneumonia. [facility], Workstation: [facility], 09/16/2024 7:15 PM
[2024-09-16 19:48] LABS: Anisocytosis Slight; Basophils % (A) 0 %; Eosinophils # (A) 0.1 k/uL (0-0.7); Eosinophils % (A) 2 %; HCT 30.4 % (34.0-46.0); HGB 8.9 gm/dL (11.4-16.0); Hypochromasia Marked; Lymphocytes # (A) 1.4 k/uL (1.0-4.8); Lymphocytes % (A) 16 %; MCH 21.6 pg (25.0-35.0); MCHC 29.3 g/dL (31.0-37.0); MCV 73.6 fL (80.0-100.0); Mean Platelet Volume 8.2; Microcytosis Moderate; Monocytes # (A) 0.4 k/uL (0-1.0); Monocytes % (A) 5 %; Neutrophils # (A) 6.7 k/uL (1.3-7.7); Neutrophils % (A) 75 %; Platelet Count 323 k/uL (150-450); Poikilocytosis Slight; RBC 4.13 m/uL (3.80-5.40); RDW 18.9 % (11.5-15.5)
[2024-09-16 19:51] LABS: ALT 37 U/L (4-34); AST 61 U/L (14-36); African American GFR (CKD) 75 (>60 ml/min/1.73 sqM); Albumin 4.4 g/dL (3.5-5.0); Alkaline Phosphatase 79 U/L (38-126); Anion Gap 11 mmol/L; Blood Urea Nitrogen 17 mg/dL (7-17); Calcium 8.4 mg/dL (8.4-10.2); Carbon Dioxide 25 mmol/L (22-30); Chloride 107 mmol/L (98-107); Glucose 123 mg/dL (74-99); Non-African American GFR(CKD) 65 (>60 ml/min/1.73 sqM); Sodium 143 mmol/L (137-145); Total Bilirubin 0.6 mg/dL (0.2-1.3); Total Protein 9.2 g/dL (6.3-8.2)
[2024-09-16 19:52] LABS: INR 1.3 (<1.2); Partial Thromboplastin Time 26.5 sec (22.0-30.0); Prothrombin Time 13.5 sec (10.0-12.5)
[2024-09-16 19:59] LABS: NT-Pro-B-Type Natriuretic Pept 325 pg/mL
[2024-09-16] MEDS ORDERED: ALBUTEROL NEBULIZED 2.5 MG/3 ML INHALATION PRN (21:47)
[2024-09-16] MEDS ORDERED: ONDANSETRON 4 MG/2 ML VIAL IVP PRN (21:49)
[2024-09-16] MEDS: APIXABAN 5 MG TAB PO SCH (21:56)
[2024-09-16] MEDS: FERROUS SULFATE 325 MG TAB PO SCH (21:56)
[2024-09-16] MEDS: FUROSEMIDE 10 MG/ML 4 ML VIAL IV SCH (21:56)
[2024-09-17] MEDS: PANTOPRAZOLE 40 MG TABLET PO SCH (06:21)
[2024-09-17 08:39] LABS: Basophils # (A) 0.03 X 10*3/uL (0.00-0.10); Basophils % (A) 0.4 %; Eosinophils # (A) 0.22 X 10*3/uL (0.04-0.35); Eosinophils % (A) 2.9 %; HCT 28.3 % (37.2-46.3); HGB 7.9 g/dL (12.0-15.0); Lymphocytes % (A) 18.7 %; MCH 21.6 pg (27.0-32.0); MCHC 27.9 g/dL (32.0-37.0); MCV 77.3 FL (80.0-97.0); Mean Platelet Volume 10.4 FL (9.5-12.2); Monocytes # (A) 0.73 X 10*3/uL (0.20-1.00); Monocytes % (A) 9.7 %; NRBC Per 100 WBC 0 X 10*3/uL (0.00-0.01); Platelet Count 295 X 10*3/uL (140-440); RBC 3.66 X 10*6/uL (4.10-5.20); RDW 19.6 % (11.5-14.5)
[2024-09-17 09:06] LABS: Blood Urea Nitrogen 17.2 mg/dL (9.0-27.0); Calcium 8.3 mg/dL (8.7-10.3); Carbon Dioxide 25.6 mmol/L (21.6-31.8); Chloride 103 mmol/L (96-109); Glucose 146 mg/dL (70-110); Potassium 3.7 mmol/L (3.5-5.5); Sodium 142 mmol/L (135-145)
[2024-09-17] MEDS: AMMONIUM LACTATE 12% LOTION 225 GM BTL TOPICAL SCH (10:30)
[2024-09-17] MEDS: DILTIAZEM CD 180 MG CAP.ER.24H PO SCH (10:30)
[2024-09-17] MEDS: ATORVASTATIN 40 MG TAB PO SCH (10:30)
[2024-09-17] MEDS: GABAPENTIN 100 MG CAP PO SCH (10:31)
[2024-09-17] MEDS: METOPROLOL SUCCINATE (ER) 100 MG TAB.ER.24H PO SCH (10:31)
[2024-09-17] MEDS: MULTIVITAMINS, THERA 1 EACH TAB PO SCH (10:31)
--- NOTE | 2024-09-17 11:28 | P.CRDCN ---
History of Present Illness Consult date: 09/17/24 Consult reason: congestive heart failure History of present illness: This is a 69-year-old female patient of Dr. Mensah with past medical history of CAD with prior stenting of the LAD, paroxysmal atrial fibrillation, hypertension, dyslipidemia, valvular heart disease with aortic and mitral regurgitation, overweight, dilated thoracic aorta, COPD, history of epistaxis and history of GI bleeding. We have been asked to evaluate the patient for he art failure. Patient states she came into the hospital because she could not catch her breath and she also had increased lower extremity edema over the past week. She states she has been taking all of her home medications as directed. She has been started on IV Lasix 40 mg every 12 hours and feels that she has some improvement overnight. Blood pressure 107/42, heart rate 67, pulse ox 96% on room air. EKG: Sinus rhythm with no acute ST changes Chest x-ray: Clinical correlation for CHF. Differential diagnosis includes bibasilar atelectasis and pneumonia. Laboratory studies: WBC 7.5, hemoglobin 7.9, platelet count 295. Creatinine 1.0. Troponin negative x 1. proBNP 325. Home cardiac medications: Eliquis 5 mg twice daily, Cardizem 180 mg daily, Lasix 40 mg twice daily, Toprol XL 100 mg daily, Nitrostat as needed, potassium chloride 10 mill equivalents daily at 1400, Crestor 20 mg daily. Lexiscan stress test performed in the office on 10/09/2022 revealed nondiagnostic electrocardiographic stress testing and response to Lexiscan. Abnormal myocardial perfusion imaging with evidence of reversible defect of moderate size and moderate intensity involving the anterior wall of the left ventricle. This could be representing ischemia and could also be related to breast attenuation. Normal left ventricular systolic function. Echocardiogram performed 02/07/2024 reveals EF of 50 to 55%, RVSP 38, trace mitral regurgitation, mild tricuspid regurgitation. Review Of Systems: At the time of my exam: CONSTITUTIONAL: Denies fever or chills. HEENT: Denies blurred vision, vision changes, or eye pain. Denies hemoptysis CARDIOVASCULAR: Denies chest pain. Denies orthopnea. Denies PND. Denies palpitations. Reports lower extremity edema RESPIRATORY: Reports shortness of breath. GASTROINTESTINAL: Denies abdominal pain. Denies nausea or vomiting. HEMATOLOGIC: Denies bleeding disorders. GENITOURINARY: Denies any blood in urine. SKIN: Denies puritis. Denies rash. Physical examination: Gen: This is a 69-year-old female in no acute distress VS: reviewed HEENT: Head is atraumatic, normocephalic. Pupils equal, round. Sclerae is anicteric. NECK: Supple. No JVD. LUNGS: Clear to auscultation. No wheezes or rhonchi. No intercostal retractions. HEART: Regular rate and rhythm. No murmur. ABDOMEN: Soft No tenderness. EXTREMITIES: Moderate bilateral lower extremity edema. No calf tenderness. NEUROLOGICAL: Patient is awake, alert and oriented x3. Assessment: Acute on chronic diastolic heart failure CAD with prior stenting of the LAD Paroxysmal atrial fibrillation Hypertension Dyslipidemia Valvular heart disease with aortic and mitral regurgitation Overweight Dilated thoracic aorta COPD History of epistaxis and history of GI bleeding Plan: Resume patient's home cardiac medications Continue patient on IV Lasix 40 mg every 12 hours Monitor HARDIK, daily weights, electrolytes and renal function Obtain 2-D echocardiogram and Doppler study to assess cardiac structure and function Further recommendations to follow based upon clinical course Thank you kindly for this consultation. Nurse practitioner note has been reviewed, I agree with documented findings and plan of care. Patient was seen and examined. Past Medical History Past Medical History: Atrial Fibrillation, Heart Failure, GERD/Reflux, Hearing Disorder / Deafness, Hyperlipidemia, Hypertension, Myocardial Infarction ([place]), Osteoarthritis ([place]), Sleep Apnea/CPAP/BIPAP Additional Past Medical History / Comment(s): SEE DR MENSAH'S H&P. RECENT FLU - [place] OF OCT 2022. HX DIVERTICULITIS, HIATAL HERNIA,USES CPAP SOMETIMES, HARD OF HEARING, HEADACHES. Last Myocardial Infarction Date:: 2019 History of Any Multi-Drug Resistant Organisms: None Reported Past Surgical History: Bariatric Surgery, Section, Cholecystectomy, Heart Catheterization With Stent, Joint Replacement Additional Past Surgical History / Comment(s): LAP BAND, SLEEVE GASTRECTOMY, TUMOR REMOVED FROM RIB CAGE, LEFT KNEE REPLACEMENT, CARDIAC STENT X1. Cardioversion, BILATERAL KNEE surgery Past Anesthesia/Blood Transfusion Reactions: No Reported Reaction Date of Last Stent Placement:: 2021 Past Psychological History: No Psychological Hx Reported Smoking Status: Former smoker Past Alcohol Use History: None Reported, Rare Additional Past Alcohol Use History / Comment(s): Light smoker as teen only. Past Drug Use History: None Reported - Past Family History Father Family Medical History: Hypertension, Myocardial Infarction ([place]) Additional Family Medical History / Comment(s): AT AGE 55 - MASSIVE HEART ATTACK, Mother Family Medical History: No Reported History Medications and Allergies Home Medications Medication Instructions Recorded Confirmed Type Rosuvastatin [Crestor] 20 mg PO DAILY 11/13/22 09/16/24 History Nitroglycerin Sl Tabs [Nitrostat] 0.4 mg SL Q5M PRN 02/10/23 09/16/24 History Albuterol Inhaler [Ventolin Hfa 2 puff INHALATION RT-Q4H PRN 06/01/24 09/16/24 History Inhaler] Apixaban [Eliquis] 5 mg PO BID 06/01/24 09/16/24 History Diltiazem Cd [Cardizem CD] 180 mg PO DAILY 06/01/24 09/16/24 History Ferrous Sulfate [Iron (65 MG 325 mg PO Q48H 06/01/24 09/16/24 History Elemental)] Furosemide [Lasix] 40 mg PO BID 06/01/24 09/16/24 History Metoprolol Succinate (ER) [Toprol 100 mg PO DAILY 06/01/24 09/16/24 History XL] Multivitamins, Thera [Multivitamin 1 tab PO DAILY 06/01/24 09/16/24 History (formulary)] Pantoprazole [Protonix] 40 mg PO BID #120 tab 06/04/24 09/16/24 Rx Ammonium Lactate Lotion 1 applic TOPICAL DAILY 09/16/24 09/16/24 History [Lac-Hydrin 12% Lotion] Gabapentin [Neurontin] 100 mg PO BID 09/16/24 09/16/24 History Potassium Chloride 10 meq PO DAILY@1400 09/16/24 09/16/24 History Allergies Allergy/AdvReac Type Severity Reaction Status Date / Time codeine Allergy went into Verified 09/16/24 20:21 corticate position, unable to see colors Physical Exam Vitals: Vital Signs Temp Pulse Pulse Resp BP BP Pulse Ox 09/17/24 07:23 97.9 F 67 18 107/42 96 09/17/24 02:00 18 09/17/24 01:46 97.8 F 75 18 101/45 96 09/16/24 21:44 97.6 F 86 18 126/64 97 09/16/24 21:08 78 22 134/90 95 09/16/24 17:36 98.1 F 86 18 135/67 94 L Intake and Output 09/16/24 09/17/24 09/17/24 22:59 06:59 14:59 Intake Total 360 720 Output Total 1700 Balance 360 -980 Intake: Oral 360 720 Output: Urine 1700 Other: Voiding Method Toilet Toilet # Voids 1 Weight 123.831 kg 122 kg Results 09/17/24 05:03 09/17/24 05:03 Cardiac Enzymes 09/16/24 09/16/24 Range/Units 19:03 19:03 AST 61 H (14-36) U/L Troponin I <0.012 (0.000-0.034) ng/mL Coagulation 09/16/24 Range/Units 19:03 PT 13.5 H (10.0-12.5) sec APTT 26.5 (22.0-30.0) sec CBC 09/16/24 Range/Units 19:03 WBC 9.0 (3.8-10.6) k/uL RBC 4.13 (3.80-5.40) m/uL Hgb 8.9 L (11.4-16.0) gm/dL Hct 30.4 L (34.0-46.0) % Plt Count 323 (150-450) k/uL Comprehensive Metabolic Panel 09/16/24 Range/Units 19:03 Sodium 143 (137-145) mmol/L Potassium 4.0 (3.5-5.1) mmol/L Chloride 107 (98-107) mmol/L Carbon Dioxide 25 (22-30) mmol/L BUN 17 (7-17) mg/dL Creatinine 0.92 (0.52-1.04) mg/dL Glucose 123 H (74-99) mg/dL Calcium 8.4 (8.4-10.2) mg/dL AST 61 H (14-36) U/L ALT 37 H (4-34) U/L Alkaline Phosphatase 79 (38-126) U/L Total Protein 9.2 H (6.3-8.2) g/dL Albumin 4.4 (3.5-5.0) g/dL Current Medications Generic Name Dose Route Start Last Admin Trade Name Freq PRN Reason Stop Dose Admin Acetaminophen 650 mg 09/16/24 21:49 Acetaminophen Tab 325 Mg Tab PO Q6HR PRN Fever and/ or Pain Albuterol Sulfate 2.5 mg 09/16/24 21:47 Albuterol Nebulized 2.5 Mg/3 Ml INHALATION RT-Q4H PRN Shortness Of Breath Apixaban 5 mg 09/16/24 22:00 09/16/24 21:56 Apixaban 5 Mg Tab PO 5 mg BID [facility]ANSA Administration Protocol Atorvastatin Calcium 40 mg 09/17/24 09:00 Atorvastatin 40 Mg Tab PO DAILY [facility]AN[facility] Diltiazem HCl 180 mg 09/17/24 09:00 Diltiazem Cd 180 Mg Cap.Er.24h PO DAILY [facility]ANSA Ferrous Sulfate 325 mg 09/16/24 22:00 09/16/24 21:56 Ferrous Sulfate 325 Mg Tab PO 325 mg Q48H [facility]AN[facility] Administration Furosemide 40 mg 09/16/24 20:30 09/17/24 07:50 Furosemide 10 Mg/Ml 4 Ml Vial IV 40 mg Q12HR [facility]ANSA Administration Gabapentin 100 mg 09/17/24 09:00 Gabapentin 100 Mg Cap PO BID [facility]ANSA Lactic Acid 1 applic 09/17/24 09:00 Ammonium Lactate 12% Lotion 225 Gm Btl TOPICAL DAILY [facility] Protocol Metoprolol Succinate 100 mg 09/17/24 09:00 Metoprolol Succinate (Er) 100 Mg Tab.Er.24h PO DAILY [facility] Multivitamins 1 each 09/17/24 09:00 Multivitamins, Thera 1 Each Tab PO DAILY [facility] Ondansetron HCl 4 mg 09/16/24 21:49 Ondansetron 4 Mg/2 Ml Vial IVP Q6HR PRN Nausea And Vomiting Pantoprazole Sodium 40 mg 09/17/24 07:30 09/17/24 06:21 Pantoprazole 40 Mg Tablet PO 40 mg AC-BID [facility] Administration Potassium Chloride 10 meq 09/17/24 14:00 Potassium Chloride Er 10 Meq Tab.Er.Prt PO DAILY@1400 [facility] Intake and Output 09/16/24 09/17/24 09/17/24 22:59 06:59 14:59 Intake Total 360 720 Output Total 1700 Balance 360 -980 Intake: Oral 360 720 Output: Urine 1700 Other: Voiding Method Toilet Toilet # Voids 1 Weight 123.831 kg 122 kg 09/16/24 19:03 09/16/24 19:03
[2024-09-17] MEDS: POTASSIUM CHLORIDE ER 10 MEQ TAB.ER.PRT PO SCH (13:06)
[2024-09-17] MEDS: ACETAMINOPHEN TAB 325 MG TAB PO PRN (13:06)
--- NOTE | 2024-09-17 13:23 | P.CNPUL ---
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 She presented here to the emergency room yesterday with complaints of increasing shortness of breath and lower extremity edema. Chest x-ray reveals pulmonary vascular congestion and evidence of congestive heart failure. Basilar atelectasis. White count 7.5. Hemoglobin 7.9. Platelets 295. Sodium 142. Potassium 3.7. Bicarb 26. BUN 17. Creatinine 1.0. Glucose 146. proBNP 325. Troponin negative x 1. She has been initiated on Lasix 40 mg IV every 12 hours. Anticoagulated with Eliquis. She is seen today in consultation on the regular medical floor. She is currently sitting up in a chair at the bedside. Awake and alert in no acute distress. She is maintaining O2 saturations in the 90s on room air. She is afebrile. Hemodynamically stable. Currently in a negative balance. Review of Systems REVIEW OF SYSTEMS: CONSTITUTIONAL: Denies any recent significant weight loss or weight gain. EYES: Denies change in vision. EARS, NOSE, MOUTH, THROAT: Denies headaches, denies sore throat. CARDIOVASCULAR: Denies chest pain, palpitations or syncopal episodes. RESPIRATORY: Positive for shortness of breath, no cough, congestion or hemoptysis. GASTROINTESTINAL: Denies change in appetite, denies abdominal pain GENITOURINARY: Denies hematuria, denies infections. MUSKULOSKELETAL: Positive for swelling. INTEGUMENTARY: Denies rash, denies eczema. NEUROLOGICAL: Denies recent memory loss, no recent seizure activity. PSYCHIATRIC: Denies anxiety, denies depression. HEMATOLOGIC/LYMPHATIC: Denies anemia, denies enlarged lymph nodes. Past Medical History Past Medical History: Atrial Fibrillation, Heart Failure, GERD/Reflux, Hearing Disorder / Deafness, Hyperlipidemia, Hypertension, Myocardial Infarction ([place]), Osteoarthritis (OA), Sleep Apnea/CPAP/BIPAP Additional Past Medical History / Comment(s): SEE DR ALVARENGA'S H&P. RECENT FLU - END OF OCT 2022. HX DIVERTICULITIS, HIATAL HERNIA,USES CPAP SOMETIMES, HARD OF HEARING, HEADACHES. 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 Cardioversion, BILATERAL KNEE surgery Past Anesthesia/Blood Transfusion Reactions: No Reported Reaction Date of Last Stent Placement:: 2021 Past Psychological History: No Psychological Hx Reported Smoking Status: Former smoker Past Alcohol Use History: None Reported, Rare Additional Past Alcohol Use History / Comment(s): Light smoker as teen only. Past Drug Use History: None Reported - Past Family History Father Family Medical History: Hypertension, Myocardial Infarction ([place]) Additional Family Medical History / Comment(s): AT AGE 55 - MASSIVE HEART ATTACK, Mother Family Medical History: No Reported History Medications and Allergies Home Medications Medication Instructions Recorded Confirmed Type Rosuvastatin [Crestor] 20 mg PO DAILY 11/13/22 09/16/24 History Nitroglycerin Sl Tabs [Nitrostat] 0.4 mg SL Q5M PRN 02/10/23 09/16/24 History Albuterol Inhaler [Ventolin Hfa 2 puff INHALATION RT-Q4H PRN 06/01/24 09/16/24 History Inhaler] Apixaban [Eliquis] 5 mg PO BID 06/01/24 09/16/24 History Diltiazem Cd [Cardizem CD] 180 mg PO DAILY 06/01/24 09/16/24 History Ferrous Sulfate [Iron (65 MG 325 mg PO Q48H 06/01/24 09/16/24 History Elemental)] Furosemide [Lasix] 40 mg PO BID 06/01/24 09/16/24 History Metoprolol Succinate (ER) [Toprol 100 mg PO DAILY 06/01/24 09/16/24 History XL] Multivitamins, Thera [Multivitamin 1 tab PO DAILY 06/01/24 09/16/24 History (formulary)] Pantoprazole [Protonix] 40 mg PO BID #120 tab 06/04/24 09/16/24 Rx Ammonium Lactate Lotion 1 applic TOPICAL DAILY 09/16/24 09/16/24 History [Lac-Hydrin 12% Lotion] Gabapentin [Neurontin] 100 mg PO BID 09/16/24 09/16/24 History Potassium Chloride 10 meq PO DAILY@1400 09/16/24 09/16/24 History Allergies Allergy/AdvReac Type Severity Reaction Status Date / Time codeine Allergy went into Verified 09/16/24 20:21 corticate position, unable to see colors Physical Exam Vitals: Vital Signs Temp Pulse Pulse Resp BP BP Pulse Ox 09/17/24 12:54 67 18 09/17/24 07:23 97.9 F 67 18 107/42 96 09/17/24 02:00 18 09/17/24 01:46 97.8 F 75 18 101/45 96 09/16/24 21:44 97.6 F 86 18 126/64 97 09/16/24 21:08 78 22 134/90 95 09/16/24 17:36 98.1 F 86 18 135/67 94 L Intake and Output 09/16/24 09/17/24 09/17/24 22:59 06:59 14:59 Intake Total 360 720 118 Output Total 1700 1600 Balance 431 -727 -1955 Intake: Oral 360 720 118 Output: Urine 1700 1600 Other: Voiding Method Toilet Toilet # Voids 1 Weight 123.831 kg 122 kg GENERAL EXAM: Alert, obese, very pleasant 69-year-old female, on room air, fairly comfortable in no apparent distress. HEAD: Normocephalic. EYES: Normal reaction of pupils, equal size. NOSE: Clear with pink turbinates. THROAT: No erythema or exudates. NECK: No masses, no JVD. CHEST: No chest wall deformity. LUNGS: Equal air entry with crackles in the bilateral bases. CVS: S1 and S2 normal with no audible murmur, regular rhythm. ABDOMEN: No hepatosplenomegaly, normal bowel sounds, no guarding or rigidity. SPINE: No scoliosis or deformity SKIN: No rashes CENTRAL NERVOUS SYSTEM: No focal deficits, tone is normal in all 4 extremities. EXTREMITIES: There is 1-2+ peripheral edema. No clubbing, no cyanosis. Peripheral pulses are intact. Results - Laboratory Findings CBC and BMP: 09/17/24 05:03 09/17/24 05:03 PT/INR, D-dimer PT 13.5 sec (10.0-12.5) H 09/16/24 19:03 INR 1.3 (<1.2) H 09/16/24 19:03 Abnormal lab findings: Abnormal Labs 09/16/24 09/16/24 09/16/24 19:03 19:03 19:03 RBC Hgb 8.9 L Hct 30.4 L MCV 73.6 L MCH 21.6 L MCHC 29.3 L RDW 18.9 H PT 13.5 H INR 1.3 H Anion Gap Glucose 123 H Calcium AST 61 H ALT 37 H Total Protein 9.2 H 09/17/24 09/17/24 05:03 05:03 RBC 3.66 L Hgb 7.9 L Hct 28.3 L MCV 77.3 L MCH 21.6 L MCHC 27.9 L RDW 19.6 H PT INR Anion Gap 13.40 H Glucose 146 H Calcium 8.3 L AST ALT Total Protein - Diagnostic Findings Chest x-ray: image reviewed Assessment and Plan Assessment: Acute exacerbation of chronic diastolic congestive heart failure History of paroxysmal atrial fibrillation with previous cardioversion, maintained on Eliquis History of anemia with multiple linear telangiectasis in the antrum consistent with gastric antral vascular ectasia (GAVE) Morbid obesity with previous gastric sleeve placement. BMI 54.3 kg/m History of coronary disease with previous stents to the LAD Hypertension Hyperlipidemia Obstructive sleep apnea maintained on home CPAP Plan: The patient was seen and evaluated Chest x-ray, labs and medications reviewed Currently stable and on room air Continue IV diuretics Anticoagulated with Eliquis Protonix for GI prophylaxis We will continue to follow and make further recommendations based on her clinical status I have personally seen and examined the patient, performed the documentation and the assessment and plan as written. Number of minutes spent on the visit: 20 Dictation was produced using [employer] dictation software. Please excuse any grammatical, word or spelling errors.
[2024-09-17 13:57] VITALS: BMI 54.3
--- NOTE | 2024-09-17 14:28 | P.HPIM ---
History of Present Illness H&P Date: 09/17/24 History of present illness; patient 69-year-old lady with past medical history significant for hypertension, hyperlipidemia, CAD with previous PCI/stents, atrial fibrillation with previous cardioversions and is chronically anticoagulated on Eliquis, heart failure, obstructive sleep apnea with home CPAP who presented to the ER because of worsening shortness of breath. Patient stated that she was all right 1 week back when he started noticing worsening shortness of breath. Shortness of breath was present on exertion. Patient also complaining of swelling of lower extremities. Patient stated that she was unable to lay flat. Patient denies any chest pain. There is no complaint of fever or chills. Patient was evaluated in May of this year for anemia at which time patient had EGD and colonoscopy done and was found to have multiple linear telangiectasias in the antrum consistent with gastric antral vascular ectasia (GAVE) with some oozing status post coagulation,Colonoscopy revealed a 6 mm cecal polyp status post cold snare polypectomy and scattered sigmoid diverticulosis. Patient is chronically anticoagulated with Eliquis. Because of worsening shortness of breath, patient went to her PCP office but was told to come to the ER. Initial lab work done in the ER showed WBC 9, hemoglobin 8.9, platelet count 323, INR 1.3, sodium 143, potassium 4, BUN 17, creatinine 0.92, glucose 123, AST 61, ALT 37 proBNP 325 EKG done in the ER showed heart rate of 80, no ST segment elevation or depression seen, no T-wave inversions seen. Chest x-ray done in the ER showed clinical correlation recommended for CHF, bilateral basilar atelectasis. Patient admitted to internal medicine service REVIEW OF SYSTEMS: CONSTITUTIONAL: No fever, no malaise, no fatigue. HEENT: No recent visual problems or hearing problems. Denied any sore throat. CARDIOVASCULAR: As mentioned above PULMONARY: As mentioned above GASTROINTESTINAL: No diarrhea, no nausea, no vomiting, no abdominal pain. NEUROLOGICAL: No headaches, no weakness, no numbness. HEMATOLOGICAL: Denies any bleeding or petechiae. GENITOURINARY: Denies any burning micturition, frequency, or urgency. MUSCULOSKELETAL/RHEUMATOLOGICAL: Denies any joint pain, swelling, or any muscle pain. ENDOCRINE: Denies any polyuria or polydipsia. The rest of the 14-point review of systems is negative. PHYSICAL EXAMINATION: GENERAL: The patient is alert and oriented x3, not in any acute distress. Well developed, well nourished. HEENT: Pupils are round and equally reacting to light. EOMI. No scleral icterus. No conjunctival pallor. Normocephalic, atraumatic. No pharyngeal erythema. No thyromegaly. CARDIOVASCULAR: S1 and S2 present. No murmurs, rubs, or gallops. PULMONARY: Chest is clear to auscultation, no wheezing or crackles. ABDOMEN: Soft, nontender, nondistended, normoactive bowel sounds. No palpable organomegaly. MUSCULOSKELETAL: No joint swelling or deformity. EXTREMITIES: No cyanosis, clubbing, or pedal edema. NEUROLOGICAL: Gross neurological examination did not reveal any focal deficits. SKIN: No rashes. Assessment and plan Acute on chronic diastolic CHF exacerbation, most recent echocardiogram 02/07/2024 estimates a preserved left ventricular ejection fraction of 50 to 55%, along with, trace/mild mitral and tricuspid regurgitation. Anemia History of recent EGD in May showing multiple linear telangiectasias in the antrum consistent with gastric antral vascular ectasia (GAVE) with some oozing status post coagulation History of colonoscopy revealed a 6 mm cecal polyp status post cold snare polypectomy and scattered sigmoid diverticulosis History of hypertension History of hyperlipidemia History of coronary artery disease with previous PCI/stents to LAD History of paroxysmal atrial flutter/atrial fibrillation with previous cardioversion. Chronically anticoagulated on Eliquis. Mrbid obesity, with a BMI of 52.5 kg/m Obstructive sleep apnea with home CPAP machine Monitor vital signs Monitor CBC Monitor CMP Continue telemetry monitoring Ordered FOBT Ordered anemia workup Ordered 2D echo Strict I's and O's, daily weights Start IV Lasix 40 mg every 12 Consult cardiology Consult pulmonary Labs and medication were reviewed.. Continue same treatment. Continue with symptomatic treatment. Resume home medication. Monitor labs and vitals. DVT and GI prophylaxis. Further recommendations as per clinical course of the patient Dictation was produced using [employer] dictation software. please excuse any grammatical, word or spelling errors. Past Medical History Past Medical History: Atrial Fibrillation, Heart Failure, GERD/Reflux, Hearing Disorder / Deafness, Hyperlipidemia, Hypertension, Myocardial Infarction ([place]), Osteoarthritis ([place]), Sleep Apnea/CPAP/BIPAP Additional Past Medical History / Comment(s): SEE DR ALVARENGA'S H&P. RECENT FLU - END OF OCT 2022. HX DIVERTICULITIS, HIATAL HERNIA,USES CPAP SOMETIMES, HARD OF HEARING, HEADACHES. 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 Cardioversion, BILATERAL KNEE surgery Past Anesthesia/Blood Transfusion Reactions: No Reported Reaction Date of Last Stent Placement:: 2021 Past Psychological History: No Psychological Hx Reported Smoking Status: Former smoker Past Alcohol Use History: None Reported, Rare Additional Past Alcohol Use History / Comment(s): Light smoker as teen only. Past Drug Use History: None Reported - Past Family History Father Family Medical History: Hypertension, Myocardial Infarction ([place]) Additional Family Medical History / Comment(s): AT AGE 55 - MASSIVE HEART ATTACK, Mother Family Medical History: No Reported History Medications and Allergies Home Medications Medication Instructions Recorded Confirmed Type Rosuvastatin [Crestor] 20 mg PO DAILY 11/13/22 09/16/24 History Nitroglycerin Sl Tabs [Nitrostat] 0.4 mg SL Q5M PRN 02/10/23 09/16/24 History Albuterol Inhaler [Ventolin Hfa 2 puff INHALATION RT-Q4H PRN 06/01/24 09/16/24 History Inhaler] Apixaban [Eliquis] 5 mg PO BID 06/01/24 09/16/24 History Diltiazem Cd [Cardizem CD] 180 mg PO DAILY 06/01/24 09/16/24 History Ferrous Sulfate [Iron (65 MG 325 mg PO Q48H 06/01/24 09/16/24 History Elemental)] Furosemide [Lasix] 40 mg PO BID 06/01/24 09/16/24 History Metoprolol Succinate (ER) [Toprol 100 mg PO DAILY 06/01/24 09/16/24 History XL] Multivitamins, Thera [Multivitamin 1 tab PO DAILY 06/01/24 09/16/24 History (formulary)] Pantoprazole [Protonix] 40 mg PO BID #120 tab 06/04/24 09/16/24 Rx Ammonium Lactate Lotion 1 applic TOPICAL DAILY 09/16/24 09/16/24 History [Lac-Hydrin 12% Lotion] Gabapentin [Neurontin] 100 mg PO BID 09/16/24 09/16/24 History Potassium Chloride 10 meq PO DAILY@1400 09/16/24 09/16/24 History Allergies Allergy/AdvReac Type Severity Reaction Status Date / Time codeine Allergy went into Verified 09/16/24 20:21 corticate position, unable to see colors Physical Exam Vitals: Vital Signs Temp Pulse Pulse Resp BP BP Pulse Ox 09/17/24 07:23 97.9 F 67 18 107/42 96 09/17/24 02:00 18 09/17/24 01:46 97.8 F 75 18 101/45 96 09/16/24 21:44 97.6 F 86 18 126/64 97 09/16/24 21:08 78 22 134/90 95 09/16/24 17:36 98.1 F 86 18 135/67 94 L Intake and Output 09/16/24 09/17/24 09/17/24 22:59 06:59 14:59 Intake Total 360 720 118 Output Total 1700 Balance 360 -980 118 Intake: Oral 360 720 118 Output: Urine 1700 Other: Voiding Method Toilet Toilet # Voids 1 Weight 123.831 kg 122 kg Results CBC & Chem 7: 09/17/24 05:03 09/17/24 05:03 Labs: Abnormal Lab Results - Last 24 Hours (Table) 09/16/24 09/16/24 09/16/24 Range/Units 19:03 19:03 19:03 RBC (4.10-5.20) X 10*6/uL Hgb 8.9 L (11.4-16.0) gm/dL Hct 30.4 L (34.0-46.0) % MCV 73.6 L (80.0-100.0) fL MCH 21.6 L (25.0-35.0) pg MCHC 29.3 L (31.0-37.0) g/dL RDW 18.9 H (11.5-15.5) % PT 13.5 H (10.0-12.5) sec INR 1.3 H (<1.2) Anion Gap (4.00-12.00) mmol/L Glucose 123 H (74-99) mg/dL Calcium (8.7-10.3) mg/dL AST 61 H (14-36) U/L ALT 37 H (4-34) U/L Total Protein 9.2 H (6.3-8.2) g/dL 09/17/24 09/17/24 Range/Units 05:03 05:03 RBC 3.66 L (4.10-5.20) X 10*6/uL Hgb 7.9 L (11.4-16.0) gm/dL Hct 28.3 L (34.0-46.0) % MCV 77.3 L (80.0-100.0) fL MCH 21.6 L (25.0-35.0) pg MCHC 27.9 L (31.0-37.0) g/dL RDW 19.6 H (11.5-15.5) % PT (10.0-12.5) sec INR (<1.2) Anion Gap 13.40 H (4.00-12.00) mmol/L Glucose 146 H (74-99) mg/dL Calcium 8.3 L (8.7-10.3) mg/dL AST (14-36) U/L ALT (4-34) U/L Total Protein (6.3-8.2) g/dL Thrombosis Risk Factor Assmnt - Choose All That Apply Any of the Below Risk Factors Present?: Yes Each Factor Represents 1 point: Obesity (BMI >25), Swollen legs (current) Each Risk Factor Represents 2 Points: Age 61-74 years Thrombosis Risk Factor Assessment Total Risk Factor Score: 4 Thrombosis Risk Factor Assessment Level: Moderate Risk
--- NOTE | 2024-09-17 14:49 | CA ---
Transthoracic Echo Report Name: Rae Ortega Age: 69 Gender: F : 1955 Exam Date: 09/17/2024 11:31 Exam Location: [facility] Ht (in): 59 Wt (lb): 269 Ordering Physician: Christine Bowen Attending/Referring Phys: [id number], [employer] Supervisor Rakel Kaur RDCS Procedure CPT: Indications: LVF Cardiac Hx: Technical Quality: Poor Contrast 1: Total Dose (mL): Contrast 2: Total Dose (mL): MEASUREMENTS (Male / Female) Normal Values 2D ECHO LV Diastolic Diameter PLAX 5.2 cm 4.2 - 5.9 / 3.9 - 5.3 cm LV Systolic Diameter PLAX 3.6 cm IVS Diastolic Thickness 1.1 cm 0.6 - 1.0 / 0.6 - 0.9 cm LVPW Diastolic Thickness 1.2 cm 0.6 - 1.0 / 0.6 - 0.9 cm LV Relative Wall Thickness 0.4 LVOT Diameter 2.1 cm LV Diastolic Volume MOD BP 106.5 cm??? 67 - 155 / 56 - 104 cm??? LV Systolic Volume MOD BP 40.6 cm??? 22 - 58 / 19 - 49 cm??? LV Ejection Fraction MOD BP 61.9 % >= 55 % LV Cardiac Index MOD BP 2644.6 cm???/min???m??? LV Diastolic Volume MOD 4C 101.1 cm??? LV Systolic Volume MOD 4C 34.4 cm??? LV Ejection Fraction MOD 4C 66.0 % LV Cardiac Index MOD 4C 2678.5 cm???/min???m??? LV Diastolic Length 4C 7.5 cm LV Systolic Length 4C 6.7 cm LV Diastolic Volume MOD 2C 106.9 cm??? LV Systolic Volume MOD 2C 46.9 cm??? LV Ejection Fraction MOD 2C 56.1 % LV Cardiac Index MOD 2C 2407.3 cm???/min???m??? LV Diastolic Length 2C 8.0 cm LV Systolic Length 2C 6.4 cm LA Volume 67.3 cm??? 18 - 58 / 22 - 52 cm??? LA Volume Index 28.8 cm???/m??? 16 - 28 cm???/m??? Ascending Aorta Diameter 3.8 cm DOPPLER AV Peak Velocity 189.5 cm/s AV Peak Gradient 14.4 mmHg AV Mean Velocity 123.9 cm/s AV Mean Gradient 7.2 mmHg AV Velocity Time Integral 38.0 cm LVOT Peak Velocity 127.9 cm/s LVOT Peak Gradient 6.5 mmHg LVOT Velocity Time Integral 27.2 cm LVOT Stroke Volume 95.1 cm??? LVOT Stroke Volume Index 45.5 ml/m??? LVOT Cardiac Index 3818.5 cm???/min???m??? AV Area Cont Eq vti 2.5 cm??? AV Area Cont Eq pk 2.4 cm??? MV Area PHT 3.1 cm??? Mitral E Point Velocity 122.6 cm/s Mitral A Point Velocity 109.8 cm/s Mitral E to A Ratio 1.1 MV Deceleration Time 245.7 ms Right Atrial Pressure 15.0 mmHg PV Peak Velocity 113.9 cm/s PV Peak Gradient 5.2 mmHg FINDINGS Left Ventricle Left ventricular ejection fraction is estimated at 60-65 %. Mildly increased septal wall thickness. Mildly increased posterior wall thickness. Mildly increased left ventricular diastolic volume. No obvious regional wall motion abnormalities. Right Ventricle Right ventricle not well visualized. Right Atrium Right atrium not well visualized. Left Atrium Moderately increased left atrial volume. Mildly increased left atrial area. Mitral Valve Structurally normal mitral valve. Mitral annular calcification. No evidence for mitral valve prolapse. No mitral stenosis. No mitral regurgitation. Aortic Valve Aortic valve not well visualized. No aortic valve stenosis or regurgitation. Tricuspid Valve Tricuspid valve not well visualized. No tricuspid stenosis, regurgitation or prolapse. Pulmonic Valve Pulmonic valve not well visualized. No pulmonic stenosis. No pulmonic regurgitation. Pericardium No pericardial effusion. Aorta Normal size aortic root and proximal ascending aorta. CONCLUSIONS Normal LV function Previewed by: Dr. Marcial Lira MD (Electronically Signed) Final Date: 17 September 2024 14:48
[2024-09-17 16:12] LABS: % Iron Saturation 5.43 (12.00-45.00); Ferritin 12.9 ng/mL (10.0-291.0)
[2024-09-17] MEDS: CALCIUM CARBONATE 500 MG CHEWABLE PO PRN (21:14)
[2024-09-18 06:53] VITALS: BP 112/45; PULSE 66; RESP 18; TEMP 97.4
[2024-09-18 08:18] LABS: Basophils # (A) 0.03 X 10*3/uL (0.00-0.10); Basophils % (A) 0.4 %; Eosinophils # (A) 0.29 X 10*3/uL (0.04-0.35); Eosinophils % (A) 4.3 %; HGB 8.4 g/dL (12.0-15.0); Lymphocytes # (A) 1.32 X 10*3/uL (0.90-5.00); Lymphocytes % (A) 19.6 %; MCH 21.5 pg (27.0-32.0); MCV 76.7 FL (80.0-97.0); Mean Platelet Volume 10.3 FL (9.5-12.2); Monocytes # (A) 0.62 X 10*3/uL (0.20-1.00); Monocytes % (A) 9.2 %; NRBC Per 100 WBC 0 X 10*3/uL (0.00-0.01); Neutrophils # (A) 4.44 X 10*3/uL (1.80-7.70); Neutrophils % (A) 66.2 %; Platelet Count 253 X 10*3/uL (140-440); RBC 3.91 X 10*6/uL (4.10-5.20); RDW 19.9 % (11.5-14.5); WBC 6.72 X 10*3/uL (4.50-10.00)
[2024-09-18 09:07] LABS: ALT 33 U/L (8-44); AST 49 U/L (13-35); Albumin 3.6 g/dL (3.8-4.9); Albumin/Globulin Ratio 0.84 Ratio (1.60-3.17); Alkaline Phosphatase 67 U/L (41-126); BUN/Creat Ratio 18.42 Ratio (12.00-20.00); Blood Urea Nitrogen 22.1 mg/dL (9.0-27.0); Calcium 8.4 mg/dL (8.7-10.3); Carbon Dioxide 25.6 mmol/L (21.6-31.8); Chloride 103 mmol/L (96-109); Globulin 4.3 g/dL (1.6-3.3); Glucose 145 mg/dL (70-110); Potassium 3.9 mmol/L (3.5-5.5); Sodium 143 mmol/L (135-145); Total Bilirubin 0.4 mg/dL (0.3-1.2); Total Protein 7.9 g/dL (6.2-8.2)
--- NOTE | 2024-09-18 10:07 | P.PN ---
Subjective Progress Note Date: 09/18/24 Consult reason: congestive heart failure History of present illness: This is a 69-year-old female patient of Dr. Mensah with past medical history of CAD with prior stenting of the LAD, paroxysmal atrial fibrillation, hypertension, dyslipidemia, valvular heart disease with aortic and mitral regurgitation, overweight, dilated thoracic aorta, COPD, history of epistaxis and history of GI bleeding. We have been asked to evaluate the patient for heart failure. Patient states she came into the hospital because she could not catch her breath and she also had increased lower extremity edema over the past week. She states she has been taking all of her home medications as directed. She has been started on IV Lasix 40 mg every 12 hours and feels that she has some improvement overnight. Blood pressure 107/42, heart rate 67, pulse ox 96% on room air. EKG: Sinus rhythm with no acute ST changes Chest x-ray: Clinical correlation for CHF. Differential diagnosis includes bibasilar atelectasis and pneumonia. Laboratory studies: WBC 7.5, hemoglobin 7.9, platelet count 295. Creatinine 1.0. Troponin negative x 1. proBNP 325. Home cardiac medications: Eliquis 5 mg twice daily, Cardizem 180 mg daily, Lasix 40 mg twice daily, Toprol XL 100 mg daily, Nitrostat as needed, potassium chloride 10 mill equivalents daily at 1400, Crestor 20 mg daily. Lexiscan stress test performed in the office on 10/09/2022 revealed nondiagnostic electrocardiographic stress testing and response to Lexiscan. Abnormal myocardial perfusion imaging with evidence of reversible defect of moderate size and moderate intensity involving the anterior wall of the left ventricle. This could be representing ischemia and could also be related to breast attenuation. Normal left ventricular systolic function. Echocardiogram performed 02/07/2024 reveals EF of 50 to 55%, RVSP 38, trace mitral regurgitation, mild tricuspid regurgitation. 09/18 Patient is seen today in follow-up. Her lower extremity edema is much improved. She is on IV Lasix 40 mg every 12 hours. Patient states that at home she was really on Lasix 80 mg twice daily not the 40 mg as listed on her medication list. She does have anemia with recent workup and no active bleeding at this time. She has been continued on Eliquis. Blood pressure 112/45, heart rate 66, pulse ox 96% on room air. Repeat blood work reveals hemoglobin 8.4. Sodium 143, potassium 3.9, BUN 22 creatinine 1.2. Echocardiogram reveals normal LV function. Physical examination: Gen: This is a 69-year-old female in no acute distress VS: reviewed HEENT: Head is atraumatic, normocephalic. Pupils equal, round. Sclerae is anicteric. NECK: Supple. No JVD. LUNGS: Clear to auscultation. No wheezes or rhonchi. No intercostal retrac tions. HEART: Regular rate and rhythm. No murmur. ABDOMEN: Soft No tenderness. EXTREMITIES: Trace bilateral lower extremity edema. No calf tenderness. NEUROLOGICAL: Patient is awake, alert and oriented x3. Assessment: Acute on chronic diastolic heart failure CAD with prior stenting of the LAD Paroxysmal atrial fibrillation Hypertension Dyslipidemia Valvular heart disease with aortic and mitral regurgitation Overweight Dilated thoracic aorta COPD History of epistaxis and history of GI bleeding Plan: Continue patient's home cardiac medications Transition IV Lasix to oral 60 mg twice daily Patient is cleared for discharge from cardiology and may follow-up with Dr. Mensah in 1 week. Nurse practitioner note has been reviewed, I agree with documented findings and plan of care. Patient was seen and examined. Objective - Vital Signs Vital signs: Vital Signs Temp 97.4 F L 09/18/24 06:51 Pulse 66 09/18/24 06:51 Resp 18 09/18/24 06:51 BP 112/45 09/18/24 06:51 Pulse Ox 96 09/18/24 06:51 FiO2 Intake & Output 09/17/24 09/18/24 09/18/24 18:59 06:59 18:59 Intake Total 658 Output Total 2150 Balance -1492 Weight 122 kg 121.6 kg Intake: Oral 658 Output: Urine 2150 Other: Voiding Method Toilet Toilet # Voids 2 - Labs CBC & Chem 7: 09/18/24 05:50 09/18/24 05:50 Labs: Abnormal Lab Results - Last 24 Hours (Table) 09/17/24 09/17/24 09/17/24 Range/Units 05:03 05:03 05:03 RBC 3.66 L (4.10-5.20) X 10*6/uL Hgb 7.9 L (12.0-15.0) g/dL Hct 28.3 L (37.2-46.3) % MCV 77.3 L (80.0-97.0) FL MCH 21.6 L (27.0-32.0) pg MCHC 27.9 L (32.0-37.0) g/dL RDW 19.6 H (11.5-14.5) % Anion Gap 13.40 H (4.00-12.00) mmol/L Glucose 146 H (70-110) mg/dL Calcium 8.3 L (8.7-10.3) mg/dL Iron 30 L (50-170) UG/DL TIBC 552 H (228-460) UG/DL % Saturation 5.43 L (12.00-45.00) Transferrin 394.0 H (204.0-354.0) mg/dL
--- NOTE | 2024-09-18 11:23 | P.DS ---
Providers Date of admission: 09/16/24 20:26 Expected date of discharge: 09/18/24 Attending physician: Lukasz Guillaume Consults: 09/16/24 20:25 Consult Physician Routine Consulting Provider: Roe Yoo Consult Reason/Comments: dyspnea Do you want consulting provider notified?: Yes Consult Physician Routine Consulting Provider: Spenser Mensah Consult Reason/Comments: heart failure Do you want consulting provider notified?: Yes Primary care physician: [facility] Course: Discharge diagnoses; Acute on chronic diastolic CHF exacerbation, most recent echocardiogram 01/17 estimates a preserved left ventricular ejection fraction of 50 to 55%, along with, trace/mild mitral and tricuspid regurgitation. Anemia History of recent EGD in May showing multiple linear telangiectasias in the antrum consistent with gastric antral vascular ectasia (GAVE) with some oozing status post coagulation History of colonoscopy revealed a 6 mm cecal polyp status post cold snare p olypectomy and scattered sigmoid diverticulosis History of hypertension History of hyperlipidemia History of coronary artery disease with previous PCI/stents to LAD History of paroxysmal atrial flutter/atrial fibrillation with previous cardioversion. Chronically anticoagulated on Eliquis. Mrbid obesity, with a BMI of 52.5 kg/m Obstructive sleep apnea with home CPAP machine Hospital course; patient 69-year-old lady with past medical history significant for hypertension, hyperlipidemia, CAD with previous PCI/stents, atrial fibrillation with previous cardioversions and is chronically anticoagulated on Eliquis, heart failure, obstructive sleep apnea with home CPAP who presented to the ER because of worsening shortness of breath. Patient stated that she was all right 1 week back when he started noticing worsening shortness of breath. Shortness of breath was present on exertion. Patient also complaining of swelling of lower extremities. Patient stated that she was unable to lay flat. Patient denies any chest pain. There is no complaint of fever or chills. Patient was evaluated in May of this year for anemia at which time patient had EGD and colonoscopy done and was found to have multiple linear telangiectasias in the antrum consistent with gastric antral vascular ectasia (GAVE) with some oozing status post coagulation,Colonoscopy revealed a 6 mm cecal polyp status post cold snare polypectomy and scattered sigmoid diverticulosis. Patient is chronically anticoagulated with Eliquis. Because of worsening shortness of breath, patient went to her PCP office but was told to come to the ER. Initial lab work done in the ER showed WBC 9, hemoglobin 8.9, platelet count 323, INR 1.3, sodium 143, potassium 4, BUN 17, creatinine 0.92, glucose 123, AST 61, ALT 37 proBNP 325 EKG done in the ER showed heart rate of 80, no ST segment elevation or depression seen, no T-wave inversions seen. Chest x-ray done in the ER showed clinical correlation recommended for CHF, bilateral basilar atelectasis. Patient admitted to internal medicine service 09/18. Patient seen and examined. Patient was evaluated by cardiology,swelling of lower extremities improved, cardiology recommended transitioning Lasix to 60 mg twice a day. Patient was cleared by discharge by cardiology. Outpatient follow-up with PCP and cardiology PHYSICAL EXAMINATION: GENERAL: The patient is alert and oriented x3, not in any acute distress. Well developed, well nourished. HEENT: Pupils are round and equally reacting to light. EOMI. No scleral icterus. No conjunctival pallor. Normocephalic, atraumatic. No pharyngeal erythema. No thyromegaly. CARDIOVASCULAR: S1 and S2 present. No murmurs, rubs, or gallops. PULMONARY: Chest is clear to auscultation, no wheezing or crackles. ABDOMEN: Soft, nontender, nondistended, normoactive bowel sounds. No palpable organomegaly. MUSCULOSKELETAL: No joint swelling or deformity. EXTREMITIES: No cyanosis, clubbing, or pedal edema. NEUROLOGICAL: Gross neurological examination did not reveal any focal deficits. SKIN: No rashes. Dictation was produced using [employer] dictation software. please excuse any grammatical, word or spelling errors. Patient Condition at Discharge: Fair Plan - Discharge Summary New Discharge Prescriptions: New Furosemide [Lasix] 60 mg PO BID@0900,1600 30 Days #180 tab Continue Rosuvastatin [Crestor] 20 mg PO DAILY Ferrous Sulfate [Iron (65 MG Elemental)] 325 mg PO Q48H Metoprolol Succinate (ER) [Toprol XL] 100 mg PO DAILY Multivitamins, Thera [Multivitamin (formulary)] 1 tab PO DAILY Pantoprazole [Protonix] 40 mg PO BID #120 tab Gabapentin [Neurontin] 100 mg PO BID Nitroglycerin Sl Tabs [Nitrostat] 0.4 mg SL Q5M PRN PRN Reason: Chest Pain Albuterol Inhaler [Ventolin Hfa Inhaler] 2 puff INHALATION RT-Q4H PRN PRN Reason: Shortness Of Breath Apixaban [Eliquis] 5 mg PO BID Diltiazem Cd [Cardizem CD] 180 mg PO DAILY Ammonium Lactate Lotion [Lac-Hydrin 12% Lotion] 1 applic TOPICAL DAILY Changed Potassium Chloride 20 meq PO BID 30 Days #60 cap Discontinued Furosemide [Lasix] 40 mg PO BID Discharge Medication List Rosuvastatin [Crestor] 20 mg PO DAILY 11/13/22 [History] Nitroglycerin Sl Tabs [Nitrostat] 0.4 mg SL Q5M PRN 02/10/23 [History] Albuterol Inhaler [Ventolin Hfa Inhaler] 2 puff INHALATION RT-Q4H PRN 06/01/24 [History] Apixaban [Eliquis] 5 mg PO BID 06/01/24 [History] Diltiazem Cd [Cardizem CD] 180 mg PO DAILY 06/01/24 [History] Ferrous Sulfate [Iron (65 MG Elemental)] 325 mg PO Q48H 06/01/24 [History] Metoprolol Succinate (ER) [Toprol XL] 100 mg PO DAILY 06/01/24 [History] Multivitamins, Thera [Multivitamin (formulary)] 1 tab PO DAILY 06/01/24 [History] Pantoprazole [Protonix] 40 mg PO BID #120 tab 06/04/24 [Rx] Ammonium Lactate Lotion [Lac-Hydrin 12% Lotion] 1 applic TOPICAL DAILY 09/16/24 [History] Gabapentin [Neurontin] 100 mg PO BID 09/16/24 [History] Furosemide [Lasix] 60 mg PO BID@0900,1600 30 Days #180 tab 09/18/24 [Rx] Potassium Chloride 20 meq PO BID 30 Days #60 cap 09/18/24 [Rx] Follow up Appointment(s)/Referral(s): Spenser Mensah MD [STAFF PHYSICIAN] - 1 Week Derian Brasher MD [Primary Care Provider] - 1-2 days Roe Yoo DO [Doctor of Osteopathic Medicine] - 1 Week Discharge Disposition: HOME SELF-CARE
--- NOTE | 2024-09-18 13:01 | P.PN ---
Subjective Progress Note Date: 09/18/24 This is a very pleasant 69-year-old female patient with a known history of gastric antral vascular ectasia with previous GI bleed, chronic diastolic congestive heart failure, hypertension, hyperlipidemia, coronary disease with previous stent placement to the LAD, atrial fibrillation with previous cardiove rsion, morbid obesity, obstructive sleep apnea on home CPAP, gastric sleeve placement, former smoker, obesity. She presented here to the emergency room yesterday with complaints of increasing shortness of breath and lower extremity edema. Chest x-ray reveals pulmonary vascular congestion and evidence of congestive heart failure. Basilar atelectasis. White count 7.5. Hemoglobin 7.9. Platelets 295. Sodium 142. Potassium 3.7. Bicarb 26. BUN 17. Creatinine 1.0. Glucose 146. proBNP 325. Troponin negative x 1. She has been initiated on Lasix 40 mg IV every 12 hours. Anticoagulated with Eliquis. She is seen today in consultation on the regular medical floor. She is currently sitting up in a chair at the bedside. Awake and alert in no acute distress. She is maintaining O2 saturations in the 90s on room air. She is afebrile. Hemodynamically stable. Currently in a negative balance. The patient is seen today September 18, 2024 in follow-up on the regular medical floor. She is currently sitting up in a chair. Awake and alert in no acute distress. Breathing easier today compared to yesterday. She is maintaining good O2 saturations in the 90s on room air. No IV fluids. Less lower extremity edema. Echocardiogram revealed preserved left ventricular systolic function with ejection fraction 60 to 65%. Continued on IV diuretics. Anticoagulated with Eliquis. Currently in a -1.5 L balance. White count 6.7. Hemoglobin 8.4. Platelets 253. Sodium 143. Potassium 3.9. Bicarb 26. BUN 22. Creatinine 1.2. Glucose 145. Objective - Vital Signs Vital signs: Vital Signs Temp 97.4 F L 09/18/24 06:51 Pulse 66 09/18/24 06:51 Resp 18 09/18/24 06:51 BP 112/45 09/18/24 06:51 Pulse Ox 96 09/18/24 06:51 FiO2 Intake & Output 09/17/24 09/18/24 09/18/24 18:59 06:59 18:59 Intake Total 658 Output Total 2150 800 Balance -1492 -800 Weight 122 kg 121.6 kg Intake: Oral 658 Output: Urine 0 800 Other: Voiding Method Toilet Toilet Toilet # Voids 2 - Exam GENERAL EXAM: Alert, pleasant 69-year-old female, on room air, up in a chair, comfortable in no apparent distress. HEAD: Normocephalic. EYES: Normal reaction of pupils, equal size. NOSE: Clear with pink turbinates. THROAT: No erythema or exudates. NECK: No masses, no JVD. CHEST: No chest wall deformity. LUNGS: Equal air entry with faint crackles in the posterior bases. CVS: S1 and S2 normal with no audible murmur, regular rhythm. ABDOMEN: No hepatosplenomegaly, normal bowel sounds, no guarding or rigidity. SPINE: No scoliosis or deformity SKIN: No rashes CENTRAL NERVOUS SYSTEM: No focal deficits, tone is normal in all 4 extremities. EXTREMITIES: There is 1+ peripheral edema. No clubbing, no cyanosis. Peripheral pulses are intact. - Labs CBC & Chem 7: 09/18/24 05:50 09/18/24 05:50 Labs: Abnormal Lab Results - Last 24 Hours (Table) 09/17/24 09/17/24 09/18/24 Range/Units 05:03 05:03 05:50 RBC 3.91 L (4.10-5.20) X 10*6/uL Hgb 8.4 L (12.0-15.0) g/dL Hct 30.0 L (37.2-46.3) % MCV 76.7 L (80.0-97.0) FL MCH 21.5 L (27.0-32.0) pg MCHC 28.0 L (32.0-37.0) g/dL RDW 19.9 H (11.5-14.5) % Anion Gap (4.00-12.00) mmol/L Est GFR (CKD-EPI) (>=60) Glucose (70-110) mg/dL Calcium (8.7-10.3) mg/dL Iron 30 L (50-170) UG/DL TIBC 552 H (228-460) UG/DL % Saturation 5.43 L (12.00-45.00) Transferrin 394.0 H (204.0-354.0) mg/dL AST (13-35) U/L Albumin (3.8-4.9) g/dL Globulin (1.6-3.3) g/dL Albumin/Globulin Ratio (1.60-3.17) Ratio RBC Folate 883 H (280 - 791) ng/mL 09/18/24 Range/Units 05:50 RBC (4.10-5.20) X 10*6/uL Hgb (12.0-15.0) g/dL Hct (37.2-46.3) % MCV (80.0-97.0) FL MCH (27.0-32.0) pg MCHC (32.0-37.0) g/dL RDW (11.5-14.5) % Anion Gap 14.40 H (4.00-12.00) mmol/L Est GFR (CKD-EPI) 50 L (>=60) Glucose 145 H (70-110) mg/dL Calcium 8.4 L (8.7-10.3) mg/dL Iron (50-170) UG/DL TIBC (228-460) UG/DL % Saturation (12.00-45.00) Transferrin (204.0-354.0) mg/dL AST 49 H (13-35) U/L Albumin 3.6 L (3.8-4.9) g/dL Globulin 4.3 H (1.6-3.3) g/dL Albumin/Globulin Ratio 0.84 L (1.60-3.17) Ratio RBC Folate (280 - 791) ng/mL Assessment and Plan Assessment: Acute exacerbation of chronic diastolic congestive heart failure. Echocardiogram reveals preserved left ventricular systolic function with ejection fraction of 60 to 65% History of paroxysmal atrial fibrillation with previous cardioversion, maintained on Eliquis History of anemia with multiple linear telangiectasis in the antrum consistent with gastric antral vascular ectasia (GAVE) Morbid obesity with previous gastric sleeve placement. BMI 54.3 kg/m Obstructive sleep apnea with an AHI of 12.5, being worked up for home CPAP machine History of coronary disease with previous stents to the LAD Hypertension Hyperlipidemia Obstructive sleep apnea maintained on home CPAP Plan: The patient was seen and evaluated Labs and medications reviewed Currently stable and on room air Cleared for discharge from the pulmonary standpoint Keep her appointment at our office as scheduled I have personally seen and examined the patient, performed the documentation and the assessment and plan as written. Number of minutes spent on the visit: 10 Dictation was produced using [employer]™ dictation software. Please excuse any grammatical, word or spelling errors.
[2024-09-18] MEDS ORDERED: FUROSEMIDE 20 MG TAB PO SCH (16:00)
== END 2024-09-18 12:31 | disposition home or self-care (01) ==
LOC: EC 17:27 → 6NMEDSUR 20:26
PROVIDERS: ADMIT Hospitalist; ATTEND Hospitalist
DX: I11.0 Hypertensive heart disease with heart failure (principal); I50.33 Acute on chronic diastolic (congestive) heart failure; I48.0 Paroxysmal atrial fibrillation; K21.9 Gastro-esophageal reflux disease without esophagitis; E78.5 Hyperlipidemia, unspecified; G47.33 Obstructive sleep apnea (adult) (pediatric); I25.10 Atherosclerotic heart disease of native coronary artery without angina pectoris; D64.9 Anemia, unspecified; J44.9 Chronic obstructive pulmonary disease, unspecified; I25.2 Old myocardial infarction; I08.0 Rheumatic disorders of both mitral and aortic valves; I77.810 Thoracic aortic ectasia; E66.01 Morbid (severe) obesity due to excess calories; Z68.43 Body mass index [BMI] 50.0-59.9, adult; Z95.5 Presence of coronary angioplasty implant and graft; Z87.891 Personal history of nicotine dependence; Z98.84 Bariatric surgery status; Z79.899 Other long term (current) drug therapy; Z79.01 Long term (current) use of anticoagulants; Z88.5 Allergy status to narcotic agent; Z82.49 Family history of ischemic heart disease and other diseases of the circulatory system
CPT/HCPCS: 96376 ×2; 96374; 99285; 36415; 93005 ×2; 93306; 82747; 83880; 80053 ×2; 80048; 82607; 82728; 83540; 83550; 83735 ×2; 84484; 85025 ×3; 85610; 85730; 71046; G0378 ×3; J1940 ×3

== ENCOUNTER 2024-10-05 19:45 | Outpatient (CLI) | payer MEDICARE ==
--- NOTE | 2024-10-06 22:39 | P.PCN ---
Date of Procedure: 10/05/24 Operative Findings: CPAP titration study Date of study: 10/05/24 History This is a 69-year-old female patient was coming in for symptoms of excessive hypersomnia sleepiness. The patient was diagnosed having obstructive sleep apnea more than 20 years ago. At that time, the patient was offered a CPAP th erapy that she used for many years. Approximately 8 years ago, her machine broke and the patient has been off treatment since. No documentation on her original polysomnography. No documentation on her CPAP pressure utilized to treat her disease. She states that she was using a nasal mask back then. The patient is coming in for further advice. She has classical manifestations of obstructive sleep apnea. He has snoring, sleep fragmentation, and she has nocturnal apneas as reported by family members. She wakes up tired and fatigued during the day. She sleeps between 9 PM and midnight and she gets up 5 AM in the morning. She has frequent nocturnal arousals pressure when she lays down in bed. As such, the patient has recently transitioned herself to sleep on a recliner. Her weight is up over the years. Noted over the past 10 years, the patient has gained at least 90 pounds. No sleep paralysis. No hallucinations. No cataplexy. She takes daytime naps. No head trauma. No nocturnal seizures. No nocturnal episodes of heartburn or palpitation. She has exertional dyspnea. She is limited in mobility and the patient walking around without a walker because of severe degenerative arthritis. She has undergone previous knee surgery. She is also known to have coronary artery disease and she has undergone previous cardiac catheterization and stenting. Her current Kinderhook s core is at 8. The patient underwent a polysomnography and the patient was found to have mild obstructive sleep apnea with an AHI of 12.5, worse during REM sleep. As stated, the patient has been sleeping in a recliner as the patient has been having difficulties sleeping in bed due to apneas and sleep fragmentation. Kinderhook score was 8. She is coming in for a CPAP titration study. Pertinent physical findings The patient's weight is 264 pounds with a body mass index of 53.3 Technical description The patient was studied using a standard complex polysomnography protocol that included recording of the Lead II EKG, Central, occipital and frontal EEG, right and left outer canthus EOG, submental EMG, right and left anterior tibialis EMG, respiratory airflow by thermocouple and or pressure/flow transducer, respiratory efforts by abdominal and thoracic PVDF belts, oxygen saturation by cable oximetry. Position by observation synchronized the PSG. Equipment used: MCH+. Stepwise CPAP titration was done to eliminate all obstructive respiratory events. Sleep characteristics Total recording duration was 374.0 minutes. The total sleep time was 330 minutes. The wake after sleep onset time was 36 minutes. Overall sleep efficiency was 83.7%. The patient's sleep latency was 24.5 minutes. The sleep architecture was characterized by 3.7% stage I, 71.4% stage II, 0% stage III and 24.9% REM sleep. The total arousal index was 16.5. CPAP titration study The patient was started on CPAP therapy initially at a pressure of 4 cm of water and the pressure was gradually increased by comments of 1 cm to reach a maximum CPAP pressure of 7 cm of water. Due to ongoing nocturnal oxygen desaturations, the patient was also given oxygen 2 L/min nasal cannula. This was successful ti tration. A pressure of 7 cm of water, the patient had elimination of the obstructive respiratory events and she was able to maintain saturation above 90% without any significant desaturations. The sleep continuity summary Patient encountered a total of 86 arousals with an index of 16.5. The respiratory arousal index was 0 Periodic limb movement summary A total of 74 periodic limb movements were encountered with an index of 14.2. There was a total of 8 periodic limb movement activity associated with arousals with an index of 1.5 Cardiac summary Average heart rate was 65 with a minimum heart rate of 62 and a maximum heart rate of 68 Assessment Obstructive sleep apnea with an AHI of 12.5 worse during REM sleep, associated with severe nocturnal oxygen desaturation with a minimum pulse ox of 59% during REM sleep. Her current Kinderhook score is at 8. The patient underwent a successful CPAP titration. Noted this titration was done with the patient sleeping in recliner. Chronic hypersomnia secondary to above Morbid obesity with significant weight gain over the past 10 years. Current body mass index is 53.5 History of atrial tachycardia/fibrillation maintained on anticoagulation. Hypertension Hyperlipidemia Coronary artery disease with previous MA requiring coronary intervention and stenting Plan Initiate CPAP therapy at a pressure of 7 cm of water. Oxygen was also added at 2 L along with CPAP therapy. The patient was given a nasal mask and I am going to offer him the AirFit N20 medium size mask Encourage weight loss. Treat morbidities. Maintain regular sleep schedule. Will continue to follow.
== END 2024-10-06 05:38 | disposition home or self-care (01) ==
LOC: 3 N SLEEP 19:45
PROVIDERS: ATTEND Internal Medicine Critical Care Medicine
DX: G47.33 Obstructive sleep apnea (adult) (pediatric) (principal); G47.10 Hypersomnia, unspecified; I10 Essential (primary) hypertension; G47.36 Sleep related hypoventilation in conditions classified elsewhere; E66.01 Morbid (severe) obesity due to excess calories; I25.10 Atherosclerotic heart disease of native coronary artery without angina pectoris; M19.90 Unspecified osteoarthritis, unspecified site; I25.2 Old myocardial infarction; E78.5 Hyperlipidemia, unspecified; I48.91 Unspecified atrial fibrillation; Z79.01 Long term (current) use of anticoagulants; Z95.5 Presence of coronary angioplasty implant and graft; Z68.43 Body mass index [BMI] 50.0-59.9, adult; Z88.5 Allergy status to narcotic agent; Z79.899 Other long term (current) drug therapy; Z87.891 Personal history of nicotine dependence
CPT/HCPCS: 95811

== ENCOUNTER 2024-11-30 09:00 | Observation (INO) | payer MEDICARE ==
--- NOTE | 2024-11-30 09:53 | ED ---
General Adult HPI - General Chief complaint: Shortness of Breath Stated complaint: abd pain, sob Time Seen by Provider: 11/30/24 09:12 Source: patient Mode of arrival: wheelchair Limitations: no limitations - History of Present Illness Initial comments: Dictation was produced using [employer] dictation software. please excuse any grammatical, word or spelling errors. Chief Complaint: 69-year-old female presents with shortness of breath and right lower abdominal lump History of Present Illness: Patient is a obese 69-year-old female multiple comorbidities. She wears home O2 states that for the last couple days she has been having shortness of breath. She wears home O2 at 2 L nasal cannula for which she reports is heart failure. States that she has been having some bloating intermittently and Lasix. She has history of heart failure. States that she is short of breath. Denies any fever chills or night sweats. No chest pain. Patient takes anticoagulation medications. Denies any cough. The ROS documented in this emergency department record has been reviewed and confirmed by me. Those systems with pertinent positive or negative responses have been documented in the HPI. All other systems are other negative and/or noncontributory. - Related Data Home Medications Medication Instructions Recorded Confirmed Rosuvastatin [Crestor] 20 mg PO DAILY 11/13/22 11/30/24 Nitroglycerin Sl Tabs [Nitrostat] 0.4 mg SL Q5M PRN 02/10/23 11/30/24 Albuterol Inhaler [Ventolin Hfa 2 puff INHALATION RT-Q4H PRN 06/01/24 11/30/24 Inhaler] Apixaban [Eliquis] 5 mg PO BID 06/01/24 11/30/24 Diltiazem Cd [Cardizem CD] 180 mg PO DAILY 06/01/24 11/30/24 Metoprolol Succinate (ER) [Toprol 100 mg PO DAILY 06/01/24 11/30/24 XL] Multivitamins, Thera [Multivitamin 1 tab PO DAILY 06/01/24 11/30/24 (formulary)] Furosemide [Lasix] 40 mg PO BID 11/30/24 11/30/24 Potassium Chloride ER [K-Dur 10] 10 meq PO DAILY 11/30/24 11/30/24 Previous Rx's Medication Instructions Recorded Pantoprazole [Protonix] 40 mg PO BID #120 tab 06/04/24 Allergies Allergy/AdvReac Type Severity Reaction Status Date / Time codeine Allergy went into Verified 11/30/24 11:37 corticate position, unable to see colors Review of Systems ROS Statement: Those systems with pertinent positive or pertinent negative responses have been documented in the HPI. ROS Other: All systems not noted in ROS Statement are negative. Past Medical History Past Medical History: Atrial Fibrillation, Heart Failure, GERD/Reflux, Hearing Disorder / Deafness, Hyperlipidemia, Hypertension, Myocardial Infarction (HI), Osteoarthritis (OA), Sleep Apnea/CPAP/BIPAP Additional Past Medical History / Comment(s): SEE DR ALVARENGA'S H&P. RECENT FLU - END OF OCT 2022. HX DIVERTICULITIS, HIATAL HERNIA,USES CPAP SOMETIMES, HARD OF HEARING, HEADACHES. 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 Cardioversion, BILATERAL KNEE surgery Past Anesthesia/Blood Transfusion Reactions: No Reported Reaction Date of Last Stent Placement:: 2021 Past Psychological History: No Psychological Hx Reported Smoking Status: Former smoker Past Alcohol Use History: None Reported, Rare Past Drug Use History: None Reported - Past Family History Father Family Medical History: Hypertension, Myocardial Infarction (HI) Additional Family Medical History / Comment(s): AT AGE 55 - MASSIVE HEART ATTACK, Mother Family Medical History: No Reported History General Exam - General Exam Comments Initial Comments: PHYSICAL EXAM: General Impression: Alert and oriented x3, not in acute distress HEENT: Normocephalic atraumatic, extra-ocular movements intact, pupils equal and reactive to light bilaterally, mucous membranes moist. Cardiovascular: Heart regular rate and rhythm Chest: Able to complete full sentences, no retractions, no tachypnea Abdomen: abdomen soft, non-tender, non-distended, no organomegaly Musculoskeletal: Pulses present and equal in all extremities, no peripheral edema Motor: no focal deficits noted Neurological: CN II-XII grossly intact, no focal motor or sensory deficits noted Skin: Intact with no visualized rashes Psych: Normal affect and mood Limitations: no limitations Course Vital Signs 11/30/24 11/30/24 11/30/24 09:06 10:21 11:01 Temperature 97.7 F Pulse Rate 87 81 Respiratory 20 22 20 Rate Blood Pressure 111/70 O2 Sat by Pulse 96 98 Oximetry 11/30/24 12:01 Temperature Pulse Rate 79 Respiratory 20 Rate Blood Pressure 140/59 O2 Sat by Pulse 99 Oximetry EKG Findings - EKG Comments: EKG Findings:: My EKG interpretation: Ventricular rate 81, sinus rhythm,. 153, cures 103, QTc 439. No CO prolongation, no QTC prolongation, no ST or T-wave changes noted. EKG compared to September 17, 2024 showing no changes. Overall, this EKG is unremarkable Medical Decision Making - Medical Decision Making Was pt. sent in by a medical professional or institution (, [facility], [facility], urgent care, hospital, or [facility]...) When possible be specific @ -No Did you speak to anyone other than the patient for history (EMS, parent, family, police, friend...)? What history was obtained from this source @ -No Did you review nursing and triage notes (agree or disagree)? Why? @ -I reviewed and agree with nursing and triage notes Were old charts reviewed (outside hosp., previous admission, EMS record, old EKG, old radiological studies, urgent care reports/EKG's, [facility] records)? Report findings @ -No old charts were reviewed Differential Diagnosis (chest pain, altered mental status, abdominal pain women, abdominal pain men, vaginal bleeding, musculoskeletal, weakness, fever, dyspnea, syncope, headache, dizziness, GI bleed, back pain, seizure, CVA, palpatations, mental health)? @ -Differential Dyspnea: Coronary syndrome, arrhythmia, tamponade, asthma, COPD, pulmonary embolism, pn eumonia, pneumothorax, pulmonary effusion, anaphylaxis, diabetic ketoacidosis, flailed chest, pulmonary contusion, diaphragmatic rupture, anemia, neuromuscular, this is not meant to be an all-inclusive list. EKG interpreted by me (3pts min.). @ -See above X-rays interpreted by me (1pt min.). @ -Chest x-ray shows n congestive heart failure CT interpreted by me (1pt min.). @ -None done U/S interpreted by me (1pt. min.). @ -None done What testing was considered but not performed or refused? (CT, X-rays, U/S, labs)? Why? @ -None What meds were considered but not given or refused? Why? @ -None Was smoking cessation discussed for >3mins.? @ -No Were there social determinants of health that impacted care today? How? (Homelessness, low income, unemployed, alcoholism, drug addiction, trans portation, low edu. Level, literacy, decrease access to med. care, [facility]ci, rehab)? @ -No Was there de-escalation of care discussed even if they declined (Discuss DNR or withdrawal of care, Hospice)? DNR status @ -No What co-morbidities impacted this encounter? (DM, HTN, Smoking, COPD, CAD, Cancer, CVA, ARF, Chemo, Hep., AIDS, mental health diagnosis, sleep apnea, morbid obesity)? @ -Anticoagulation use, A-fib Was patient admitted / discharged? Hospital course, mention meds given and route, prescriptions, significant lab abnormalities, going to OR and other pertinent info. @ -69-year-old well-appearing female who wears home oxygen presents to the ER for shortness of breath. Vital signs upon arrival shows no hypoxia. Patient not in dyspneic at the bedside lung auscultatory exam is unrevealing. Laboratory evaluation shows anemia with a hemoglobin of 6.7. Rest of labs within acceptable limits. Patient went for unit of blood. Stool occult blood is negative. Patient be admitted observation for medical monitoring. Case discussed with hospitalist for admission Did you discuss the management of the patient with other professionals (professionals i.e. , PA, [facility], lab, RT, psych nurse, social human services assistants, plate worker, teacher, environmental officer, manager of case)? Give summary @ -No Was critical care preformed (if so, how long)? @ -No Undiagnosed new problem with uncertain prognosis? @ -No Drug Therapy requiring intensive monitoring for toxicity (Heparin, Nitro, Insulin, Cardizem)? @ -No Were any procedures done? @ -No Diagnosis/symptom? Acute, or Chronic, or Acute on Chronic? Uncomplicated (without systemic symptoms) or Complicated (systemic symptoms)? @ -Acute anemia complicated by dyspnea Side effects of treatment? @ -No Exacerbation, Progression, or Severe Exacerbation? @ -No Poses a threat to life or bodily function? How? (Chest pain, USA, HI, pneumonia, PE, COPD, DKA, ARF, appy, cholecystitis, CVA, Diverticulitis, Homicidal, Suicidal, threat to staff... and all critical care pts) @ -yes - Lab Data Result diagrams: 11/30/24 10:45 11/30/24 10:45 Lab Results 11/30/24 11/30/24 11/30/24 Range/Units 09:53 10:45 10:45 WBC 7.0 (3.8-10.6) k/uL RBC 3.24 L (3.80-5.40) m/uL Hgb 6.7 L* (11.4-16.0) gm/dL Hct 22.7 L (34.0-46.0) % MCV 70.1 L (80.0-100.0) fL MCH 20.7 L (25.0-35.0) pg MCHC 29.5 L (31.0-37.0) g/dL RDW 19.1 H (11.5-15.5) % Plt Count 267 (150-450) k/uL MPV 8.1 Neutrophils % 80 % Lymphocytes % 11 % Monocytes % 6 % Eosinophils % 1 % Basophils % 0 % Neutrophils # 5.6 (1.3-7.7) k/uL Lymphocytes # 0.7 L (1.0-4.8) k/uL Monocytes # 0.5 (0-1.0) k/uL Eosinophils # 0.0 (0-0.7) k/uL Basophils # 0.0 (0-0.2) k/uL Hypochromasia Marked Poikilocytosis Moderate Anisocytosis Slight Microcytosis Marked PT 14.5 H (10.0-12.5) sec INR 1.4 H (<1.2) APTT 25.3 (22.0-30.0) sec Sodium (137-145) mmol/L Potassium (3.5-5.1) mmol/L Chloride (98-107) mmol/L Carbon Dioxide (22-30) mmol/L Anion Gap mmol/L BUN (7-17) mg/dL Creatinine (0.52-1.04) mg/dL Est GFR (CKD-EPI)AfAm (>60 ml/min/1.73 sqM) Est GFR (CKD-EPI)NonAf (>60 ml/min/1.73 sqM) Glucose (74-99) mg/dL Calcium (8.4-10.2) mg/dL Magnesium (1.6-2.3) mg/dL Total Bilirubin (0.2-1.3) mg/dL AST (14-36) U/L ALT (4-34) U/L Alkaline Phosphatase (38-126) U/L Troponin I (0.000-0.034) ng/mL NT-Pro-B Natriuret Pep pg/mL Total Protein (6.3-8.2) g/dL Albumin (3.5-5.0) g/dL Stool Occult Blood (Negative) Influenza Type A (PCR) Not Detected (Not Detectd) Influenza Type B (PCR) Not Detected (Not Detectd) RSV (PCR) Not Detected (Not Detectd) SARS-CoV-2 (PCR) Not Detected (Not Detectd) Blood Type Blood Type Recheck Bld Type Recheck Status Antibody Screen Crossmatch Spec Expiration Date 11/30/24 11/30/24 11/30/24 Range/Units 10:45 10:45 11:40 WBC (3.8-10.6) k/uL RBC (3.80-5.40) m/uL Hgb (11.4-16.0) gm/dL Hct (34.0-46.0) % MCV (80.0-100.0) fL MCH (25.0-35.0) pg MCHC (31.0-37.0) g/dL RDW (11.5-15.5) % Plt Count (150-450) k/uL MPV Neutrophils % % Lymphocytes % % Monocytes % % Eosinophils % % Basophils % % Neutrophils # (1.3-7.7) k/uL Lymphocytes # (1.0-4.8) k/uL Monocytes # (0-1.0) k/uL Eosinophils # (0-0.7) k/uL Basophils # (0-0.2) k/uL Hypochromasia Poikilocytosis Anisocytosis Microcytosis PT (10.0-12.5) sec INR (<1.2) APTT (22.0-30.0) sec Sodium 145 (137-145) mmol/L Potassium 3.3 L (3.5-5.1) mmol/L Chloride 101 (98-107) mmol/L Carbon Dioxide 31 H (22-30) mmol/L Anion Gap 13 mmol/L BUN 19 H (7-17) mg/dL Creatinine 0.91 (0.52-1.04) mg/dL Est GFR (CKD-EPI)AfAm 76 (>60 ml/min/1.73 sqM) Est GFR (CKD-EPI)NonAf 65 (>60 ml/min/1.73 sqM) Glucose 170 H (74-99) mg/dL Calcium 8.4 (8.4-10.2) mg/dL Magnesium 2.0 (1.6-2.3) mg/dL Total Bilirubin 0.6 (0.2-1.3) mg/dL AST 47 H (14-36) U/L ALT 27 (4-34) U/L Alkaline Phosphatase 73 (38-126) U/L Troponin I <0.012 (0.000-0.034) ng/mL NT-Pro-B Natriuret Pep 301 pg/mL Total Protein 7.9 (6.3-8.2) g/dL Albumin 3.9 (3.5-5.0) g/dL Stool Occult Blood Negative (Negative) Influenza Type A (PCR) (Not Detectd) Influenza Type B (PCR) (Not Detectd) RSV (PCR) (Not Detectd) SARS-CoV-2 (PCR) (Not Detectd) Blood Type Blood Type Recheck Bld Type Recheck Status Antibody Screen Crossmatch Spec Expiration Date 11/30/24 Range/Units 11:40 WBC (3.8-10.6) k/uL RBC (3.80-5.40) m/uL Hgb (11.4-16.0) gm/dL Hct (34.0-46.0) % MCV (80.0-100.0) fL MCH (25.0-35.0) pg MCHC (31.0-37.0) g/dL RDW (11.5-15.5) % Plt Count (150-450) k/uL MPV Neutrophils % % Lymphocytes % % Monocytes % % Eosinophils % % Basophils % % Neutrophils # (1.3-7.7) k/uL Lymphocytes # (1.0-4.8) k/uL Monocytes # (0-1.0) k/uL Eosinophils # (0-0.7) k/uL Basophils # (0-0.2) k/uL Hypochromasia Poikilocytosis Anisocytosis Microcytosis PT (10.0-12.5) sec INR (<1.2) APTT (22.0-30.0) sec Sodium (137-145) mmol/L Potassium (3.5-5.1) mmol/L Chloride (98-107) mmol/L Carbon Dioxide (22-30) mmol/L Anion Gap mmol/L BUN (7-17) mg/dL Creatinine (0.52-1.04) mg/dL Est GFR (CKD-EPI)AfAm (>60 ml/min/1.73 sqM) Est GFR (CKD-EPI)NonAf (>60 ml/min/1.73 sqM) Glucose (74-99) mg/dL Calcium (8.4-10.2) mg/dL Magnesium (1.6-2.3) mg/dL Total Bilirubin (0.2-1.3) mg/dL AST (14-36) U/L ALT (4-34) U/L Alkaline Phosphatase (38-126) U/L Troponin I (0.000-0.034) ng/mL NT-Pro-B Natriuret Pep pg/mL Total Protein (6.3-8.2) g/dL Albumin (3.5-5.0) g/dL Stool Occult Blood (Negative) Influenza Type A (PCR) (Not Detectd) Influenza Type B (PCR) (Not Detectd) RSV (PCR) (Not Detectd) SARS-CoV-2 (PCR) (Not Detectd) Blood Type A Negative Blood Type Recheck A Neg Bld Type Recheck Status No Antibody Screen NEGATIVE Crossmatch See Detail Spec Expiration Date 12/03/20242339 Disposition Clinical Impression: Anemia Disposition: ADMITTED IP TO THIS HOSP Condition: Fair Referrals: Derian Brasher MD [Primary Care Provider] - 1-2 days Decision Time: 13:13
--- NOTE | 2024-11-30 10:11 | XR ---
EXAMINATION TYPE: XR chest 2V DATE OF EXAM: 11/30/2024 10:02 AM COMPARISON: Chest radiographs from 09/16/2024 CLINICAL INDICATION: Female, 69 years old with history of sob; TECHNIQUE: XR chest 2V Frontal and lateral views of the chest. FINDINGS: Lungs/Pleura: No evidence of focal consolidation or pneumothorax. Blunting of the costophrenic angles is present. Pulmonary vascularity: Unremarkable. Heart/mediastinum: Cardiomediastinal silhouette is enlarged and stable. Musculoskeletal: No acute osseous pathology. IMPRESSION: Cardiomegaly, pulmonary vascular congestion and bilateral pleural effusions. Correlate with BNP for c ongestive heart failure. [facility], , 11/30/2024 10:09 AM
[2024-11-30 10:34] LABS: Influenza A Not Detected (Not Detectd); Influenza B Not Detected (Not Detectd); RSV Not Detected (Not Detectd)
[2024-11-30 11:01] LABS: Anisocytosis Slight; Basophils % (A) 0 %; Eosinophils % (A) 1 %; HCT 22.7 % (34.0-46.0); Hypochromasia Marked; Lymphocytes # (A) 0.7 k/uL (1.0-4.8); Lymphocytes % (A) 11 %; MCH 20.7 pg (25.0-35.0); MCHC 29.5 g/dL (31.0-37.0); MCV 70.1 fL (80.0-100.0); Mean Platelet Volume 8.1; Microcytosis Marked; Monocytes # (A) 0.5 k/uL (0-1.0); Monocytes % (A) 6 %; Neutrophils # (A) 5.6 k/uL (1.3-7.7); Neutrophils % (A) 80 %; Platelet Count 267 k/uL (150-450); Poikilocytosis Moderate; RBC 3.24 m/uL (3.80-5.40); RDW 19.1 % (11.5-15.5)
[2024-11-30 11:11] LABS: INR 1.4 (<1.2); Partial Thromboplastin Time 25.3 sec (22.0-30.0); Prothrombin Time 14.5 sec (10.0-12.5)
[2024-11-30 11:14] LABS: HGB 6.7 gm/dL (11.4-16.0)
[2024-11-30 11:17] LABS: ALT 27 U/L (4-34); AST 47 U/L (14-36); African American GFR (CKD) 76 (>60 ml/min/1.73 sqM); Albumin 3.9 g/dL (3.5-5.0); Alkaline Phosphatase 73 U/L (38-126); Anion Gap 13 mmol/L; Blood Urea Nitrogen 19 mg/dL (7-17); Calcium 8.4 mg/dL (8.4-10.2); Carbon Dioxide 31 mmol/L (22-30); Chloride 101 mmol/L (98-107); Glucose 170 mg/dL (74-99); Non-African American GFR(CKD) 65 (>60 ml/min/1.73 sqM); Potassium 3.3 mmol/L (3.5-5.1); Sodium 145 mmol/L (137-145); Total Bilirubin 0.6 mg/dL (0.2-1.3); Total Protein 7.9 g/dL (6.3-8.2)
[2024-11-30 11:25] LABS: NT-Pro-B-Type Natriuretic Pept 301 pg/mL
[2024-11-30] MEDS ORDERED: NALOXONE 0.4 MG/ML 1 ML VIAL IV PRN (13:08)
[2024-11-30] MEDS: SODIUM CHLORIDE 0.9% 1,000 ML IV SCH (16:50)
[2024-11-30 21:59] LABS: Anisocytosis Slight; Basophils % (A) 0 %; Eosinophils # (A) 0.2 k/uL (0-0.7); Eosinophils % (A) 2 %; HCT 24.7 % (34.0-46.0); HGB 7.4 gm/dL (11.4-16.0); Hypochromasia Marked; Lymphocytes # (A) 1.5 k/uL (1.0-4.8); Lymphocytes % (A) 21 %; MCHC 29.9 g/dL (31.0-37.0); MCV 73.4 fL (80.0-100.0); Mean Platelet Volume 7.8; Microcytosis Moderate; Monocytes # (A) 0.4 k/uL (0-1.0); Monocytes % (A) 5 %; Neutrophils # (A) 5.1 k/uL (1.3-7.7); Neutrophils % (A) 69 %; Platelet Count 231 k/uL (150-450); Poikilocytosis Marked; RBC 3.36 m/uL (3.80-5.40); WBC 7.4 k/uL (3.8-10.6)
[2024-12-01 10:29] LABS: Anisocytosis Slight; Basophils % (A) 0 %; Eosinophils # (A) 0.1 k/uL (0-0.7); Eosinophils % (A) 2 %; HCT 25.6 % (34.0-46.0); HGB 7.7 gm/dL (11.4-16.0); Hypochromasia Marked; Lymphocytes # (A) 0.8 k/uL (1.0-4.8); Lymphocytes % (A) 13 %; MCH 22.3 pg (25.0-35.0); MCV 74.5 fL (80.0-100.0); Mean Platelet Volume 7.6; Microcytosis Moderate; Monocytes # (A) 0.4 k/uL (0-1.0); Monocytes % (A) 6 %; Neutrophils % (A) 77 %; Platelet Count 229 k/uL (150-450); Poikilocytosis Moderate; RBC 3.44 m/uL (3.80-5.40); RDW 19.7 % (11.5-15.5); WBC 6.4 k/uL (3.8-10.6)
[2024-12-01 10:46] LABS: ALT 25 U/L (4-34); AST 43 U/L (14-36); African American GFR (CKD) 78 (>60 ml/min/1.73 sqM); Albumin 3.4 g/dL (3.5-5.0); Albumin/Globulin Ratio 0.9; Alkaline Phosphatase 59 U/L (38-126); Anion Gap 6 mmol/L; Blood Urea Nitrogen 18 mg/dL (7-17); Carbon Dioxide 35 mmol/L (22-30); Chloride 102 mmol/L (98-107); Globulin 3.7 g/dL; Glucose 194 mg/dL (74-99); Non-African American GFR(CKD) 67 (>60 ml/min/1.73 sqM); Potassium 3.4 mmol/L (3.5-5.1); Sodium 143 mmol/L (137-145); Total Bilirubin 0.5 mg/dL (0.2-1.3); Total Protein 7.1 g/dL (6.3-8.2)
[2024-12-01 10:52] LABS: NT-Pro-B-Type Natriuretic Pept 311 pg/mL
[2024-12-01] MEDS: ATORVASTATIN 40 MG TAB PO SCH (11:33)
[2024-12-01] MEDS: POTASSIUM CHLORIDE ER 10 MEQ TAB.ER.PRT PO SCH (11:33)
[2024-12-01] MEDS: FUROSEMIDE 10 MG/ML 2 ML VIAL IV SCH (11:33)
[2024-12-01] MEDS: PANTOPRAZOLE 40 MG TABLET PO SCH (11:34)
[2024-12-01] MEDS: DILTIAZEM CD 180 MG CAP.ER.24H PO SCH (11:37)
[2024-12-01] MEDS: METOPROLOL SUCCINATE (ER) 100 MG TAB.ER.24H PO SCH (11:37)
--- NOTE | 2024-12-01 11:42 | P.CRDCN ---
History of Present Illness History of present illness: HISTORY OF PRESENT ILLNESS: This is a 69-year-old female with a past medical history significant for CAD with prior stenting of LAD, paroxysmal atrial fibrillation, hypertension, hyperlipidemia, valvular heart disease, dilated thoracic aorta, COPD, epistaxis, GI bleeding, and obesity. Patient follows in the office with Dr. Mensah. We have been asked to see the patient in consultation for CHF. Patient examined at the bedside. Patient presented back to the hospital for chief complaint of shortness of breath. She states has been feeling short of breath for the past week. She denies any chest pain or pressure. She reports having occasional lightheadedness. She reports lower extremity edema which is chronic and not any worse than her baseline. It is noted that the patient was hospitalized in May 2024 for acute anemia and GI bleed. She was evaluated by Dr. Judy Lira. She underwent upper and lower endoscopy with findings of multiple telangiectasia in the atrium consistent with gastric antral vascular ectasia with some active oozing status post argon plasma coagulation and small hiatal hernia. Colonoscopy revealed colon polyps status post polypectomy. Patient was resumed on her Eliquis. She has been taking her Eliquis twice a day as prescribed. She denies any black stools or bright red blood in her stools. Hemoglobin noted to be 6.7 on admission. She has received 1 unit RBC. Hemoglobin today 7.7 DIAGNOSTICS: - EKG reveals sinus mechanism with no signs of acute ischemia. Baseline artifact. - Chest xray cardiomegaly, pulmonary vascular congestion and bilateral pleural effusions. - Laboratory data: WBC 7.4. Hemoglobin 7.4. Platelet count 231. Sodium 145. Potassium 3.3. BUN 19. Creatinine 0.91. Troponin negative x 1. proBNP 301. - Current home cardiac medications include Eliquis 5 mg twice a day, Cardizem CD 180 mg daily, Lasix 40 mg twice a day, metoprolol succinate 100 mg daily, rosuvastatin 20 mg daily. Patient underwent Lexiscan stress test in the office in September 2022 revealed nondiagnostic EKG stress testing and response to Lexiscan. Abnormal myocardial perfusion imaging with evidence of reversible defect of moderate size and moder ate intensity involving the anterior wall of the left ventricle. This could be representing ischemia and could also be related to breast attenuation. Normal left ventricular systolic function - Most recent echocardiogram obtained in August 2024 revealed ejection fraction 60 to 65%, no obvious regional wall motion abnormalities, and no significant valvular dysfunction noted - Cardiac catheterization history: April 2019 with stenting of the distal LAD and mid LAD REVIEW OF SYSTEMS: At the time of my exam: CONSTITUTIONAL: Denies fever or chills. HEENT: Denies blurred vision, vision changes, or eye pain. Denies hemoptysis CARDIOVASCULAR: Denies chest pain. Denies orthopnea. Denies PND. Denies palpitations RESPIRATORY: + shortness of breath. GASTROINTESTINAL: Denies abdominal pain. Denies nausea or vomiting. HEMATOLOGIC: Reports history of GI bleed. GENITOURINARY: Denies any blood in urine. SKIN: Denies pruitis. Denies rash. PHYSICAL EXAM: VITAL SIGNS: Reviewed. GENERAL: Well-developed in no acute distress. HEENT: Head is normocephalic. Pupils are equal, round. Sclerae anicteric. Mucous membranes of the mouth are moist. Neck supple. No JVD or thyromegaly LUNGS: Respirations even and unlabored. Lungs essentially clear to auscultation bilaterally. HEART: Regular rate and rhythm. S1 and S2 heard. Systolic murmur noted ABDOMEN: Soft. Nondistended. Nontender. EXTREMITIES: Normal range of motion. No clubbing or cyanosis. Peripheral pulses intact. Chronic bilateral lower extremity edema noted. NEUROLOGIC: Awake and alert. Oriented x 3. ASSESSMENT: Shortness of breath likely secondary to acute anemia Acute on chronic anemia, status post 1 unit RBC transfusion History of GIB, 05/2024, multiple telangiectasia in the atrium consistent with gastric antral vascular ectasia with some active oozing status post argon plasma coagulation and small hiatal hernia. Colonoscopy revealed colon polyps status post polypectomy Chronic heart failure with preserved EF Chronic lower extremity edema, at baseline per patient Coronary artery disease with previous PCI of the LAD, 2019 Paroxysmal atrial fibrillation Chronic hypoxic respiratory failure on home O2 Hypertension Hyperlipidemia History of GI bleeding and epistaxis History of COPD Dilated thoracic aorta Obstructive sleep apnea with CPAP use Morbid obesity: BMI 54.4 PLAN: No need to repeat echo at this time May continue IV lasix for 24 hours for LE edema, although patient states edema is chronic and at her baseline. SOB more likely due to worsening anemia and not acute CHF. Continue additional home cardiac medications This is patients second admission for acute anemia (previous hospitalization in 06/10 for GIB with endoscopy) Recommend to hold Eliquis at this time Recommend outpatient referral for left atrial appendage closure/Watchman device No GI service this week at the hospital. However, case discussed with GI [facility]. Will have patient follow up outpatient with Dr. Lira. Patient may benefit from repeat endoscopy on an outpatient basis. Further recommendations pending patient course Nurse practitioner note has been reviewed by physician. Signing provider agrees with the documented findings, assessment, and plan of care documented by [facility] as a scribe. Past Medical History Past Medical History: Atrial Fibrillation, Heart Failure, GERD/Reflux, Hearing Disorder / Deafness, Hyperlipidemia, Hypertension, Myocardial Infarction ([place]), Osteoarthritis (OA), Sleep Apnea/CPAP/BIPAP Additional Past Medical History / Comment(s): SEE DR MENSAH'S H&P. RECENT FLU - END OF OCT 2022. HX DIVERTICULITIS, HIATAL HERNIA,USES CPAP SOMETIMES, HARD OF HEARING, HEADACHES. 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 Cardio version, BILATERAL KNEE surgery Past Anesthesia/Blood Transfusion Reactions: No Reported Reaction Date of Last Stent Placement:: 2021 Past Psychological History: No Psychological Hx Reported Smoking Status: Former smoker Past Alcohol Use History: None Reported, Rare Additional Past Alcohol Use History / Comment(s): Light smoker as teen only. Past Drug Use History: None Reported - Past Family History Father Family Medical History: Hypertension, Myocardial Infarction ([place]) Additional Family Medical History / Comment(s): AT AGE 55 - MASSIVE HEART ATTACK, Mother Family Medical History: No Reported History Medications and Allergies Home Medications Medication Instructions Recorded Confirmed Type Rosuvastatin [Crestor] 20 mg PO DAILY 11/13/22 11/30/24 History Nitroglycerin Sl Tabs [Nitrostat] 0.4 mg SL Q5M PRN 02/10/23 11/30/24 History Albuterol Inhaler [Ventolin Hfa 2 puff INHALATION RT-Q4H PRN 06/01/24 11/30/24 History Inhaler] Apixaban [Eliquis] 5 mg PO BID 06/01/24 11/30/24 History Diltiazem Cd [Cardizem CD] 180 mg PO DAILY 06/01/24 11/30/24 History Metoprolol Succinate (ER) [Toprol 100 mg PO DAILY 06/01/24 11/30/24 History XL] Multivitamins, Thera [Multivitamin 1 tab PO DAILY 06/01/24 11/30/24 History (formulary)] Pantoprazole [Protonix] 40 mg PO BID #120 tab 06/04/24 11/30/24 Rx Furosemide [Lasix] 40 mg PO BID 11/30/24 11/30/24 History Potassium Chloride ER [K-Dur 10] 10 meq PO DAILY 11/30/24 11/30/24 History Allergies Allergy/AdvReac Type Severity Reaction Status Date / Time codeine Allergy went into Verified 11/30/24 11:37 corticate position, unable to see colors Physical Exam Vitals: Vital Signs Temp Pulse Pulse Resp BP BP Pulse Ox 12/01/24 07:00 97.5 F L 85 17 103/53 98 12/01/24 02:00 97.9 F 73 17 116/70 99 11/30/24 23:06 90 18 126/78 96 11/30/24 21:00 90 18 118/75 96 11/30/24 19:00 92 18 120/48 97 11/30/24 18:00 90 18 118/56 95 11/30/24 17:00 86 18 130/48 100 11/30/24 16:43 86 18 158/46 11/30/24 16:00 86 18 158/46 100 11/30/24 15:00 80 18 150/40 100 11/30/24 14:59 87 20 144/51 99 11/30/24 13:52 97.9 F 80 18 125/40 11/30/24 13:32 98.2 F 74 20 98/56 100 11/30/24 13:18 97.5 F L 80 20 116/55 100 11/30/24 12:01 79 20 140/59 99 11/30/24 11:01 81 20 98 11/30/24 10:21 22 Intake and Output 11/30/24 12/01/24 12/01/24 22:59 06:59 14:59 Intake Total 310 118 Balance 310 118 Intake: Oral 118 Blood Product 310 Rc As-1 Unit 310 [id number] Other: Voiding Method Toilet # Voids 2 Results 12/01/24 10:12 12/01/24 10:12 Cardiac Enzymes 11/30/24 11/30/24 Range/Units 10:45 10:45 AST 47 H (14-36) U/L Troponin I <0.012 (0.000-0.034) ng/mL Coagulation 11/30/24 Range/Units 10:45 PT 14.5 H (10.0-12.5) sec APTT 25.3 (22.0-30.0) sec CBC 11/30/24 11/30/24 Range/Units 10:45 21:49 WBC 7.0 7.4 (3.8-10.6) k/uL RBC 3.24 L 3.36 L (3.80-5.40) m/uL Hgb 6.7 L* 7.4 L (11.4-16.0) gm/dL Hct 22.7 L 24.7 L (34.0-46.0) % Plt Count 267 231 (150-450) k/uL Comprehensive Metabolic Panel 11/30/24 Range/Units 10:45 Sodium 145 (137-145) mmol/L Potassium 3.3 L (3.5-5.1) mmol/L Chloride 101 (98-107) mmol/L Carbon Dioxide 31 H (22-30) mmol/L BUN 19 H (7-17) mg/dL Creatinine 0.91 (0.52-1.04) mg/dL Glucose 170 H (74-99) mg/dL Calcium 8.4 (8.4-10.2) mg/dL AST 47 H (14-36) U/L ALT 27 (4-34) U/L Alkaline Phosphatase 73 (38-126) U/L Total Protein 7.9 (6.3-8.2) g/dL Albumin 3.9 (3.5-5.0) g/dL Current Medications Generic Name Dose Route Start Last Admin Trade Name Freq PRN Reason Stop Dose Admin Atorvastatin Calcium 40 mg 12/02/24 09:00 Atorvastatin 40 Mg Tab PO DAILY HANSA Diltiazem HCl 180 mg 12/02/24 09:00 Diltiazem Cd 180 Mg Cap.Er.24h PO DAILY HANSA Furosemide 20 mg 12/01/24 21:00 Furosemide 10 Mg/Ml 2 Ml Vial IV BID HANSA Sodium Chloride 1,000 mls @ 20 mls/hr 11/30/24 13:15 11/30/24 16:50 Saline 0.9% IV 20 mls/hr .Q24H HANSA Administration Metoprolol Succinate 100 mg 12/02/24 09:00 Metoprolol Succinate (Er) 100 Mg Tab.Er.24h PO DAILY HANSA Naloxone HCl 0.2 mg 11/30/24 13:08 Naloxone 0.4 Mg/Ml 1 Ml Vial IV Q2M PRN Opioid Reversal Pantoprazole Sodium 40 mg 12/01/24 17:30 Pantoprazole 40 Mg Tablet PO AC-BID HANSA Potassium Chloride 10 meq 12/02/24 09:00 Potassium Chloride Er 10 Meq Tab.Er.Prt PO DAILY HANSA Intake and Output 11/30/24 12/01/24 12/01/24 22:59 06:59 14:59 Intake Total 310 118 Balance 310 118 Intake: Oral 118 Blood Product 310 Rc As-1 Unit 310 [id number] Other: Voiding Method Toilet # Voids 2 11/30/24 21:49 11/30/24 10:45
[2024-12-01] MEDS ORDERED: Potassium Replacement Protocol 1 EACH MISC MISCELLANE PRN (13:13)
[2024-12-01] MEDS: POTASSIUM CHLORIDE ER 20 MEQ TAB.ER PO SCH (13:33)
--- NOTE | 2024-12-01 14:16 | P.HPIM ---
History of Present Illness H&P Date: 12/01/24 History of present illness; patient is a 69-year-old lady with past medical history significant for hypertension, hyperlipidemia, CAD with previous PCI/stents, atrial fibrillation with previous cardioversions and is chronically anticoagulated on Eliquis, heart failure, obstructive sleep apnea with home CPAP who presented to the ER because of shortness of breath. Patient states that for the last couple of days she has been feeling increasing short of breath. Shortness of breath at rest as on exertion. Patient denies any chest pain. Patient is complaining of swelling of lower extremities. Patient denies any nausea vomiting. Patient denies any abdominal pain. Denies any blood in the stools. Because shortness of breath, patient presented to the ER Initial lab work done in the ER showed WBC 7, hemoglobin 6.7, platelet count 267, sodium 140, potassium 3.3, BUN 19, creatinine 0.91, glucose 170 bilirubin 0.6, AST 47, ALT 27, troponin 0.012 EKG done in the ER showed heart rate of 81, no ST segment elevation or depression seen, no T-wave inversions seen. Chest x-ray done in the ER showed cardiomegaly, pulmonary congestion and bilateral pleural effusions Patient admitted to internal medicine service REVIEW OF SYSTEMS: CONSTITUTIONAL: No fever, no malaise, no fatigue. HEENT: No recent visual problems or hearing problems. Denied any sore throat. CARDIOVASCULAR: No chest pain, orthopnea, PND, no palpitations, no syncope. PULMONARY: As mentioned above GASTROINTESTINAL: As mentioned above NEUROLOGICAL: No headaches, no weakness, no numbness. HEMATOLOGICAL: Denies any bleeding or petechiae. GENITOURINARY: Denies any burning micturition, frequency, or urgency. MUSCULOSKELETAL/RHEUMATOLOGICAL: Denies any joint pain, swelling, or any muscle pain. ENDOCRINE: Denies any polyuria or polydipsia. The rest of the 14-point review of systems is negative. PHYSICAL EXAMINATION: GENERAL: The patient is alert and oriented x3, not in any acute distress. Well developed, well nourished. HEENT: Pupils are round and equally reacting to light. EOMI. No scleral icterus. No conjunctival pallor. Normocephalic, atraumatic. No pharyngeal erythema. No thyromegaly. CARDIOVASCULAR: S1 and S2 present. No murmurs, rubs, or gallops. PULMONARY: Chest is clear to auscultation, no wheezing or crackles. ABDOMEN: Soft, nontender, nondistended, normoactive bowel sounds. No palpable or ganomegaly. MUSCULOSKELETAL: No joint swelling or deformity. EXTREMITIES: No cyanosis, clubbing, or pedal edema. NEUROLOGICAL: Gross neurological examination did not reveal any focal deficits. SKIN: No rashes. Assessment and plan Anemia chronic diastolic CHF,most recent echocardiogram 02/07/2024 estimates a preserved left ventricular ejection fraction of 50 to 55%, along with, trace/mild mitral and tricuspid regurgitation. History of recent EGD in May showing multiple linear telangiectasias in the antrum consistent with gastric antral vascular ectasia (GAVE) with some oozing status post coagulation History of colonoscopy revealed a 6 mm cecal polyp status post cold snare polypectomy and scattered sigmoid diverticulosis History of hypertension History of hyperlipidemia History of coronary artery disease with previous PCI/stents to LAD History of paroxysmal atrial flutter/atrial fibrillation with previous cardioversion. Chronically anticoagulated on Eliquis. Mrbid obesity, with a BMI of 52.5 kg/m Obstructive sleep apnea with home CPAP machine Monitor vital signs Monitor CBC Monitor CMP Continue telemetry monitoring Ordered anemia workup Ordered FOBT Ordered proBNP Ordered troponin Ordered IV Lasix Hold Eliquis for now Resume home meds Consult cardiology Labs and medication were reviewed.. Continue same treatment. Continue with symptomatic treatment. Resume home medication. Monitor labs and vitals. DVT and GI prophylaxis. Further recommendations as per clinical course of the patient Dictation was produced using [employer] dictation software. please excuse any gramm atical, word or spelling errors. Past Medical History Past Medical History: Atrial Fibrillation, Heart Failure, GERD/Reflux, Hearing Disorder / Deafness, Hyperlipidemia, Hypertension, Myocardial Infarction ([place]), Osteoarthritis (OA), Sleep Apnea/CPAP/BIPAP Additional Past Medical History / Comment(s): SEE DR ALVARENGA'S H&P. RECENT FLU - [place] OF OCT 2022. HX DIVERTICULITIS, HIATAL HERNIA,USES CPAP SOMETIMES, HARD OF HEARING, HEADACHES. 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 Cardioversion, BILATERAL KNEE surgery Past Anesthesia/Blood Transfusion Reactions: No Reported Reaction Date of Last Stent Placement:: 2021 Past Psychological History: No Psychological Hx Reported Smoking Status: Former smoker Past Alcohol Use History: None Reported, Rare Additional Past Alcohol Use History / Comment(s): Light smoker as teen only. Past Drug Use History: None Reported - Past Family History Father Family Medical History: Hypertension, Myocardial Infarction ([place]) Additional Family Medical History / Comment(s): AT AGE 55 - MASSIVE HEART ATTACK, Mother Family Medical History: No Reported History Medications and Allergies Home Medications Medication Instructions Recorded Confirmed Type Rosuvastatin [Crestor] 20 mg PO DAILY 11/13/22 11/30/24 History Nitroglycerin Sl Tabs [Nitrostat] 0.4 mg SL Q5M PRN 02/10/23 11/30/24 History Albuterol Inhaler [Ventolin Hfa 2 puff INHALATION RT-Q4H PRN 06/01/24 11/30/24 History Inhaler] Apixaban [Eliquis] 5 mg PO BID 06/01/24 11/30/24 History Diltiazem Cd [Cardizem CD] 180 mg PO DAILY 06/01/24 11/30/24 History Metoprolol Succinate (ER) [Toprol 100 mg PO DAILY 06/01/24 11/30/24 History XL] Multivitamins, Thera [Multivitamin 1 tab PO DAILY 06/01/24 11/30/24 History (formulary)] Pantoprazole [Protonix] 40 mg PO BID #120 tab 06/04/24 11/30/24 Rx Furosemide [Lasix] 40 mg PO BID 11/30/24 11/30/24 History Potassium Chloride ER [K-Dur 10] 10 meq PO DAILY 11/30/24 11/30/24 History Allergies Allergy/AdvReac Type Severity Reaction Status Date / Time codeine Allergy went into Verified 11/30/24 11:37 corticate position, unable to see colors Physical Exam Vitals: Vital Signs Temp Pulse Pulse Resp BP BP Pulse Ox 12/01/24 07:00 97.5 F L 85 17 103/53 98 12/01/24 02:00 97.9 F 73 17 116/70 99 11/30/24 23:06 90 18 126/78 96 01/13/25 21:00 90 18 118/75 96 11/30/24 19:00 92 18 120/48 97 11/30/24 18:00 90 18 118/56 95 11/30/24 17:00 86 18 130/48 100 11/30/24 16:43 86 18 158/46 11/30/24 16:00 86 18 158/46 100 11/30/24 15:00 80 18 150/40 100 11/30/24 14:59 87 20 144/51 99 11/30/24 13:52 97.9 F 80 18 125/40 11/30/24 13:32 98.2 F 74 20 98/56 100 11/30/24 13:18 97.5 F L 80 20 116/55 100 11/30/24 12:01 79 20 140/59 99 11/30/24 11:01 81 20 98 11/30/24 10:21 22 Intake and Output 11/30/24 12/01/24 12/01/24 22:59 06:59 14:59 Intake Total 310 118 Balance 310 118 Intake: Oral 118 Blood Product 310 Rc As-1 Unit 310 [id number] Other: Voiding Method Toilet # Voids 2 Results CBC & Chem 7: 11/30/24 21:49 11/30/24 10:45 Labs: Abnormal Lab Results - Last 24 Hours (Table) 11/30/24 11/30/24 11/30/24 Range/Units 10:45 10:45 10:45 RBC 3.24 L (3.80-5.40) m/uL Hgb 6.7 L* (11.4-16.0) gm/dL Hct 22.7 L (34.0-46.0) % MCV 70.1 L (80.0-100.0) fL MCH 20.7 L (25.0-35.0) pg MCHC 29.5 L (31.0-37.0) g/dL RDW 19.1 H (11.5-15.5) % Lymphocytes # 0.7 L (1.0-4.8) k/uL PT 14.5 H (10.0-12.5) sec INR 1.4 H (<1.2) Potassium 3.3 L (3.5-5.1) mmol/L Carbon Dioxide 31 H (22-30) mmol/L BUN 19 H (7-17) mg/dL Glucose 170 H (74-99) mg/dL AST 47 H (14-36) U/L Crossmatch 11/30/24 11/30/24 Range/Units 11:40 21:49 RBC 3.36 L (3.80-5.40) m/uL Hgb 7.4 L (11.4-16.0) gm/dL Hct 24.7 L (34.0-46.0) % MCV 73.4 L (80.0-100.0) fL MCH 22.0 L (25.0-35.0) pg MCHC 29.9 L (31.0-37.0) g/dL RDW 20.0 H (11.5-15.5) % Lymphocytes # (1.0-4.8) k/uL PT (10.0-12.5) sec INR (<1.2) Potassium (3.5-5.1) mmol/L Carbon Dioxide (22-30) mmol/L BUN (7-17) mg/dL Glucose (74-99) mg/dL AST (14-36) U/L Crossmatch See Detail
[2024-12-01 17:20] LABS: % Iron Saturation 4.06 (12.00-45.00); Ferritin 9.5 ng/mL (10.0-291.0); Iron 20 UG/DL (50-170); Total Iron Binding Capacity 493 UG/DL (228-460)
[2024-12-01] MEDS ORDERED: PANTOPRAZOLE 40 MG TABLET PO SCH (17:30)
[2024-12-01] MEDS ORDERED: FUROSEMIDE 10 MG/ML 2 ML VIAL IV SCH (21:00)
[2024-12-02] MEDS ORDERED: DILTIAZEM CD 180 MG CAP.ER.24H PO SCH (09:00)
[2024-12-02] MEDS ORDERED: ATORVASTATIN 40 MG TAB PO SCH (09:00)
[2024-12-02] MEDS ORDERED: METOPROLOL SUCCINATE (ER) 100 MG TAB.ER.24H PO SCH (09:00)
[2024-12-02] MEDS ORDERED: POTASSIUM CHLORIDE ER 10 MEQ TAB.ER.PRT PO SCH (09:00)
[2024-12-02 09:47] LABS: Basophils # (A) 0.04 X 10*3/uL (0.00-0.10); Basophils % (A) 0.5 %; Eosinophils # (A) 0.22 X 10*3/uL (0.04-0.35); HCT 27.2 % (37.2-46.3); HGB 7.2 g/dL (12.0-15.0); Lymphocytes # (A) 1.11 X 10*3/uL (0.90-5.00); Lymphocytes % (A) 15.2 %; MCH 21.1 pg (27.0-32.0); MCHC 26.5 g/dL (32.0-37.0); MCV 79.5 FL (80.0-97.0); Mean Platelet Volume 10.7 FL (9.5-12.2); Monocytes # (A) 0.67 X 10*3/uL (0.20-1.00); Monocytes % (A) 9.2 %; NRBC Per 100 WBC 0 X 10*3/uL (0.00-0.01); Neutrophils # (A) 5.25 X 10*3/uL (1.80-7.70); Neutrophils % (A) 71.7 %; Platelet Count 250 X 10*3/uL (140-440); RBC 3.42 X 10*6/uL (4.10-5.20); RDW 20.1 % (11.5-14.5); WBC 7.32 X 10*3/uL (4.50-10.00)
--- NOTE | 2024-12-02 10:01 | P.PN ---
Subjective HISTORY OF PRESENT ILLNESS: This is a 69-year-old female with a past medical history significant for CAD with prior stenting of LAD, paroxysmal atrial fibrillation, hypertension, hyperlipidemia, valvular heart disease, dilated thoracic aorta, COPD, epistaxis, GI bleeding, and obesity. Patient follows in the office with Dr. Mensah. We have been asked to see the patient in consultation for CHF. Patient examined at the bedside. Patient presented back to the hospital for chief complaint of shortness of breath. She states has been feeling short of breath for the past week. She denies any chest pain or pressure. She reports having occasional lightheadedness. She reports lower extremity edema which is chronic and not any worse than her baseline. It is noted that the patient was hospitalized in May 2024 for acute anemia and GI bleed. She was evaluated by Dr. Judy Lira. She underwent upper and lower endoscopy with findings of multiple telangiectasia in the atrium consistent with gastric antral vascular ectasia with some active oozing status post argon plasma coagulation and small hiatal hernia. Colonoscopy revealed colon polyps status post polypectomy. Patient was resumed on her Eliquis. She has been taking her Eliquis twice a day as prescribed. She denies any black stools or bright red blood in her stools. Hemoglobin noted to be 6.7 on admission. She has received 1 unit RBC. Hemoglobin today 7.7 DIAGNOSTICS: - EKG reveals sinus mechanism with no signs of acute ischemia. Baseline artifact. - Chest xray cardiomegaly, pulmonary vascular congestion and bilateral pleural effusions. - Laboratory data: WBC 7.4. Hemoglobin 7.4. Platelet count 231. Sodium 145. Potassium 3.3. BUN 19. Creatinine 0.91. Troponin negative x 1. proBNP 301. - Current home cardiac medications include Eliquis 5 mg twice a day, Cardizem CD 180 mg daily, Lasix 40 mg twice a day, metoprolol succinate 100 mg daily, rosuvastatin 20 mg daily. Patient underwent Lexiscan stress test in the office in September 2022 revealed nondiagnostic EKG stress testing and response to Lexiscan. Abnormal myocardial perfusion imaging with evidence of reversible defect of moderate size and moderate intensity involving the anterior wall of the left ventricle. This could be representing ischemia and could also be related to breast attenuation. Normal left ventricular systolic function - Most recent echocardiogram obtained in August 2024 revealed ejection fraction 60 to 65%, no obvious regional wall motion abnormalities, and no significant valvular dysfunction noted - Cardiac catheterization history: April 2019 with stenting of the distal LAD and mid LAD 12/02/2024 Patient examined this morning. Patient is sitting up in the chair. Patient co ntinues to report shortness of breath with exertion. Patient also reports nausea this morning. She denies any dizziness or palpitations. She denies any blood in her stool or black stool. Her Eliquis remains on hold. Hemoglobin today 7.2. PHYSICAL EXAM: VITAL SIGNS: Reviewed. GENERAL: Well-developed in no acute distress. HEENT: Head is normocephalic. Pupils are equal, round. Sclerae anicteric. Mucous membranes of the mouth are moist. Neck supple. No JVD or thyromegaly LUNGS: Respirations even and unlabored. Lungs essentially clear to auscultation bilaterally. HEART: Regular rate and rhythm. S1 and S2 heard. Systolic murmur noted ABDOMEN: Soft. Nondistended. Nontender. EXTREMITIES: Normal range of motion. No clubbing or cyanosis. Peripheral pulses intact. Chronic bilateral lower extremity edema noted. NEUROLOGIC: Awake and alert. Oriented x 3. ASSESSMENT: Shortness of breath likely secondary to acute anemia Acute on chronic anemia, status post 1 unit RBC transfusion History of GIB, 05/2024, multiple telangiectasia in the atrium consistent with gastric antral vascular ectasia with some active oozing status post argon plasma coagulation and small hiatal hernia. Colonoscopy revealed colon polyps status post polypectomy Chronic heart failure with preserved EF Chronic lower extremity edema, at baseline per patient Coronary artery disease with previous PCI of the LAD, 2018 Paroxysmal atrial fibrillation Chronic hypoxic respiratory failure on home O2 Hypertension Hyperlipidemia History of GI bleeding and epistaxis History of COPD Dilated thoracic aorta Obstructive sleep apnea with CPAP use Morbid obesity: BMI 54.4 PLAN: No need to repeat echo at this time Discontinue IV Lasix. Resume oral Lasix. Patient states edema is chronic and at her baseline. SOB more likely due to worsening anemia and not acute CHF. Continue additional home cardiac medications This is patients second admission for acute anemia (previous hospitalization in 06/10 for GIB with endoscopy) Recommend to hold Eliquis at this time and do not resume upon discharge Recommend outpatient referral for left atrial appendage closure/Watchman device No GI service this week at the hospital. However, case discussed with GI CLIP BAKER yesterday. Will have patient follow up outpatient with Dr. Lira. Patient may benefit from repeat endoscopy on an outpatient basis. General surgery has been consulted per internal medicine. Await results. Further recommendations pending patient course Nurse practitioner note has been reviewed by physician. Signing provider agrees with the documented findings, assessment, and plan of care documented by CLIP BAKER as a scribe. Objective - Vital Signs Vital signs: Vital Signs Temp 98.4 F 12/02/24 07:00 Pulse 69 12/02/24 07:00 Resp 16 12/02/24 07:00 BP 103/68 12/02/24 07:00 Pulse Ox 97 12/02/24 07:00 FiO2 Intake & Output 12/01/24 12/02/24 12/02/24 18:59 06:59 18:59 Intake Total 354 Balance 354 Intake: Oral 354 Other: Voiding Method Toilet # Voids 2 2 - Labs CBC & Chem 7: 12/02/24 06:13 12/01/24 10:12 Labs: Abnormal Lab Results - Last 24 Hours (Table) 12/01/24 12/01/24 12/02/24 Range/Units 10:12 10:12 06:13 RBC 3.44 L 3.42 L (3.80-5.40) m/uL Hgb 7.7 L 7.2 L (11.4-16.0) gm/dL Hct 25.6 L 27.2 L (34.0-46.0) % MCV 74.5 L 79.5 L (80.0-100.0) fL MCH 22.3 L 21.1 L (25.0-35.0) pg MCHC 30.0 L 26.5 L (31.0-37.0) g/dL RDW 19.7 H 20.1 H (11.5-15.5) % Lymphocytes # 0.8 L (1.0-4.8) k/uL Potassium 3.4 L (3.5-5.1) mmol/L Carbon Dioxide 35 H (22-30) mmol/L BUN 18 H (7-17) mg/dL Glucose 194 H (74-99) mg/dL Calcium 8.0 L (8.4-10.2) mg/dL Iron 20 L (50-170) UG/DL TIBC 493 H (228-460) UG/DL % Saturation 4.06 L (12.00-45.00) Ferritin 9.5 L (10.0-291.0) ng/mL AST 43 H (14-36) U/L Albumin 3.4 L (3.5-5.0) g/dL
[2024-12-02] MEDS: FUROSEMIDE 40 MG TAB PO SCH (10:18)
[2024-12-02 10:25] LABS: ALT 23 U/L (8-44); AST 43 U/L (13-35); Albumin 3.5 g/dL (3.8-4.9); Albumin/Globulin Ratio 0.97 Ratio (1.60-3.17); Alkaline Phosphatase 58 U/L (41-126); Blood Urea Nitrogen 17.6 mg/dL (9.0-27.0); Calcium 8.1 mg/dL (8.7-10.3); Chloride 104 mmol/L (96-109); Globulin 3.6 g/dL (1.6-3.3); Glucose 145 mg/dL (70-110); Sodium 144 mmol/L (135-145); Total Bilirubin 0.5 mg/dL (0.3-1.2); Total Protein 7.1 g/dL (6.2-8.2)
--- NOTE | 2024-12-02 13:30 | P.PN ---
Subjective Progress Note Date: 12/02/24 patient is a 69-year-old lady with past medical history significant for hypertension, hyperlipidemia, CAD with previous PCI/stents, atrial fibrillation with previous cardioversions and is chronically anticoagulated on Eliquis, heart failure, obstructive sleep apnea with home CPAP who presented to the ER because of shortness of breath. Patient states that for the last couple of days she has been feeling increasing short of breath. Shortness of breath at rest as on exertion. Patient denies any chest pain. Patient is complaining of swelling of lower extremities. Patient denies any nausea vomiting. Patient denies any abdominal pain. Denies any blood in the stools. Because shortness of breath, patient presented to the ER Initial lab work done in the ER showed WBC 7, hemoglobin 6.7, platelet count 267, sodium 140, potassium 3.3, BUN 19, creatinine 0.91, glucose 170 bilirubin 0.6, AST 47, ALT 27, troponin 0.012 EKG done in the ER showed heart rate of 81, no ST segment elevation or depressio n seen, no T-wave inversions seen. Chest x-ray done in the ER showed cardiomegaly, pulmonary congestion and bilateral pleural effusions Patient admitted to internal medicine service 12/02. Patient seen and examined. Hemoglobin this morning is 7.2. No blood in the stools. Surgery evaluated, recommend outpatient evaluation for endoscopy by GI. Cardiology recommended holding off on Eliquis at [place] and possible outpatient evaluation for Watchman device. Patient complain of shortness of breath on exertion. REVIEW OF SYSTEMS: CONSTITUTIONAL: No fever, no malaise,. CARDIOVASCULAR: No chest pain, no palpitations, no syncope. PULMONARY: No shortness of breath, no cough, GASTROINTESTINAL: No diarrhea, no nausea, no vomiting, no abdominal pain. NEUROLOGICAL: No headaches, no weakness, PHYSICAL EXAMINATION: GENERAL: The patient is alert and oriented x3, not in any acute distress. Well developed, well nourished. HEENT: Pupils are round and equally reacting to light. EOMI. No scleral icterus. No conjunctival pallor. Normocephalic, atraumatic. No pharyngeal erythema. No thyromegaly. CARDIOVASCULAR: S1 and S2 present. No murmurs, rubs, or gallops. PULMONARY: Chest is clear to auscultation, no wheezing or crackles. ABDOMEN: Soft, nontender, nondistended, normoactive bowel sounds. No palpable organomegaly. MUSCULOSKELETAL: No joint swelling or deformity. EXTREMITIES: No cyanosis, clubbing, 1+ edema lower extremities NEUROLOGICAL: Gross neurological examination did not reveal any focal deficits. SKIN: No rashes. Assessment and plan Anemia chronic diastolic CHF,most recent echocardiogram 02/07/2024 estimates a preserved left ventricular ejection fraction of 50 to 55%, along with, trace/mild mitral and tricuspid regurgitation. History of recent EGD in May showing multiple linear telangiectasias in the antrum consistent with gastric antral vascular ectasia (GAVE) with some oozing status post coagulation History of colonoscopy revealed a 6 mm cecal polyp status post cold snare polypectomy and scattered sigmoid diverticulosis History of hypertension History of hyperlipidemia History of coronary artery disease with previous PCI/stents to LAD History of paroxysmal atrial flutter/atrial fibrillation with previous cardioversion. Chronically anticoagulated on Eliquis. Mrbid obesity, with a BMI of 52.5 kg/m Obstructive sleep apnea with home CPAP machine Monitor vital signs Monitor CBC Monitor CMP Continue telemetry monitoring 8I's and O's Daily weights Change IV Lasix to oral Lasix 40 g twice a day Continue Toprol Continue Protonix 40 mg twice a day Cardiology evaluated, recommended changing IV Lasix to oral Lasix. Recommend to hold Eliquis at this time and do not resume upon discharge,Recommend outpatient referral for left atrial appendage closure/Watchman device Surgery evaluated, recommend outpatient evaluation by GI for evaluation for possible endoscopy Labs and medication were reviewed.. Continue same treatment. Continue with symptomatic treatment. Resume home medication. Monitor labs and vitals. DVT and GI prophylaxis. Further recommendations as per clinical course of the patient Dictation was produced using [employer] dictation software. please excuse any grammatical, word or spelling errors. Objective - Vital Signs Vital signs: Vital Signs Temp 98.4 F 12/02/24 07:00 Pulse 69 12/02/24 07:00 Resp 16 12/02/24 07:00 BP 103/68 12/02/24 07:00 Pulse Ox 97 12/02/24 07:00 FiO2 Intake & Output 12/01/24 12/02/24 12/02/24 18:59 06:59 18:59 Intake Total 354 Balance 354 Intake: Oral 354 Other: Voiding Method Toilet # Voids 2 2 - Labs CBC & Chem 7: 12/02/24 06:13 12/02/24 06:13 Labs: Abnormal Lab Results - Last 24 Hours (Table) 12/01/24 12/01/24 12/02/24 Range/Units 10:12 10:12 06:13 RBC 3.42 L (4.10-5.20) X 10*6/uL Hgb 7.2 L (12.0-15.0) g/dL Hct 27.2 L (37.2-46.3) % MCV 79.5 L (80.0-97.0) FL MCH 21.1 L (27.0-32.0) pg MCHC 26.5 L (32.0-37.0) g/dL RDW 20.1 H (11.5-14.5) % Glucose (70-110) mg/dL Calcium (8.7-10.3) mg/dL Iron 20 L (50-170) UG/DL TIBC 493 H (228-460) UG/DL % Saturation 4.06 L (12.00-45.00) Ferritin 9.5 L (10.0-291.0) ng/mL AST (13-35) U/L Albumin (3.8-4.9) g/dL Globulin (1.6-3.3) g/dL Albumin/Globulin Ratio (1.60-3.17) Ratio RBC Folate 848 H (280 - 791) ng/mL 12/02/24 Range/Units 06:13 RBC (4.10-5.20) X 10*6/uL Hgb (12.0-15.0) g/dL Hct (37.2-46.3) % MCV (80.0-97.0) FL MCH (27.0-32.0) pg MCHC (32.0-37.0) g/dL RDW (11.5-14.5) % Glucose 145 H (70-110) mg/dL Calcium 8.1 L (8.7-10.3) mg/dL Iron (50-170) UG/DL TIBC (228-460) UG/DL % Saturation (12.00-45.00) Ferritin (10.0-291.0) ng/mL AST 43 H (13-35) U/L Albumin 3.5 L (3.8-4.9) g/dL Globulin 3.6 H (1.6-3.3) g/dL Albumin/Globulin Ratio 0.97 L (1.60-3.17) Ratio RBC Folate (280 - 791) ng/mL
[2024-12-02] MEDS: ONDANSETRON 4 MG/2 ML VIAL IVP PRN (15:49)
[2024-12-03 07:33] LABS: Anisocytosis Moderate; Basophils % (A) 0 %; Eosinophils % (A) 0 %; HGB 7.6 gm/dL (11.4-16.0); Hypochromasia Marked; Lymphocytes # (A) 0.5 k/uL (1.0-4.8); Lymphocytes % (A) 6 %; MCH 22.1 pg (25.0-35.0); MCHC 30.4 g/dL (31.0-37.0); MCV 72.8 fL (80.0-100.0); Mean Platelet Volume 8.4; Microcytosis Marked; Monocytes # (A) 0.5 k/uL (0-1.0); Monocytes % (A) 6 %; Neutrophils # (A) 7.4 k/uL (1.3-7.7); Neutrophils % (A) 86 %; Platelet Count 205 k/uL (150-450); Poikilocytosis Moderate; RBC 3.43 m/uL (3.80-5.40); RDW 20.3 % (11.5-15.5); WBC 8.6 k/uL (3.8-10.6)
[2024-12-03 07:53] LABS: ALT 32 U/L (4-34); AST 86 U/L (14-36); African American GFR (CKD) 66 (>60 ml/min/1.73 sqM); Albumin 3.2 g/dL (3.5-5.0); Albumin/Globulin Ratio 0.8; Alkaline Phosphatase 57 U/L (38-126); Anion Gap 8 mmol/L; Blood Urea Nitrogen 21 mg/dL (7-17); Calcium 7.8 mg/dL (8.4-10.2); Carbon Dioxide 30 mmol/L (22-30); Chloride 102 mmol/L (98-107); Globulin 3.8 g/dL; Glucose 140 mg/dL (74-99); Non-African American GFR(CKD) 57 (>60 ml/min/1.73 sqM); Potassium 3.6 mmol/L (3.5-5.1); Sodium 140 mmol/L (137-145); Total Bilirubin 0.9 mg/dL (0.2-1.3)
[2024-12-03] MEDS: FUROSEMIDE 10 MG/ML 4 ML VIAL IV STA (08:43)
[2024-12-03 08:51] VITALS: BP 94/58; PULSE 75; RESP 16; TEMP 98.9
--- NOTE | 2024-12-03 10:30 | P.PN ---
Subjective HISTORY OF PRESENT ILLNESS: This is a 69-year-old female with a past medical history significant for CAD with prior stenting of LAD, paroxysmal atrial fibrillation, hypertension, hyperlipidemia, valvular heart disease, dilated thoracic aorta, COPD, epistaxis, GI bleeding, and obesity. Patient follows in the office with Dr. Mensah. We have been asked to see the patient in consultation for CHF. Patient examined at the bedside. Patient presented back to the hospital for chief complaint of shortness of breath. She states has been feeling short of breath for the past week. She denies any chest pain or pressure. She reports having occasional lightheadedness. She reports lower extremity edema which is chronic and not any worse than her baseline. It is noted that the patient was hospitalized in May 2024 for acute anemia and GI bleed. She was evaluated by Dr. Judy Lira. She underwent upper and lower endoscopy with findings of multiple telangiectasia in the atrium consistent with gastric antral vascular ectasia with some active oozing status post argon plasma coagulation and small hiatal hernia. Colonoscopy revealed colon polyps status post polypectomy. Patient was resumed on her Eliquis. She has been taking her Eliquis twice a day as prescribed. She denies any black stools or bright red blood in her stools. Hemoglobin noted to be 6.7 on admission. She has received 1 unit RBC. Hemoglobin today 7.7 DIAGNOSTICS: - EKG reveals sinus mechanism with no signs of acute ischemia. Baseline artifact. - Chest xray cardiomegaly, pulmonary vascular congestion and bilateral pleural effusions. - Laboratory data: WBC 7.4. Hemoglobin 7.4. Platelet count 231. Sodium 145. Potassium 3.3. BUN 19. Creatinine 0.91. Troponin negative x 1. proBNP 301. - Current home cardiac medications include Eliquis 5 mg twice a day, Cardizem CD 180 mg daily, Lasix 40 mg twice a day, metoprolol succinate 100 mg daily, rosuvastatin 20 mg daily. Patient underwent Lexiscan stress test in the office in September 2022 revealed nondiagnostic EKG stress testing and response to Lexiscan. Abnormal myocardial perfusion imaging with evidence of reversible defect of moderate size and moderate intensity involving the anterior wall of the left ventricle. This could be representing ischemia and could also be related to breast attenuation. Normal left ventricular systolic function - Most recent echocardiogram obtained in August 2024 revealed ejection fraction 60 to 65%, no obvious regional wall motion abnormalities, and no significant valvular dysfunction noted - Cardiac catheterization history: April 2019 with stenting of the distal LAD and mid LAD 12/02/2024 Patient examined this morning. Patient is sitting up in the chair. Patient co ntinues to report shortness of breath with exertion. Patient also reports nausea this morning. She denies any dizziness or palpitations. She denies any blood in her stool or black stool. Her Eliquis remains on hold. Hemoglobin today 7.2. 12/03/2024 Patient examined this morning at the bedside. Patient is sitting in the chair. Patient currently denies chest pain. She continues to report shortness of breath with exertion. Hemoglobin stable at 7.6. Her Eliquis remains on hold. PHYSICAL EXAM: VITAL SIGNS: Reviewed. GENERAL: Well-developed in no acute distress. HEENT: Head is normocephalic. Pupils are equal, round. Sclerae anicteric. Mucous membranes of the mouth are moist. Neck supple. No JVD or thyromegaly LUNGS: Respirations even and unlabored. Lungs essentially clear to auscultation bilaterally. HEART: Regular rate and rhythm. S1 and S2 heard. Systolic murmur noted ABDOMEN: Soft. Nondistended. Nontender. EXTREMITIES: Normal range of motion. No clubbing or cyanosis. Peripheral pulses intact. Chronic bilateral lower extremity edema noted. NEUROLOGIC: Awake and alert. Oriented x 3. ASSESSMENT: Shortness of breath likely secondary to acute anemia Acute on chronic anemia, status post 1 unit RBC transfusion History of GIB, 05/2024, multiple telangiectasia in the atrium consistent with gastric antral vascular ectasia with some active oozing status post argon plasma coagulation and small hiatal hernia. Colonoscopy revealed colon polyps status post polypectomy Chronic heart failure with preserved EF Chronic lower extremity edema, at baseline per patient Coronary artery disease with previous PCI of the LAD, 2018 Paroxysmal atrial fibrillation Chronic hypoxic respiratory failure on home O2 Hypertension Hyperlipidemia History of GI bleeding and epistaxis History of COPD Dilated thoracic aorta Obstructive sleep apnea with CPAP use Morbid obesity: BMI 54.4 PLAN: No need to repeat echo at this time Continue current cardiac medications. Give one-time dose of IV Lasix due to dependent edema as patient has been sitting up in the chair. This is patients second admission for acute anemia (previous hospitalization in 06/10 for GIB with endoscopy) Recommend to hold Eliquis at this time and do not resume upon discharge Recommend outpatient referral for left atrial appendage closure/Watchman device No GI service this week at the hospital. However, case discussed with GI PT SITTER upon admission. Will have patient follow up outpatient with Dr. Lira. Patient may be nefit from repeat endoscopy on an outpatient basis. Patient is stable for discharge today from a cardiac standpoint Further recommendations pending patient course Nurse practitioner note has been reviewed by physician. Signing provider agrees with the documented findings, assessment, and plan of care documented by PT SITTER as a scribe. Objective - Vital Signs Vital signs: Vital Signs Temp 98.9 F 12/03/24 07:00 Pulse 75 12/03/24 07:00 Resp 16 12/03/24 07:00 BP 94/58 12/03/24 07:00 Pulse Ox 91 L 12/03/24 07:00 FiO2 Intake & Output 12/02/24 12/03/24 12/03/24 18:59 06:59 18:59 Intake Total 75 Balance 75 Intake: Oral 75 Other: Voiding Method Toilet # Voids 2 2 # Bowel Movements 2 1 - Labs CBC & Chem 7: 12/03/24 06:30 12/03/24 06:30 Labs: Abnormal Lab Results - Last 24 Hours (Table) 12/01/24 12/02/24 12/03/24 Range/Units 10:12 06:13 06:30 RBC 3.43 L (3.80-5.40) m/uL Hgb 7.6 L (11.4-16.0) gm/dL Hct 25.0 L (34.0-46.0) % MCV 72.8 L (80.0-100.0) fL MCH 22.1 L (25.0-35.0) pg MCHC 30.4 L (31.0-37.0) g/dL RDW 20.3 H (11.5-15.5) % Lymphocytes # 0.5 L (1.0-4.8) k/uL BUN (7-17) mg/dL Glucose 145 H (70-110) mg/dL Calcium 8.1 L (8.7-10.3) mg/dL AST 43 H (13-35) U/L Albumin 3.5 L (3.8-4.9) g/dL Globulin 3.6 H (1.6-3.3) g/dL Albumin/Globulin Ratio 0.97 L (1.60-3.17) Ratio RBC Folate 848 H (280 - 791) ng/mL 12/03/24 Range/Units 06:30 RBC (3.80-5.40) m/uL Hgb (11.4-16.0) gm/dL Hct (34.0-46.0) % MCV (80.0-100.0) fL MCH (25.0-35.0) pg MCHC (31.0-37.0) g/dL RDW (11.5-15.5) % Lymphocytes # (1.0-4.8) k/uL BUN 21 H (7-17) mg/dL Glucose 140 H (70-110) mg/dL Calcium 7.8 L (8.7-10.3) mg/dL AST 86 H (13-35) U/L Albumin 3.2 L (3.8-4.9) g/dL Globulin (1.6-3.3) g/dL Albumin/Globulin Ratio (1.60-3.17) Ratio RBC Folate (280 - 791) ng/mL
--- NOTE | 2024-12-03 13:44 | P.DS ---
Providers Date of admission: 11/30/24 13:11 Expected date of discharge: 12/03/24 Attending physician: Lukasz Guillaume Consults: 12/01/24 09:45 Consult Physician Routine Consulting Provider: Marcial Lira Consult Reason/Comments: CHF Do you want consulting provider notified?: Yes Primary care physician: [facility] Course: Discharge diagnoses; Anemia chronic diastolic CHF,most recent echocardiogram 02/07/2024 estimates a preserved left ventricular ejection fraction of 50 to 55%, along with, trace/mild mitral and tricuspid regurgitation. History of recent EGD in May showing multiple linear telangiectasias in the antrum consistent with gastric antral vascular ectasia (GAVE) with some oozing status post coagulation History of colonoscopy revealed a 6 mm cecal polyp status post cold snare polypectomy and scattered sigmoid diverticulosis History of hypertension History of hyperlipidemia History of coronary artery disease with previous PCI/stents to LAD History of paroxysmal atrial flutter/atrial fibrillation with previous cardioversion. Chronically anticoagulated on Eliquis. Mrbid obesity, with a BMI of 52.5 kg/m Obstructive sleep apnea with home CPAP machine Hospital course; patient is a 69-year-old lady with past medical history significant for hypertension, hyperlipidemia, CAD with previous PCI/stents, atrial fibrillation with previous cardioversions and is chronically anticoagulated on Eliquis, heart failure, obstructive sleep apnea with home CPAP who presented to the ER because of shortness of breath. Patient states that for the last couple of days she has been feeling increasing short of breath. Shortness of breath at rest as on exertion. Patient denies any chest pain. Patient is complaining of swelling of lower extremities. Patient denies any nausea vomiting. Patient denies any abdominal pain. Denies any blood in the stools. Because shortness of breath, patient presented to the ER Initial lab work done in the ER showed WBC 7, hemoglobin 6.7, platelet count 267, sodium 140, potassium 3.3, BUN 19, creatinine 0.91, glucose 170 bilirubin 0.6, AST 47, ALT 27, troponin 0.012 EKG done in the ER showed heart rate of 81, no ST segment elevation or depression seen, no T-wave inversions seen. Chest x-ray done in the ER showed cardiomegaly, pulmonary congestion and bilateral pleural effusions Patient admitted to internal medicine service 12/02. Patient seen and examined. Hemoglobin this morning is 7.2. No blood in the stools. Surgery evaluated, recommend outpatient evaluation for endoscopy by GI. Cardiology recommended holding off on Eliquis at [place] and possible outpatient evaluation for Watchman device. Patient complain of shortness of breath on exertion. 12/03. Patient seen examined. Hemoglobin reviewed this morning was 7.6. Patient to follow-up outpatient with Dr. Mcrae. Being discharged in stable condition PHYSICAL EXAMINATION: GENERAL: The patient is alert and oriented x3, not in any acute distress. Well developed, well nourished. HEENT: Pupils are round and equally reacting to light. EOMI. No scleral icterus. No conjunctival pallor. Normocephalic, atraumatic. No pharyngeal erythema. No thyromegaly. CARDIOVASCULAR: S1 and S2 present. No murmurs, rubs, or gallops. PULMONARY: Chest is clear to auscultation, no wheezing or crackles. ABDOMEN: Soft, nontender, nondistended, normoactive bowel sounds. No palpable organomegaly. MUSCULOSKELETAL: No joint swelling or deformity. EXTREMITIES: No cyanosis, clubbing, or pedal edema. NEUROLOGICAL: Gross neurological examination did not reveal any focal deficits. SKIN: No rashes. Dictation was produced using [employer] dictation software. please excuse any grammatical, word or spelling errors. Patient Condition at Discharge: Fair Plan - Discharge Summary New Discharge Prescriptions: Continue Rosuvastatin [Crestor] 20 mg PO DAILY Metoprolol Succinate (ER) [Toprol XL] 100 mg PO DAILY Multivitamins, Thera [Multivitamin (formulary)] 1 tab PO DAILY Pantoprazole [Protonix] 40 mg PO BID #120 tab Potassium Chloride ER [K-Dur 10] 10 meq PO DAILY Nitroglycerin Sl Tabs [Nitrostat] 0.4 mg SL Q5M PRN PRN Reason: Chest Pain Albuterol Inhaler [Ventolin Hfa Inhaler] 2 puff INHALATION RT-Q4H PRN PRN Reason: Shortness Of Breath Diltiazem Cd [Cardizem CD] 180 mg PO DAILY Furosemide [Lasix] 40 mg PO BID Discontinued Apixaban [Eliquis] 5 mg PO BID Discharge Medication List Rosuvastatin [Crestor] 20 mg PO DAILY 11/13/22 [History] Nitroglycerin Sl Tabs [Nitrostat] 0.4 mg SL Q5M PRN 02/10/23 [History] Albuterol Inhaler [Ventolin Hfa Inhaler] 2 puff INHALATION RT-Q4H PRN 06/01/24 [History] Diltiazem Cd [Cardizem CD] 180 mg PO DAILY 06/01/24 [History] Metoprolol Succinate (ER) [Toprol XL] 100 mg PO DAILY 06/01/24 [History] Multivitamins, Thera [Multivitamin (formulary)] 1 tab PO DAILY 06/01/24 [History] Pantoprazole [Protonix] 40 mg PO BID #120 tab 06/04/24 [Rx] Furosemide [Lasix] 40 mg PO BID 11/30/24 [History] Potassium Chloride ER [K-Dur 10] 10 meq PO DAILY 11/30/24 [History] Follow up Appointment(s)/Referral(s): Spenser Mensah MD [STAFF PHYSICIAN] - 1 Week Derian Brasher MD [Primary Care Provider] - 1-2 days Judy Lira MD [STAFF PHYSICIAN] - 1 Week Discharge Disposition: HOME SELF-CARE
== END 2024-12-03 13:22 | disposition home or self-care (01) ==
LOC: EC 09:00 → 6NMEDSUR 13:11
PROVIDERS: ADMIT Hospitalist; ATTEND Hospitalist
DX: D64.9 Anemia, unspecified (principal); I11.0 Hypertensive heart disease with heart failure; I50.32 Chronic diastolic (congestive) heart failure; E78.5 Hyperlipidemia, unspecified; I48.0 Paroxysmal atrial fibrillation; K21.9 Gastro-esophageal reflux disease without esophagitis; I25.2 Old myocardial infarction; I25.10 Atherosclerotic heart disease of native coronary artery without angina pectoris; J44.9 Chronic obstructive pulmonary disease, unspecified; G47.33 Obstructive sleep apnea (adult) (pediatric); I77.810 Thoracic aortic ectasia; J96.11 Chronic respiratory failure with hypoxia; E66.01 Morbid (severe) obesity due to excess calories; Z68.43 Body mass index [BMI] 50.0-59.9, adult; Z87.891 Personal history of nicotine dependence; Z95.5 Presence of coronary angioplasty implant and graft; Z99.81 Dependence on supplemental oxygen; Z79.01 Long term (current) use of anticoagulants; Z79.899 Other long term (current) drug therapy; Z88.5 Allergy status to narcotic agent
CPT/HCPCS: 96376 ×3; 96374; 96375; 36430; 99285; 36415; 93005; 86900; 86901; 82747; 83880 ×2; 80053 ×4; 82607; 82728; 83540; 83550; 83735; 84484 ×2; 85025 ×4; 85610; 85730; 86850; 86920; 82272; 87636; 71046; G0378 ×4; P9016; J1940 ×3; J2405

== ENCOUNTER 2024-12-06 12:26 | Inpatient (IN) | payer MEDICARE ==
--- NOTE | 2024-12-06 13:07 | ED ---
General Adult HPI - General Chief complaint: Shortness of Breath Stated complaint: MARITZA diarrhea Time Seen by Provider: 12/06/24 12:34 Source: patient Mode of arrival: wheelchair Limitations: no limitations - History of Present Illness Initial comments: Dictation was produced using [employer] dictation software. please excuse any grammatical, word or spelling errors. Chief Complaint: 69-year-old female presents emergency department for shortness of breath History of Present Illness: Patient 69-year-old female presents to the emergency department for shortness of breath. Patient was just discharged from our facility 3 days ago. Patient was admitted for shortness of breath. He was found to have low hemoglobin was taken off of her anticoagulation medications. States for the last day she has been feeling short of breath. This morning she woke up with some palpitations. States that she did have palpitations yesterday. Patient complains of mid epigastric abdominal pain. She also complains of diarrhea. Denies any nausea vomiting. No chest pain. No radiation of symptoms to the shoulder or upper extremities. The ROS documented in this emergency department record has been reviewed and confirmed by me. Those systems with pertinent positive or negative responses have been documented in the HPI. All other systems are other negative and/or noncontributory. - Related Data Home Medications Medication Instructions Recorded Confirmed Rosuvastatin [Crestor] 20 mg PO DAILY 11/13/22 11/30/24 Nitroglycerin Sl Tabs [Nitrostat] 0.4 mg SL Q5M PRN 02/10/23 11/30/24 Albuterol Inhaler [Ventolin Hfa 2 puff INHALATION RT-Q4H PRN 06/01/24 11/30/24 Inhaler] Diltiazem Cd [Cardizem CD] 180 mg PO DAILY 06/01/24 11/30/24 Metoprolol Succinate (ER) [Toprol 100 mg PO DAILY 06/01/24 11/30/24 XL] Multivitamins, Thera [Multivitamin 1 tab PO DAILY 06/01/24 11/30/24 (formulary)] Furosemide [Lasix] 40 mg PO BID 11/30/24 11/30/24 Potassium Chloride ER [K-Dur 10] 10 meq PO DAILY 11/30/24 11/30/24 Previous Rx's Medication Instructions Recorded Pantoprazole [Protonix] 40 mg PO BID #120 tab 06/04/24 Allergies Allergy/AdvReac Type Severity Reaction Status Date / Time codeine Allergy went into Verified 12/06/24 12:32 corticate position, unable to see colors Review of Systems ROS Statement: Those systems with pertinent positive or pertinent negative responses have been documented in the HPI. ROS Other: All systems not noted in ROS Statement are negative. Past Medical History Past Medical History: Atrial Fibrillation, Heart Failure, GERD/Reflux, Hearing Disorder / Deafness, Hyperlipidemia, Hypertension, Myocardial Infarction (MS), Osteoarthritis (OA), Sleep Apnea/CPAP/BIPAP Additional Past Medical History / Comment(s): SEE DR ALVARENGA'S H&P. RECENT FLU - END OF OCT 2022. HX DIVERTICULITIS, HIATAL HERNIA,USES CPAP SOMETIMES, HARD OF HEARING, HEADACHES. 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 Cardioversion, BILATERAL KNEE surgery Past Anesthesia/Blood Transfusion Reactions: No Reported Reaction Date of Last Stent Placement:: 2021 Past Psychological History: No Psychological Hx Reported Smoking Status: Former smoker Past Alcohol Use History: None Reported, Rare Past Drug Use History: None Reported - Past Family History Father Family Medical History: Hypertension, Myocardial Infarction (MS) Additional Family Medical History / Comment(s): AT AGE 55 - MASSIVE HEART ATTACK, Mother Family Medical History: No Reported History General Exam - General Exam Comments Initial Comments: PHYSICAL EXAM: General Impression: Alert and oriented x3, mildly dyspneic HEENT: Normocephalic atraumatic, extra-ocular movements intact, pupils equal and reactive to light bilaterally, mucous membranes moist. Cardiovascular: Irregularly irregular Chest: Able to complete full sentences, no retractions, no tachypnea Abdomen: abdomen soft, non-tender, non-distended, no organomegaly Musculoskeletal: Pulses present and equal in all extremities, no peripheral edema Motor: no focal deficits noted Neurological: CN II-XII grossly intact, no focal motor or sensory deficits noted Skin: Intact with no visualized rashes Psych: Normal affect and mood Limitations: no limitations Course Vital Signs 12/06/24 12:28 Temperature 97.5 F L Pulse Rate 104 H Respiratory 22 Rate Blood Pressure 116/65 O2 Sat by Pulse 95 Oximetry EKG Findings - EKG Comments: EKG Findings:: My EKG interpretation: Ventricular rate 160, A-fib RVR, QRS 85, QTc 318. No CT prolongation, no QTC prolongation, no ST or T-wave changes noted. EKG compared to November 30, 2024 showing no changes. Overall this EKG shows comparable waveform morphology in A-fib RVR Medical Decision Making - Medical Decision Making Was pt. sent in by a medical professional or institution (, PA, SKEIN BANDER, urgent care, hospital, or assisted...) When possible be specific @ -No Did you speak to anyone other than the patient for history (EMS, parent, family, police, friend...)? What history was obtained from this source @ -No Did you review nursing and triage notes (agree or disagree)? Why? @ -I reviewed and agree with nursing and triage notes Were old charts reviewed (outside hosp., previous admission, EMS record, old EKG, old radiological studies, urgent care reports/EKG's, assisted records)? Report findings @ -See below Differential Diagnosis (chest pain, altered mental status, abdominal pain women, abdominal pain men, vaginal bleeding, musculoskeletal, weakness, fever, dyspnea, syncope, headache, dizziness, GI bleed, back pain, seizure, CVA, palpatations, mental health)? @ -Differential Dyspnea: Coronary syndrome, arrhythmia, tamponade, asthma, COPD, pulmonary embolism, pneumonia, pneumothorax, pulmonary effusion, anaphylaxis, diabetic ketoacidosis, flailed chest, pulmonary contusion, diaphragmatic rupture, anemia, neuromuscular, this is not meant to be an all-inclusive list. EKG interpreted by me (3pts min.). @ -See above X-rays interpreted by me (1pt min.). @ -Chest x-ray shows heart failure CT interpreted by me (1pt min.). @ -None done U/S interpreted by me (1pt. min.). @ -None done What testing was considered but not performed or refused? (CT, X-rays, U/S, labs)? Why? @ -None What meds were considered but not given or refused? Why? @ -None Was smoking cessation discussed for >3mins.? @ -No Were there social determinants of health that impacted care today? How? (Homel essness, low income, unemployed, alcoholism, drug addiction, transportation, low edu. Level, literacy, decrease access to med. care, usp, rehab)? @ -No Was there de-escalation of care discussed even if they declined (Discuss DNR or withdrawal of care, Hospice)? DNR status @ -No What co-morbidities impacted this encounter? (DM, HTN, Smoking, COPD, CAD, Cancer, CVA, ARF, Chemo, Hep., AIDS, mental health diagnosis, sleep apnea, morbid obesity)? @ -A-fib, heart failure Was patient admitted / discharged? Hospital course, mention meds given and route, prescriptions, significant lab abnormalities, going to OR and other pertinent info. @ -69-year-old female presents emergency department dyspnea. Upon arrival patient found to be in A-fib RVR. Lactic acidosis of 2.8 cardiac labs negative. Potassium is 2.9. Patient started on Cardizem. This point cardiology notes reviewed showing that she was taken off her anticoagulation medication for the time being given she was recently admitted for anemia. Heart rate slowly improving. Patient will be admitted for A-fib RVR. Case discussed with hospitalist for admission Did you discuss the management of the patient with other professionals (li benedict i.e. , PA, SKEIN BANDER, lab, RT, psych nurse, social services counselor, billing administrator, teacher, ship's electronic warfare officer, continuous pillowcase cutter)? Give summary @ -No Was critical care preformed (if so, how long)? @ -Yes, 33 minutes Undiagnosed new problem with uncertain prognosis? @ -No Drug Therapy requiring intensive monitoring for toxicity (Heparin, Nitro, Insulin, Cardizem)? @ -No Were any procedures done? @ -No Diagnosis/symptom? Acute, or Chronic, or Acute on Chronic? Uncomplicated (without systemic symptoms) or Complicated (systemic symptoms)? @ -A-fib RVR Side effects of treatment? @ -No Exacerbation, Progression, or Severe Exacerbation? @ -No Poses a threat to life or bodily function? How? (Chest pain, USA, MS, pneumonia, PE, COPD, DKA, ARF, appy, cholecystitis, CVA, Diverticulitis, Homicidal, Suicidal, threat to staff... and all critical care pts) @ -yes - Lab Data Result diagrams: 12/06/24 13:31 12/06/24 13:31 Lab Results 12/06/24 12/06/24 12/06/24 Range/Units 13:31 13:31 13:31 WBC 5.9 (3.8-10.6) k/uL RBC 4.07 (3.80-5.40) m/uL Hgb 9.1 L D (11.4-16.0) gm/dL Hct 29.7 L (34.0-46.0) % MCV 72.8 L (80.0-100.0) fL MCH 22.4 L (25.0-35.0) pg MCHC 30.7 L (31.0-37.0) g/dL RDW 20.9 H (11.5-15.5) % Plt Count 297 (150-450) k/uL MPV 8.3 Neutrophils % 69 % Lymphocytes % 19 % Monocytes % 9 % Eosinophils % 1 % Basophils % 0 % Neutrophils # 4.1 (1.3-7.7) k/uL Lymphocytes # 1.1 (1.0-4.8) k/uL Monocytes # 0.5 (0-1.0) k/uL Eosinophils # 0.1 (0-0.7) k/uL Basophils # 0.0 (0-0.2) k/uL Hypochromasia Marked Poikilocytosis Moderate Anisocytosis Moderate Microcytosis Marked PT 13.4 H (10.0-12.5) sec INR 1.3 H (<1.2) APTT 22.3 (22.0-30.0) sec Sodium 143 (137-145) mmol/L Potassium 2.9 L (3.5-5.1) mmol/L Chloride 101 (98-107) mmol/L Carbon Dioxide 29 (22-30) mmol/L Anion Gap 13 mmol/L BUN 18 H (7-17) mg/dL Creatinine 1.01 (0.52-1.04) mg/dL Est GFR (CKD-EPI)AfAm 67 (>60 ml/min/1.73 sqM) Est GFR (CKD-EPI)NonAf 58 (>60 ml/min/1.73 sqM) Glucose 140 H (74-99) mg/dL Plasma Lactic Acid Angel (0.7-2.0) mmol/L Calcium 8.1 L (8.4-10.2) mg/dL Magnesium 1.7 (1.6-2.3) mg/dL Total Bilirubin 0.9 (0.2-1.3) mg/dL AST 39 H (14-36) U/L ALT 26 (4-34) U/L Alkaline Phosphatase 76 (38-126) U/L Troponin I (0.000-0.034) ng/mL NT-Pro-B Natriuret Pep 670 pg/mL Total Protein 7.9 (6.3-8.2) g/dL Albumin 3.8 (3.5-5.0) g/dL Lipase 51 (23-300) U/L 12/06/24 12/06/24 Range/Units 13:31 13:31 WBC (3.8-10.6) k/uL RBC (3.80-5.40) m/uL Hgb (11.4-16.0) gm/dL Hct (34.0-46.0) % MCV (80.0-100.0) fL MCH (25.0-35.0) pg MCHC (31.0-37.0) g/dL RDW (11.5-15.5) % Plt Count (150-450) k/uL MPV Neutrophils % % Lymphocytes % % Monocytes % % Eosinophils % % Basophils % % Neutrophils # (1.3-7.7) k/uL Lymphocytes # (1.0-4.8) k/uL Monocytes # (0-1.0) k/uL Eosinophils # (0-0.7) k/uL Basophils # (0-0.2) k/uL Hypochromasia Poikilocytosis Anisocytosis Microcytosis PT (10.0-12.5) sec INR (<1.2) APTT (22.0-30.0) sec Sodium (137-145) mmol/L Potassium (3.5-5.1) mmol/L Chloride (98-107) mmol/L Carbon Dioxide (22-30) mmol/L Anion Gap mmol/L BUN (7-17) mg/dL Creatinine (0.52-1.04) mg/dL Est GFR (CKD-EPI)AfAm (>60 ml/min/1.73 sqM) Est GFR (CKD-EPI)NonAf (>60 ml/min/1.73 sqM) Glucose (74-99) mg/dL Plasma Lactic Acid Angel 2.8 H* (0.7-2.0) mmol/L Calcium (8.4-10.2) mg/dL Magnesium (1.6-2.3) mg/dL Total Bilirubin (0.2-1.3) mg/dL AST (14-36) U/L ALT (4-34) U/L Alkaline Phosphatase (38-126) U/L Troponin I <0.012 (0.000-0.034) ng/mL NT-Pro-B Natriuret Pep pg/mL Total Protein (6.3-8.2) g/dL Albumin (3.5-5.0) g/dL Lipase (23-300) U/L Disposition Clinical Impression: Atrial fibrillation with RVR Disposition: ADMITTED IP TO THIS HOSP Condition: Serious Referrals: Derian Brasher MD [Primary Care Provider] - 1-2 days Decision Time: 15:04
[2024-12-06] MEDS: SODIUM CHLORIDE 0.9% 500 ML 500 ML IV STA (13:30)
[2024-12-06 13:42] LABS: Anisocytosis Moderate; Basophils % (A) 0 %; Eosinophils # (A) 0.1 k/uL (0-0.7); Eosinophils % (A) 1 %; HCT 29.7 % (34.0-46.0); Hypochromasia Marked; Lymphocytes # (A) 1.1 k/uL (1.0-4.8); Lymphocytes % (A) 19 %; MCH 22.4 pg (25.0-35.0); MCHC 30.7 g/dL (31.0-37.0); MCV 72.8 fL (80.0-100.0); Mean Platelet Volume 8.3; Microcytosis Marked; Monocytes # (A) 0.5 k/uL (0-1.0); Monocytes % (A) 9 %; Neutrophils # (A) 4.1 k/uL (1.3-7.7); Neutrophils % (A) 69 %; Platelet Count 297 k/uL (150-450); Poikilocytosis Moderate; RBC 4.07 m/uL (3.80-5.40); RDW 20.9 % (11.5-15.5); WBC 5.9 k/uL (3.8-10.6)
[2024-12-06] MEDS: DILTIAZEM DRIP BOLUS FROM BAG 1 MG SOLN IV ONE (13:45)
[2024-12-06] MEDS: DILTIAZEM 125 MG in SODIUM CHLORIDE 0.9% 100 ML IV SCH (13:46)
[2024-12-06 13:48] LABS: HGB 9.1 gm/dL (11.4-16.0)
[2024-12-06 13:52] LABS: ALT 26 U/L (4-34); AST 39 U/L (14-36); African American GFR (CKD) 67 (>60 ml/min/1.73 sqM); Albumin 3.8 g/dL (3.5-5.0); Alkaline Phosphatase 76 U/L (38-126); Anion Gap 13 mmol/L; Blood Urea Nitrogen 18 mg/dL (7-17); Calcium 8.1 mg/dL (8.4-10.2); Carbon Dioxide 29 mmol/L (22-30); Chloride 101 mmol/L (98-107); Glucose 140 mg/dL (74-99); Lipase 51 U/L (23-300); Magnesium 1.7 mg/dL (1.6-2.3); Non-African American GFR(CKD) 58 (>60 ml/min/1.73 sqM); Potassium 2.9 mmol/L (3.5-5.1); Sodium 143 mmol/L (137-145); Total Bilirubin 0.9 mg/dL (0.2-1.3); Total Protein 7.9 g/dL (6.3-8.2)
[2024-12-06 13:58] LABS: INR 1.3 (<1.2); Partial Thromboplastin Time 22.3 sec (22.0-30.0); Prothrombin Time 13.4 sec (10.0-12.5)
[2024-12-06 14:01] LABS: NT-Pro-B-Type Natriuretic Pept 670 pg/mL
[2024-12-06] MEDS: PANTOPRAZOLE 40 MG/10 ML VIAL IVP STA (14:02)
[2024-12-06] MEDS ORDERED: NALOXONE 0.4 MG/ML 1 ML VIAL IV PRN (14:57)
--- NOTE | 2024-12-06 15:05 | XR ---
EXAMINATION TYPE: XR chest 2V DATE OF EXAM: 12/06/2024 2:36 PM COMPARISON: Chest radiographs from 1325 CLINICAL INDICATION: Female, 69 years old with history of dyspnea; [facility] TECHNIQUE: XR chest 2V Frontal and lateral views of the chest. FINDINGS: Lungs/Pleura: No evidence of focal consolidation or pneumothorax. Blunting of the costophrenic angles is present. Pulmonary vascularity: Pulmonary vascular congestion. Heart/mediastinum: Cardiomediastinal silhouette is enlarged and stable. Musculoskeletal: No acute osseous pathology. IMPRESSION: Cardiomegaly and mild pulmonary vascular congestion. Correlate with BNP for congestive heart failure. [facility], , 12/06/2024 3:03 PM
[2024-12-06] MEDS: POTASSIUM CHLORIDE ER 20 MEQ TAB.ER PO STA (15:15)
[2024-12-06] MEDS: SODIUM CHLORIDE 0.9% 1,000 ML IV SCH (15:16)
[2024-12-07] MEDS: FUROSEMIDE 40 MG TAB PO SCH ×2 (09:14→16:43)
[2024-12-07] MEDS: DILTIAZEM CD 180 MG CAP.ER.24H PO SCH (09:14)
[2024-12-07] MEDS: ATORVASTATIN 40 MG TAB PO SCH (09:14)
[2024-12-07] MEDS: METOPROLOL SUCCINATE (ER) 100 MG TAB.ER.24H PO SCH (09:14)
[2024-12-07] MEDS: AMIODARONE 200 MG TAB PO SCH (09:14)
--- NOTE | 2024-12-07 09:45 | P.HPIM ---
History of Present Illness This is a pleasant 69 years old female with past medical history of multiple medical problems Patient was recently discharged from hospital 12/01-12/03 for acute shortness of breath thought secondary to anemia patient also with history of GI bleed, 05/2024, multiple telangiectasia in the atrium consistent with gastric antral vascular ectasia with some active oozing status post argon plasma. She received 1 unit of blood transfusion during last admission. Patient was discharge home on and when she got home she felt more tired with palpitation and dyspnea was still there not improved so decided to come to the hospital However she denies chest pain She has mild headache and dizziness especially when she stands up Chronically she cannot walk or at least for, she can walk only inside the home No family member to help her with cooking or she moves slowly with a walker and there is a close by marked She denies smoking alcohol or illicit drugs No specific GI/ symptoms currently. She says she vomited twice last week and she had some diarrhea but it is once yesterday No new weakness or tingling No urinary complaints Her blanket washer is Dr. Hoff and road inspector Dr. Sanchez Also on exam patient was noticed to have epigastric pain and tenderness She has bilateral leg edema proBNP is worse compared to last week 311 up to 670 But chest x-ray showing cardiomegaly with pulmonary vascular congestion EKG showing A-fib with a rate of 160 on admission Echocardiogram from 09/17/2014 showing ejection fraction of 60 to 65% Patient hemodynamically stable and afebrile Hemoglobin 9.1 and before that was 6 up to 8.8. Potassium 2.9 has been replaced. Liver enzymes not elevated. INR and troponin were negative Hide lactic acid came back to normal at 1.9 Review of Systems Review of systems CONSTITUTIONAL: No fever, no malaise, no fatigue. HEENT: No recent visual problems or hearing problems. Denied any sore throat. CARDIOVASCULAR: No orthopnea, PND, no palpitations, no syncope. PULMONARY: no cough, no hemoptysis. GASTROINTESTINAL: No diarrhea, no nausea, no vomiting, no abdominal pain. Normoactive bowel sounds. NEUROLOGICAL: No headaches, no weakness, no numbness. HEMATOLOGICAL: Denies any bleeding or petechiae. GENITOURINARY: Denies any burning micturition, frequency, or urgency. MUSCULOSKELETAL/RHEUMATOLOGICAL: Denies any joint pain, swelling, or any muscle pain. ENDOCRINE: Denies any polyuria or polydipsia. Past Medical History Past Medical History: Atrial Fibrillation, Heart Failure, GERD/Reflux, Hearing D isorder / Deafness, Hyperlipidemia, Hypertension, Myocardial Infarction ([place]), Osteoarthritis (OA), Sleep Apnea/CPAP/BIPAP Additional Past Medical History / Comment(s): SEE DR ALVARENGA'S H&P. RECENT FLU - END OF OCT 2022. HX DIVERTICULITIS, HIATAL HERNIA,USES CPAP SOMETIMES, HARD OF HEARING, HEADACHES. 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 Cardioversion, BILATERAL KNEE surgery Past Anesthesia/Blood Transfusion Reactions: No Reported Reaction Date of Last Stent Placement:: 2021 Past Psychological History: No Psychological Hx Reported Smoking Status: Former smoker Past Alcohol Use History: None Reported, Rare Past Drug Use History: None Reported - Past Family History Father Family Medical History: Hypertension, Myocardial Infarction ([place]) Additional Family Medical History / Comment(s): AT AGE 55 - MASSIVE HEART ATTACK, Mother Family Medical History: No Reported History Medications and Allergies Home Medications Medication Instructions Recorded Confirmed Type Rosuvastatin [Crestor] 20 mg PO DAILY 11/13/22 12/06/24 History Nitroglycerin Sl Tabs [Nitrostat] 0.4 mg SL Q5M PRN 02/10/23 12/06/24 History Albuterol Inhaler [Ventolin Hfa 2 puff INHALATION RT-Q4H PRN 06/01/24 12/06/24 History Inhaler] Diltiazem Cd [Cardizem CD] 180 mg PO DAILY 06/01/24 12/06/24 History Metoprolol Succinate (ER) [Toprol 100 mg PO DAILY 06/01/24 12/06/24 History XL] Multivitamins, Thera [Multivitamin 1 tab PO DAILY 06/01/24 12/06/24 History (formulary)] Pantoprazole [Protonix] 40 mg PO BID #120 tab 06/04/24 12/06/24 Rx Furosemide [Lasix] 40 mg PO BID 11/30/24 12/06/24 History Potassium Chloride ER [K-Dur 10] 10 meq PO DAILY 11/30/24 12/06/24 History Allergies Allergy/AdvReac Type Severity Reaction Status Date / Time codeine Allergy went into Verified 12/06/24 15:57 corticate position, unable to see colors Physical Exam Vitals: Vital Signs Temp Pulse Resp BP Pulse Ox 12/07/24 09:19 97.8 F 93 22 136/68 97 12/07/24 07:17 69 18 122/42 99 12/07/24 03:53 72 16 129/55 99 12/07/24 02:28 68 18 129/45 99 12/07/24 01:25 68 18 128/46 98 12/07/24 00:07 75 18 140/52 98 12/06/24 23:27 79 18 118/53 98 12/06/24 22:21 97.7 F 115 H 22 12/06/24 19:03 125 H 18 107/88 96 12/06/24 17:15 112 H 18 105/66 99 12/06/24 15:17 128 H 18 96/72 96 12/06/24 12:28 97.5 F L 104 H 22 116/65 95 Intake and Output 12/06/24 12/07/24 12/07/24 22:59 06:59 14:59 Intake Total 125 Balance 125 Intake: Intake, IV Titration 125 Amount Diltiazem 125 mg In 125 Sodium Chloride 0.9% 100 ml @ 10 MG/HR 10 mls/hr IV .[id number] [facility] Rx#: [id number] Other: # Voids 2 # Bowel Movements 1 GENERAL: The patient is alert and oriented x3, not in any acute distress. Well developed, well nourished. HEENT: Pupils are round and equally reacting to light. EOMI. No scleral icterus. No conjunctival pallor. Normocephalic, atraumatic. No pharyngeal erythema. No thyromegaly. CARDIOVASCULAR: S1 and S2 present. No murmurs, rubs, or gallops. PULMONARY: Chest is clear to auscultation, no wheezing , no crackles. ABDOMEN: Soft, nontender, nondistended, normoactive bowel sounds. No palpable organomegaly. MUSCULOSKELETAL: No joint swelling or deformity. -EXTREMITIES: No cyanosis, clubbing, 2 to 3+ bilateral pitting leg l edema. NEUROLOGICAL: Gross neurological examination did not reveal any focal deficits. SKIN: No rashes. no petechiae. Results CBC & Chem 7: 12/06/24 13:31 12/06/24 13:31 Labs: Abnormal Lab Results - Last 24 Hours (Table) 12/06/24 12/06/24 12/06/24 Range/Units 13:31 13:31 13:31 Hgb 9.1 L D (11.4-16.0) gm/dL Hct 29.7 L (34.0-46.0) % MCV 72.8 L (80.0-100.0) fL MCH 22.4 L (25.0-35.0) pg MCHC 30.7 L (31.0-37.0) g/dL RDW 20.9 H (11.5-15.5) % PT 13.4 H (10.0-12.5) sec INR 1.3 H (<1.2) Potassium 2.9 L (3.5-5.1) mmol/L BUN 18 H (7-17) mg/dL Glucose 140 H (74-99) mg/dL Plasma Lactic Acid Angel (0.7-2.0) mmol/L Calcium 8.1 L (8.4-10.2) mg/dL AST 39 H (14-36) U/L 12/06/24 Range/Units 13:31 Hgb (11.4-16.0) gm/dL Hct (34.0-46.0) % MCV (80.0-100.0) fL MCH (25.0-35.0) pg MCHC (31.0-37.0) g/dL RDW (11.5-15.5) % PT (10.0-12.5) sec INR (<1.2) Potassium (3.5-5.1) mmol/L BUN (7-17) mg/dL Glucose (74-99) mg/dL Plasma Lactic Acid Angel 2.8 H* (0.7-2.0) mmol/L Calcium (8.4-10.2) mg/dL AST (14-36) U/L Assessment and Plan Assessment: -Acute CHF exacerbation, preserved EF -A-fib and RVR -Chronic anemia with recent GI bleed. multiple telangiectasia in the atrium consistent with gastric antral vascular ectasia with some active oozing status post argon plasma. She received 1 unit of blood transfusion during last admission. -Obesity, morbidly obese with BMI 56.6 Hearing disorder Hypertension Hyperlipidemia Osteoarthritis History of GERD Start IV Lasix 40 mg twice daily. Hold home oral dose of 40 mg twice daily as well Monitor input and output and creatinine Cardiology team consult Continue with amiodarone, Cardizem Continue with iron pill Patient counseled about fluid restriction and order placed for 1500/day Labs and medication were reviewed.. Continue same treatment. Continue with symptomatic treatment. Resume home medication. Monitor labs and vitals. DVT and GI prophylaxis. Further recommendations as per clinical course of the patient DVT prophylaxis: Subcutaneous heparin GI Prophylaxis: P Protonix twice daily PT/OT: Pending Prognosis is guarded
[2024-12-07] MEDS: FERROUS SULFATE 325 MG TAB PO SCH (11:00)
[2024-12-07] MEDS: DOCUSATE 100 MG CAP PO SCH (11:00)
[2024-12-07] MEDS: CYANOCOBALAMIN 1,000 MCG/ML 1 ML VIAL IM ONE (11:44)
--- NOTE | 2024-12-07 13:25 | P.CRDCN ---
History of Present Illness History of present illness: HISTORY OF PRESENT ILLNESS: This is a 69-year-old female with a past medical history significant for CAD with prior stenting of LAD, paroxysmal atrial fibrillation, hypertension, hyperlipidemia, valvular heart disease, dilated thoracic aorta, COPD, epistaxis, GI bleeding, and obesity. Patient follows in the office with Dr. Mensah. We have been asked to see the patient in consultation for CHF. Patient examined at the bedside in the emergency room. Patient presented to the hospital with a chief complaint of palpitations and shortness of breath. Patient also reports having nausea and bloating anytime she eats. She states this has been going on for quite a while. The patient was recently hospitalized for acute anemia. She was taken off Eliquis at that time and was instructed to follow-up outpatient with GI for endoscopy. DIAGNOSTICS: - EKG reveals atrial fibrillation with RVR. Repeat EKG reveals sinus mechanism. Bedside telemetry reveals atrial fibrillation with controlled ventricular rate. - Chest xray cardiomegaly and mild pulmonary vascular congestion - Laboratory data: WBC 5.9. Hemoglobin 9.1. Platelet count 297. Sodium 143. Potassium 2.9. BUN 18. Creatinine 1.01. Lactic acid 2.8. Troponin negative x 1. proBNP 670. - Current home cardiac medications include rosuvastatin 20 mg daily, metoprolol succinate 100 mg daily, Lasix 40 mg twice a day, and Cardizem CD 180 mg daily Patient underwent Lexiscan stress test in the office in September 2022 revealed nondiagnostic EKG stress testing and response to Lexiscan. Abnormal myocardial perfusion imaging with evidence of reversible defect of moderate size and moderate intensity involving the anterior wall of the left ventricle. This could be representing ischemia and could also be related to breast attenuation. Normal left ventricular systolic function - Most recent echocardiogram obtained in August 2024 revealed ejection fraction 60 to 65%, no obvious regional wall motion abnormalities, and no significant valvular dysfunction noted - Cardiac catheterization history: April 2019 with stenting of the distal LAD and mid LAD REVIEW OF SYSTEMS: At the time of my exam: CONSTITUTIONAL: Denies fever or chills. HEENT: Denies blurred vision, vision changes, or eye pain. Denies hemoptysis CARDIOVASCULAR: Denies chest pain. Denies orthopnea. Denies PND. Denies palpitations RESPIRATORY: + shortness of breath. GASTROINTESTINAL: Denies abdominal pain. Denies nausea or vomiting. HEMATOLOGIC: Reports history of GI bleed. GENITOURINARY: Denies any blood in urine. SKIN: Denies pruitis. Denies rash. PHYSICAL EXAM: VITAL SIGNS: Reviewed. GENERAL: Well-developed in no acute distress. HEENT: Head is normocephalic. Pupils are equal, round. Sclerae anicteric. Mucous membranes of the mouth are moist. Neck supple. No JVD or thyromegaly LUNGS: Respirations even and unlabored. Lungs essentially clear to auscultation bilaterally. HEART: Irregular rate and rhythm. S1 and S2 heard. Systolic murmur noted ABDOMEN: Soft. Nondistended. Nontender. EXTREMITIES: Normal range of motion. No clubbing or cyanosis. Peripheral pulses intact. Chronic bilateral lower extremity edema noted. NEUROLOGIC: Awake and alert. Oriented x 3. ASSESSMENT: Shortness of breath Paroxysmal atrial fibrillation with RVR Anemia History of GIB, 05/2024, multiple telangiectasia in the atrium consistent with gastric antral vascular ectasia with some active oozing status post argon plasma coagulation and small hiatal hernia. Colonoscopy revealed colon polyps status post polypectomy Chronic heart failure with preserved EF Chronic lower extremity edema, at baseline per patient Coronary artery disease with previous PCI of the LAD, 2019 Chronic hypoxic respiratory failure on home O2 Hypertension Hyperlipidemia History of GI bleeding and epistaxis History of COPD Dilated thoracic aorta Obstructive sleep apnea with CPAP use Morbid obesity: BMI 54.4 PLAN: No need to repeat echocardiogram Resume home cardiac medications Discontinue IV Lasix as patient is not in overt heart failure at the time of examination. Resume oral Lasix. Patient not anticoagulated secondary to history of GI bleed and anemia Continue to hold any anticoagulation. Recommend outpatient referral for left atrial appendage closure/Watchman device. Consult GI for evaluation Add oral amiodarone for rhythm control Continue telemetry monitoring Further recommendations pending patient course Nurse practitioner note has been reviewed by physician. Signing provider agrees with the documented findings, assessment, and plan of care documented by POULTRY [employer]ATCH[employer] MANAGER as a scribe. Past Medical History Past Medical History: Atrial Fibrillation, Heart Failure, GERD/Reflux, Hearing Disorder / Deafness, Hyperlipidemia, Hypertension, Myocardial Infarction ([place]), Osteoarthritis (OA), Sleep Apnea/CPAP/BIPAP Additional Past Medical History / Comment(s): SEE DR MENSAH'S H&P. RECENT FLU - END OF OCT 2022. HX DIVERTICULITIS, HIATAL HERNIA,USES CPAP SOMETIMES, HARD OF HEARING, HEADACHES. 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 Cardioversion, BILATERAL KNEE surgery Past Anesthesia/Blood Transfusion Reactions: No Reported Reaction Date of Last Stent Placement:: 2021 Past Psychological History: No Psychological Hx Reported Smoking Status: Former smoker Past Alcohol Use History: None Reported, Rare Past Drug Use History: None Reported - Past Family History Father Family Medical History: Hypertension, Myocardial Infarction ([place]) Additional Family Medical History / Comment(s): AT AGE 55 - MASSIVE HEART ATTACK, Mother Family Medical History: No Reported History Medications and Allergies Home Medications Medication Instructions Recorded Confirmed Type Rosuvastatin [Crestor] 20 mg PO DAILY 11/13/22 12/06/24 History Nitroglycerin Sl Tabs [Nitrostat] 0.4 mg SL Q5M PRN 02/10/23 12/06/24 History Albuterol Inhaler [Ventolin Hfa 2 puff INHALATION RT-Q4H PRN 06/01/24 12/06/24 History Inhaler] Diltiazem Cd [Cardizem CD] 180 mg PO DAILY 06/01/24 12/06/24 History Metoprolol Succinate (ER) [Toprol 100 mg PO DAILY 06/01/24 12/06/24 History XL] Multivitamins, Thera [Multivitamin 1 tab PO DAILY 06/01/24 12/06/24 History (formulary)] Pantoprazole [Protonix] 40 mg PO BID #120 tab 06/04/24 12/06/24 Rx Furosemide [Lasix] 40 mg PO BID 11/30/24 12/06/24 History Potassium Chloride ER [K-Dur 10] 10 meq PO DAILY 11/30/24 12/06/24 History Allergies Allergy/AdvReac Type Severity Reaction Status Date / Time codeine Allergy went into Verified 12/06/24 15:57 corticate position, unable to see colors Physical Exam Vitals: Vital Signs Temp Pulse Resp BP Pulse Ox 12/07/24 12:54 78 21 118/95 97 12/07/24 10:59 78 19 100 12/07/24 09:19 97.8 F 93 22 136/68 97 12/07/24 07:17 69 18 122/42 99 12/07/24 03:53 72 16 129/55 99 12/07/24 02:28 68 18 129/45 99 12/07/24 01:25 68 18 128/46 98 12/07/24 00:07 75 18 140/52 98 12/06/24 23:27 79 18 118/53 98 12/06/24 22:21 97.7 F 115 H 22 12/06/24 19:03 125 H 18 107/88 96 12/06/24 17:15 112 H 18 105/66 99 12/06/24 15:17 128 H 18 96/72 96 Intake and Output 12/06/24 12/07/24 12/07/24 22:59 06:59 14:59 Intake Total 125 Balance 125 Intake: Intake, IV Titration 125 Amount Diltiazem 125 mg In 125 Sodium Chloride 0.9% 100 ml @ 10 MG/HR 10 mls/hr IV .[id number] [facility] Rx#: [id number] Other: # Voids 2 # Bowel Movements 1 Results 12/06/24 13:31 12/06/24 13:31 Cardiac Enzymes 12/06/24 12/06/24 Range/Units 13:31 13:31 AST 39 H (14-36) U/L Troponin I <0.012 (0.000-0.034) ng/mL Coagulation 12/06/24 Range/Units 13:31 PT 13.4 H (10.0-12.5) sec APTT 22.3 (22.0-30.0) sec CBC 12/06/24 Range/Units 13:31 WBC 5.9 (3.8-10.6) k/uL RBC 4.07 (3.80-5.40) m/uL Hgb 9.1 L D (11.4-16.0) gm/dL Hct 29.7 L (34.0-46.0) % Plt Count 297 (150-450) k/uL Comprehensive Metabolic Panel 12/06/24 Range/Units 13:31 Sodium 143 (137-145) mmol/L Potassium 2.9 L (3.5-5.1) mmol/L Chloride 101 (98-107) mmol/L Carbon Dioxide 29 (22-30) mmol/L BUN 18 H (7-17) mg/dL Creatinine 1.01 (0.52-1.04) mg/dL Glucose 140 H (74-99) mg/dL Calcium 8.1 L (8.4-10.2) mg/dL AST 39 H (14-36) U/L ALT 26 (4-34) U/L Alkaline Phosphatase 76 (38-126) U/L Total Protein 7.9 (6.3-8.2) g/dL Albumin 3.8 (3.5-5.0) g/dL Current Medications Generic Name Dose Route Start Last Admin Trade Name Freq PRN Reason Stop Dose Admin Amiodarone HCl 200 mg 12/07/24 09:00 12/07/24 09:14 Amiodarone 200 Mg Tab PO 200 mg BID [facility] Administration Atorvastatin Calcium 40 mg 12/07/24 09:00 12/07/24 09:14 Atorvastatin 40 Mg Tab PO 40 mg DAILY [facility]AN[facility] Administration Cyanocobalamin 1,000 mcg 12/08/24 09:00 Cyanocobalamin 1,000 Mcg/Ml 1 Ml Vial IM DAILY [facility]ANSA Diltiazem HCl 180 mg 12/07/24 09:00 12/07/24 09:14 Diltiazem Cd 180 Mg Cap.Er.24h PO 180 mg DAILY [facility]AN[facility] Administration Docusate Sodium 100 mg 12/07/24 10:00 12/07/24 11:10 Docusate 100 Mg Cap PO Not Given DAILY [facility]AN[facility] Ferrous Sulfate 325 mg 12/07/24 09:45 12/07/24 11:00 Ferrous Sulfate 325 Mg Tab PO 325 mg BID-W/MEALS [facility]AN[facility] Administration Furosemide 40 mg 12/07/24 21:00 Furosemide 10 Mg/Ml 4 Ml Vial IV Q12HR [facility] Heparin Sodium (Porcine) 5,000 unit 12/07/24 21:00 Heparin Sodium,Porcine 5,000 Unit/Ml 1 Ml Vial SQ Q12HR [facility] Diltiazem HCl 125 mg/ Sodium 125 mls @ 10 mls/hr 12/06/24 13:30 12/07/24 07:07 Chloride IV Not Given .[id number] [facility] 10 MG/HR Sodium Chloride 1,000 mls @ 20 mls/hr 12/06/24 15:00 12/06/24 15:16 Saline 0.9% IV 20 mls/hr .Q24H [facility] Administration Metoprolol Succinate 100 mg 12/07/24 09:00 12/07/24 09:14 Metoprolol Succinate (Er) 100 Mg Tab.Er.24h PO 100 mg DAILY [facility] Administration Naloxone HCl 0.2 mg 12/06/24 14:57 Naloxone 0.4 Mg/Ml 1 Ml Vial IV Q2M PRN Opioid Reversal Pantoprazole Sodium 40 mg 12/07/24 21:00 Pantoprazole 40 Mg Tablet PO BID [facility] Intake and Output 12/06/24 12/07/24 12/07/24 22:59 06:59 14:59 Intake Total 125 Balance 125 Intake: Intake, IV Titration 125 Amount Diltiazem 125 mg In 125 Sodium Chloride 0.9% 100 ml @ 10 MG/HR 10 mls/hr IV .[id number] [facility] Rx#: [id number] Other: # Voids 2 # Bowel Movements 1 12/06/24 13:31 12/06/24 13:31
--- NOTE | 2024-12-07 14:13 | P.CONS ---
History of Present Illness - Reason for Consult Consult date: 12/07/24 Anemia, history of recent GI bleed Requesting physician: Maureen Curran - Chief Complaint Weakness, shortness of breath - History of Present Illness This is a pleasant 69-year-old female with a history of coronary artery disease with prior stenting, atrial fibrillation previously on Eliquis which was discontinued week ago, hypertension, hyperlipidemia, valvular heart disease, COPD, GI bleed, and morbid obesity who presented to the emergency department with complaints of shortness of breath and weakness. Patient was noted to have microcytic anemia on admission. Gastroenterology was consulted for history of GI bleed. Patient does have a history of symptomatic anemia and had undergone an upper endoscopy and colonoscopy in May [address] Ramírez. 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 Colonoscopy with findings of colon polyps status post polypectomy and sigmoid diverticulosis. Patient states she has had no black stool, no blood in her stool, no abdominal pain nausea or vomiting. Review of Systems REVIEW OF SYSTEMS: CARDIOPULMONARY: No chest pain. Shortness of breath at rest and with exertion. Gastrointestinal: No abdominal pain. No nausea or vomiting. No hematemesis, coffee-ground emesis. No rectal bleeding, or melena. GENITOURINARY: No dysuria or hematuria. MUSCULOSKELETAL: Reports normal range of motion., Joint pain. SKIN: No rashes. No jaundice. ENDOCRINE: No chills, fevers. No excessive weight gain or loss. No polydipsia or polyuria. PSYCHIATRIC: Unremarkable. NEUROLOGY: No change in mental status. Denies dizziness, headache. ENT: Vision unremarkable. CONSTITUTIONAL: No recent weight loss. No fever, chills, night sweats. Generalized weakness. Past Medical History Past Medical History: Atrial Fibrillation, Heart Failure, GERD/Reflux, Hearing Disorder / Deafness, Hyperlipidemia, Hypertension, Myocardial Infarction (MD), Osteoarthritis (OA), Sleep Apnea/CPAP/BIPAP Additional Past Medical History / Comment(s): SEE DR ALVARENGA'S H&P. RECENT FLU - END OF OCT 2022. HX DIVERTICULITIS, HIATAL HERNIA,USES CPAP SOMETIMES, HARD OF HEARING, HEADACHES. 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 Cardioversion, BILATERAL KNEE surgery Past Anesthesia/Blood Transfusion Reactions: No Reported Reaction Date of Last Stent Placement:: 2021 Past Psychological History: No Psychological Hx Reported Smoking Status: Former smoker Past Alcohol Use History: None Reported, Rare Past Drug Use History: None Reported - Past Family History Father Family Medical History: Hypertension, Myocardial Infarction (MD) Additional Family Medical History / Comment(s): AT AGE 55 - MASSIVE HEART ATTACK, Mother Family Medical History: No Reported History Medications and Allergies Home Medications Medication Instructions Recorded Confirmed Type Rosuvastatin [Crestor] 20 mg PO DAILY 11/13/22 12/06/24 History Nitroglycerin Sl Tabs [Nitrostat] 0.4 mg SL Q5M PRN 02/10/23 12/06/24 History Albuterol Inhaler [Ventolin Hfa 2 puff INHALATION RT-Q4H PRN 06/01/24 12/06/24 History Inhaler] Diltiazem Cd [Cardizem CD] 180 mg PO DAILY 06/01/24 12/06/24 History Metoprolol Succinate (ER) [Toprol 100 mg PO DAILY 06/01/24 12/06/24 History XL] Multivitamins, Thera [Multivitamin 1 tab PO DAILY 06/01/24 12/06/24 History (formulary)] Pantoprazole [Protonix] 40 mg PO BID #120 tab 06/04/24 12/06/24 Rx Furosemide [Lasix] 40 mg PO BID 11/30/24 12/06/24 History Potassium Chloride ER [K-Dur 10] 10 meq PO DAILY 11/30/24 12/06/24 History Allergies Allergy/AdvReac Type Severity Reaction Status Date / Time codeine Allergy went into Verified 12/06/24 15:57 corticate position, unable to see colors Physical Exam Vitals: Vital Signs Temp Pulse Resp BP Pulse Ox 12/07/24 09:19 97.8 F 93 22 136/68 97 12/07/24 07:17 69 18 122/42 99 12/07/24 03:53 72 16 129/55 99 12/07/24 02:28 68 18 129/45 99 12/07/24 01:25 68 18 128/46 98 12/07/24 00:07 75 18 140/52 98 12/06/24 23:27 79 18 118/53 98 12/06/24 22:21 97.7 F 115 H 22 12/06/24 19:03 125 H 18 107/88 96 12/06/24 17:15 112 H 18 105/66 99 12/06/24 15:17 128 H 18 96/72 96 12/06/24 12:28 97.5 F L 104 H 22 116/65 95 Intake and Output 12/06/24 12/07/24 12/07/24 22:59 06:59 14:59 Intake Total 125 Balance 125 Intake: Intake, IV Titration 125 Amount Diltiazem 125 mg In 125 Sodium Chloride 0.9% 100 ml @ 10 MG/HR 10 mls/hr IV .[id number] [facility] Rx#: [id number] Other: # Voids 2 # Bowel Movements 1 General appearance: The patient is alert, oriented, appears in no acute distress. Morbidly obese. HET: Head is normocephalic and atraumatic. Conjunctiva pink. Sclera anicteric. Neck: Supple without lymphadenopathy. Trachea midline. Heart: Regular. Lungs: Equal expansion, normal respiratory effort. Abdomen: Soft, nontender, nondistended. Skin: No rashes. No jaundice. Extremities: Normal skin color and turgor. Lower extremity edema. Neurological: No focal deficits. Alert and oriented x3. Results CBC & Chem 7: 12/06/24 13:31 12/06/24 13:31 Labs: Abnormal Lab Results - Last 24 Hours (Table) 12/06/24 12/06/24 12/06/24 Range/Units 13:31 13:31 13:31 Hgb 9.1 L D (11.4-16.0) gm/dL Hct 29.7 L (34.0-46.0) % MCV 72.8 L (80.0-100.0) fL MCH 22.4 L (25.0-35.0) pg MCHC 30.7 L (31.0-37.0) g/dL RDW 20.9 H (11.5-15.5) % PT 13.4 H (10.0-12.5) sec INR 1.3 H (<1.2) Potassium 2.9 L (3.5-5.1) mmol/L BUN 18 H (7-17) mg/dL Glucose 140 H (74-99) mg/dL Plasma Lactic Acid Angel (0.7-2.0) mmol/L Calcium 8.1 L (8.4-10.2) mg/dL AST 39 H (14-36) U/L 12/06/24 Range/Units 13:31 Hgb (11.4-16.0) gm/dL Hct (34.0-46.0) % MCV (80.0-100.0) fL MCH (25.0-35.0) pg MCHC (31.0-37.0) g/dL RDW (11.5-15.5) % PT (10.0-12.5) sec INR (<1.2) Potassium (3.5-5.1) mmol/L BUN (7-17) mg/dL Glucose (74-99) mg/dL Plasma Lactic Acid Angel 2.8 H* (0.7-2.0) mmol/L Calcium (8.4-10.2) mg/dL AST (14-36) U/L Comments: Chest x-ray reports cardiomegaly and mild pulmonary vascular congestion. Correlate with BNP for congestive heart failure. Assessment and Plan (1) Symptomatic anemia Narrative/Plan: 69-year-old female with history of symptomatic anemia found to have multiple telangiectasia with oozing and consistent with gastric antral vascular ectasia status post coagulation in May of this year. Patient has history atrial fibrillation has been on anticoagulation up until last Saturday. Patient presented last week with shortness of breath and anemia. She was transfused 1 unit of blood during that hospitalization. She returns back with symptomatic anemia with no signs or symptoms of GI bleed. However with previous history of multiple telangiectasia with oozing would recommend repeat upper endoscopy. Current Visit: No Status: Acute Code(s): D64.9 - ANEMIA, UNSPECIFIED SNOMED Code(s): 788133487 (2) GAVE (gastric antral vascular ectasia) Current Visit: Yes Status: Acute Code(s): K31.819 - ANGIODYSPLASIA OF STOMACH AND DUODENUM WITHOUT BLEEDING SNOMED Code(s): 72141673 (3) Atrial fibrillation with RVR Current Visit: Yes Status: Acute Code(s): I48.91 - UNSPECIFIED ATRIAL FIBRI LLATION SNOMED Code(s): 080891031811240 (4) Dyspnea Current Visit: No Status: Acute Code(s): R06.00 - DYSPNEA, UNSPECIFIED SNOMED Code(s): 994648114 (5) Morbid obesity Current Visit: No Status: Acute Code(s): E66.01 - MORBID (SEVERE) OBESITY DUE TO EXCESS CALORIES SNOMED Code(s): 642632277 Plan: 1. Continue symptomatic and supportive care 2. Diet as tolerated, n.p.o. after midnight 3. Hold anticoagulation 4. Avoid NSAID 5. Recommend weight loss 6. Continue with recommendations from cardiology 7. Daily CBC, transfuse for hemoglobin less than 7 Thank you for this consultation, we will continue to follow. Dr. Priyanka Lira I agree with the dictator's note, documented as a scribe by Mae Strauss.
[2024-12-07] MEDS ORDERED: LIDOCAINE 1% (10MG/ML) FOR IV START INTRADERMA PRN (18:03)
[2024-12-07] MEDS ORDERED: FUROSEMIDE 10 MG/ML 4 ML VIAL IV SCH (21:00)
[2024-12-07] MEDS: LACTATED RINGERS 1,000 ML IV SCH (21:29)
[2024-12-07] MEDS: PANTOPRAZOLE 40 MG TABLET PO SCH (21:30)
[2024-12-07] MEDS: HEPARIN SODIUM,PORCINE 5,000 UNIT/ML 1 ML VIAL SQ SCH (21:30)
[2024-12-08 09:49] LABS: Anisocytosis Moderate; Basophils % (A) 0 %; Eosinophils # (A) 0.1 k/uL (0-0.7); Eosinophils % (A) 2 %; HCT 28.2 % (34.0-46.0); HGB 8.4 gm/dL (11.4-16.0); Hypochromasia Marked; Lymphocytes # (A) 1.2 k/uL (1.0-4.8); Lymphocytes % (A) 16 %; MCH 21.9 pg (25.0-35.0); MCHC 29.6 g/dL (31.0-37.0); MCV 73.9 fL (80.0-100.0); Mean Platelet Volume 8.5; Microcytosis Moderate; Monocytes # (A) 0.4 k/uL (0-1.0); Monocytes % (A) 5 %; Neutrophils # (A) 5.6 k/uL (1.3-7.7); Neutrophils % (A) 74 %; Platelet Count 302 k/uL (150-450); Poikilocytosis Moderate; RBC 3.82 m/uL (3.80-5.40); RDW 20.3 % (11.5-15.5); WBC 7.6 k/uL (3.8-10.6)
--- NOTE | 2024-12-08 09:57 | P.PN ---
Subjective This is a pleasant 69 years old female with past medical history of multiple medical problems Patient was recently discharged from hospital 12/01-12/03 for acute shortness of breath thought secondary to anemia patient also with history of GI bleed, , multiple telangiectasia in the atrium consistent with gastric antral vascular ectasia with some active oozing status post argon plasma. She received 1 unit of blood transfusion during last admission. Patient was discharge home on and when she got home she felt more tired with palpitation and dyspnea was still there not improved so decided to come to the hospital However she denies chest pain She has mild headache and dizziness especially when she stands up Chronically she cannot walk or at least for, she can walk only inside the home No family member to help her with cooking or she moves slowly with a walker and there is a close by marked She denies smoking alcohol or illicit drugs No specific GI/ symptoms currently. She says she vomited twice last week and she had some diarrhea but it is once yesterday No new weakness or tingling No urinary complaints Her floor coverer apprentice is Dr. Hoff and receiving distribution station operator Dr. Sanchez Also on exam patient was noticed to have epigastric pain and tenderness She has bilateral leg edema proBNP is worse compared to last week 311 up to 670 But chest x-ray showing cardiomegaly with pulmonary vascular congestion EKG showing A-fib with a rate of 160 on admission Echocardiogram from 09/17/2014 showing ejection fraction of 60 to 65% Patient hemodynamically stable and afebrile Hemoglobin 9.1 and before that was 6 up to 8.8. Potassium 2.9 has been replaced. Liver enzymes not elevated. INR and troponin were negative Hide lactic acid came back to normal at 1.9 12/08 Patient breathing is improving, she is mildly tachypneic at rest. She was able to walk in the hallway. Her leg edema is 1+ No chest pain or abdominal pain Hemoglobin today is 8.4 Currently she is kept on oral Lasix 40 mg twice daily GI team are planning for endoscopy today Patient has borderline vitamin B12 which has been replaced Review of systems CONSTITUTIONAL: No fever, no malaise, no fatigue. HEENT: No recent visual problems or hearing problems. Denied any sore throat. HEMATOLOGICAL: Denies any bleeding or petechiae. GENITOURINARY: Denies any burning micturition, frequency, or urgency. MUSCULOSKELETAL/RHEUMATOLOGICAL: Denies any joint pain, swelling, or any muscle pain. ENDOCRINE: Denies any polyuria or polydipsia. Active Medications Generic Name Dose Route Start Last Admin Trade Name Freq PRN Reason Stop Dose Admin Amiodarone HCl 200 mg 12/07/24 09:00 12/08/24 09:00 Amiodarone 200 Mg Tab PO 200 mg BID HANSA Administration Atorvastatin Calcium 40 mg 12/07/24 09:00 12/08/24 09:01 Atorvastatin 40 Mg Tab PO 40 mg DAILY HANSA Administration Cyanocobalamin 1,000 mcg 12/08/24 10:00 Cyanocobalamin 500 Mcg Tab PO DAILY HANSA Diltiazem HCl 180 mg 12/07/24 09:00 12/08/24 09:01 Diltiazem Cd 180 Mg Cap.Er.24h PO 180 mg DAILY HANSA Administration Docusate Sodium 100 mg 12/07/24 10:00 12/07/24 11:10 Docusate 100 Mg Cap PO Not Given DAILY HANSA Ferrous Sulfate 325 mg 12/07/24 09:45 12/08/24 06:40 Ferrous Sulfate 325 Mg Tab PO 325 mg BID-W/MEALS HANSA Administration Furosemide 40 mg 12/07/24 16:00 12/07/24 16:43 Furosemide 40 Mg Tab PO 40 mg BID@0900,1600 HANSA Administration Heparin Sodium (Porcine) 5,000 unit 12/07/24 21:00 12/08/24 08:58 Heparin Sodium,Porcine 5,000 Unit/Ml 1 Ml Vial SQ Not Given Q12HR HANSA Lactated Ringer's 1,000 mls @ 20 mls/hr 12/07/24 18:15 12/07/24 21:29 Lactated Ringers IV 20 mls/hr .Q24H HANSA Administration Lidocaine HCl 0.1 ml 12/07/24 18:03 Lidocaine 1% (10mg/Ml) For Iv Start INTRADERMA PER PROTOCOL PRN IV Start Metoprolol Succinate 100 mg 12/07/24 09:00 12/08/24 09:01 Metoprolol Succinate (Er) 100 Mg Tab.Er.24h PO 100 mg DAILY HANSA Administration Naloxone HCl 0.2 mg 12/06/24 14:57 Naloxone 0.4 Mg/Ml 1 Ml Vial IV Q2M PRN Opioid Reversal Pantoprazole Sodium 40 mg 12/07/24 21:00 12/08/24 09:01 Pantoprazole 40 Mg Tablet PO 40 mg BID HANSA Administration Objective - Vital Signs Vital signs: Vital Signs Temp 97.4 F L 12/08/24 08:50 Pulse 72 12/08/24 08:50 Resp 17 12/08/24 08:50 BP 119/68 12/08/24 08:50 Pulse Ox 98 12/08/24 08:50 FiO2 Intake & Output 12/07/24 12/08/24 12/08/24 18:59 06:59 18:59 Intake Total 540 Output Total 250 Balance 290 Weight 118.6 kg Intake: Oral 540 Output: Urine 250 Other: Voiding Method Bedside Commode # Voids 1 # Bowel Movements 1 - Exam -GENERAL: The patient is alert and oriented x3, not in any acute distress. Well developed, well nourished. Morbidly obese HEENT: Pupils are round and equally reacting to light. EOMI. No scleral icterus. No conjunctival pallor. Normocephalic, atraumatic. No pharyngeal erythema. No thyromegaly. CARDIOVASCULAR: S1 and S2 present. No murmurs, rubs, or gallops. PULMONARY: Chest is clear to auscultation, no wheezing , no crackles. ABDOMEN: Soft, nontender, nondistended, normoactive bowel sounds. No palpable organomegaly. MUSCULOSKELETAL: No joint swelling or deformity. -EXTREMITIES: No cyanosis, clubbing, 1+ bilateral pitting leg edema NEUROLOGICAL: Gross neurological examination did not reveal any focal deficits. SKIN: No rashes. no petechiae. - Labs CBC & Chem 7: 12/08/24 09:26 12/06/24 13:31 Labs: Abnormal Lab Results - Last 24 Hours (Table) 12/08/24 Range/Units 09:26 Hgb 8.4 L (11.4-16.0) gm/dL Hct 28.2 L (34.0-46.0) % MCV 73.9 L (80.0-100.0) fL MCH 21.9 L (25.0-35.0) pg MCHC 29.6 L (31.0-37.0) g/dL RDW 20.3 H (11.5-15.5) % Assessment and Plan Assessment: -Acute CHF exacerbation, preserved EF -A-fib and RVR -Chronic anemia with recent GI bleed. multiple telangiectasia in the atrium consistent with gastric antral vascular ectasia with some active oozing status post argon plasma. She received 1 unit of blood transfusion during last admission. -Obesity, morbidly obese with BMI 56.6 Hearing disorder Hypertension Hyperlipidemia Osteoarthritis History of GERD Plan: Continue with oral Lasix Cardiology team consult Continue with amiodarone, Cardizem Continue with iron pill. Start vitamin B12 replacement therapy Patient counseled about fluid restriction and order placed for 1500/day GI team consult with plan for possible endoscopy t on 12/08 Labs and medication were reviewed.. Continue same treatment. Continue with symptomatic treatment. Resume home medication. Monitor labs and vitals. DVT and GI prophylaxis. Further recommendations as per clinical course of the patient DVT prophylaxis: Subcutaneous heparin GI Prophylaxis: P Protonix twice daily PT/OT: Pending Prognosis is guarded
[2024-12-08 10:19] LABS: African American GFR (CKD) 68 (>60 ml/min/1.73 sqM); Anion Gap 9 mmol/L; Blood Urea Nitrogen 17 mg/dL (7-17); Carbon Dioxide 34 mmol/L (22-30); Chloride 101 mmol/L (98-107); Glucose 138 mg/dL (74-99); Magnesium 1.8 mg/dL (1.6-2.3); Non-African American GFR(CKD) 59 (>60 ml/min/1.73 sqM); Potassium 3.1 mmol/L (3.5-5.1); Sodium 144 mmol/L (137-145)
[2024-12-08] MEDS: CYANOCOBALAMIN 1,000 MCG/ML 1 ML VIAL IM SCH (12:22)
--- NOTE | 2024-12-08 12:48 | P.PN ---
Subjective HISTORY OF PRESENT ILLNESS: This is a 69-year-old female with a past medical history significant for CAD with prior stenting of LAD, paroxysmal atrial fibrillation, hypertension, hyperlipidemia, valvular heart disease, dilated thoracic aorta, COPD, epistaxis, GI bleeding, and obesity. Patient follows in the office with Dr. Mensah. We have been asked to see the patient in consultation for CHF. Patient examined at the bedside in the emergency room. Patient presented to the hospital with a chief complaint of palpitations and shortness of breath. Patient also reports having nausea and bloating anytime she eats. She states this has been going on for quite a while. The patient was recently hospitalized for acute anemia. She was taken off Eliquis at that time and was instructed to follow-up outpatient with GI for endoscopy. DIAGNOSTICS: - EKG reveals atrial fibrillation with RVR. Repeat EKG reveals sinus mechanism. Bedside telemetry reveals atrial fibrillation with controlled ventricular rate. - Chest xray cardiomegaly and mild pulmonary vascular congestion - Laboratory data: WBC 5.9. Hemoglobin 9.1. Platelet count 297. Sodium 143. Potassium 2.9. BUN 18. Creatinine 1.01. Lactic acid 2.8. Troponin negative x 1. proBNP 670. - Current home cardiac medications include rosuvastatin 20 mg daily, metoprolol succinate 100 mg daily, Lasix 40 mg twice a day, and Cardizem CD 180 mg daily Patient underwent Lexiscan stress test in the office in September 2022 revealed nondiagnostic EKG stress testing and response to Lexiscan. Abnormal myocardial perfusion imaging with evidence of reversible defect of moderate size and mo derate intensity involving the anterior wall of the left ventricle. This could be representing ischemia and could also be related to breast attenuation. Normal left ventricular systolic function - Most recent echocardiogram obtained in August 2024 revealed ejection fraction 60 to 65%, no obvious regional wall motion abnormalities, and no significant valvular dysfunction noted - Cardiac catheterization history: April 2019 with stenting of the distal LAD and mid LAD 12/08/2024 Patient examined this morning the bedside. Patient is sitting up in chair. She denies chest pain or pressure. She states that her shortness of breath is improved today. She is scheduled to undergo endoscopy today. Telemetry this morning reveals sinus mechanism. PHYSICAL EXAM: VITAL SIGNS: Reviewed. GENERAL: Well-developed in no acute distress. HEENT: Head is normocephalic. Pupils are equal, round. Sclerae anicteric. Mucous membranes of the mouth are moist. Neck supple. No JVD or thyromegaly LUNGS: Respirations even and unlabored. Lungs essentially clear to auscultation bilaterally. HEART: Regular rate and rhythm. S1 and S2 heard. Systolic murmur noted ABDOMEN: Soft. Nondistended. Nontender. EXTREMITIES: Normal range of motion. No clubbing or cyanosis. Peripheral pulses intact. Chronic bilateral lower extremity edema noted. NEUROLOGIC: Awake and alert. Oriented x 3. ASSESSMENT: Shortness of breath Paroxysmal atrial fibrillation with RVR Anemia History of GIB, 05/2024, multiple telangiectasia in the atrium consistent with gastric antral vascular ectasia with some active oozing status post argon plasma coagulation and small hiatal hernia. Colonoscopy revealed colon polyps status post polypectomy Chronic heart failure with preserved EF Chronic lower extremity edema, at baseline per patient Coronary artery disease with previous PCI of the LAD, 2018 Chronic hypoxic respiratory failure on home O2 Hypertension Hyperlipidemia History of GI bleeding and epistaxis History of COPD Dilated thoracic aorta Obstructive sleep apnea with CPAP use Morbid obesity: BMI 54.4 PLAN: No need to repeat echocardiogram Continue current cardiac medications Patient not anticoagulated secondary to history of GI bleed and anemia Continue to hold any anticoagulation. Recommend outpatient referral for left atrial appendage closure/Watchman device. Continue telemetry monitoring Patient scheduled to undergo endoscopy today with GI Further recommendations pending patient course Nurse practitioner note has been reviewed by physician. Signing provider agrees with the documented findings, assessment, and plan of care documented by WEBLOGIC DEVELOPER as a scribe. Objective - Vital Signs Vital signs: Vital Signs Temp 97.6 F 12/08/24 11:12 Pulse 67 12/08/24 11:12 Resp 17 12/08/24 11:12 BP 105/67 12/08/24 11:12 Pulse Ox 100 12/08/24 11:12 FiO2 Intake & Output 12/07/24 12/08/24 12/08/24 18:59 06:59 18:59 Intake Total 540 Output Total 250 Balance 290 Weight 118.6 kg Intake: Oral 540 Output: Urine 250 Other: Voiding Method Bedside Commode Toilet # Voids 1 # Bowel Movements 1 - Labs CBC & Chem 7: 12/08/24 09:26 12/08/24 09:26 Labs: Abnormal Lab Results - Last 24 Hours (Table) 12/08/24 12/08/24 Range/Units 09:26 09:26 Hgb 8.4 L (11.4-16.0) gm/dL Hct 28.2 L (34.0-46.0) % MCV 73.9 L (80.0-100.0) fL MCH 21.9 L (25.0-35.0) pg MCHC 29.6 L (31.0-37.0) g/dL RDW 20.3 H (11.5-15.5) % Potassium 3.1 L (3.5-5.1) mmol/L Carbon Dioxide 34 H (22-30) mmol/L Glucose 138 H (74-99) mg/dL Calcium 8.0 L (8.4-10.2) mg/dL
[2024-12-08] MEDS: LACTATED RINGERS 1,000 ML IV ONE (12:55)
[2024-12-08] MEDS ORDERED: PROPOFOL 10 MG/ML 20 ML VIAL IV ONE (13:16)
[2024-12-08] MEDS ORDERED: LIDOCAINE 1% INJ 10MG/ML (20 ML MDV) ONE (13:16)
--- NOTE | 2024-12-08 13:33 | P.PCN ---
Date of Procedure: 12/08/24 Procedure(s) Performed: BRIEF HISTORY: Patient is a 69-year-old, pleasant, white female admitted to hospital with electrolyte deficiency anemia. She was admitted in May 2020 for severe symptomatic anemia and upper endoscopy and colonoscopy was done which revealed gastric antral vascular ectasia for which she underwent argon plasma coagulation and the colonoscopy revealed a small colon polyp that was removed. She was admitted to hospital with symptomatic anemia and a hemoglobin of 7.5 g/dL. She received a unit of blood transfusion about 5 days ago. History of A- fib on Eliquis which is on hold for the last 5 days. She denies any melena or rectal bleeding.. PROCEDURE PERFORMED: Esophagogastroduodenoscopy with argon plasma coagulation. PREOPERATIVE DIAGNOSIS: Anemia and history of gastric antral vascular ectasia diagnosed in May 2024. IV sedation per anesthesia. PROCEDURE: After informed consent was obtained, the patient was brought into the endoscopy unit. IV sedation was administered by Anesthesia under continuous monitoring. Initially the Olympus GIF-140 video endoscope was inserted into the mouth. Esophagus intubated without any difficulty. It was gradually advanced into the stomach and duodenum and carefully examined. The bulb and the second part of the duodenum appeared normal. The scope at this time was withdrawn to the stomach, adequately insufflated with air, and upon careful examination, mucosa of the antrum, some nodular gastritis. There is few scattered angioe ctasia identified in the gastric antrum but no active bleeding. Argon plasma coagulation was performed. There was evidence of gastric sleeve surgery identified and the mucosa in the gastric sleeve appeared normal.. Small hiatal hernia with few Landon erosions noted. The scope was then withdrawn into the esophagus. The GE junction was located at 39 cm from the incisors. The esophagus appeared normal. There were no erosions or ulcerations seen and the patient tolerated the procedure well. IMPRESSION: 1. Few scattered angioectasia in the gastric antrum with no oozing status post argon plasma coagulation. 2. Mild nodular gastritis 3. Evidence of gastric sleeve surgery 4. Small hiatal hernia with Landon erosions. RECOMMENDATIONS: The findings of this examination were discussed with the patient. Will monitor CBC daily. Diet will be advanced as tolerated..
[2024-12-08] MEDS: CYANOCOBALAMIN 500 MCG TAB PO SCH (17:36)
[2024-12-09 06:53] LABS: Anisocytosis Moderate; Basophils % (A) 0 %; Eosinophils # (A) 0.2 k/uL (0-0.7); Eosinophils % (A) 2 %; HCT 27.3 % (34.0-46.0); HGB 8.1 gm/dL (11.4-16.0); Hypochromasia Marked; Lymphocytes # (A) 1.4 k/uL (1.0-4.8); Lymphocytes % (A) 14 %; MCH 21.8 pg (25.0-35.0); MCHC 29.8 g/dL (31.0-37.0); MCV 73.2 fL (80.0-100.0); Mean Platelet Volume 7.6; Microcytosis Marked; Monocytes # (A) 0.5 k/uL (0-1.0); Monocytes % (A) 5 %; Neutrophils # (A) 7.8 k/uL (1.3-7.7); Neutrophils % (A) 77 %; Platelet Count 295 k/uL (150-450); Poikilocytosis Marked; RBC 3.73 m/uL (3.80-5.40); RDW 20.6 % (11.5-15.5); WBC 10.1 k/uL (3.8-10.6)
[2024-12-09 07:16] LABS: African American GFR (CKD) 71 (>60 ml/min/1.73 sqM); Anion Gap 8 mmol/L; Blood Urea Nitrogen 14 mg/dL (7-17); Calcium 7.6 mg/dL (8.4-10.2); Carbon Dioxide 34 mmol/L (22-30); Chloride 100 mmol/L (98-107); Glucose 130 mg/dL (74-99); Non-African American GFR(CKD) 61 (>60 ml/min/1.73 sqM); Potassium 3.1 mmol/L (3.5-5.1); Sodium 142 mmol/L (137-145)
[2024-12-09] MEDS ORDERED: Potassium Replacement Protocol 1 EACH MISC MISCELLANE PRN (09:09)
[2024-12-09] MEDS: POTASSIUM CHLORIDE ER 20 MEQ TAB.ER PO SCH (09:29)
[2024-12-09] MEDS ORDERED: MAGNESIUM OXIDE 400 MG TAB PO SCH (10:15)
--- NOTE | 2024-12-09 11:29 | P.PN ---
Subjective Progress Note Date: 12/09/24 Principal diagnosis: Anemia This is a pleasant 69-year-old female with a history of coronary artery disease with prior stenting, atrial fibrillation previously on Eliquis which was discontinued week ago, hypertension, hyperlipidemia, valvular heart disease, COPD, GI bleed, and morbid obesity who presented to the emergency department with complaints of shortness of breath and weakness. Patient was noted to have microcytic anemia on admission. Gastroenterology was consulted for history of GI bleed. Patient does have a history of symptomatic anemia and had undergone an upper endoscopy and colonoscopy in May [address] Ramírez. 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 Colonoscopy with findings of colon polyps status post polypectomy and sigmoid diverticulosis. Patient states she has had no black stool, no blood in her stool, no abdominal pain nausea or vomiting. 12/09/2024 Patient seen and examined today as a follow-up. Yesterday she underwent upper endoscopy with findings of few scattered angioectasia in the gastric antrum with no oozing status post argon plasma coagulation. Mild nodular gastritis evidence of the gastric sleeve surgery and small hiatal hernia with Landon erosions. Patient's hemoglobin is stable today at 8.1. She denies any blood in her stool or black stool. Denies any abdominal pain, nausea or vomiting. Patient's potas sium was 3.1 and will plan for replacement. Objective - Vital Signs Vital signs: Vital Signs Temp 98.0 F 12/08/24 20:00 Pulse 73 12/09/24 04:40 Resp 18 12/09/24 04:40 BP 119/74 12/09/24 04:40 Pulse Ox 98 12/09/24 04:40 FiO2 Intake & Output 12/08/24 12/09/24 12/09/24 18:59 06:59 18:59 Intake Total 1125 Output Total 900 Balance 1125 -900 Weight 119.2 kg Intake: IV 200 Intake, IV Titration 120 Amount Lactated Ringers 1,000 ml 120 @ 20 mls/hr IV .Q24H [facility] Rx#:[id number] Oral 805 Output: Urine 900 Other: Voiding Method Toilet Toilet # Voids 1 1 # Bowel Movements 1 1 - Exam General appearance: The patient is alert, oriented, appears in no acute distress. HET: Head is normocephalic and atraumatic. Conjunctiva pink. Sclera anicteric. Neck: Supple without lymphadenopathy. Abdomen: Soft, nontender, nondistended. Morbidly obese. Extremities: Normal skin color and turgor. No pedal edema Skin: No rashes, no jaundice Neurological: No focal deficits. Alert and oriented. - Labs CBC & Chem 7: 12/09/24 06:37 12/09/24 06:37 Labs: Abnormal Lab Results - Last 24 Hours (Table) 12/08/24 12/08/24 12/09/24 Range/Units 09:26 09:26 06:37 RBC 3.73 L (3.80-5.40) m/uL Hgb 8.4 L 8.1 L (11.4-16.0) gm/dL Hct 28.2 L 27.3 L (34.0-46.0) % MCV 73.9 L 73.2 L (80.0-100.0) fL MCH 21.9 L 21.8 L (25.0-35.0) pg MCHC 29.6 L 29.8 L (31.0-37.0) g/dL RDW 20.3 H 20.6 H (11.5-15.5) % Neutrophils # 7.8 H (1.3-7.7) k/uL Potassium 3.1 L (3.5-5.1) mmol/L Carbon Dioxide 34 H (22-30) mmol/L Glucose 138 H (74-99) mg/dL Calcium 8.0 L (8.4-10.2) mg/dL 12/09/24 Range/Units 06:37 RBC (3.80-5.40) m/uL Hgb (11.4-16.0) gm/dL Hct (34.0-46.0) % MCV (80.0-100.0) fL MCH (25.0-35.0) pg MCHC (31.0-37.0) g/dL RDW (11.5-15.5) % Neutrophils # (1.3-7.7) k/uL Potassium 3.1 L (3.5-5.1) mmol/L Carbon Dioxide 34 H (22-30) mmol/L Glucose 130 H (74-99) mg/dL Calcium 7.6 L (8.4-10.2) mg/dL Assessment and Plan (1) Symptomatic anemia Narrative/Plan: 69-year-old female with history of symptomatic anemia found to have multiple telangiectasia with oozing and consistent with gastric antral vascular ectasia status post coagulation in May of this year. Patient has history atrial fibrillation has been on anticoagulation up until last Saturday. Patient presented last week with shortness of breath and anemia. She was transfused 1 unit of blood during that hospitalization. She returns back with symptomatic anemia with no signs or symptoms of GI bleed. However with previous history of multiple telangiectasia with oozing would recommend repeat upper endoscopy. Patient is status post upper endoscopy with findings of few scattered telangiectasia without any active oozing status post argon plasma coagulation. Amongst other findings. Anemia likely secondary to previous bleeding telangiectasia secondary to anticoagulation which she has been discontinued now over 1 week with no plans from cardiology to resume. Hemoglobin stable. Current Visit: No Status: Acute Code(s): D64.9 - ANEMIA, UNSPECIFIED SNOMED Code(s): 767654838 (2) GAVE (gastric antral vascular ectasia) Current Visit: Yes Status: Acute Code(s): K31.819 - ANGIODYSPLASIA OF STOMACH AND DUODENUM WITHOUT BLEEDING SNOMED Code(s): 75041016 (3) Atrial fibrillation with RVR Current Visit: Yes Status: Acute Code(s): I48.91 - UNSPECIFIED ATRIAL FIBRILLATION SNOMED Code(s): 107594236321002 (4) Dyspnea Current Visit: No Status: Acute Code(s): R06.00 - DYSPNEA, UNSPECIFIED SNOMED Code(s): 399586562 (5) Morbid obesity Current Visit: No Status: Acute Code(s): E66.01 - MORBID (SEVERE) OBESITY DUE TO EXCESS CALORIES SNOMED Code(s): 096317851 Plan: 1. Continue symptomatic and supportive care 2. Diet as tolerated 3. Continue to hold anticoagulation 4. Avoid NSAID 5. Recommend weight loss 6. Cardiology on consult, they discontinued Eliquis during patient's last hospitalization and recommend not resuming anticoagulation patient is supposed to follow-up for possible Watchman procedure. 7. Continue Protonix 40 mg twice daily Thank you for this consultation, patient is cleared from gastroenterology for discharge. Dr. Priyanka Lira I agree with the dictator's note, documented as a scribe by Mae Strauss.
--- NOTE | 2024-12-09 12:00 | CDI ---
Documentation Clarification Form Date: 12/09/2024 11:46:51 AM From: Ania Vasquez RN CCDS Phone: [phone] Admit Date: 12/06/2024 03:00:00 PM Patient Name: Rae Ortega Visit Number: [id number] Discharge Date: ATTENTION: The Clinical Documentation Specialists (CDI) and [facility] Coding Staff appreciate your assistance in clarifying documentation. Please respond to the clarification below the line at the bottom and electronically sign. The CDI & [facility] Coding staff will review the response and follow-up if needed. Please note: Queries are made part of the Legal Health Record. If you have any questions, please contact the author of this message via ITS. Doctor: Shady E Sheet Conflicting documentation has been found in the medical record. As attending physician, please provide clarification. Acute CHF exacerbation preserved EF, 12/07- HP. Chronic heart failure with preserved EF, 12/07- Cardiology consult History/Risk Factors: 69 year old female presents to the ED for shortness of breath she did have palpitations yesterday. Was discharged from our facility three days ago for low hgb and taken of anticoagulation medications. Medical History: CHF, GERD, Hearing disorder, HLD, [place], OA and Sleep Apnea cpap/bipap. 12/06 ED note Clinical Indicators: VSS: 12/06 B/P 116/65; HR 104; Temp 97.5 F Oral; RR 22, SpO2 95% 2L nc Lab: Pro BNP 12/06: 670 ECHO, 09/17/2024: EF 60-65% Normal LV function: Mildly increased septal wall thickness. Mildly increased posterior wall thickness. Mildly increased left ventricular diastolic volume. Treatment: 12/07 Lasix 40mg po bid; 12/07 Toprol Xl 100mg po daily, Please clarify which diagnosis is most appropriate: [ ] Acute CHF exacerbation preservered EF [ x ] Chronic heart failure with preserved EF [ ] Other (please specify) [ ] Unable to determine (Template Last Revised: January 2021) MTDD
--- NOTE | 2024-12-09 13:06 | P.PN ---
Subjective HISTORY OF PRESENT ILLNESS: This is a 69-year-old female with a past medical history significant for CAD with prior stenting of LAD, paroxysmal atrial fibrillation, hypertension, hyperlipidemia, valvular heart disease, dilated thoracic aorta, COPD, epistaxis, GI bleeding, and obesity. Patient follows in the office with Dr. Mensah. We have been asked to see the patient in consultation for CHF. Patient examined at the bedside in the emergency room. Patient presented to the hospital with a chief complaint of palpitations and shortness of breath. Patient also reports having nausea and bloating anytime she eats. She states this has been going on for quite a while. The patient was recently hospitalized for acute anemia. She was taken off Eliquis at that time and was instructed to follow-up outpatient with GI for endoscopy. DIAGNOSTICS: - EKG reveals atrial fibrillation with RVR. Repeat EKG reveals sinus mechanism. Bedside telemetry reveals atrial fibrillation with controlled ventricular rate. - Chest xray cardiomegaly and mild pulmonary vascular congestion - Laboratory data: WBC 5.9. Hemoglobin 9.1. Platelet count 297. Sodium 143. Potassium 2.9. BUN 18. Creatinine 1.01. Lactic acid 2.8. Troponin negative x 1. proBNP 670. - Current home cardiac medications include rosuvastatin 20 mg daily, metoprolol succinate 100 mg daily, Lasix 40 mg twice a day, and Cardizem CD 180 mg daily Patient underwent Lexiscan stress test in the office in September 2022 revealed nondiagnostic EKG stress testing and response to Lexiscan. Abnormal myocardial perfusion imaging with evidence of reversible defect of moderate size and mo derate intensity involving the anterior wall of the left ventricle. This could be representing ischemia and could also be related to breast attenuation. Normal left ventricular systolic function - Most recent echocardiogram obtained in August 2024 revealed ejection fraction 60 to 65%, no obvious regional wall motion abnormalities, and no significant valvular dysfunction noted - Cardiac catheterization history: April 2019 with stenting of the distal LAD and mid LAD 12/08/2024 Patient examined this morning the bedside. Patient is sitting up in chair. She denies chest pain or pressure. She states that her shortness of breath is improved today. She is scheduled to undergo endoscopy today. Telemetry this morning reveals sinus mechanism. 12/09/2024 Patient is s/p endoscopy revealing a few scattered angioectasia in the gastric atrium with no oozing status post argon plasma coagulation, mild nodular gastritis, evidence of gastric sleeve surgery, and small hiatal hernia with Landon erosions. Patient examined this morning. She is sitting up in the chair. She denies chest pain or pressure. She denies shortness of breath. Vital signs are stable. PHYSICAL EXAM: VITAL SIGNS: Reviewed. GENERAL: Well-developed in no acute distress. HEENT: Head is normocephalic. Pupils are equal, round. Sclerae anicteric. Mucous membranes of the mouth are moist. Neck supple. No JVD or thyromegaly LUNGS: Respirations even and unlabored. Lungs essentially clear to auscultation bilaterally. HEART: Regular rate and rhythm. S1 and S2 heard. Systolic murmur noted ABDOMEN: Soft. Nondistended. Nontender. EXTREMITIES: Normal range of motion. No clubbing or cyanosis. Peripheral pulses intact. Chronic bilateral lower extremity edema noted. NEUROLOGIC: Awake and alert. Oriented x 3. ASSESSMENT: Shortness of breath Paroxysmal atrial fibrillation with RVR Anemia, Patient is s/p endoscopy revealing a few scattered angioectasia in the gastric atrium with no oozing status post argon plasma coagulation, mild nodular gastritis, evidence of gastric sleeve surgery, and small hiatal hernia History of GIB, 05/2024, multiple telangiectasia in the atrium consistent with gastric antral vascular ectasia with some active oozing status post argon plasma coagulation and small hiatal hernia. Colonoscopy revealed colon polyps status post polypectomy Chronic heart failure with preserved EF Chronic lower extremity edema, at baseline per patient Coronary artery disease with previous PCI of the LAD, 2018 Chronic hypoxic respiratory failure on home O2 Hypertension Hyperlipidemia History of GI bleeding and epistaxis History of COPD Dilated thoracic aorta Obstructive sleep apnea with CPAP use Morbid obesity: BMI 54.4 PLAN: No need to repeat echocardiogram Continue current cardiac medications Patient not anticoagulated secondary to history of GI bleed and anemia. Continue to hold any anticoagulation. Recommend outpatient referral for left atrial appendage closure/Watchman device. Patient is stable for discharge from a cardiac standpoint Further recommendations pending patient course Nurse practitioner note has been reviewed by physician. Signing provider agrees with the documented findings, assessment, and plan of care documented by [employer] DEVELOPER as a scribe. Objective - Vital Signs Vital signs: Vital Signs Temp 98.0 F 12/08/24 20:00 Pulse 73 12/09/24 04:40 Resp 18 12/09/24 04:40 BP 119/74 01/22/25 04:40 Pulse Ox 98 12/09/24 04:40 FiO2 Intake & Output 12/08/24 12/09/24 12/09/24 18:59 06:59 18:59 Intake Total 1125 Output Total 900 Balance 1125 -900 Weight 119.2 kg Intake: IV 200 Intake, IV Titration 120 Amount Lactated Ringers 1,000 ml 120 @ 20 mls/hr IV .Q24H [facility] Rx#:[id number] Oral 805 Output: Urine 900 Other: Voiding Method Toilet Toilet # Voids 1 1 # Bowel Movements 1 1 - Labs CBC & Chem 7: 12/09/24 06:37 12/09/24 06:37 Labs: Abnormal Lab Results - Last 24 Hours (Table) 12/09/24 12/09/24 Range/Units 06:37 06:37 RBC 3.73 L (3.80-5.40) m/uL Hgb 8.1 L (11.4-16.0) gm/dL Hct 27.3 L (34.0-46.0) % MCV 73.2 L (80.0-100.0) fL MCH 21.8 L (25.0-35.0) pg MCHC 29.8 L (31.0-37.0) g/dL RDW 20.6 H (11.5-15.5) % Neutrophils # 7.8 H (1.3-7.7) k/uL Potassium 3.1 L (3.5-5.1) mmol/L Carbon Dioxide 34 H (22-30) mmol/L Glucose 130 H (74-99) mg/dL Calcium 7.6 L (8.4-10.2) mg/dL
[2024-12-09 14:41] VITALS: BP 122/74; PULSE 70; RESP 16; TEMP 98
--- NOTE | 2024-12-16 11:55 | P.DS ---
Providers Date of admission: 12/06/24 15:00 Attending physician: Lukasz Guillaume Consults: 12/06/24 14:57 Consult Physician Routine Consulting Provider: Spenser Mensah Consult Reason/Comments: afib rvr Do you want consulting provider notified?: Yes 12/07/24 08:21 Consult Physician Routine Consulting Provider: Judy Lira Consult Reason/Comments: anemia, recent admission for GIB Do you want consulting provider notified?: Yes [place] [facility] [place] Diagnoses: -Acute CHF exacerbation, preserved EF -A-fib and RVR -Chronic anemia with recent GI bleed. multiple telangiectasia in the atrium consistent with gastric antral vascular ectasia with some active oozing status post argon plasma. She received 1 unit of blood transfusion during last admission. -Obesity, morbidly obese with BMI 56.6 Hearing disorder Hypertension Hyperlipidemia Osteoarthritis History of GERD Hospital course: This is a pleasant 69 years old female with past medical history of multiple medical problems Patient was recently discharged from hospital 12/01-12/03 for acute shortness of breath thought secondary to anemia patient also with history of GI bleed, 05/2024, multiple telangiectasia in the atrium consistent with gastric antral vascular ectasia with some active oozing status post argon plasma. She received 1 unit of blood transfusion during last admission. Patient was discharge home on and when she got home she felt more tired with palpitation and dyspnea was still there not improved so decided to come to the hospital, However she denies chest pain She was evaluated by cardiology and GI service Echocardiogram from 09/17/2014 showing ejection fraction of 60 to 65% She underwent EGD with GI team on 08/08: 1. Few scattered angioectasia in the gastric antrum with no oozing status post argon plasma coagulation. 2. Mild nodular gastritis 3. Evidence of gastric sleeve surgery 4. Small hiatal hernia with Landon erosions. Postprocedure hemoglobin remained stable at 8.1 with no evidence of GI bleed. No other symptoms. Patient agreeable to go home Patient was cleared for discharge by cardiology and GI service Upon discharge we recommend to discontinue Eliquis and Recommend outpatient referral for left atrial appendage closure/Watchman device. Both verbal and written instruction provided for the patient and she verbalized understanding and acceptance Problems and management plan were discussed with the patient and he verbalized understanding and acceptance Patient was found stable and can be discharged home in guarded prognosis however he needs follow-up as an outpatient. Patient was instructed to follow up with PCP Dr. Owen within one week and patient agrees Patient was instructed to follow-up with Dr. Sanchez in 1 week, with Dr. Mcrae from GI in 2 weeks and she agrees Physical exam Gen: patient is a AAOx3, no distress CVS: S1-S2, RRR, no murmur Lungs: B/L CTA, no wheezing Abdomen: soft, no distention, no tenderness, positive bowel sounds Extremity: no leg edema or induration Time spent more than 35 minutes Patient Condition at Discharge: Serious Plan - Discharge Summary Discharge Rx Participant: No New Discharge Prescriptions: New Docusate [Colace] 100 mg PO DAILY PRN 7 Days #7 cap PRN Reason: Constipation Ferrous Sulfate [Iron (65 MG Elemental)] 325 mg PO BID-W/MEALS 10 Days #20 tab Magnesium Oxide [Mag-Ox] 400 mg PO BID 3 Days #6 tab Amiodarone [Cordarone] 200 mg PO BID #60 tab Cyanocobalamin [Vitamin B-12] 1,000 mcg PO DAILY #30 tab Continue Rosuvastatin [Crestor] 20 mg PO DAILY Metoprolol Succinate (ER) [Toprol XL] 100 mg PO DAILY Multivitamins, Thera [Multivitamin (formulary)] 1 tab PO DAILY Potassium Chloride ER [K-Dur 10] 10 meq PO DAILY Pantoprazole [Protonix] 40 mg PO BID 30 Days #60 tab Nitroglycerin Sl Tabs [Nitrostat] 0.4 mg SL Q5M PRN PRN Reason: Chest Pain Albuterol Inhaler [Ventolin Hfa Inhaler] 2 puff INHALATION RT-Q4H PRN PRN Reason: Shortness Of Breath Diltiazem Cd [Cardizem CD] 180 mg PO DAILY Furosemide [Lasix] 40 mg PO BID Discharge Medication List Rosuvastatin [Crestor] 20 mg PO DAILY 11/13/22 [History] Nitroglycerin Sl Tabs [Nitrostat] 0.4 mg SL Q5M PRN 02/10/23 [History] Albuterol Inhaler [Ventolin Hfa Inhaler] 2 puff INHALATION RT-Q4H PRN 06/01/24 [History] Diltiazem Cd [Cardizem CD] 180 mg PO DAILY 06/01/24 [History] Metoprolol Succinate (ER) [Toprol XL] 100 mg PO DAILY 06/01/24 [History] Multivitamins, Thera [Multivitamin (formulary)] 1 tab PO DAILY 06/01/24 [History] Furosemide [Lasix] 40 mg PO BID 11/30/24 [History] Potassium Chloride ER [K-Dur 10] 10 meq PO DAILY 11/30/24 [History] Amiodarone [Cordarone] 200 mg PO BID #60 tab 12/09/24 [Rx] Cyanocobalamin [Vitamin B-12] 1,000 mcg PO DAILY #30 tab 12/09/24 [Rx] Docusate [Colace] 100 mg PO DAILY PRN 7 Days #7 cap 12/09/24 [Rx] Ferrous Sulfate [Iron (65 MG Elemental)] 325 mg PO BID-W/MEALS 10 Days #20 tab 12/09/24 [Rx] Magnesium Oxide [Mag-Ox] 400 mg PO BID 3 Days #6 tab 12/09/24 [Rx] Pantoprazole [Protonix] 40 mg PO BID 30 Days #60 tab 12/09/24 [Rx] Follow up Appointment(s)/Referral(s): Spenser Mensah MD [STAFF PHYSICIAN] - 12/14/24 (we recommend left atrial appendage closure/Watchman device) Derian Brasher MD [Primary Care Provider] - 12/11/24 1:00 pm (With the [employer]) Judy Lira MD [STAFF PHYSICIAN] - 2 Weeks (Ensure office is aware this is an appointment following stay.) Patient Instructions/Handouts: A-fib (Atrial Fibrillation) (DC), Anemia (DC) Activity/Diet/Wound Care/Special Instructions: Heart healthy diet Activity is restricted till you see your doctor We recommend holding Eliquis or other anticoagulation till you see your doctor. We recommend in the state doing left atrial appendage closure/Watchman device with your investigative reporter Dr. Sanchez Discharge Disposition: HOME SELF-CARE
== END 2024-12-09 15:58 | disposition home or self-care (01) | DRG 309 ==
LOC: EC 12:26 → 3SCARD 15:00
PROVIDERS: ADMIT Hospitalist; ATTEND Hospitalist
PROC: 0W3P8ZZ Control Bleeding in Gastrointestinal Tract, Via Natural or Artificial Opening Endoscopic (ICD-10-PCS; principal; 2024-12-08 11:45)
DX: I48.0 Paroxysmal atrial fibrillation (principal); D62 Acute posthemorrhagic anemia; I50.32 Chronic diastolic (congestive) heart failure; I11.0 Hypertensive heart disease with heart failure; Z68.43 Body mass index [BMI] 50.0-59.9, adult; I78.1 Nevus, non-neoplastic; J44.9 Chronic obstructive pulmonary disease, unspecified; D53.9 Nutritional anemia, unspecified; J96.11 Chronic respiratory failure with hypoxia; K31.819 Angiodysplasia of stomach and duodenum without bleeding; E66.01 Morbid (severe) obesity due to excess calories; E78.5 Hyperlipidemia, unspecified; M19.90 Unspecified osteoarthritis, unspecified site; K21.9 Gastro-esophageal reflux disease without esophagitis; I25.10 Atherosclerotic heart disease of native coronary artery without angina pectoris; Z95.5 Presence of coronary angioplasty implant and graft; Z99.81 Dependence on supplemental oxygen; G47.33 Obstructive sleep apnea (adult) (pediatric); H91.90 Unspecified hearing loss, unspecified ear; I25.2 Old myocardial infarction; K44.9 Diaphragmatic hernia without obstruction or gangrene; K63.5 Polyp of colon; Z79.01 Long term (current) use of anticoagulants; Z79.899 Other long term (current) drug therapy; Z82.49 Family history of ischemic heart disease and other diseases of the circulatory system; Z86.0100 Personal history of colon polyps, unspecified; Z87.891 Personal history of nicotine dependence; Z96.652 Presence of left artificial knee joint; Z98.84 Bariatric surgery status; Z90.49 Acquired absence of other specified parts of digestive tract
CPT/HCPCS: 36415; 43255; 71046; 80048; 80053; 83605; 83690; 83735; 83880; 84484; 85025; 85610; 85730; 93005; 96365; 96366; 96375; 99291